=== PATIENT | male | born 1945 | race Two or more races ===

== ENCOUNTER 2017-04-21 11:38 | Inpatient (IN) | payer MEDICARE, OTHER ==
[2017-04-21] MEDS ORDERED: SODIUM CHLORIDE 0.9% 1,000 ML IV STA ×5 (11:41→14:20)
[2017-04-21] MEDS ORDERED: NALOXONE 0.4 MG/ML 10 ML VIAL IVP STA (11:48)
[2017-04-21 11:54] LABS: Glucose,Whole Blood 211 mg/dL (75-99)
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
[2017-04-21 12:12] LABS: CH 34.6; CHCM 31.5; HCT 45.6 % (39.0-53.0); HDW 2.23; HGB 14.3 gm/dL (13.0-17.5); MCH 34.5 pg (25.0-35.0); MCHC 31.3 g/dL (31.0-37.0); MCV 110.4 fL (80.0-100.0); Macrocytosis Marked; Mean Platelet Volume 7.5; RBC 4.13 m/uL (4.30-5.90); RDW 13.8 % (11.5-15.5); WBC 11.9 k/uL (3.8-10.6); WBC (Perox) 12.65
[2017-04-21 12:15] LABS: Calcium 7.2 mg/dL (8.4-10.2); Total Bilirubin 0.8 mg/dL (0.2-1.3)
[2017-04-21 12:33] LABS: Potassium 7.7 mmol/L (3.5-5.1)
[2017-04-21 12:34] LABS: Phosphorous 11.9 mg/dL (2.5-4.5)
[2017-04-21] MEDS ORDERED: CALCIUM CHLORIDE 100 MG/ML 10 ML SYRINGE IVP STA (12:34)
[2017-04-21] MEDS ORDERED: INSULIN REGULAR 100 UNIT/ML VIAL IV ONE ×3 (12:34→22:41)
[2017-04-21] MEDS ORDERED: DEXTROSE 50%-WATER 50 ML SYRINGE IVP STA ×3 (12:35→22:41)
[2017-04-21] MEDS ORDERED: DEXTROSE 5%-0.45% NACL 1,000 ML IV ONE (12:36)
[2017-04-21] MEDS ORDERED: SODIUM CHLORIDE 0.9% 500 ML IV STA (12:36)
[2017-04-21 12:41] LABS: Add Differential Manual Differential; Manual Review Performed
[2017-04-21] MEDS ORDERED: SODIUM ACETATE 50 MEQ in WATER FOR INJECTION, STERILE 250 ML IV ONE (12:45)
[2017-04-21] MEDS ORDERED: RX INFO: IV CONTRAST WAS GIVEN 1 EACH MISC MISCELLANE PRN ×2 (12:45→13:02)
--- NOTE | 2017-04-21 12:54 | CT ---
EXAMINATION TYPE: CT brain wo con DATE OF EXAM: 04/21/2017 COMPARISON: NONE HISTORY: Altered mental status CT DLP: 2606 mGycm Automated exposure control for dose reduction was used. FINDINGS: Exam limited by motion artifact Mild generalized degenerative change. No acute hemorrhage or midline shift. No mass effect. Calvarium intact. Could not exclude a hyperdense artery sign within the basilar tip IMPRESSION: NO ACUTE HEMORRHAGE. Could not exclude a hyperdense artery sign within the tip of the basilar artery and possible acute thrombus. Recommend MRI and clinical correlation.
[2017-04-21 13:01] LABS: Creatine Kinase MB 3.9 ng/mL (0.0-2.4); Troponin I 0.207 ng/mL (0.000-0.034)
[2017-04-21 13:03] LABS: INR 1.7 (<1.1); Prothrombin Time 16.7 sec (9.0-12.0)
--- NOTE | 2017-04-21 13:11 | XR ---
EXAMINATION TYPE: XR chest 1V portable DATE OF EXAM: 04/21/2017 COMPARISON: Chest CT May 17, 2016 HISTORY: Chest pain TECHNIQUE: Single AP portable frontal semiupright view of the chest is obtained. FINDINGS: Exam suboptimal secondary to portable technique and patient's large body habitus. There is persistent cardiomegaly. There is chronic parenchymal change without suspicious new focal airspace o pacity, pleural effusion, or pneumothorax seen. Elevated right hemidiaphragm is noted. There is left basilar scarring. The visualized osseous structures are intact. IMPRESSION: Cardiomegaly and chronic parenchymal changes with persistent left basilar scarring and/o r atelectasis, no new infiltrate is seen.
[2017-04-21] MEDS ORDERED: DILTIAZEM 5 MG/ML 5 ML VIAL IVP STA (13:16)
[2017-04-21 13:18] LABS: Alcohol <10 mg/dL
[2017-04-21] MEDS ORDERED: IPRATROPIUM-ALBUTEROL 3 ML NEB INHALATION STA (13:21)
[2017-04-21 14:05] LABS: ABG Base Excess -7.5 mmol/L; ABG HCO3 18 mmol/L (21-25); ABG PCO2 41 mmHg (35-45); ABG PH 7.26 (7.35-7.45); ABG PO2 163 mmHg (83-108); ABG TCO2 20 mmol/L (19-24)
[2017-04-21 14:06] LABS: INR 1.8 (<1.1); Partial Thromboplastin Time 27.7 sec (22.0-30.0); Prothrombin Time 17.5 sec (9.0-12.0)
[2017-04-21 14:10] LABS: ALT 94 U/L (21-72); AST 155 U/L (17-59); Acetaminophen <10.0 ug/mL; Alkaline Phosphatase 116 U/L (38-126); Anion Gap 16 mmol/L; Blood Urea Nitrogen 33 mg/dL (9-20); Calcium 7.4 mg/dL (8.4-10.2); Carbon Dioxide 24 mmol/L (22-30); Chloride 97 mmol/L (98-107); Glucose 131 mg/dL (74-99); Non-African American GFR(MDRD) 16 (>60 ml/min/1.73 sqM); Salicylate <1.0 mg/dL; Sodium 137 mmol/L (137-145); Total Bilirubin 0.6 mg/dL (0.2-1.3); Total Protein 7.1 g/dL (6.3-8.2)
[2017-04-21 14:12] LABS: Amorphous Sediment,Urine Rare /hpf; Appearance,Urine Cloudy (Clear); Bilirubin,Urine Negative (Negative); Glucose,Urine (UA) Negative (Negative); Ketones,Urine Negative (Negative); Leukocyte Esterase,Urine Negative (Negative); Mucus,Urine Rare /hpf; Nitrite,Urine Negative (Negative); PH, Urine 5.5 (5.0-8.0); Particle Count 7995; Protein,Urine Trace (Negative); RBC,Urine <1 /hpf (0-5); Specific Gravity,Urine 1.008 (1.001-1.035); UA Billing (MACRO vs. MICRO) MICRO; Urobilinogen,Urine <2.0 mg/dL (<2.0); WBC,Urine 1 /hpf (0-5)
[2017-04-21 14:18] LABS: Potassium 7.5 mmol/L (3.5-5.1)
[2017-04-21] MEDS ORDERED: PIPERACILLIN-TAZOBACTAM 3.375 GM in DEXTROSE/WATER 1 50ML.BAG IVPB STA (14:20)
[2017-04-21] MEDS ORDERED: methylPREDNISolone SOD SUCCI 125 MG/2 ML VIAL IV STA (14:23)
[2017-04-21] MEDS ORDERED: CALCIUM GLUCONATE 1,000 MG in SODIUM CHLORIDE 0.9% 100 ML IVPB ONE ×2 (14:30→22:41)
[2017-04-21 14:32] LABS: Creatine Kinase MB 4.9 ng/mL (0.0-2.4)
[2017-04-21 14:34] LABS: Troponin I 0.289 ng/mL (0.000-0.034)
[2017-04-21] MEDS ORDERED: NITROGLYCERIN SL TABS 0.4 MG TAB SUBLINGUAL PRN (15:07)
[2017-04-21] MEDS ORDERED: NALOXONE 0.4 MG/ML 1 ML VIAL IV PRN (15:07)
[2017-04-21] MEDS ORDERED: DEXTROSE 5%-0.9% NACL 1,000 ML IV SCH (15:15)
[2017-04-21 15:45] LABS: Glucose,Whole Blood 69 mg/dL (75-99)
--- NOTE | 2017-04-21 15:53 | CT ---
EXAMINATION TYPE: CT abdomen pelvis wo con DATE OF EXAM: 04/21/2017 COMPARISON: Ultrasound kidneys 06/06/2016 HISTORY: Abnormal renal labwork. CT DLP: 2934.10 mGycm Automated exposure control for dose reduction was used. TECHNIQUE: Helical acquisition of images was performed from the lung bases through the pelvis. FINDINGS: Exam limited due to overlying artifact. LUNG BASES: Heart is enlarged and there is bibasilar subsegmental atelectasis or infiltrate with tiny right effusion. LIVER/GB: Liver appears reduced in attenuation suggestive of fatty infiltration. Previous gallbladder surgery noted.. PANCREAS: No significant abnormality is seen. SPLEEN: No significant abnormality is seen. ADRENALS: No significant abnormality is seen. KIDNEYS: Echodensity within the right kidney is indeterminate by noncontrast technique.. FREE AIR: No free air is visualized URINARY BLADDER: No Henao catheter is seen in the bladder. ADENOPATHY: None visualized. OSSEOUS STRUCTURES: No significant abnormality is seen. BOWEL: Diverticulosis of the colon without evidence of diverticulitis. The stomach is distended. OTHE R: IMPRESSION: 1. No hydronephrosis or nephrolithiasis. Indeterminate right renal lesion by noncontrast CT scan. Has been reported to represent simple cysts by previous ultrasound 2016. 2. Gastric distention. May been the basis of gastroparesis rather than gastric outlet obstruction. Co rrelate clinically. 3. Bibasilar atelectasis or infiltrate with tiny effusions.
[2017-04-21 16:06] LABS: Glucose,Whole Blood 151 mg/dL (75-99)
[2017-04-21 16:26] LABS: Glucose,Whole Blood 127 mg/dL (75-99)
[2017-04-21] MEDS: SODIUM CHLORIDE 0.9% 1,000 ML IV SCH (16:30)
[2017-04-21 19:47] LABS: Calcium 7.9 mg/dL (8.4-10.2); Potassium 4.6 mmol/L (3.5-5.1)
[2017-04-21] MEDS: IPRATROPIUM-ALBUTEROL 3 ML NEB INHALATION SCH (19:59)
[2017-04-21] MEDS: methylPREDNISolone SOD SUCCI 125 MG/2 ML VIAL IV SCH (20:15)
[2017-04-21 20:21] LABS: Glucose,Whole Blood 130 mg/dL (75-99)
[2017-04-21] MEDS: INSULIN LISPRO (humaLOG) 300 UNIT/3 ML VIAL SQ SCH (20:21)
[2017-04-21] MEDS ORDERED: PROPOFOL 10 MG/ML 20 ML VIAL IV ONE (21:10)
[2017-04-21] MEDS ORDERED: PHENYLEPHRINE-0.9% NACL SYG 1 MG/10 ML SYRINGE ONE (21:10)
[2017-04-21] MEDS ORDERED: PROPOFOL 50 ML IV ONE (21:13)
[2017-04-21] MEDS: NOREPINEPHRIN 4 MG-0.9% NS PMX 4 MG/250 ML ML IV SCH (21:45)
[2017-04-21 21:52] LABS: Calcium 7.4 mg/dL (8.4-10.2)
[2017-04-21 21:54] LABS: Potassium 7.1 mmol/L (3.5-5.1)
[2017-04-21 22:07] LABS: Troponin I 0.461 ng/mL (0.000-0.034)
--- NOTE | 2017-04-21 22:08 | XR ---
EXAMINATION TYPE: XR chest 1V portable DATE OF EXAM: 04/21/2017 COMPARISON: Today HISTORY: Check placement of tubing TECHNIQUE: Single frontal view of the chest is obtained. FINDINGS: Endotracheal tube is in good position. There is a nasogastric tube that appears in good po sition. Heart appears enlarged. There are chest leads. IMPRESSION: Tubing appears in good position. No heart failure. Cardiomegaly.
[2017-04-21] MEDS: PROPOFOL 500 MG in EMPTY BAG 1 BAG IV SCH (22:28)
[2017-04-21] MEDS: LACTULOSE 20 GM/30 ML CUP PO SCH ×2 (22:30→23:34)
[2017-04-21] MEDS ORDERED: SODIUM POLYSTYRENE SULFONATE 15 GM/60 ML BOTTLE PO STA (22:41)
[2017-04-21] MEDS ORDERED: ALBUTEROL NEBULIZED 2.5 MG/3 ML INHALATION STA (22:41)
[2017-04-21 23:28] LABS: ABG PH 7.12 (7.35-7.45)
[2017-04-21 23:29] LABS: ABG Base Excess -4.6 mmol/L; ABG HCO3 24 mmol/L (21-25); ABG PCO2 77 mmHg (35-45); ABG PO2 211 mmHg (83-108); ABG TCO2 26 mmol/L (19-24)
[2017-04-21] MEDS ORDERED: DEXTROSE 10 % IN WATER 250 ML IV STA (23:49)
[2017-04-21 23:54] LABS: Glucose,Whole Blood 193 mg/dL (75-99)
[2017-04-22] MEDS: INSULIN LISPRO (humaLOG) 300 UNIT/3 ML VIAL SQ SCH ×6 (00:10→20:24)
[2017-04-22] MEDS: methylPREDNISolone SOD SUCCI 125 MG/2 ML VIAL IV SCH ×2 (00:10→05:59)
[2017-04-22] MEDS: SODIUM CHLORIDE 0.9% 1,000 ML IV SCH (00:14)
[2017-04-22] MEDS: PROPOFOL 500 MG in EMPTY BAG 1 BAG IV SCH ×15 (00:47→23:33)
[2017-04-22 02:12] LABS: Calcium 7.7 mg/dL (8.4-10.2); Potassium 5.7 mmol/L (3.5-5.1)
[2017-04-22] MEDS: NOREPINEPHRIN 4 MG-0.9% NS PMX 4 MG/250 ML ML IV SCH (02:45)
[2017-04-22 03:26] LABS: Hemoglobin A1C 6.1 % (4.2-6.1)
[2017-04-22 04:17] LABS: Glucose,Whole Blood 200 mg/dL (75-99)
[2017-04-22 04:56] LABS: ABG Base Excess -2.7 mmol/L; ABG HCO3 22 mmol/L (21-25); ABG PCO2 38 mmHg (35-45); ABG PH 7.37 (7.35-7.45); ABG PO2 73 mmHg (83-108); ABG TCO2 23 mmol/L (19-24)
[2017-04-22 06:06] LABS: Calcium 7.9 mg/dL (8.4-10.2); Magnesium 1.5 mg/dL (1.6-2.3); Phosphorous 3.3 mg/dL (2.5-4.5); Potassium 4.7 mmol/L (3.5-5.1); Total Bilirubin 0.7 mg/dL (0.2-1.3); Total Protein 5.8 g/dL (6.3-8.2)
[2017-04-22 06:14] LABS: Basophils % (A) 0 %; CH 34.9; Eosinophils % (A) 0 %; HCT 40.4 % (39.0-53.0); HDW 2.44; HGB 13.7 gm/dL (13.0-17.5); Luc % (Auto) 1; Lymphocytes # (A) 0.6 k/uL (1.0-4.8); Lymphocytes % (A) 5 %; MCHC 33.9 g/dL (31.0-37.0); MCV 106.3 fL (80.0-100.0); Macrocytosis Moderate; Mean Platelet Volume 7.5; Monocytes # (A) 0.5 k/uL (0-1.0); Monocytes % (A) 4 %; Neutrophils # (A) 11.3 k/uL (1.3-7.7); Neutrophils % (A) 90 %; RDW 13.6 % (11.5-15.5); WBC 12.5 k/uL (3.8-10.6); WBC (Perox) 12.98
--- NOTE | 2017-04-22 07:14 | XR ---
EXAMINATION TYPE: XR chest 1V portable DATE OF EXAM: 04/22/2017 HISTORY: Tube placement. REFERENCE: Previous study dated 04/21/2017. FINDINGS: The patient is ET tube and NG tube remain in place, unchanged in appearance and position. The heart is enlarged. There is vascular congestion without summer edema. There is minimal blunting of both CP angles. I could not exclude small effusions. IMPRESSION: 1. CARDIOMEGALY. 2. VASCULAR CONGESTION. 3. I COULD NOT EXCLUDE VERY SMALL, BILATERAL EFFUSIONS.
[2017-04-22] MEDS: IPRATROPIUM-ALBUTEROL 3 ML NEB INHALATION SCH ×5 (07:30→23:19)
[2017-04-22 08:37] LABS: Glucose,Whole Blood 217 mg/dL (75-99)
[2017-04-22] MEDS: CHLORHEXIDINE GLUCONATE 15 ML CUP MUCOUS MEM SCH ×2 (08:46→20:24)
[2017-04-22] MEDS: PANTOPRAZOLE 40 MG/10 ML VIAL IV SCH (08:46)
[2017-04-22] MEDS: NICOTINE 21MG/24HR PATCH TRANSDERM SCH (08:46)
[2017-04-22 09:26] LABS: Mis test requested (Blood) Toxic Alcohols
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
[2017-04-22 09:47] LABS: Hepatitis B Surface Ag Index 0.05
[2017-04-22 09:53] LABS: Hepatitis B Core IgM Index 0.06
[2017-04-22 10:04] LABS: Hepatitis C Virus IgG Ab Reactive (Negative)
--- NOTE | 2017-04-22 10:14 | ECHOF ---
Referral Reason:elevTrop MEASUREMENTS -------- HEIGHT: 175.3 cm WEIGHT: 148.3 kg BP: 145/81 RVIDd: 3.4 cm (< 3.3) IVSd: 1.2 cm (0.6 - 1.1) LVIDd: 3.7 cm (3.9 - 5.3) LVPWd: 1.1 cm (0.6 - 1.1) IVSs: 1.9 cm LVIDs: 2.9 cm LVPWs: 1.8 cm Ao Diam: 3.4 cm (2.0 - 3.7) AV Cusp: 2.1 cm (1.5 - 2.6) LA Diam: 4.9 cm (2.7 - 3.8) RAP: 5.00 mmHg RVSP: 36.61 mmHg FINDINGS -------- Atrial fibrillation. This was a technically difficult study with suboptimal views. There is mild concentric left ventricular hypertrophy. Overall left ventricular systolic function is normal with, an EF between 55 - 60 %. The right ventricle is mildly enlarged. The left atrium is mildly dilated. The right atrium was not well visualized. 1.5mg of Definity was utilized for enhancement of images Aortic valve is trileaflet and is mildly thickened. There is trace mitral regurgitation. Mild tricuspid regurgitation present. The right ventricular systolic pressure, as measured by Doppler, is 36.61mmHg. The pulmonic valve was not well visualized. The aortic root size is normal. The pericardium is normal. CONCLUSIONS -------- 1. Atrial fibrillation. 2. There is trace mitral regurgitation. 3. Mild tricuspid regurgitation present. 4. The right ventricular systolic pressure, as measured by Doppler, is 36.61mmHg. 5. The pulmonic valve was not well visualized. 6. The aortic root size is normal. 7. The pericardium is normal. 8. This was a technically difficult study with suboptimal views. 9. There is mild concentric left ventricular hypertrophy. 10. Overall left ventricular systolic function is normal with, an EF between 55 - 60 %. 11. The right ventricle is mildly enlarged. 12. The left atrium is mildly dilated. 13. The right atrium was not well visualized. 14. 1.5mg of Definity was utilized for enhancement of images 15. Aortic valve is trileaflet and is mildly thickened. FELT PAD CUTTER: Piper Stratton RDCS
[2017-04-22] MEDS: ASPIRIN 325 MG TAB PO SCH (10:33)
[2017-04-22] MEDS: PIPERACILLIN-TAZOBACTAM 3.375 GM in DEXTROSE/WATER 1 50ML.BAG IVPB SCH ×2 (10:41→21:19)
--- NOTE | 2017-04-22 11:17 | CT ---
EXAMINATION TYPE: CT brain wo con DATE OF EXAM: 04/22/2017 COMPARISON: Previous study dated 04/21/2017. HISTORY: F/U study CT DLP: 1090.4 mGycm Automated exposure control for dose reduction was used. FINDINGS: There are generalized changes of sulcal prominence and ventriculomegaly, compatible with atrophic arlene nge. There is diffuse periventricular white matter lucency, compatible with small vessel ischemic arlene nge. Basilar artery appears normal on today's examination. There is no mass effect, midline shift or intracranial blood. There is mild mucoperiosteal thickening involving the ethmoid air cells anteriorly. The remainder the paranasal sinuses and mastoids are clear. IMPRESSION: 1. NO ACUTE INTRACRANIAL ABNORMALITY. 2. NO EVIDENCE OF THROMBUS WITHIN THE BASILAR ARTERY. THIS COULD BE CONFIRMED WITH AN MRA OF THE CIRC LE OF GAMINO. 3. ATROPHIC CHANGE. 4. CHRONIC WHITE MATTER ISCHEMIC CHANGE. 5. MINIMAL, MUCOPERIOSTEAL THICKENING INVOLVING THE ANTERIOR ETHMOID AIR CELLS BILATERALLY.
[2017-04-22 12:33] LABS: Glucose,Whole Blood 219 mg/dL (75-99)
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
[2017-04-22 16:16] LABS: Glucose,Whole Blood 205 mg/dL (75-99)
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
[2017-04-22 20:09] LABS: Glucose,Whole Blood 200 mg/dL (75-99)
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
[2017-04-22] MEDS: LACTULOSE 20 GM/30 ML CUP PO SCH (20:24)
[2017-04-22] MEDS: SODIUM BICARBONATE TAB 650 MG TAB PO SCH (20:25)
[2017-04-22 21:32] LABS: Magnesium 1.4 mg/dL (1.6-2.3); Potassium 3.8 mmol/L (3.5-5.1)
[2017-04-22] MEDS: POTASSIUM CHLORIDE ORAL LIQUID 40 MEQ/30 ML CUP PO SCH (23:11)
[2017-04-22] MEDS: MAGNESIUM SULFATE-D5W PMX 1 GM in DEXTROSE/WATER 1 100ML.BAG IVPB SCH (23:11)
[2017-04-23] MEDS ORDERED: INSULIN REGULAR BOLUS (FROM DRIP BAG) IV ONE (00:43)
[2017-04-23] MEDS: MAGNESIUM SULFATE-D5W PMX 1 GM in DEXTROSE/WATER 1 100ML.BAG IVPB SCH (00:46)
[2017-04-23] MEDS: POTASSIUM CHLORIDE ORAL LIQUID 40 MEQ/30 ML CUP PO SCH (00:46)
[2017-04-23] MEDS: PROPOFOL 500 MG in EMPTY BAG 1 BAG IV SCH ×16 (00:47→22:59)
[2017-04-23 00:51] LABS: Glucose,Whole Blood 258 mg/dL (75-99)
[2017-04-23] MEDS: SODIUM CHLORIDE 0.9% 1,000 ML IV SCH ×4 (00:53→17:52)
[2017-04-23] MEDS: HYDROmorphone 1 MG/ML 1 ML SYRINGE IVP PRN (01:38)
[2017-04-23] MEDS ORDERED: DILTIAZEM 5 MG/ML 5 ML VIAL IVP STA (01:47)
[2017-04-23 01:53] LABS: Glucose,Whole Blood 259 mg/dL (75-99)
[2017-04-23] MEDS: INSULIN REGULAR 100 UNIT in SODIUM CHLORIDE 0.9% 100 ML IV SCH ×3 (01:58→17:53)
[2017-04-23] MEDS: DILTIAZEM 125 MG in SODIUM CHLORIDE 0.9% 100 ML IV SCH ×2 (02:00→17:52)
[2017-04-23 02:41] LABS: Glucose,Whole Blood 231 mg/dL (75-99)
[2017-04-23] MEDS: IPRATROPIUM-ALBUTEROL 3 ML NEB INHALATION SCH ×6 (03:35→23:17)
[2017-04-23 03:51] LABS: Glucose,Whole Blood 217 mg/dL (75-99)
[2017-04-23 04:59] LABS: ABG HCO3 21 mmol/L (21-25); ABG PCO2 35 mmHg (35-45); ABG PO2 66 mmHg (83-108); ABG TCO2 22 mmol/L (19-24)
[2017-04-23 05:26] LABS: Basophils % (A) 0 %; CH 35.3; Eosinophils # (A) 0.1 k/uL (0-0.7); Eosinophils % (A) 1 %; HCT 37.7 % (39.0-53.0); HDW 2.31; HGB 13.1 gm/dL (13.0-17.5); Luc % (Auto) 1; Lymphocytes # (A) 0.3 k/uL (1.0-4.8); Lymphocytes % (A) 2 %; MCH 36.2 pg (25.0-35.0); MCHC 34.7 g/dL (31.0-37.0); MCV 104.3 fL (80.0-100.0); Macrocytosis Slight; Mean Platelet Volume 7.5; Monocytes # (A) 0.6 k/uL (0-1.0); Monocytes % (A) 5 %; Neutrophils # (A) 12.3 k/uL (1.3-7.7); Neutrophils % (A) 92 %; RBC 3.61 m/uL (4.30-5.90); RDW 13.9 % (11.5-15.5); WBC 13.4 k/uL (3.8-10.6); WBC (Perox) 13.62
[2017-04-23 05:29] LABS: Glucose,Whole Blood 214 mg/dL (75-99)
[2017-04-23 05:35] LABS: Calcium 7.2 mg/dL (8.4-10.2); Magnesium 1.9 mg/dL (1.6-2.3); Phosphorous 2.7 mg/dL (2.5-4.5); Potassium 4.4 mmol/L (3.5-5.1)
[2017-04-23 06:18] LABS: Glucose,Whole Blood 204 mg/dL (75-99)
[2017-04-23 07:15] LABS: Glucose,Whole Blood 220 mg/dL (75-99)
--- NOTE | 2017-04-23 07:57 | XR ---
EXAMINATION TYPE: XR chest 1V portable DATE OF EXAM: 04/23/2017 HISTORY: Tube placement. REFERENCE: Previous study dated 04/22/2017. FINDINGS: The patient is ET tube and NG tube remain in place, unchanged in appearance. The heart is enlarged. There is mild vascular congestion. There is some peribronchial cuffing. There is left basilar airspace disease. This has worsened. There is a small left effusion. IMPRESSION: WORSENING LEFT BASILAR AIRSPACE DISEASE WITH A CONCOMITANT EFFUSION.
[2017-04-23 08:05] LABS: Glucose,Whole Blood 228 mg/dL (75-99)
[2017-04-23] MEDS: SODIUM BICARBONATE TAB 650 MG TAB PO SCH ×2 (08:06→20:56)
[2017-04-23] MEDS: PIPERACILLIN-TAZOBACTAM 3.375 GM in DEXTROSE/WATER 1 50ML.BAG IVPB SCH ×2 (08:06→20:56)
[2017-04-23] MEDS: PANTOPRAZOLE 40 MG/10 ML VIAL IV SCH (08:06)
[2017-04-23] MEDS: ASPIRIN 325 MG TAB PO SCH (08:06)
[2017-04-23] MEDS: NICOTINE 21MG/24HR PATCH TRANSDERM SCH (08:07)
[2017-04-23] MEDS: CHLORHEXIDINE GLUCONATE 15 ML CUP MUCOUS MEM SCH ×2 (08:07→20:56)
[2017-04-23] MEDS: LACTULOSE 20 GM/30 ML CUP PO SCH ×2 (08:22→22:01)
[2017-04-23 09:25] LABS: Hemoglobin A1C 6.2 % (4.2-6.1)
[2017-04-23 09:33] LABS: Glucose,Whole Blood 203 mg/dL (75-99)
--- NOTE | 2017-04-23 09:53 | P.PN ---
Subjective Principal diagnosis: Altered mental status This is a 71-year-old gentleman who follows with Dr. Fuentes as his primary care physician. He has a history of hyperlipidemia, chronic obstructive pulmonary disease with chronic and ongoing tobacco dependence, diabetes mellitus , hypertension, atrial fibrillation, chronic liver disease. He presented here on 04/21/2017 with altered mental status. The patient developed acute respiratory failure and required intubation mechanical ventilatory support. He is seen again today in follow-up in the intensive care unit. He remains on the ventilator assist control 30 tidal volume 450 FiO2 60% and a PEEP of 5. Morning blood gases reveal a pO2 of 66, pCO2 34, pH 7.4. He said atrial fibrillation with a rapid ventricular response. He remains on a Cardizem drip at 7.5 mg per hour, norepinephrine at 1 mcg/m. Propofol at 70 mcg/kg/m. 0.9 normal saline at 100 mL per hour. Insulin drip at 8 units per hour. He is receiving a trickle tube feed of Vital HP at 10 mL per hour with a goal of 44. His chest x-ray reveals bilateral effusions with atelectasis/infiltrates the lung bases. He remains on Zosyn. He did receive 1 emergent dialysis treatment for his acute renal failure and hyperkalemia. Today's labs reveal creatinine 2.30 and a potassium of 4.4. Bicarb 19. He is receiving sodium bicarbonate 650 mg by mouth twice a day. He is currently receiving a daily interruption of sedation. We are also going to check a random cortisol level. Blood cultures reveal no growth to date. Urine culture pending. Objective - Vital Signs Vital signs: Vital Signs Temp 98 F 04/23/17 08:00 Pulse 94 04/23/17 08:00 Resp 30 H 04/23/17 08:00 BP 99/58 04/23/17 08:00 Pulse Ox 95 04/23/17 08:00 Intake & Output 04/22/17 04/23/17 04/23/17 18:59 06:59 18:59 Intake Total 9679.325 3820.492 328.644 Output Total 1285 1005 165 Balance 584.947 0786.492 163.644 Weight 148.5 kg Intake: IV 1150.0 1402.5 215.0 Diltiazem 125 mg In 52.5 15.0 Sodium Chloride 0.9% 100 ml @ 7.5 MG/HR 7.5 mls/hr IV .[id number] [facility] Rx#: [id number] Magnesium Sulfate-D5w Pmx 200 1 gm In Dextrose/Water 1 100ml.bag @ 100 mls/hr IVPB Q1H DI Rx#: [id number] Piperacillin-Tazobactam 3 50.0 .375 gm In Dextrose/Water 1 50ml.bag @ 12.5 mls/hr IVPB ONCE [facility] Rx#: [id number] Piperacillin-Tazobactam 3 50 .375 gm In Dextrose/Water 1 50ml.bag @ 12.5 mls/hr IVPB Q12HR DI Rx#: [id number] Sodium Chloride 0.9% 1, 1100 1100 200 000 ml @ 100 mls/hr IV . Q10H DI Rx#:[id number] Intake, IV Titration 434.067 515.992 93.644 Amount Insulin Regular 100 unit 25.537 17.558 In Sodium Chloride 0.9% 100 ml @ Per Protocol IV .Q0M DI Rx#:[id number] Norepinephrin 4 mg-0.9% 49.125 57.812 Ns Pmx 4 mg In 250 ml @ Titrate IV .Q0M [facility] Rx#: [id number] Propofol 500 mg In Empty 384.942 432.643 76.086 Bag 1 bag @ Titrate IV . Q0M [facility] Rx#:[id number] Oral 220 Tube Feeding 50 20 Output: Urine 1285 1005 165 Other: Voiding Method Indwelling Catheter Indwelling Catheter Indwelling Catheter # Bowel Movements 1 ABP, PAP, CO, CI - Last Documented Arterial Blood Pressure 101/56 - Exam GENERAL EXAM: Sedated, intubated. HEAD: Normocephalic. EYES: Normal reaction of pupils, equal size. NOSE: Clear with pink turbinates. THROAT: Oral endotracheal and gastric tubes are secured in place. NECK: No masses, no JVD. CHEST: No chest wall deformity. LUNGS: Equal air entry with crackles in the posterior bases.. CVS: S1 and S2 normal with no audible murmurs, irregular rhythm. ABDOMEN: No hepatosplenomegaly, bowel sounds, no guarding or rigidity. Extremities: There is trace peripheral edema. No clubbing, no cyanosis. Peripheral pulses are intact. - Labs CBC & Chem 7: 04/23/17 05:15 04/23/17 05:15 Labs: Abnormal Lab Results - Last 24 Hours (Table) 04/22/17 04/22/17 04/22/17 Range/Units 05:28 12:31 16:15 WBC (3.8-10.6) k/uL RBC (4.30-5.90) m/uL Hct (39.0-53.0) % MCV (80.0-100.0) fL MCH (25.0-35.0) pg Plt Count (150-450) k/uL Neutrophils # (1.3-7.7) k/uL Lymphocytes # (1.0-4.8) k/uL ABG pO2 (83-108) mmHg ABG O2 Saturation (94-97) % Carbon Dioxide (22-30) mmol/L BUN (9-20) mg/dL Creatinine (0.66-1.25) mg/dL Glucose (74-99) mg/dL POC Glucose (mg/dL) 219 H 205 H (75-99) mg/dL Hemoglobin A1c 6.2 H (4.2-6.1) % Calcium (8.4-10.2) mg/dL Magnesium (1.6-2.3) mg/dL 04/22/17 04/22/17 04/23/17 Range/Units 20:00 20:07 00:42 WBC (3.8-10.6) k/uL RBC (4.30-5.90) m/uL Hct (39.0-53.0) % MCV (80.0-100.0) fL MCH (25.0-35.0) pg Plt Count (150-450) k/uL Neutrophils # (1.3-7.7) k/uL Lymphocytes # (1.0-4.8) k/uL ABG pO2 (83-108) mmHg ABG O2 Saturation (94-97) % Carbon Dioxide (22-30) mmol/L BUN (9-20) mg/dL Creatinine (0.66-1.25) mg/dL Glucose (74-99) mg/dL POC Glucose (mg/dL) 200 H 258 H (75-99) mg/dL Hemoglobin A1c (4.2-6.1) % Calcium (8.4-10.2) mg/dL Magnesium 1.4 L (1.6-2.3) mg/dL 04/23/17 04/23/17 04/23/17 Range/Units 01:50 02:39 03:47 WBC (3.8-10.6) k/uL RBC (4.30-5.90) m/uL Hct (39.0-53.0) % MCV (80.0-100.0) fL MCH (25.0-35.0) pg Plt Count (150-450) k/uL Neutrophils # (1.3-7.7) k/uL Lymphocytes # (1.0-4.8) k/uL ABG pO2 (83-108) mmHg ABG O2 Saturation (94-97) % Carbon Dioxide (22-30) mmol/L BUN (9-20) mg/dL Creatinine (0.66-1.25) mg/dL Glucose (74-99) mg/dL POC Glucose (mg/dL) 259 H 231 H 217 H (75-99) mg/dL Hemoglobin A1c (4.2-6.1) % Calcium (8.4-10.2) mg/dL Magnesium (1.6-2.3) mg/dL 04/23/17 04/23/17 04/23/17 Range/Units 04:50 05:14 05:15 WBC (3.8-10.6) k/uL RBC (4.30-5.90) m/uL Hct (39.0-53.0) % MCV (80.0-100.0) fL MCH (25.0-35.0) pg Plt Count (150-450) k/uL Neutrophils # (1.3-7.7) k/uL Lymphocytes # (1.0-4.8) k/uL ABG pO2 66 L (83-108) mmHg ABG O2 Saturation 93.0 L (94-97) % Carbon Dioxide 19 L (22-30) mmol/L BUN 31 H (9-20) mg/dL Creatinine 2.30 H (0.66-1.25) mg/dL Glucose 226 H (74-99) mg/dL POC Glucose (mg/dL) 214 H (75-99) mg/dL Hemoglobin A1c (4.2-6.1) % Calcium 7.2 L (8.4-10.2) mg/dL Magnesium (1.6-2.3) mg/dL 04/23/17 04/23/17 04/23/17 Range/Units 05:15 06:16 07:14 WBC 13.4 H (3.8-10.6) k/uL RBC 3.61 L (4.30-5.90) m/uL Hct 37.7 L (39.0-53.0) % MCV 104.3 H (80.0-100.0) fL MCH 36.2 H (25.0-35.0) pg Plt Count 126 L (150-450) k/uL Neutrophils # 12.3 H (1.3-7.7) k/uL Lymphocytes # 0.3 L (1.0-4.8) k/uL ABG pO2 (83-108) mmHg ABG O2 Saturation (94-97) % Carbon Dioxide (22-30) mmol/L BUN (9-20) mg/dL Creatinine (0.66-1.25) mg/dL Glucose (74-99) mg/dL POC Glucose (mg/dL) 204 H 220 H (75-99) mg/dL Hemoglobin A1c (4.2-6.1) % Calcium (8.4-10.2) mg/dL Magnesium (1.6-2.3) mg/dL 04/23/17 04/23/17 Range/Units 08:03 09:13 WBC (3.8-10.6) k/uL RBC (4.30-5.90) m/uL Hct (39.0-53.0) % MCV (80.0-100.0) fL MCH (25.0-35.0) pg Plt Count (150-450) k/uL Neutrophils # (1.3-7.7) k/uL Lymphocytes # (1.0-4.8) k/uL ABG pO2 (83-108) mmHg ABG O2 Saturation (94-97) % Carbon Dioxide (22-30) mmol/L BUN (9-20) mg/dL Creatinine (0.66-1.25) mg/dL Glucose (74-99) mg/dL POC Glucose (mg/dL) 228 H 203 H (75-99) mg/dL Hemoglobin A1c (4.2-6.1) % Calcium (8.4-10.2) mg/dL Magnesium (1.6-2.3) mg/dL Microbiology - Last 24 Hours (Table) 04/21/17 23:50 Gram Stain - Preliminary Sputum Sputum Culture - Preliminary 04/22/17 11:16 Urine Culture - Preliminary Urine,Catheterized 04/21/17 12:50 Blood Culture - Preliminary Blood No Growth after 24 hours Assessment and Plan Plan: Impression: #1 Acute hypoxic respiratory failure secondary to suspected diastolic congestive heart failure, worsening left pleural effusion and infiltrate with possible pneumonia. Sputum culture pending. #2 Non-anion gap metabolic acidosis secondary to acute renal failure. #3 Altered mental status of unclear etiology. #4 History of atrial fibrillation. #5 Chronic obstructive pulmonary disease. #6 Chronic and ongoing tobacco dependence. #7 Diabetes mellitus. #8 Hyperlipidemia. #9 Hypertension. #10 Hepatitis C. #11 Previous history of substance abuse including cocaine, heroin and methamphetamine. #12 Acute renal failure requiring urgent hemodialysis. Current creatinine 2.30. #13 Profound hyperkalemia, corrected. Current potassium 4.4. Plan: The patient was seen and evaluated by Dr. Mcmillan. Her chest x-ray, labs and ABGs were reviewed. We'll continue with bronchodilators. Continue with IV Zosyn. We will continue to give the patient daily interruption as sedation. The plan is for another computed tomography scan of the brain today. We'll continue with his current vent settings. We'll repeat the chest x-ray and ABGs in the a.m. We'll attempt to wean off the norepinephrine. We'll obtain a random cortisol level. Neurology and nephrology on the case as well. We will continue to follow and make further recommendations based on his clinical status. Critical care time 38 minutes. Time with Patient: Greater than 30
[2017-04-23 09:59] LABS: Glucose,Whole Blood 195 mg/dL (75-99)
--- NOTE | 2017-04-23 11:12 | P.PN ---
Subjective Patient is seen in follow-up for acute kidney injury. His baseline creatinine is near 1 and was 3.69 on admission. He was also hyperkalemic and oliguric. He underwent 1 treatment of hemodialysis on April 21. Today, creatinine is down to 2.3 and he is nonoliguric. He is currently intubated and sedated. He is still requiring low-dose levofed. He just returned from a CT of the brain. Vital signs are stable. General: The patient appeared well nourished and normally developed. Intubated. HEENT: Head exam is unremarkable. Neck is without jugular venous distension. LUNGS: Rhonchi at bases. Breath sounds decreased. HEART: Rate and Rhythm are regular. First and second heart sounds normal. No murmurs, rubs or gallops. ABDOMEN: Abdominal exam reveals normal bowel sounds. Non-tender and non- distended. No evidence of peritonitis. EXTREMITITES: No clubbing, cyanosis, or edema. Objective - Vital Signs Vital signs: Vital Signs Temp 98 F 04/23/17 08:00 Pulse 82 04/23/17 09:00 Resp 30 H 04/23/17 09:00 BP 92/53 04/23/17 09:00 Pulse Ox 95 04/23/17 09:00 Intake & Output 04/22/17 04/23/17 04/23/17 18:59 06:59 18:59 Intake Total 3508.021 5894.492 700.091 Output Total 1285 1005 336 Balance 546.351 9892.492 364.091 Weight 148.5 kg Intake: IV 1150.0 1402.5 455.0 Diltiazem 125 mg In 52.5 30.0 Sodium Chloride 0.9% 100 ml @ 7.5 MG/HR 7.5 mls/hr IV .[id number] [facility] Rx#: [id number] Magnesium Sulfate-D5w Pmx 200 1 gm In Dextrose/Water 1 100ml.bag @ 100 mls/hr IVPB Q1H [facility] Rx#: [id number] Piperacillin-Tazobactam 3 50.0 .375 gm In Dextrose/Water 1 50ml.bag @ 12.5 mls/hr IVPB ONCE [facility] Rx#: [id number] Piperacillin-Tazobactam 3 50 25.0 .375 gm In Dextrose/Water 1 50ml.bag @ 12.5 mls/hr IVPB Q12HR DI Rx#: [id number] Sodium Chloride 0.9% 1, 1100 1100 400 000 ml @ 100 mls/hr IV . Q10H [facility] Rx#:[id number] Intake, IV Titration 434.067 515.992 155.091 Amount Insulin Regular 100 unit 25.537 29.005 In Sodium Chloride 0.9% 100 ml @ Per Protocol IV .Q0M [facility] Rx#:[id number] Norepinephrin 4 mg-0.9% 49.125 57.812 Ns Pmx 4 mg In 250 ml @ Titrate IV .Q0M [facility] Rx#: [id number] Propofol 500 mg In Empty 384.942 432.643 126.086 Bag 1 bag @ Titrate IV . Q0M [facility] Rx#:[id number] Oral 220 Tube Feeding 50 60 Other 30 Output: Urine 1285 1005 336 Other: Voiding Method Indwelling Catheter Indwelling Catheter Indwelling Catheter # Bowel Movements 1 ABP, PAP, CO, CI - Last Documented Arterial Blood Pressure 101/58 - Labs CBC & Chem 7: 04/23/17 05:15 04/23/17 05:15 Labs: Abnormal Lab Results - Last 24 Hours (Table) 04/22/17 04/22/17 04/22/17 Range/Units 05:28 12:31 16:15 WBC (3.8-10.6) k/uL RBC (4.30-5.90) m/uL Hct (39.0-53.0) % MCV (80.0-100.0) fL MCH (25.0-35.0) pg Plt Count (150-450) k/uL Neutrophils # (1.3-7.7) k/uL Lymphocytes # (1.0-4.8) k/uL ABG pO2 (83-108) mmHg ABG O2 Saturation (94-97) % Carbon Dioxide (22-30) mmol/L BUN (9-20) mg/dL Creatinine (0.66-1.25) mg/dL Glucose (74-99) mg/dL POC Glucose (mg/dL) 219 H 205 H (75-99) mg/dL Hemoglobin A1c 6.2 H (4.2-6.1) % Calcium (8.4-10.2) mg/dL Magnesium (1.6-2.3) mg/dL 04/22/17 04/22/17 04/23/17 Range/Units 20:00 20:07 00:42 WBC (3.8-10.6) k/uL RBC (4.30-5.90) m/uL Hct (39.0-53.0) % MCV (80.0-100.0) fL MCH (25.0-35.0) pg Plt Count (150-450) k/uL Neutrophils # (1.3-7.7) k/uL Lymphocytes # (1.0-4.8) k/uL ABG pO2 (83-108) mmHg ABG O2 Saturation (94-97) % Carbon Dioxide (22-30) mmol/L BUN (9-20) mg/dL Creatinine (0.66-1.25) mg/dL Glucose (74-99) mg/dL POC Glucose (mg/dL) 200 H 258 H (75-99) mg/dL Hemoglobin A1c (4.2-6.1) % Calcium (8.4-10.2) mg/dL Magnesium 1.4 L (1.6-2.3) mg/dL 04/23/17 04/23/17 04/23/17 Range/Units 01:50 02:39 03:47 WBC (3.8-10.6) k/uL RBC (4.30-5.90) m/uL Hct (39.0-53.0) % MCV (80.0-100.0) fL MCH (25.0-35.0) pg Plt Count (150-450) k/uL Neutrophils # (1.3-7.7) k/uL Lymphocytes # (1.0-4.8) k/uL ABG pO2 (83-108) mmHg ABG O2 Saturation (94-97) % Carbon Dioxide (22-30) mmol/L BUN (9-20) mg/dL Creatinine (0.66-1.25) mg/dL Glucose (74-99) mg/dL POC Glucose (mg/dL) 259 H 231 H 217 H (75-99) mg/dL Hemoglobin A1c (4.2-6.1) % Calcium (8.4-10.2) mg/dL Magnesium (1.6-2.3) mg/dL 04/23/17 04/23/17 04/23/17 Range/Units 04:50 05:14 05:15 WBC (3.8-10.6) k/uL RBC (4.30-5.90) m/uL Hct (39.0-53.0) % MCV (80.0-100.0) fL MCH (25.0-35.0) pg Plt Count (150-450) k/uL Neutrophils # (1.3-7.7) k/uL Lymphocytes # (1.0-4.8) k/uL ABG pO2 66 L (83-108) mmHg ABG O2 Saturation 93.0 L (94-97) % Carbon Dioxide 19 L (22-30) mmol/L BUN 31 H (9-20) mg/dL Creatinine 2.30 H (0.66-1.25) mg/dL Glucose 226 H (74-99) mg/dL POC Glucose (mg/dL) 214 H (75-99) mg/dL Hemoglobin A1c (4.2-6.1) % Calcium 7.2 L (8.4-10.2) mg/dL Magnesium (1.6-2.3) mg/dL 04/23/17 04/23/17 04/23/17 Range/Units 05:15 06:16 07:14 WBC 13.4 H (3.8-10.6) k/uL RBC 3.61 L (4.30-5.90) m/uL Hct 37.7 L (39.0-53.0) % MCV 104.3 H (80.0-100.0) fL MCH 36.2 H (25.0-35.0) pg Plt Count 126 L (150-450) k/uL Neutrophils # 12.3 H (1.3-7.7) k/uL Lymphocytes # 0.3 L (1.0-4.8) k/uL ABG pO2 (83-108) mmHg ABG O2 Saturation (94-97) % Carbon Dioxide (22-30) mmol/L BUN (9-20) mg/dL Creatinine (0.66-1.25) mg/dL Glucose (74-99) mg/dL POC Glucose (mg/dL) 204 H 220 H (75-99) mg/dL Hemoglobin A1c (4.2-6.1) % Calcium (8.4-10.2) mg/dL Magnesium (1.6-2.3) mg/dL 04/23/17 04/23/17 04/23/17 Range/Units 08:03 09:13 09:58 WBC (3.8-10.6) k/uL RBC (4.30-5.90) m/uL Hct (39.0-53.0) % MCV (80.0-100.0) fL MCH (25.0-35.0) pg Plt Count (150-450) k/uL Neutrophils # (1.3-7.7) k/uL Lymphocytes # (1.0-4.8) k/uL ABG pO2 (83-108) mmHg ABG O2 Saturation (94-97) % Carbon Dioxide (22-30) mmol/L BUN (9-20) mg/dL Creatinine (0.66-1.25) mg/dL Glucose (74-99) mg/dL POC Glucose (mg/dL) 228 H 203 H 195 H (75-99) mg/dL Hemoglobin A1c (4.2-6.1) % Calcium (8.4-10.2) mg/dL Magnesium (1.6-2.3) mg/dL Microbiology - Last 24 Hours (Table) 04/21/17 23:50 Gram Stain - Preliminary Sputum Sputum Culture - Preliminary 04/22/17 11:16 Urine Culture - Preliminary Urine,Catheterized 04/21/17 12:50 Blood Culture - Preliminary Blood No Growth after 24 hours Assessment and Plan Plan: Assessment: #1. Nonoliguric acute kidney injury mostly prerenal in nature secondary to hemodynamic instability and use of angiotensin receptor lowell. Creatinine was at 3.7 this admission and was down to 1.96 after dialysis. It's 2.3 this morning. Urinalysis is quite benign. No evidence of hydronephrosis noted on CT of the abdomen and pelvis. #2. Hyperkalemia secondary to acute kidney injury and metabolic acidosis further worsened with the use of valsartan. Status post 1 treatment of hemodialysis on April 21. Potassium level 4.4 this morning. #3. Metabolic acidosis secondary to acute kidney injury and IV fluids. Plan: Continue normal saline to be run at 100 mL an hour. Maintain oral sodium bicarbonate 650 mg twice daily. Avoid nephrotoxic agents and hypotensive episodes. Wean FiO2. No need for renal replacement therapy at this time. Continue to monitor renal function and urine output.
--- NOTE | 2017-04-23 11:26 | CT ---
EXAMINATION TYPE: CT brain wo con DATE OF EXAM: 04/23/2017 HISTORY: Renal failure and encephalopathy. Admitted for altered mental status [address] DLP: 1067 mGycm. Automated Exposure Control for Dose Reduction was Utilized. TECHNIQUE: CT scan of the head is performed without contrast. COMPARISON: CT brain from yesterday and 2 days ago FINDINGS: There is no acute intracranial hemorrhage or midline shift identified. There is diffuse v entricular and sulcal prominence consistent with diffuse age-related cerebral atrophy. There is low- attenuation in the periventricular white matter consistent with chronic small vessel ischemic change. Tip of basilar artery appears unremarkable on current study. The globes are intact and the visualize d sinuses are clear. IMPRESSION: No acute intracranial hemorrhage or midline shift. There is mild to moderate diffuse ag e-related cerebral atrophy and chronic small vessel ischemic change redemonstrated. No significant pa renchymal change from last 2 CTs.
[2017-04-23 11:33] LABS: Glucose,Whole Blood 176 mg/dL (75-99)
[2017-04-23] MEDS ORDERED: HEPARIN SODIUM,PORCINE 5,000 UNIT/ML 1 ML VIAL IV ONE (12:00)
[2017-04-23 12:12] LABS: Glucose,Whole Blood 176 mg/dL (75-99)
--- NOTE | 2017-04-23 13:33 | CONS ---
DATE OF CONSULTATION: Mr. Mathur is a 71-year-old male with known history of chronic tobacco use who presented with change in mental status, was unresponsive found by his . He had evidence of respiratory failure, was intubated. He is in the ICU. Cardiology consultation was requested because of atrial fibrillation. The patient was noted to have severe renal failure on presentation and requiring dialysis. In the past, he had no prior history of kidney disease. He has chronic atrial fibrillation, has prior history of alcoholism, but according to the notes he stopped over a year ago. He is on low dose norepinephrine as well IV Cardizem. His ventricular response is under control at this time. He is having spontaneous urine output and has been stable in that regard. Past medical history is obtained from the records consistent with COPD, diabetes, atrial fibrillation, hypertension, history of chronic liver disease. Review of systems could not be obtained. His medications as an outpatient included insulin, valsartan 320 mg daily, simvastatin 40 mg daily, Xarelto 20 mg daily, metoprolol tartrate 50 mg 3 times a day. Review of systems is not obtainable. PHYSICAL EXAMINATION: He is a 71-year-old male, intubated, sedated. Blood pressure 104/50 with the heart in the 80s. HEAD: Normocephalic. EYES: Sclerae anicteric. NECK: No bruit. LUNGS: Clear to auscultation anteriorly. HEART: Irregular, irregular. S1, S2, no S3, no rub. ABDOMEN: Soft, positive bowel sounds, obese. EXTREMITIES: With trace to 1+ edema. Lab data revealed on admission a potassium 7.7 with a BUN and creatinine 32 and 3.69. He is down to 2.3 today. His potassium is 4.4. His troponin is 0.2, 0.28, 0.461. Hemoglobin of 14.3 on admission 13.1 today. His pH this morning is 7.4. His chest x-ray revealed worsening left basilar airspace disease with effusion. His EKG reveals atrial fibrillation with no evidence of ST segment changes. IMPRESSION: 1. Acute renal failure, started on dialysis. The patient having good urine output at this time. 2. Chronic atrial fibrillation. 3. Change in mental status of unclear etiology. 4. Probable pneumonia. 5. Prior history of alcoholism. 6. History of diabetes. 7. Hyperlipidemia. 8. Hypertension. RECOMMENDATIONS: His echocardiogram was performed and revealed a preserved left ventricular size and systolic function. There was no significant valvular disease and his PA pressure was not elevated. From the cardiac standpoint, I will continue on the IV Cardizem. The patient will need to be anticoagulated because of the atrial fibrillation. If agreeable with neurology, then I will start him on IV heparin and I am hopeful that we can start to wean him and extubate him in the next 24 to 48 hours then we can resume Xarelto. I do not see any evidence suggesting acute ischemic event as the etiology of his presentation, Thank you for this consult. We will follow with you.
[2017-04-23] MEDS: HEPARIN SODIUM,PORCINE/D5W PMX 25,000 UNIT in DEXTROSE/WATER 1 500ML.BAG IV SCH (14:10)
--- NOTE | 2017-04-23 14:26 | CONS ---
DATE OF CONSULTATION: This is a 71-year-old gentleman who has acute kidney injury. The patient has hyperkalemia 7.7. I was consulted for urgent dialysis catheter placement. The patient has been intubated in the Intensive Care Unit. MEDICAL HISTORY: Atrial fibrillation, COPD, diabetes mellitus, hyperlipidemia, hypertension, liver disease, pneumonia. PERSONAL HISTORY: Former smoker. The patient was seen in the Intensive Care Unit. The patient is on vent. His chest has rhonchi bilateral. ABDOMEN: Protuberant. Femorals are 1+. Patient has bilateral leg edema. The patient he is on Eliquis because of emergency situation. The patient has some EKG changes due to the high potassium. We will place a dialysis catheter in the groin. ( ) discussed.
[2017-04-23 14:39] LABS: Glucose,Whole Blood 182 mg/dL (75-99)
[2017-04-23 15:20] LABS: Glucose,Whole Blood 196 mg/dL (75-99)
[2017-04-23 16:12] LABS: Glucose,Whole Blood 234 mg/dL (75-99)
--- NOTE | 2017-04-23 16:49 | P.PN ---
Subjective Principal diagnosis: altered mental status, diabetic ketoacidosis, atrial fibrillation, chronic liver disease, tobacco dependence, history of alcoholism. this individual remains on the ventilator, assist control 30 title volume 450 FiO2 60% and a PEEP of 5. Morning blood gas revealed pO2 66 pCO2 34 pH of 7.4. Patient is currently in A. fib with rapid ventricular response. He remains on a Cardizem drip at 7.5 mg per hour, norepinephrine at 1 mcg/m. Propofol at 70 mics per kilogram per minute 0.9 normal saline at 100 mils per hour. Insulin drip at 8 units per hour. Patient is also receiving trickle tube feed of vital HP@10 MLS per hourwith a goal of 44. Chest x-ray suggests bilateral effusions with atelectasis. She remains on Zosyn. He did receive 1 emergent dialysis treatment for acute renal failure and hyperkalemia. Blood cultures reveal no growth to date, urine culture pending Objective - Vital Signs Vital signs: Vital Signs Temp 98.1 F 04/23/17 16:00 Pulse 79 04/23/17 16:00 Resp 30 H 04/23/17 16:00 BP 109/69 04/23/17 16:00 Pulse Ox 96 04/23/17 16:00 Intake & Output 04/22/17 04/23/17 04/23/17 18:59 06:59 18:59 Intake Total 9135.497 8419.492 1422.591 Output Total 1285 1005 886 Balance 600.279 6427.492 536.591 Weight 148.5 kg 153.1 kg Intake: IV 1150.0 1402.5 1007.5 Diltiazem 125 mg In 52.5 57.5 Sodium Chloride 0.9% 100 ml @ 7.5 MG/HR 7.5 mls/hr IV .[id number] DI Rx#: [id number] Magnesium Sulfate-D5w Pmx 200 1 gm In Dextrose/Water 1 100ml.bag @ 100 mls/hr IVPB Q1H DI Rx#: [id number] Piperacillin-Tazobactam 3 50.0 .375 gm In Dextrose/Water 1 50ml.bag @ 12.5 mls/hr IVPB ONCE STA Rx#: [id number] Piperacillin-Tazobactam 3 50 50.0 .375 gm In Dextrose/Water 1 50ml.bag @ 12.5 mls/hr IVPB Q12HR DI Rx#: [id number] Sodium Chloride 0.9% 1, 1100 1100 900 000 ml @ 100 mls/hr IV . Q10H DI Rx#:[id number] Intake, IV Titration 434.067 515.992 205.091 Amount Insulin Regular 100 unit 25.537 29.005 In Sodium Chloride 0.9% 100 ml @ Per Protocol IV .Q0M DI Rx#:[id number] Norepinephrin 4 mg-0.9% 49.125 57.812 Ns Pmx 4 mg In 250 ml @ Titrate IV .Q0M DI Rx#: [id number] Propofol 500 mg In Empty 384.942 432.643 176.086 Bag 1 bag @ Titrate IV . Q0M DI Rx#:[id number] Oral 220 Tube Feeding 50 180 Other 30 Output: Urine 1285 1005 886 Other: Voiding Method Indwelling Catheter Indwelling Catheter Indwelling Catheter # Bowel Movements 1 ABP, PAP, CO, CI - Last Documented Arterial Blood Pressure 89/49 - Exam General: is currently on vent and sedated HEENT: [PERRL. EOMI. No pharyngeal erythema or exudate.] Neck: [No adenopathy.] Cardiac: [Heart regular in rate and rhythm. No S3. No S4. No clicks, rubs. No murmur.] Lungs: [Clear to auscultation bilaterally.] Abdomen: [No mass. No organomegaly. Bowel sounds presnt and normoactive in all 4 quadrants.] Extremes: [No edema no cyanosis no claudication normal pulses] : [] Musculoskeletal: [No joint erythema, edema or tenderness.] Skin: [No rash.] Neurologic: [No lateralizing deficits. CN II - XII grossly intact.] Lymphatic: [No adenopathy.] - Labs CBC & Chem 7: 04/23/17 05:15 04/23/17 05:15 Labs: Abnormal Lab Results - Last 24 Hours (Table) 04/22/17 04/22/17 04/22/17 Range/Units 05:28 20:00 20:07 WBC (3.8-10.6) k/uL RBC (4.30-5.90) m/uL Hct (39.0-53.0) % MCV (80.0-100.0) fL MCH (25.0-35.0) pg Plt Count (150-450) k/uL Neutrophils # (1.3-7.7) k/uL Lymphocytes # (1.0-4.8) k/uL ABG pO2 (83-108) mmHg ABG O2 Saturation (94-97) % Carbon Dioxide (22-30) mmol/L BUN (9-20) mg/dL Creatinine (0.66-1.25) mg/dL Glucose (74-99) mg/dL POC Glucose (mg/dL) 200 H (75-99) mg/dL Hemoglobin A1c 6.2 H (4.2-6.1) % Calcium (8.4-10.2) mg/dL Magnesium 1.4 L (1.6-2.3) mg/dL 04/23/17 04/23/17 04/23/17 Range/Units 00:42 01:50 02:39 WBC (3.8-10.6) k/uL RBC (4.30-5.90) m/uL Hct (39.0-53.0) % MCV (80.0-100.0) fL MCH (25.0-35.0) pg Plt Count (150-450) k/uL Neutrophils # (1.3-7.7) k/uL Lymphocytes # (1.0-4.8) k/uL ABG pO2 (83-108) mmHg ABG O2 Saturation (94-97) % Carbon Dioxide (22-30) mmol/L BUN (9-20) mg/dL Creatinine (0.66-1.25) mg/dL Glucose (74-99) mg/dL POC Glucose (mg/dL) 258 H 259 H 231 H (75-99) mg/dL Hemoglobin A1c (4.2-6.1) % Calcium (8.4-10.2) mg/dL Magnesium (1.6-2.3) mg/dL 04/23/17 04/23/17 04/23/17 Range/Units 03:47 04:50 05:14 WBC (3.8-10.6) k/uL RBC (4.30-5.90) m/uL Hct (39.0-53.0) % MCV (80.0-100.0) fL MCH (25.0-35.0) pg Plt Count (150-450) k/uL Neutrophils # (1.3-7.7) k/uL Lymphocytes # (1.0-4.8) k/uL ABG pO2 66 L (83-108) mmHg ABG O2 Saturation 93.0 L (94-97) % Carbon Dioxide (22-30) mmol/L BUN (9-20) mg/dL Creatinine (0.66-1.25) mg/dL Glucose (74-99) mg/dL POC Glucose (mg/dL) 217 H 214 H (75-99) mg/dL Hemoglobin A1c (4.2-6.1) % Calcium (8.4-10.2) mg/dL Magnesium (1.6-2.3) mg/dL 04/23/17 04/23/17 04/23/17 Range/Units 05:15 05:15 06:16 WBC 13.4 H (3.8-10.6) k/uL RBC 3.61 L (4.30-5.90) m/uL Hct 37.7 L (39.0-53.0) % MCV 104.3 H (80.0-100.0) fL MCH 36.2 H (25.0-35.0) pg Plt Count 126 L (150-450) k/uL Neutrophils # 12.3 H (1.3-7.7) k/uL Lymphocytes # 0.3 L (1.0-4.8) k/uL ABG pO2 (83-108) mmHg ABG O2 Saturation (94-97) % Carbon Dioxide 19 L (22-30) mmol/L BUN 31 H (9-20) mg/dL Creatinine 2.30 H (0.66-1.25) mg/dL Glucose 226 H (74-99) mg/dL POC Glucose (mg/dL) 204 H (75-99) mg/dL Hemoglobin A1c (4.2-6.1) % Calcium 7.2 L (8.4-10.2) mg/dL Magnesium (1.6-2.3) mg/dL 04/23/17 04/23/17 04/23/17 Range/Units 07:14 08:03 09:13 WBC (3.8-10.6) k/uL RBC (4.30-5.90) m/uL Hct (39.0-53.0) % MCV (80.0-100.0) fL MCH (25.0-35.0) pg Plt Count (150-450) k/uL Neutrophils # (1.3-7.7) k/uL Lymphocytes # (1.0-4.8) k/uL ABG pO2 (83-108) mmHg ABG O2 Saturation (94-97) % Carbon Dioxide (22-30) mmol/L BUN (9-20) mg/dL Creatinine (0.66-1.25) mg/dL Glucose (74-99) mg/dL POC Glucose (mg/dL) 220 H 228 H 203 H (75-99) mg/dL Hemoglobin A1c (4.2-6.1) % Calcium (8.4-10.2) mg/dL Magnesium (1.6-2.3) mg/dL 04/23/17 04/23/17 04/23/17 Range/Units 09:58 11:23 12:10 WBC (3.8-10.6) k/uL RBC (4.30-5.90) m/uL Hct (39.0-53.0) % MCV (80.0-100.0) fL MCH (25.0-35.0) pg Plt Count (150-450) k/uL Neutrophils # (1.3-7.7) k/uL Lymphocytes # (1.0-4.8) k/uL ABG pO2 (83-108) mmHg ABG O2 Saturation (94-97) % Carbon Dioxide (22-30) mmol/L BUN (9-20) mg/dL Creatinine (0.66-1.25) mg/dL Glucose (74-99) mg/dL POC Glucose (mg/dL) 195 H 176 H 176 H (75-99) mg/dL Hemoglobin A1c (4.2-6.1) % Calcium (8.4-10.2) mg/dL Magnesium (1.6-2.3) mg/dL 04/23/17 04/23/17 04/23/17 Range/Units 14:36 15:18 16:10 WBC (3.8-10.6) k/uL RBC (4.30-5.90) m/uL Hct (39.0-53.0) % MCV (80.0-100.0) fL MCH (25.0-35.0) pg Plt Count (150-450) k/uL Neutrophils # (1.3-7.7) k/uL Lymphocytes # (1.0-4.8) k/uL ABG pO2 (83-108) mmHg ABG O2 Saturation (94-97) % Carbon Dioxide (22-30) mmol/L BUN (9-20) mg/dL Creatinine (0.66-1.25) mg/dL Glucose (74-99) mg/dL POC Glucose (mg/dL) 182 H 196 H 234 H (75-99) mg/dL Hemoglobin A1c (4.2-6.1) % Calcium (8.4-10.2) mg/dL Magnesium (1.6-2.3) mg/dL Microbiology - Last 24 Hours (Table) 04/21/17 12:50 Blood Culture - Preliminary Blood No Growth after 48 hours 04/22/17 11:16 Urine Culture - Final Urine,Catheterized 04/21/17 23:50 Gram Stain - Preliminary Sputum Sputum Culture - Preliminary Assessment and Plan (1) Acute renal failure Narrative/Plan: Oliguric acute kidney injury mostly renal in nature secondary to hemodynamic instability and use of angiotensin receptor lowell. Impingement creatinine was as high as 3.7 this admission down to 1.96 after dialysis 2.8 this morning urinalysis is quite benign no evidence of hydronephrosis on CT of the abdomen and pelvis #2 hyperkalemia is secondary to acute renal injury and metabolic acidosis further worsened with the use of valsartan. Is one treatment of hemodialysis on April 21 potassium level at this time was 7.7 #3 metabolic acidosis secondary to acute renal injury #4 history of alcoholism Plan; Continue normal saline Start sodium bicarb 2. tube feeds were initiated yesterday Avoid nephrotoxic agents and hypotensive episodes We'll wean vent continue to monitor renal function and urinary output Status: Acute Time with Patient: Greater than 30
[2017-04-23 17:11] LABS: Glucose,Whole Blood 224 mg/dL (75-99)
[2017-04-23 19:38] LABS: Glucose,Whole Blood 170 mg/dL (75-99)
--- NOTE | 2017-04-23 20:04 | P.PN ---
Subjective This patient is a 71-year-old male who was seen in neurology consultation yesterday for altered mental status and unresponsive state. Patient remains intubated on the ventilator today. He was sent for a repeat computed tomography scan of the brain today which was reviewed. CAT scan is negative for any evidence of acute stroke or hemorrhage. No change from previous 2 CT scans of the brain. Specifically there was no evidence of basilar artery thrombosis. No evidence of acute stroke or hemorrhage was detected on the scan today. Patient remains on the ventilator. He is on a Diprivan drip. He does have a history of atrial fibrillation and was seen by cardiology. He was started on IV heparin protocol this morning as per cardiology's recommendation given his atrial fibrillation. Patient is currently on 55 mics of Diprivan. He remains heavily sedated. Apparently when sedation was cut back he did seem to open his eyes according to the ICU nurse today. He doesn't respond minimally to sternal rub likely secondary to his IV sedation. The patient underwent routine EEG today which was reviewed. The EEG reveals significant slowing consistent with a diffuse encephalopathy. We have discussed this patient's neurological findings today in detail with his over the telephone. She was updated on all of his neurodiagnostic testing which included 3 CT scans of the brain. We reviewed his EEG result from today as well with the . His overall prognosis at this time remains very guarded. We have recommended to the that we will continue close neurological follow- up daily. We will need to see if he will be able to be weaned off the ventilator gradually over the next several days. His overall prognosis at this time however remains very guarded. is aware of his overall neurological status and condition at this time. We will continue close neurological follow- up of this patient in the ICU setting. Objective - Vital Signs Vital signs: Vital Signs Temp 98.1 F 04/23/17 16:00 Pulse 79 04/23/17 16:00 Resp 30 H 04/23/17 16:00 BP 109/69 04/23/17 16:00 Pulse Ox 96 04/23/17 16:00 Intake & Output 04/22/17 04/23/17 04/23/17 18:59 06:59 18:59 Intake Total 0659.703 8453.492 1665.523 Output Total 1285 1005 886 Balance 230.425 3830.492 779.523 Weight 148.5 kg 153.1 kg Intake: IV 1150.0 1402.5 1007.5 Diltiazem 125 mg In 52.5 57.5 Sodium Chloride 0.9% 100 ml @ 7.5 MG/HR 7.5 mls/hr IV .[id number] [facility] Rx#: [id number] Magnesium Sulfate-D5w Pmx 200 1 gm In Dextrose/Water 1 100ml.bag @ 100 mls/hr IVPB Q1H DI Rx#: [id number] Piperacillin-Tazobactam 3 50.0 .375 gm In Dextrose/Water 1 50ml.bag @ 12.5 mls/hr IVPB ONCE STA Rx#: [id number] Piperacillin-Tazobactam 3 50 50.0 .375 gm In Dextrose/Water 1 50ml.bag @ 12.5 mls/hr IVPB Q12HR DI Rx#: [id number] Sodium Chloride 0.9% 1, 1100 1100 900 000 ml @ 100 mls/hr IV . Q10H [facility] Rx#:[id number] Intake, IV Titration 434.067 515.992 448.023 Amount Diltiazem 125 mg In 119 Sodium Chloride 0.9% 100 ml @ 7.5 MG/HR 7.5 mls/hr IV .[id number] DI Rx#: [id number] Insulin Regular 100 unit 25.537 102.937 In Sodium Chloride 0.9% 100 ml @ Per Protocol IV .Q0M DI Rx#:[id number] Norepinephrin 4 mg-0.9% 49.125 57.812 Ns Pmx 4 mg In 250 ml @ Titrate IV .Q0M [facility] Rx#: [id number] Propofol 500 mg In Empty 384.942 432.643 226.086 Bag 1 bag @ Titrate IV . Q0M DI Rx#:[id number] Oral 220 Tube Feeding 50 180 Other 30 Output: Urine 1285 1005 886 Other: Voiding Method Indwelling Catheter Indwelling Catheter Indwelling Catheter # Bowel Movements 1 ABP, PAP, CO, CI - Last Documented Arterial Blood Pressure 89/49 - Exam Physical examination: PHYSICAL EXAMINATION: Patient is intubated on the ventilator and is on a Diprivan drip. He remains sedated and unresponsive. VITAL SIGNS: Blood pressure is [110/69]. Heart rate is [79]. Respiration is [30] . Temperature is [98.1.]. HEENT: Head is atraumatic, neck is supple, there were no carotid bruits. CHEST: Lungs are clear to auscultation and percussion. CARDIAC: S1, S2 normal rate and rhythm. There is no murmur. ABDOMEN: Soft and nontender. Bowel sounds are present. EXTREMITIES: There is no pedal edema. Peripheral pulses are present. Neurological examination: Patient remains intubated on the ventilator and is on a Diprivan drip. His neurological examination is limited at this time due to his sedation. Muscle tone is preserved in all 4 extremities. Deep tendon reflexes are 1+ and symmetric. Plantar responses flexor bilaterally. - Labs CBC & Chem 7: 04/23/17 05:15 04/23/17 05:15 Labs: Abnormal Lab Results - Last 24 Hours (Table) 04/22/17 04/22/17 04/22/17 Range/Units 05:28 20:00 20:07 WBC (3.8-10.6) k/uL RBC (4.30-5.90) m/uL Hct (39.0-53.0) % MCV (80.0-100.0) fL MCH (25.0-35.0) pg Plt Count (150-450) k/uL Neutrophils # (1.3-7.7) k/uL Lymphocytes # (1.0-4.8) k/uL ABG pO2 (83-108) mmHg ABG O2 Saturation (94-97) % Carbon Dioxide (22-30) mmol/L BUN (9-20) mg/dL Creatinine (0.66-1.25) mg/dL Glucose (74-99) mg/dL POC Glucose (mg/dL) 200 H (75-99) mg/dL Hemoglobin A1c 6.2 H (4.2-6.1) % Calcium (8.4-10.2) mg/dL Magnesium 1.4 L (1.6-2.3) mg/dL 04/23/17 04/23/17 04/23/17 Range/Units 00:42 01:50 02:39 WBC (3.8-10.6) k/uL RBC (4.30-5.90) m/uL Hct (39.0-53.0) % MCV (80.0-100.0) fL MCH (25.0-35.0) pg Plt Count (150-450) k/uL Neutrophils # (1.3-7.7) k/uL Lymphocytes # (1.0-4.8) k/uL ABG pO2 (83-108) mmHg ABG O2 Saturation (94-97) % Carbon Dioxide (22-30) mmol/L BUN (9-20) mg/dL Creatinine (0.66-1.25) mg/dL Glucose (74-99) mg/dL POC Glucose (mg/dL) 258 H 259 H 231 H (75-99) mg/dL Hemoglobin A1c (4.2-6.1) % Calcium (8.4-10.2) mg/dL Magnesium (1.6-2.3) mg/dL 04/23/17 04/23/17 04/23/17 Range/Units 03:47 04:50 05:14 WBC (3.8-10.6) k/uL RBC (4.30-5.90) m/uL Hct (39.0-53.0) % MCV (80.0-100.0) fL MCH (25.0-35.0) pg Plt Count (150-450) k/uL Neutrophils # (1.3-7.7) k/uL Lymphocytes # (1.0-4.8) k/uL ABG pO2 66 L (83-108) mmHg ABG O2 Saturation 93.0 L (94-97) % Carbon Dioxide (22-30) mmol/L BUN (9-20) mg/dL Creatinine (0.66-1.25) mg/dL Glucose (74-99) mg/dL POC Glucose (mg/dL) 217 H 214 H (75-99) mg/dL Hemoglobin A1c (4.2-6.1) % Calcium (8.4-10.2) mg/dL Magnesium (1.6-2.3) mg/dL 04/23/17 04/23/17 04/23/17 Range/Units 05:15 05:15 06:16 WBC 13.4 H (3.8-10.6) k/uL RBC 3.61 L (4.30-5.90) m/uL Hct 37.7 L (39.0-53.0) % MCV 104.3 H (80.0-100.0) fL MCH 36.2 H (25.0-35.0) pg Plt Count 126 L (150-450) k/uL Neutrophils # 12.3 H (1.3-7.7) k/uL Lymphocytes # 0.3 L (1.0-4.8) k/uL ABG pO2 (83-108) mmHg ABG O2 Saturation (94-97) % Carbon Dioxide 19 L (22-30) mmol/L BUN 31 H (9-20) mg/dL Creatinine 2.30 H (0.66-1.25) mg/dL Glucose 226 H (74-99) mg/dL POC Glucose (mg/dL) 204 H (75-99) mg/dL Hemoglobin A1c (4.2-6.1) % Calcium 7.2 L (8.4-10.2) mg/dL Magnesium (1.6-2.3) mg/dL 04/23/17 04/23/17 04/23/17 Range/Units 07:14 08:03 09:13 WBC (3.8-10.6) k/uL RBC (4.30-5.90) m/uL Hct (39.0-53.0) % MCV (80.0-100.0) fL MCH (25.0-35.0) pg Plt Count (150-450) k/uL Neutrophils # (1.3-7.7) k/uL Lymphocytes # (1.0-4.8) k/uL ABG pO2 (83-108) mmHg ABG O2 Saturation (94-97) % Carbon Dioxide (22-30) mmol/L BUN (9-20) mg/dL Creatinine (0.66-1.25) mg/dL Glucose (74-99) mg/dL POC Glucose (mg/dL) 220 H 228 H 203 H (75-99) mg/dL Hemoglobin A1c (4.2-6.1) % Calcium (8.4-10.2) mg/dL Magnesium (1.6-2.3) mg/dL 04/23/17 04/23/17 04/23/17 Range/Units 09:58 11:23 12:10 WBC (3.8-10.6) k/uL RBC (4.30-5.90) m/uL Hct (39.0-53.0) % MCV (80.0-100.0) fL MCH (25.0-35.0) pg Plt Count (150-450) k/uL Neutrophils # (1.3-7.7) k/uL Lymphocytes # (1.0-4.8) k/uL ABG pO2 (83-108) mmHg ABG O2 Saturation (94-97) % Carbon Dioxide (22-30) mmol/L BUN (9-20) mg/dL Creatinine (0.66-1.25) mg/dL Glucose (74-99) mg/dL POC Glucose (mg/dL) 195 H 176 H 176 H (75-99) mg/dL Hemoglobin A1c (4.2-6.1) % Calcium (8.4-10.2) mg/dL Magnesium (1.6-2.3) mg/dL 04/23/17 04/23/17 04/23/17 Range/Units 14:36 15:18 16:10 WBC (3.8-10.6) k/uL RBC (4.30-5.90) m/uL Hct (39.0-53.0) % MCV (80.0-100.0) fL MCH (25.0-35.0) pg Plt Count (150-450) k/uL Neutrophils # (1.3-7.7) k/uL Lymphocytes # (1.0-4.8) k/uL ABG pO2 (83-108) mmHg ABG O2 Saturation (94-97) % Carbon Dioxide (22-30) mmol/L BUN (9-20) mg/dL Creatinine (0.66-1.25) mg/dL Glucose (74-99) mg/dL POC Glucose (mg/dL) 182 H 196 H 234 H (75-99) mg/dL Hemoglobin A1c (4.2-6.1) % Calcium (8.4-10.2) mg/dL Magnesium (1.6-2.3) mg/dL 04/23/17 Range/Units 17:08 WBC (3.8-10.6) k/uL RBC (4.30-5.90) m/uL Hct (39.0-53.0) % MCV (80.0-100.0) fL MCH (25.0-35.0) pg Plt Count (150-450) k/uL Neutrophils # (1.3-7.7) k/uL Lymphocytes # (1.0-4.8) k/uL ABG pO2 (83-108) mmHg ABG O2 Saturation (94-97) % Carbon Dioxide (22-30) mmol/L BUN (9-20) mg/dL Creatinine (0.66-1.25) mg/dL Glucose (74-99) mg/dL POC Glucose (mg/dL) 224 H (75-99) mg/dL Hemoglobin A1c (4.2-6.1) % Calcium (8.4-10.2) mg/dL Magnesium (1.6-2.3) mg/dL Microbiology - Last 24 Hours (Table) 04/21/17 12:50 Blood Culture - Preliminary Blood No Growth after 48 hours 04/22/17 11:16 Urine Culture - Final Urine,Catheterized 04/21/17 23:50 Gram Stain - Preliminary Sputum Sputum Culture - Preliminary Assessment and Plan (1) Acute encephalopathy Status: Acute Code(s): G93.40 - ENCEPHALOPATHY, UNSPECIFIED (2) Acute renal failure Status: Acute Code(s): N17.9 - ACUTE KIDNEY FAILURE, UNSPECIFIED (3) Atrial fibrillation Status: Acute Code(s): I48.91 - UNSPECIFIED ATRIAL FIBRILLATION (4) Hepatic encephalopathy Status: Acute Code(s): K72.90 - HEPATIC FAILURE, UNSPECIFIED WITHOUT COMA Plan: This patient is a 71-year-old male being followed in the intensive care unit for altered mental status and encephalopathy. Patient underwent repeat computed tomography scan of the brain today which failed to reveal any evidence of acute stroke or hemorrhage. There was no evidence of basilar artery thrombosis or early evidence of stroke. He underwent routine EEG today which is reviewed and does reveal significant slowing consistent with a diffuse encephalopathy. This patient's neurological status and exam results were discussed today with the patient's over the telephone. She was updated on all of the test results today in detail. She is aware of his very guarded condition. Patient was started on IV heparin protocol for further management of his chronic atrial fibrillation. Cardiology is following the patient closely for this condition. We will continue to follow with pulmonary medicine in terms of weaning parameters for this patient in reduction in his sedation. His overall prognosis however at this time remains very guarded. We will continue close neurological follow-up of this patient in the intensive care unit. will be updated in his condition over the next few days. His overall prognosis at this time remains very guarded.
[2017-04-23 20:27] LABS: Glucose,Whole Blood 175 mg/dL (75-99)
--- NOTE | 2017-04-23 20:30 | PCN ---
DATE OF PROCEDURE: PREOPERATIVE DIAGNOSIS: Acute on chronic renal failure with hyperkalemia with EKG changes. PROCEDURE: Placement of an urgent dialysis catheter, left femoral approach, ultrasound-guided. Patient was seen in the intensive care unit. Groin was prepped and draped in the usual sterile manner. Lidocaine 1% was infiltrated. Ultrasound-guided micropuncture was introduced into the left femoral vein. Micropuncture guidewire passed, then 4 [place] dilator was advanced on the top of the micropuncture guidewire. Then we passed the regular guidewire without any resistance. Dilator was advanced and 20 cm dialysis catheter was on top of the guidewire. Guidewires were removed, flushed with heparin saline and Hep-locked, secured with 3-0 nylon, dressing applied. Patient tolerated the procedure well.
[2017-04-23] MEDS: NOREPINEPHRIN 4 MG-0.9% NS PMX 4 MG/250 ML ML IV SCH (20:55)
[2017-04-23 21:11] LABS: Glucose,Whole Blood 172 mg/dL (75-99)
[2017-04-23 22:04] LABS: Glucose,Whole Blood 181 mg/dL (75-99)
[2017-04-23 23:07] LABS: Glucose,Whole Blood 162 mg/dL (75-99)
[2017-04-24] MEDS: INSULIN REGULAR 100 UNIT in SODIUM CHLORIDE 0.9% 100 ML IV SCH ×2 (00:10→18:56)
[2017-04-24 00:11] LABS: Glucose,Whole Blood 159 mg/dL (75-99)
[2017-04-24] MEDS: PROPOFOL 500 MG in EMPTY BAG 1 BAG IV SCH ×14 (00:18→23:37)
[2017-04-24 01:11] LABS: Glucose,Whole Blood 163 mg/dL (75-99)
[2017-04-24 02:15] LABS: Glucose,Whole Blood 173 mg/dL (75-99)
[2017-04-24] MEDS: IPRATROPIUM-ALBUTEROL 3 ML NEB INHALATION SCH ×6 (03:06→23:06)
[2017-04-24 03:24] LABS: Glucose,Whole Blood 193 mg/dL (75-99)
[2017-04-24] MEDS: SODIUM CHLORIDE 0.9% 1,000 ML IV SCH ×3 (03:26→22:42)
[2017-04-24 04:15] LABS: Glucose,Whole Blood 199 mg/dL (75-99)
[2017-04-24 05:08] LABS: ABG Base Excess -1.7 mmol/L; ABG HCO3 22 mmol/L (21-25); ABG PCO2 32 mmHg (35-45); ABG PH 7.45 (7.35-7.45); ABG PO2 66 mmHg (83-108); ABG TCO2 23 mmol/L (19-24)
[2017-04-24 05:24] LABS: Glucose,Whole Blood 185 mg/dL (75-99)
[2017-04-24] MEDS: HEPARIN SODIUM,PORCINE 5,000 UNIT/ML 1 ML VIAL IV PRN (05:55)
[2017-04-24 06:04] LABS: Basophils % (A) 0 %; CH 34.7; Eosinophils % (A) 0 %; HCT 34.4 % (39.0-53.0); HDW 2.33; Luc % (Auto) 2; Lymphocytes # (A) 0.5 k/uL (1.0-4.8); Lymphocytes % (A) 10 %; MCV 105.7 fL (80.0-100.0); Macrocytosis Moderate; Mean Platelet Volume 8.1; Monocytes # (A) 0.3 k/uL (0-1.0); Monocytes % (A) 7 %; Neutrophils # (A) 3.9 k/uL (1.3-7.7); Neutrophils % (A) 81 %; RBC 3.26 m/uL (4.30-5.90); RDW 14.3 % (11.5-15.5); WBC 4.8 k/uL (3.8-10.6)
[2017-04-24 06:05] LABS: Glucose,Whole Blood 169 mg/dL (75-99)
[2017-04-24 06:32] LABS: Calcium 6.7 mg/dL (8.4-10.2); Magnesium 1.7 mg/dL (1.6-2.3); Phosphorous 2.8 mg/dL (2.5-4.5); Potassium 3.9 mmol/L (3.5-5.1)
--- NOTE | 2017-04-24 06:47 | XR ---
EXAMINATION TYPE: XR chest 1V portable DATE OF EXAM: 04/24/2017 HISTORY: Tube placement. REFERENCE: Previous study dated 04/23/2017. FINDINGS: The patient is NG tube remains in place, unchanged in appearance. The heart is enlarged. Vascular congestion has improved. There is improved aeration of the left lung base. There continue to be small effusions. IMPRESSION: 1. CARDIOMEGALY. 2. IMPROVED AERATION, LEFT LUNG BASE. 3. SMALL, BILATERAL EFFUSIONS.
[2017-04-24 07:02] LABS: Glucose,Whole Blood 161 mg/dL (75-99)
[2017-04-24] MEDS: NICOTINE 21MG/24HR PATCH TRANSDERM SCH (07:50)
[2017-04-24] MEDS: PANTOPRAZOLE 40 MG/10 ML VIAL IV SCH (07:50)
[2017-04-24] MEDS: SODIUM BICARBONATE TAB 650 MG TAB PO SCH ×2 (07:51→22:44)
[2017-04-24] MEDS: CHLORHEXIDINE GLUCONATE 15 ML CUP MUCOUS MEM SCH ×2 (07:51→22:44)
[2017-04-24] MEDS: ASPIRIN 325 MG TAB PO SCH (07:51)
[2017-04-24] MEDS: LACTULOSE 20 GM/30 ML CUP PO SCH (07:52)
[2017-04-24] MEDS: PIPERACILLIN-TAZOBACTAM 3.375 GM in DEXTROSE/WATER 1 50ML.BAG IVPB SCH ×3 (07:55→23:40)
[2017-04-24 08:00] LABS: Glucose,Whole Blood 178 mg/dL (75-99)
[2017-04-24 08:56] LABS: Glucose,Whole Blood 197 mg/dL (75-99)
--- NOTE | 2017-04-24 09:38 | EEG ---
DATE OF SERVICE: 04/23/[address] Fuentes. INTERPRETING PHYSICIAN: Dr. Raad Garcia. INDICATIONS FOR EXAMINATION: This patient is a 71-year-old male currently intubated on the ventilator with respiratory failure. AGE: 71Y EEG FINDINGS: A routine 21-channel, awake digital EEG recording was accomplished utilizing the 10 to 20 international system with bipolar and referential montages. The background activity in the most alert resting state consists of a low to medium amplitude, poorly developed and poorly sustained 4 to 5 Hz activity over the posterior head region. This posterior rhythm attenuates minimally to stimulation. There is a small amount of low amplitude 18 to 20 Hz beta activity seen maximally over the anterior head regions. Muscle and movement artifact was observed on a few occasions during the tracing. Hyperventilation was not performed. Photic stimulation at flash frequencies of 2 to 30 Hz produced a minimal occipital driving response. No epileptiform discharges were seen. IMPRESSION: This EEG gives evidence of a severe widespread diffuse disturbance in cerebral function. The EEG failed to reveal any focal, lateralized or epileptiform abnormalities. If clinically indicated, a follow-up EEG is recommended. Clinical correlation is recommended.
[2017-04-24 10:12] LABS: Glucose,Whole Blood 179 mg/dL (75-99)
--- NOTE | 2017-04-24 11:02 | P.PN ---
Subjective Principal diagnosis: Altered mental status This is a 71-year-old gentleman who follows with Dr. Fuentes as his primary care physician. He has a history of hyperlipidemia, chronic obstructive pulmonary disease with chronic and ongoing tobacco dependence, diabetes mellitus , hypertension, atrial fibrillation, chronic liver disease. He presented here on 04/21/2017 with altered mental status. The patient developed acute respiratory failure and required intubation mechanical ventilatory support. He is seen again today in follow-up in the intensive care unit. He remains on the ventilator assist control 30 tidal volume 450 FiO2 60% and a PEEP of 5. Morning blood gases reveal a pO2 of 66, pCO2 34, pH 7.4. He said atrial fibrillation with a rapid ventricular response. He remains on a Cardizem drip at 7.5 mg per hour, norepinephrine at 1 mcg/m. Propofol at 70 mcg/kg/m. 0.9 normal saline at 100 mL per hour. Insulin drip at 8 units per hour. He is receiving a trickle tube feed of Vital HP at 10 mL per hour with a goal of 44. His chest x-ray reveals bilateral effusions with atelectasis/infiltrates the lung bases. He remains on Zosyn. He did receive 1 emergent dialysis treatment for his acute renal failure and hyperkalemia. Today's labs reveal creatinine 2.30 and a potassium of 4.4. Bicarb 19. He is receiving sodium bicarbonate 650 mg by mouth twice a day. He is currently receiving a daily interruption of sedation. We are also going to check a random cortisol level. Blood cultures reveal no growth to date. Urine culture pending. The patient is seen again today 04/24/2017 in follow-up in the intensive care unit. He remains to be elevated on mechanical ventilator current settings assist control 30, tidal volume 450, FiO2 60% and a PEEP of 5. Morning blood gases reveal a P O2 of 66, pCO2 of 30 and a pH of 7.45. He does remain sedated on to propofol 50 mcg/kg/m. He has a 0.9 normal saline at 100 MLS per hour. His Cardizem is currently on hold his atrial fibrillation is better controlled he has some episodes of bradycardia. Levophed has been weaned off. He remains on heparin drip and insulin drip at 9.5 units per hour. He is being fed via tube feedings Vital HP at 40 with a goal of 44 MLS per hour. He again was given a daily interruption of sedation. He is opening his eyes but not following any commands. He had significant coughing and significant secretions with tachycardia and tachypnea. Follow-up computed tomography scan revealed no acute intracranial process. His chest x-ray continues to show evidence of a left pleural effusion otherwise stable. He has been quite slow to progress. Objective - Vital Signs Vital signs: Vital Signs Temp 96 F L 04/24/17 08:00 Pulse 68 04/24/17 10:00 Resp 29 H 04/24/17 10:00 BP 88/56 04/24/17 10:00 Pulse Ox 95 04/24/17 10:00 Intake & Output 04/23/17 04/24/17 04/24/17 18:59 06:59 18:59 Intake Total 2135.523 2846.110 804.195 Output Total 1371 1500 400 Balance 381.938 5663.110 404.195 Weight 153.1 kg Intake: IV 1407.5 1418.5 495.3 [place] 21 12 Diltiazem 125 mg In 57.5 40 Sodium Chloride 0.9% 100 ml @ 7.5 MG/HR 7.5 mls/hr IV .[id number] DI Rx#: [id number] Heparin Sodium,Porcine/ 220 45.8 D5w Pmx 25,000 unit In Dextrose/Water 1 500ml. bag @ 6.7 UNITS/KG/HR 19. 89 mls/hr IV .Q24H DI Rx #:[id number] Piperacillin-Tazobactam 3 50.0 37.5 37.5 .375 gm In Dextrose/Water 1 50ml.bag @ 12.5 mls/hr IVPB Q12HR DI Rx#: [id number] Sodium Chloride 0.9% 1, 1300 1100 400 000 ml @ 100 mls/hr IV . Q10H DI Rx#:[id number] Intake, IV Titration 589.978 7375.610 118.895 Amount Diltiazem 125 mg In 119 77.875 Sodium Chloride 0.9% 100 ml @ 7.5 MG/HR 7.5 mls/hr IV .[id number] DI Rx#: [id number] Heparin Sodium,Porcine/ 312.605 96.002 D5w Pmx 25,000 unit In Dextrose/Water 1 500ml. bag @ 6.7 UNITS/KG/HR 19. 89 mls/hr IV .Q24H DI Rx #:[id number] Insulin Regular 100 unit 102.937 102.254 22.893 In Sodium Chloride 0.9% 100 ml @ Per Protocol IV .Q0M DI Rx#:[id number] Norepinephrin 4 mg-0.9% 81.188 Ns Pmx 4 mg In 250 ml @ Titrate IV .Q0M DI Rx#: [id number] Propofol 500 mg In Empty 276.086 453.688 Bag 1 bag @ Titrate IV . Q0M DI Rx#:[id number] Tube Feeding 200 280 190 Other 30 120 Output: Urine 1371 1500 400 Other: Voiding Method Indwelling Catheter Indwelling Catheter Indwelling Catheter ABP, PAP, CO, CI - Last Documented Arterial Blood Pressure 116/60 - Exam GENERAL EXAM: Sedated, intubated. HEAD: Normocephalic. EYES: Normal reaction of pupils, equal size. NOSE: Clear with pink turbinates. THROAT: Oral endotracheal and gastric tubes are secured in place. NECK: No masses, no JVD. CHEST: No chest wall deformity. LUNGS: Equal air entry with crackles in the posterior bases.. CVS: S1 and S2 normal with no audible murmurs, irregular rhythm. ABDOMEN: No hepatosplenomegaly, bowel sounds, no guarding or rigidity. Extremities: There is trace peripheral edema. No clubbing, no cyanosis. Peripheral pulses are intact. - Labs CBC & Chem 7: 04/24/17 05:24 04/24/17 05:24 Labs: Abnormal Lab Results - Last 24 Hours (Table) 04/23/17 04/23/17 04/23/17 Range/Units 11:23 12:10 14:36 RBC (4.30-5.90) m/uL Hgb (13.0-17.5) gm/dL Hct (39.0-53.0) % MCV (80.0-100.0) fL MCH (25.0-35.0) pg Plt Count (150-450) k/uL Lymphocytes # (1.0-4.8) k/uL APTT (22.0-30.0) sec ABG pCO2 (35-45) mmHg ABG pO2 (83-108) mmHg Chloride (98-107) mmol/L Carbon Dioxide (22-30) mmol/L BUN (9-20) mg/dL Creatinine (0.66-1.25) mg/dL Glucose (74-99) mg/dL POC Glucose (mg/dL) 176 H 176 H 182 H (75-99) mg/dL Calcium (8.4-10.2) mg/dL 04/23/17 04/23/17 04/23/17 Range/Units 15:18 16:10 17:08 RBC (4.30-5.90) m/uL Hgb (13.0-17.5) gm/dL Hct (39.0-53.0) % MCV (80.0-100.0) fL MCH (25.0-35.0) pg Plt Count (150-450) k/uL Lymphocytes # (1.0-4.8) k/uL APTT (22.0-30.0) sec ABG pCO2 (35-45) mmHg ABG pO2 (83-108) mmHg Chloride (98-107) mmol/L Carbon Dioxide (22-30) mmol/L BUN (9-20) mg/dL Creatinine (0.66-1.25) mg/dL Glucose (74-99) mg/dL POC Glucose (mg/dL) 196 H 234 H 224 H (75-99) mg/dL Calcium (8.4-10.2) mg/dL 04/23/17 04/23/17 04/23/17 Range/Units 19:33 19:35 20:26 RBC (4.30-5.90) m/uL Hgb (13.0-17.5) gm/dL Hct (39.0-53.0) % MCV (80.0-100.0) fL MCH (25.0-35.0) pg Plt Count (150-450) k/uL Lymphocytes # (1.0-4.8) k/uL APTT 47.8 H (22.0-30.0) sec ABG pCO2 (35-45) mmHg ABG pO2 (83-108) mmHg Chloride (98-107) mmol/L Carbon Dioxide (22-30) mmol/L BUN (9-20) mg/dL Creatinine (0.66-1.25) mg/dL Glucose (74-99) mg/dL POC Glucose (mg/dL) 170 H 175 H (75-99) mg/dL Calcium (8.4-10.2) mg/dL 04/23/17 04/23/17 04/23/17 Range/Units 21:10 22:03 23:06 RBC (4.30-5.90) m/uL Hgb (13.0-17.5) gm/dL Hct (39.0-53.0) % MCV (80.0-100.0) fL MCH (25.0-35.0) pg Plt Count (150-450) k/uL Lymphocytes # (1.0-4.8) k/uL APTT (22.0-30.0) sec ABG pCO2 (35-45) mmHg ABG pO2 (83-108) mmHg Chloride (98-107) mmol/L Carbon Dioxide (22-30) mmol/L BUN (9-20) mg/dL Creatinine (0.66-1.25) mg/dL Glucose (74-99) mg/dL POC Glucose (mg/dL) 172 H 181 H 162 H (75-99) mg/dL Calcium (8.4-10.2) mg/dL 04/24/17 04/24/17 04/24/17 Range/Units 00:09 01:08 02:14 RBC (4.30-5.90) m/uL Hgb (13.0-17.5) gm/dL Hct (39.0-53.0) % MCV (80.0-100.0) fL MCH (25.0-35.0) pg Plt Count (150-450) k/uL Lymphocytes # (1.0-4.8) k/uL APTT (22.0-30.0) sec ABG pCO2 (35-45) mmHg ABG pO2 (83-108) mmHg Chloride (98-107) mmol/L Carbon Dioxide (22-30) mmol/L BUN (9-20) mg/dL Creatinine (0.66-1.25) mg/dL Glucose (74-99) mg/dL POC Glucose (mg/dL) 159 H 163 H 173 H (75-99) mg/dL Calcium (8.4-10.2) mg/dL 06/22/17 06/22/17 06/22/17 Range/Units 03:23 04:13 05:08 RBC (4.30-5.90) m/uL Hgb (13.0-17.5) gm/dL Hct (39.0-53.0) % MCV (80.0-100.0) fL MCH (25.0-35.0) pg Plt Count (150-450) k/uL Lymphocytes # (1.0-4.8) k/uL APTT (22.0-30.0) sec ABG pCO2 32 L (35-45) mmHg ABG pO2 66 L (83-108) mmHg Chloride (98-107) mmol/L Carbon Dioxide (22-30) mmol/L BUN (9-20) mg/dL Creatinine (0.66-1.25) mg/dL Glucose (74-99) mg/dL POC Glucose (mg/dL) 193 H 199 H (75-99) mg/dL Calcium (8.4-10.2) mg/dL 04/24/17 04/24/17 04/24/17 Range/Units 05:22 05:24 05:24 RBC (4.30-5.90) m/uL Hgb (13.0-17.5) gm/dL Hct (39.0-53.0) % MCV (80.0-100.0) fL MCH (25.0-35.0) pg Plt Count (150-450) k/uL Lymphocytes # (1.0-4.8) k/uL APTT 40.1 H (22.0-30.0) sec ABG pCO2 (35-45) mmHg ABG pO2 (83-108) mmHg Chloride 110 H (98-107) mmol/L Carbon Dioxide 20 L (22-30) mmol/L BUN 28 H (9-20) mg/dL Creatinine 1.62 H (0.66-1.25) mg/dL Glucose 185 H (74-99) mg/dL POC Glucose (mg/dL) 185 H (75-99) mg/dL Calcium 6.7 L (8.4-10.2) mg/dL 04/24/17 04/24/17 04/24/17 Range/Units 05:24 06:02 07:00 RBC 3.26 L (4.30-5.90) m/uL Hgb 12.0 L (13.0-17.5) gm/dL Hct 34.4 L (39.0-53.0) % MCV 105.7 H (80.0-100.0) fL MCH 37.0 H (25.0-35.0) pg Plt Count 100 L (150-450) k/uL Lymphocytes # 0.5 L (1.0-4.8) k/uL APTT (22.0-30.0) sec ABG pCO2 (35-45) mmHg ABG pO2 (83-108) mmHg Chloride (98-107) mmol/L Carbon Dioxide (22-30) mmol/L BUN (9-20) mg/dL Creatinine (0.66-1.25) mg/dL Glucose (74-99) mg/dL POC Glucose (mg/dL) 169 H 161 H (75-99) mg/dL Calcium (8.4-10.2) mg/dL 04/24/17 04/24/17 04/24/17 Range/Units 07:58 08:54 10:10 RBC (4.30-5.90) m/uL Hgb (13.0-17.5) gm/dL Hct (39.0-53.0) % MCV (80.0-100.0) fL MCH (25.0-35.0) pg Plt Count (150-450) k/uL Lymphocytes # (1.0-4.8) k/uL APTT (22.0-30.0) sec ABG pCO2 (35-45) mmHg ABG pO2 (83-108) mmHg Chloride (98-107) mmol/L Carbon Dioxide (22-30) mmol/L BUN (9-20) mg/dL Creatinine (0.66-1.25) mg/dL Glucose (74-99) mg/dL POC Glucose (mg/dL) 178 H 197 H 179 H (75-99) mg/dL Calcium (8.4-10.2) mg/dL Microbiology - Last 24 Hours (Table) 04/21/17 23:50 Gram Stain - Final Sputum Sputum Culture - Final 04/21/17 12:50 Blood Culture - Preliminary Blood No Growth after 48 hours 04/22/17 11:16 Urine Culture - Final Urine,Catheterized Assessment and Plan Plan: Impression: #1 Acute hypoxic respiratory failure secondary to suspected diastolic congestive heart failure, worsening left pleural effusion and infiltrate with possible pneumonia. Sputum culture reveals no growth. #2 Non-anion gap metabolic acidosis secondary to acute renal failure. #3 Altered mental status of unclear etiology. #4 History of atrial fibrillation. #5 Chronic obstructive pulmonary disease. #6 Chronic and ongoing tobacco dependence. #7 Diabetes mellitus. #8 Hyperlipidemia. #9 Hypertension. #10 Hepatitis C. #11 Previous history of substance abuse including cocaine, heroin and methamphetamine. #12 Acute renal failure requiring urgent hemodialysis. Current creatinine 1.62. #13 Profound hyperkalemia, corrected. Current potassium 3.9. Plan: The patient was seen and evaluated by Dr. Mcmillan. Her chest x-ray, labs and ABGs were reviewed. We'll continue with bronchodilators. Continue with IV Zosyn. We will continue to give the patient daily interruption as sedation. The patient has been slow to progress. We'll probably need eventual tracheostomy and PEG tube placement. We will talk with his family. The interim , we'll continue with his current vent settings. We'll repeat the chest x-ray and ABGs in the a.m. We will continue to follow and make further recommendations based on his clinical status. Critical care time 35 minutes. Time with Patient: Greater than 30
[2017-04-24 11:10] LABS: Glucose,Whole Blood 173 mg/dL (75-99)
[2017-04-24] MEDS: DILTIAZEM 125 MG in SODIUM CHLORIDE 0.9% 100 ML IV SCH (11:22)
[2017-04-24 12:27] LABS: Glucose,Whole Blood 159 mg/dL (75-99)
--- NOTE | 2017-04-24 13:04 | P.PN ---
Subjective Patient is seen in follow-up for acute kidney injury. His baseline creatinine is near 1 and was 3.69 on admission. He was also hyperkalemic and oliguric. He underwent 1 treatment of hemodialysis on April 21. Today, creatinine is down to 1.62 and he is nonoliguric. He is currently intubated and sedated. He is also maintained on tube feeds. He is off vasopressors at this time. Vital signs are stable. General: The patient appeared well nourished and normally developed. Intubated. HEENT: Head exam is unremarkable. Neck is without jugular venous distension. LUNGS: Rhonchi at bases. Breath sounds decreased. HEART: Rate and Rhythm are regular. First and second heart sounds normal. No murmurs, rubs or gallops. ABDOMEN: Abdominal exam reveals normal bowel sounds. Non-tender and non- distended. No evidence of peritonitis. EXTREMITITES: No clubbing, cyanosis, or edema. Objective - Vital Signs Vital signs: Vital Signs Temp 96 F L 04/24/17 08:00 Pulse 74 04/24/17 12:06 Resp 29 H 04/24/17 10:00 BP 88/56 04/24/17 10:00 Pulse Ox 95 04/24/17 10:00 Intake & Output 04/23/17 04/24/17 04/24/17 18:59 06:59 18:59 Intake Total 2135.523 2846.110 1175.695 Output Total 1371 1500 650 Balance 843.295 8146.110 525.695 Weight 153.1 kg Intake: IV 1407.5 1418.5 816.8 [place] 21 21 Diltiazem 125 mg In 57.5 40 Sodium Chloride 0.9% 100 ml @ 7.5 MG/HR 7.5 mls/hr IV .[id number] DI Rx#: [id number] Heparin Sodium,Porcine/ 220 45.8 D5w Pmx 25,000 unit In Dextrose/Water 1 500ml. bag @ 6.7 UNITS/KG/HR 19. 89 mls/hr IV .Q24H DI Rx #:[id number] Piperacillin-Tazobactam 3 50.0 37.5 50.0 .375 gm In Dextrose/Water 1 50ml.bag @ 12.5 mls/hr IVPB Q12HR DI Rx#: [id number] Sodium Chloride 0.9% 1, 1300 1100 700 000 ml @ 100 mls/hr IV . Q10H DI Rx#:[id number] Intake, IV Titration 991.976 4014.610 168.895 Amount Diltiazem 125 mg In 119 77.875 Sodium Chloride 0.9% 100 ml @ 7.5 MG/HR 7.5 mls/hr IV .[id number] DI Rx#: [id number] Heparin Sodium,Porcine/ 312.605 96.002 D5w Pmx 25,000 unit In Dextrose/Water 1 500ml. bag @ 6.7 UNITS/KG/HR 19. 89 mls/hr IV .Q24H DI Rx #:[id number] Insulin Regular 100 unit 102.937 102.254 22.893 In Sodium Chloride 0.9% 100 ml @ Per Protocol IV .Q0M DI Rx#:[id number] Norepinephrin 4 mg-0.9% 81.188 Ns Pmx 4 mg In 250 ml @ Titrate IV .Q0M DI Rx#: [id number] Propofol 500 mg In Empty 276.086 453.688 50 Bag 1 bag @ Titrate IV . Q0M DI Rx#:[id number] Tube Feeding 200 280 190 Other 30 120 Output: Urine 1371 1500 650 Other: Voiding Method Indwelling Catheter Indwelling Catheter Indwelling Catheter ABP, PAP, CO, CI - Last Documented Arterial Blood Pressure 116/60 - Labs CBC & Chem 7: 04/24/17 05:24 04/24/17 05:24 Labs: Abnormal Lab Results - Last 24 Hours (Table) 04/23/17 04/23/17 04/23/17 Range/Units 14:36 15:18 16:10 RBC (4.30-5.90) m/uL Hgb (13.0-17.5) gm/dL Hct (39.0-53.0) % MCV (80.0-100.0) fL MCH (25.0-35.0) pg Plt Count (150-450) k/uL Lymphocytes # (1.0-4.8) k/uL APTT (22.0-30.0) sec ABG pCO2 (35-45) mmHg ABG pO2 (83-108) mmHg Chloride (98-107) mmol/L Carbon Dioxide (22-30) mmol/L BUN (9-20) mg/dL Creatinine (0.66-1.25) mg/dL Glucose (74-99) mg/dL POC Glucose (mg/dL) 182 H 196 H 234 H (75-99) mg/dL Calcium (8.4-10.2) mg/dL 04/23/17 04/23/17 04/23/17 Range/Units 17:08 19:33 19:35 RBC (4.30-5.90) m/uL Hgb (13.0-17.5) gm/dL Hct (39.0-53.0) % MCV (80.0-100.0) fL MCH (25.0-35.0) pg Plt Count (150-450) k/uL Lymphocytes # (1.0-4.8) k/uL APTT 47.8 H (22.0-30.0) sec ABG pCO2 (35-45) mmHg ABG pO2 (83-108) mmHg Chloride (98-107) mmol/L Carbon Dioxide (22-30) mmol/L BUN (9-20) mg/dL Creatinine (0.66-1.25) mg/dL Glucose (74-99) mg/dL POC Glucose (mg/dL) 224 H 170 H (75-99) mg/dL Calcium (8.4-10.2) mg/dL 04/23/17 04/23/17 04/23/17 Range/Units 20:26 21:10 22:03 RBC (4.30-5.90) m/uL Hgb (13.0-17.5) gm/dL Hct (39.0-53.0) % MCV (80.0-100.0) fL MCH (25.0-35.0) pg Plt Count (150-450) k/uL Lymphocytes # (1.0-4.8) k/uL APTT (22.0-30.0) sec ABG pCO2 (35-45) mmHg ABG pO2 (83-108) mmHg Chloride (98-107) mmol/L Carbon Dioxide (22-30) mmol/L BUN (9-20) mg/dL Creatinine (0.66-1.25) mg/dL Glucose (74-99) mg/dL POC Glucose (mg/dL) 175 H 172 H 181 H (75-99) mg/dL Calcium (8.4-10.2) mg/dL 04/23/17 04/24/17 04/24/17 Range/Units 23:06 00:09 01:08 RBC (4.30-5.90) m/uL Hgb (13.0-17.5) gm/dL Hct (39.0-53.0) % MCV (80.0-100.0) fL MCH (25.0-35.0) pg Plt Count (150-450) k/uL Lymphocytes # (1.0-4.8) k/uL APTT (22.0-30.0) sec ABG pCO2 (35-45) mmHg ABG pO2 (83-108) mmHg Chloride (98-107) mmol/L Carbon Dioxide (22-30) mmol/L BUN (9-20) mg/dL Creatinine (0.66-1.25) mg/dL Glucose (74-99) mg/dL POC Glucose (mg/dL) 162 H 159 H 163 H (75-99) mg/dL Calcium (8.4-10.2) mg/dL 04/24/17 04/24/17 04/24/17 Range/Units 02:14 03:23 04:13 RBC (4.30-5.90) m/uL Hgb (13.0-17.5) gm/dL Hct (39.0-53.0) % MCV (80.0-100.0) fL MCH (25.0-35.0) pg Plt Count (150-450) k/uL Lymphocytes # (1.0-4.8) k/uL APTT (22.0-30.0) sec ABG pCO2 (35-45) mmHg ABG pO2 (83-108) mmHg Chloride (98-107) mmol/L Carbon Dioxide (22-30) mmol/L BUN (9-20) mg/dL Creatinine (0.66-1.25) mg/dL Glucose (74-99) mg/dL POC Glucose (mg/dL) 173 H 193 H 199 H (75-99) mg/dL Calcium (8.4-10.2) mg/dL 04/24/17 04/24/17 04/24/17 Range/Units 05:08 05:22 05:24 RBC (4.30-5.90) m/uL Hgb (13.0-17.5) gm/dL Hct (39.0-53.0) % MCV (80.0-100.0) fL MCH (25.0-35.0) pg Plt Count (150-450) k/uL Lymphocytes # (1.0-4.8) k/uL APTT 40.1 H (22.0-30.0) sec ABG pCO2 32 L (35-45) mmHg ABG pO2 66 L (83-108) mmHg Chloride (98-107) mmol/L Carbon Dioxide (22-30) mmol/L BUN (9-20) mg/dL Creatinine (0.66-1.25) mg/dL Glucose (74-99) mg/dL POC Glucose (mg/dL) 185 H (75-99) mg/dL Calcium (8.4-10.2) mg/dL 04/24/17 04/24/17 04/24/17 Range/Units 05:24 05:24 06:02 RBC 3.26 L (4.30-5.90) m/uL Hgb 12.0 L (13.0-17.5) gm/dL Hct 34.4 L (39.0-53.0) % MCV 105.7 H (80.0-100.0) fL MCH 37.0 H (25.0-35.0) pg Plt Count 100 L (150-450) k/uL Lymphocytes # 0.5 L (1.0-4.8) k/uL APTT (22.0-30.0) sec ABG pCO2 (35-45) mmHg ABG pO2 (83-108) mmHg Chloride 110 H (98-107) mmol/L Carbon Dioxide 20 L (22-30) mmol/L BUN 28 H (9-20) mg/dL Creatinine 1.62 H (0.66-1.25) mg/dL Glucose 185 H (74-99) mg/dL POC Glucose (mg/dL) 169 H (75-99) mg/dL Calcium 6.7 L (8.4-10.2) mg/dL 04/24/17 04/24/17 04/24/17 Range/Units 07:00 07:58 08:54 RBC (4.30-5.90) m/uL Hgb (13.0-17.5) gm/dL Hct (39.0-53.0) % MCV (80.0-100.0) fL MCH (25.0-35.0) pg Plt Count (150-450) k/uL Lymphocytes # (1.0-4.8) k/uL APTT (22.0-30.0) sec ABG pCO2 (35-45) mmHg ABG pO2 (83-108) mmHg Chloride (98-107) mmol/L Carbon Dioxide (22-30) mmol/L BUN (9-20) mg/dL Creatinine (0.66-1.25) mg/dL Glucose (74-99) mg/dL POC Glucose (mg/dL) 161 H 178 H 197 H (75-99) mg/dL Calcium (8.4-10.2) mg/dL 04/24/17 04/24/17 04/24/17 Range/Units 10:10 11:04 12:10 RBC (4.30-5.90) m/uL Hgb (13.0-17.5) gm/dL Hct (39.0-53.0) % MCV (80.0-100.0) fL MCH (25.0-35.0) pg Plt Count (150-450) k/uL Lymphocytes # (1.0-4.8) k/uL APTT (22.0-30.0) sec ABG pCO2 (35-45) mmHg ABG pO2 (83-108) mmHg Chloride (98-107) mmol/L Carbon Dioxide (22-30) mmol/L BUN (9-20) mg/dL Creatinine (0.66-1.25) mg/dL Glucose (74-99) mg/dL POC Glucose (mg/dL) 179 H 173 H 159 H (75-99) mg/dL Calcium (8.4-10.2) mg/dL Microbiology - Last 24 Hours (Table) 04/21/17 23:50 Gram Stain - Final Sputum Sputum Culture - Final 04/21/17 12:50 Blood Culture - Preliminary Blood No Growth after 48 hours 04/22/17 11:16 Urine Culture - Final Urine,Catheterized Assessment and Plan Plan: Assessment: #1. Nonoliguric acute kidney injury mostly prerenal in nature secondary to hemodynamic instability and use of angiotensin receptor lowell. Creatinine was at 3.7 this admission and was down to 1.96 after dialysis. It's 162 this morning. Urinalysis is quite benign. No evidence of hydronephrosis noted on CT of the abdomen and pelvis. #2. Hyperkalemia secondary to acute kidney injury and metabolic acidosis further worsened with the use of valsartan. Status post 1 treatment of hemodialysis on April 21. Resolved. #3. Metabolic acidosis secondary to acute kidney injury and IV fluids. Plan: I will decreased rate of IV fluids to 50 mL an hour. Continue tube feeds. Maintain oral sodium bicarbonate 650 mg twice daily. Avoid nephrotoxic agents and hypotensive episodes. Wean FiO2. No need for renal replacement therapy at this time. Continue to monitor renal function and urine output. Discontinue dialysis catheter.
[2017-04-24] MEDS ORDERED: LIDOCAINE 2% INJ 20 MG/ML SQ ONE (13:24)
--- NOTE | 2017-04-24 13:50 | XR ---
EXAMINATION TYPE: XR chest 1V portable DATE OF EXAM: 04/24/2017 COMPARISON: 04/24/2017 INDICATION: Difficulty in breathing, PICC line placement TECHNIQUE: Single frontal view of the chest is obtained. FINDINGS: The heart size is enlarged. The pulmonary vasculature is normal. There is increased opacity over the left lung. Retrocardiac infiltrate may be present. Left perihilar infiltrate may be present. Patient is rotated slightly towards the right. Endotracheal tube remains in position with the tip above basilia. Nasogastric tube transverses the tho rax the tip in the left upper quadrant of the abdomen. Left-sided PICC line is been placed with the t ip in the region of the brachiocephalic vein. IMPRESSION: 1. Stable lung findings. 2. PICC line tip appears below the brachiocephalic vein overlying the T3 vertebral level. 3. Additional lines and catheters discussed above.
[2017-04-24 14:03] LABS: Glucose,Whole Blood 154 mg/dL (75-99)
--- NOTE | 2017-04-24 14:15 | IR ---
PICC LINE PLACEMENT: HISTORY: Infection requiring long-term antibiotic therapy PROCEDURE: Ultrasound guidance of PICC line placement. COMPLICATIONS: None ANESTHESIA: 1. 1% Lidocaine locally. FINDINGS/TECHNIQUE: The procedure was explained to the patient. The risks, complications, benefits and alternatives were discussed and any questions were answered. Informed consent was obtained. The patient was placed supine on the fluoroscopic table and prepped and draped in the usual sterile fash ion. Utilizing a 21 gauge needle and sonographic guidance, access in the left basilic vein was achi eved and there is placement of a 0.018 guidewire. The vein is patent. A 5-F. sheath was placed over the guidewire. The guidewire and dilator were removed and a 5-F. Double lumen PICC line was placed through the sheath with the chest x-ray confirming the tip at the level of the SVC. The sheath was r emoved, the catheter was flushed and sutured into position. The patient was stable throughout the pr ocedure and remained stable upon discharge from the Department of Radiology. The vein puncture was patent under ultrasound. A lopez scale image was obtained to document patency of the vein punctured. All elements of the maximal barrier technique were utilized. IMPRESSION: 1. Successful PICC line placement under ultrasound performed bedside within the ICU.
[2017-04-24 16:10] LABS: Glucose,Whole Blood 141 mg/dL (75-99)
[2017-04-24] MEDS: HEPARIN SODIUM,PORCINE/D5W PMX 25,000 UNIT in DEXTROSE/WATER 1 500ML.BAG IV SCH (16:33)
--- NOTE | 2017-04-24 16:55 | P.PN ---
Subjective This patient is a 71-year-old male who was seen in neurology consultation yesterday for altered mental status and unresponsive state. Patient remains intubated on the ventilator today. He was sent for a repeat computed tomography scan of the brain today which was reviewed. CAT scan is negative for any evidence of acute stroke or hemorrhage. No change from previous 2 CT scans of the brain. Specifically there was no evidence of basilar artery thrombosis. No evidence of acute stroke or hemorrhage was detected on the scan today. Patient remains on the ventilator. He is on a Diprivan drip. He does have a history of atrial fibrillation and was seen by cardiology. He was started on IV heparin protocol this morning as per cardiology's recommendation given his atrial fibrillation. Patient is currently on 50 mics of Diprivan. He remains heavily sedated. Apparently when sedation was cut back he did seem to open his eyes according to the ICU nurse today. He is requiring interruption of sedation daily and does show some signs of improvement. He does open eyes but then has severe coughing reflex. He opens eyes but does not follow any commands. He does have increase in secretions and becomes tachycardic and tachypneic with the sedation interruptions. Chest x-ray reveals evidence of left pleural effusion and infiltrate with possible pneumonia. Pulmonary medicine is following the patient closely for this. He doesn't respond minimally to sternal rub likely secondary to his IV sedation. The patient underwent routine EEG today which was reviewed. The EEG reveals significant slowing consistent with a diffuse encephalopathy. We have discussed this patient's neurological findings today in detail with his over the telephone. She was updated on all of his neurodiagnostic testing which included 3 CT scans of the brain. We reviewed his EEG result from today as well with the . His overall prognosis at this time remains very guarded. We have recommended to the that we will continue close neurological follow-up daily. We will need to see if he will be able to be weaned off the ventilator gradually over the next several days. As per pulmonary medicine his progress is very slow. He may eventually need a tracheostomy and PEG tube placement. His overall prognosis at this time however remains very guarded. is aware of his overall poor neurological status and condition at this time. We will continue close neurological follow- up of this patient in the ICU setting. Objective - Vital Signs Vital signs: Vital Signs Temp 96 F L 04/24/17 08:00 Pulse 74 04/24/17 12:06 Resp 29 H 04/24/17 10:00 BP 88/56 04/24/17 10:00 Pulse Ox 95 04/24/17 10:00 Intake & Output 04/23/17 04/24/17 04/24/17 18:59 06:59 18:59 Intake Total 2135.523 2846.110 1215.695 Output Total 1371 1500 650 Balance 966.962 2591.110 565.695 Weight 153.1 kg Intake: IV 1407.5 1418.5 816.8 Iram 21 21 Diltiazem 125 mg In 57.5 40 Sodium Chloride 0.9% 100 ml @ 7.5 MG/HR 7.5 mls/hr IV .[id number] DI Rx#: [id number] Heparin Sodium,Porcine/ 220 45.8 D5w Pmx 25,000 unit In Dextrose/Water 1 500ml. bag @ 6.7 UNITS/KG/HR 19. 89 mls/hr IV .Q24H DI Rx #:[id number] Piperacillin-Tazobactam 3 50.0 37.5 50.0 .375 gm In Dextrose/Water 1 50ml.bag @ 12.5 mls/hr IVPB Q12HR DI Rx#: [id number] Sodium Chloride 0.9% 1, 1300 1100 700 000 ml @ 100 mls/hr IV . Q10H DI Rx#:[id number] Intake, IV Titration 610.527 7085.610 168.895 Amount Diltiazem 125 mg In 119 77.875 Sodium Chloride 0.9% 100 ml @ 7.5 MG/HR 7.5 mls/hr IV .[id number] DI Rx#: [id number] Heparin Sodium,Porcine/ 312.605 96.002 D5w Pmx 25,000 unit In Dextrose/Water 1 500ml. bag @ 6.7 UNITS/KG/HR 19. 89 mls/hr IV .Q24H DI Rx #:[id number] Insulin Regular 100 unit 102.937 102.254 22.893 In Sodium Chloride 0.9% 100 ml @ Per Protocol IV .Q0M DI Rx#:[id number] Norepinephrin 4 mg-0.9% 81.188 Ns Pmx 4 mg In 250 ml @ Titrate IV .Q0M DI Rx#: [id number] Propofol 500 mg In Empty 276.086 453.688 50 Bag 1 bag @ Titrate IV . Q0M DI Rx#:[id number] Tube Feeding 200 280 230 Other 30 120 Output: Urine 1371 1500 650 Other: Voiding Method Indwelling Catheter Indwelling Catheter Indwelling Catheter ABP, PAP, CO, CI - Last Documented Arterial Blood Pressure 116/60 - Exam Physical examination: PHYSICAL EXAMINATION: Patient is intubated on the ventilator and is on a Diprivan drip. He remains sedated and unresponsive. VITAL SIGNS: Blood pressure is [139/74]. Heart rate is [93]. Respiration is [30] . Temperature is [97.2]. HEENT: Head is atraumatic, neck is supple, there were no carotid bruits. CHEST: Lungs are clear to auscultation and percussion. CARDIAC: S1, S2 normal rate and rhythm. There is no murmur. ABDOMEN: Soft and nontender. Bowel sounds are present. EXTREMITIES: There is no pedal edema. Peripheral pulses are present. Neurological examination: Patient remains intubated on the ventilator and is on a Diprivan drip. His neurological examination is limited at this time due to his sedation. Muscle tone is preserved in all 4 extremities. Deep tendon reflexes are 1+ and symmetric. Plantar responses flexor bilaterally. - Labs CBC & Chem 7: 04/24/17 05:24 04/24/17 05:24 Labs: Abnormal Lab Results - Last 24 Hours (Table) 04/23/17 04/23/17 04/23/17 Range/Units 16:10 17:08 19:33 RBC (4.30-5.90) m/uL Hgb (13.0-17.5) gm/dL Hct (39.0-53.0) % MCV (80.0-100.0) fL MCH (25.0-35.0) pg Plt Count (150-450) k/uL Lymphocytes # (1.0-4.8) k/uL APTT 47.8 H (22.0-30.0) sec ABG pCO2 (35-45) mmHg ABG pO2 (83-108) mmHg Chloride (98-107) mmol/L Carbon Dioxide (22-30) mmol/L BUN (9-20) mg/dL Creatinine (0.66-1.25) mg/dL Glucose (74-99) mg/dL POC Glucose (mg/dL) 234 H 224 H (75-99) mg/dL Calcium (8.4-10.2) mg/dL 04/23/17 04/23/17 04/23/17 Range/Units 19:35 20:26 21:10 RBC (4.30-5.90) m/uL Hgb (13.0-17.5) gm/dL Hct (39.0-53.0) % MCV (80.0-100.0) fL MCH (25.0-35.0) pg Plt Count (150-450) k/uL Lymphocytes # (1.0-4.8) k/uL APTT (22.0-30.0) sec ABG pCO2 (35-45) mmHg ABG pO2 (83-108) mmHg Chloride (98-107) mmol/L Carbon Dioxide (22-30) mmol/L BUN (9-20) mg/dL Creatinine (0.66-1.25) mg/dL Glucose (74-99) mg/dL POC Glucose (mg/dL) 170 H 175 H 172 H (75-99) mg/dL Calcium (8.4-10.2) mg/dL 04/23/17 04/23/17 04/24/17 Range/Units 22:03 23:06 00:09 RBC (4.30-5.90) m/uL Hgb (13.0-17.5) gm/dL Hct (39.0-53.0) % MCV (80.0-100.0) fL MCH (25.0-35.0) pg Plt Count (150-450) k/uL Lymphocytes # (1.0-4.8) k/uL APTT (22.0-30.0) sec ABG pCO2 (35-45) mmHg ABG pO2 (83-108) mmHg Chloride (98-107) mmol/L Carbon Dioxide (22-30) mmol/L BUN (9-20) mg/dL Creatinine (0.66-1.25) mg/dL Glucose (74-99) mg/dL POC Glucose (mg/dL) 181 H 162 H 159 H (75-99) mg/dL Calcium (8.4-10.2) mg/dL 04/24/17 04/24/17 04/24/17 Range/Units 01:08 02:14 03:23 RBC (4.30-5.90) m/uL Hgb (13.0-17.5) gm/dL Hct (39.0-53.0) % MCV (80.0-100.0) fL MCH (25.0-35.0) pg Plt Count (150-450) k/uL Lymphocytes # (1.0-4.8) k/uL APTT (22.0-30.0) sec ABG pCO2 (35-45) mmHg ABG pO2 (83-108) mmHg Chloride (98-107) mmol/L Carbon Dioxide (22-30) mmol/L BUN (9-20) mg/dL Creatinine (0.66-1.25) mg/dL Glucose (74-99) mg/dL POC Glucose (mg/dL) 163 H 173 H 193 H (75-99) mg/dL Calcium (8.4-10.2) mg/dL 04/24/17 04/24/17 04/24/17 Range/Units 04:13 05:08 05:22 RBC (4.30-5.90) m/uL Hgb (13.0-17.5) gm/dL Hct (39.0-53.0) % MCV (80.0-100.0) fL MCH (25.0-35.0) pg Plt Count (150-450) k/uL Lymphocytes # (1.0-4.8) k/uL APTT (22.0-30.0) sec ABG pCO2 32 L (35-45) mmHg ABG pO2 66 L (83-108) mmHg Chloride (98-107) mmol/L Carbon Dioxide (22-30) mmol/L BUN (9-20) mg/dL Creatinine (0.66-1.25) mg/dL Glucose (74-99) mg/dL POC Glucose (mg/dL) 199 H 185 H (75-99) mg/dL Calcium (8.4-10.2) mg/dL 04/24/17 04/24/17 04/24/17 Range/Units 05:24 05:24 05:24 RBC 3.26 L (4.30-5.90) m/uL Hgb 12.0 L (13.0-17.5) gm/dL Hct 34.4 L (39.0-53.0) % MCV 105.7 H (80.0-100.0) fL MCH 37.0 H (25.0-35.0) pg Plt Count 100 L (150-450) k/uL Lymphocytes # 0.5 L (1.0-4.8) k/uL APTT 40.1 H (22.0-30.0) sec ABG pCO2 (35-45) mmHg ABG pO2 (83-108) mmHg Chloride 110 H (98-107) mmol/L Carbon Dioxide 20 L (22-30) mmol/L BUN 28 H (9-20) mg/dL Creatinine 1.62 H (0.66-1.25) mg/dL Glucose 185 H (74-99) mg/dL POC Glucose (mg/dL) (75-99) mg/dL Calcium 6.7 L (8.4-10.2) mg/dL 04/24/17 04/24/17 04/24/17 Range/Units 06:02 07:00 07:58 RBC (4.30-5.90) m/uL Hgb (13.0-17.5) gm/dL Hct (39.0-53.0) % MCV (80.0-100.0) fL MCH (25.0-35.0) pg Plt Count (150-450) k/uL Lymphocytes # (1.0-4.8) k/uL APTT (22.0-30.0) sec ABG pCO2 (35-45) mmHg ABG pO2 (83-108) mmHg Chloride (98-107) mmol/L Carbon Dioxide (22-30) mmol/L BUN (9-20) mg/dL Creatinine (0.66-1.25) mg/dL Glucose (74-99) mg/dL POC Glucose (mg/dL) 169 H 161 H 178 H (75-99) mg/dL Calcium (8.4-10.2) mg/dL 04/24/17 04/24/17 04/24/17 Range/Units 08:54 10:10 11:04 RBC (4.30-5.90) m/uL Hgb (13.0-17.5) gm/dL Hct (39.0-53.0) % MCV (80.0-100.0) fL MCH (25.0-35.0) pg Plt Count (150-450) k/uL Lymphocytes # (1.0-4.8) k/uL APTT (22.0-30.0) sec ABG pCO2 (35-45) mmHg ABG pO2 (83-108) mmHg Chloride (98-107) mmol/L Carbon Dioxide (22-30) mmol/L BUN (9-20) mg/dL Creatinine (0.66-1.25) mg/dL Glucose (74-99) mg/dL POC Glucose (mg/dL) 197 H 179 H 173 H (75-99) mg/dL Calcium (8.4-10.2) mg/dL 04/24/17 04/24/17 Range/Units 12:10 14:01 RBC (4.30-5.90) m/uL Hgb (13.0-17.5) gm/dL Hct (39.0-53.0) % MCV (80.0-100.0) fL MCH (25.0-35.0) pg Plt Count (150-450) k/uL Lymphocytes # (1.0-4.8) k/uL APTT (22.0-30.0) sec ABG pCO2 (35-45) mmHg ABG pO2 (83-108) mmHg Chloride (98-107) mmol/L Carbon Dioxide (22-30) mmol/L BUN (9-20) mg/dL Creatinine (0.66-1.25) mg/dL Glucose (74-99) mg/dL POC Glucose (mg/dL) 159 H 154 H (75-99) mg/dL Calcium (8.4-10.2) mg/dL Microbiology - Last 24 Hours (Table) 04/21/17 12:50 Blood Culture - Preliminary Blood No Growth after 72 hours 04/21/17 23:50 Gram Stain - Final Sputum Sputum Culture - Final 04/22/17 11:16 Urine Culture - Final Urine,Catheterized Assessment and Plan (1) Acute encephalopathy Status: Acute Code(s): G93.40 - ENCEPHALOPATHY, UNSPECIFIED (2) Acute renal failure Status: Acute Code(s): N17.9 - ACUTE KIDNEY FAILURE, UNSPECIFIED (3) Atrial fibrillation Status: Acute Code(s): I48.91 - UNSPECIFIED ATRIAL FIBRILLATION (4) Hepatic encephalopathy Status: Acute Code(s): K72.90 - HEPATIC FAILURE, UNSPECIFIED WITHOUT COMA Plan: This patient is a 71-year-old male who is being followed in the intensive care unit for episode of respiratory failure and unresponsiveness. He is undergone 3 CT scans of the brain all of which have been negative for any evidence of acute stroke or hemorrhage. He remains intubated on the ventilator and is being treated for respiratory failure and pneumonia. He underwent routine EEG which revealed severe slowing consistent with a diffuse encephalopathy. No evidence of any seizure focus. He is being treated for atrial fibrillation and is currently on the heparin drip. He is showing very slow progress and as per pulmonary medicine he may require a tracheostomy and PEG tube placement. Case was discussed yesterday at length over the telephone with the patient's in terms of his overall neurological findings thus far. He remains in critical condition. We will continue close neurological follow-up with this patient in the intensive care unit. Would continue weaning parameters as he tolerates. His overall prognosis at this time remains very guarded.
[2017-04-24 17:13] LABS: Glucose,Whole Blood 140 mg/dL (75-99)
[2017-04-24 18:13] LABS: Glucose,Whole Blood 168 mg/dL (75-99)
[2017-04-24 18:57] LABS: Glucose,Whole Blood 152 mg/dL (75-99)
[2017-04-24 19:56] LABS: Glucose,Whole Blood 140 mg/dL (75-99)
--- NOTE | 2017-04-24 20:04 | PN ---
Mr. Mathur is a 71-year-old male with known history of chronic atrial fibrillation who presented with change in mental status and respiratory failure requiring mechanical ventilation. He remains intubated and sedated. His ventricular response is stable. He has been off the IV Cardizem and IV norepinephrine. He continues to be on IV heparin. Hemodynamically he is stable. His urine output has been good. Besides the IV heparin, he continues to be on Protonix, piperacillin. PHYSICAL EXAMINATION: Blood pressure 134/70 with a heart rate in the 70s. LUNGS: Clear anteriorly. HEART: Irregularly irregular. S1, S2. No S3, with systolic murmur. No diastolic murmur. ABDOMEN: Soft. Positive bowel sounds. EXTREMITIES: Plus one to two edema. Lab data revealed a BUN and creatinine of 28 and 1.62, which have improved compared to his admission lab work. His potassium is 3.9. His hemoglobin is 12. IMPRESSION: 1. Respiratory failure, on the ventilator. Remains intubated and sedated. 2. Atrial fibrillation, chronic. 3. Chronic obstructive lung disease. 4. Chronic tobacco use. 5. Probable pneumonia. 6. Renal failure, improving. RECOMMENDATIONS: From the cardiac standpoint, we will continue supportive care. The patient at this time does not have any signs of significant heart failure. We will continue IV heparin. Depending on his mental status and his respiratory status, he can be switched to oral anticoagulation.
--- NOTE | 2017-04-24 20:26 | P.PN ---
Subjective Principal diagnosis: altered mental status, diabetic ketoacidosis, atrial fibrillation, chronic liver disease, tobacco dependence, history of alcoholism. Patient was seen again today on 04/24/2017 and follow up in the intensive care unit. this individual remains on the ventilator, assist control 30 title volume 450 FiO2 60% and a PEEP of 5. Morning blood gas revealed pO2 66 pCO2 30 pH of 7.45. Patient is currently in A. fib with rapid ventricular response. He remains on a Cardizem drip is currently on hold, norepinephrine has currently been weaned. Propofol at 50 mics per kilogram per minute 0.9 normal saline at 100 mils per hour. Insulin drip at 9.5 units per hour. Patient is also receiving trickle tube feed of vital HP@40 hour with a goal of 44MLS/hr. Chest x-ray suggests bilateral effusions with atelectasis. he remains on Zosyn. He did receive 1 emergent dialysis treatment for acute renal failure and hyperkalemia. Blood cultures reveal no growth to date, urine culture pending Objective - Vital Signs Vital signs: Vital Signs Temp 97.0 F L 04/24/17 16:00 Pulse 84 04/24/17 19:41 Resp 30 H 04/24/17 18:00 BP 88/56 04/24/17 10:00 Pulse Ox 98 04/24/17 18:00 Intake & Output 04/24/17 04/24/17 04/25/17 06:59 18:59 06:59 Intake Total 2846.110 2183.978 28.853 Output Total 1500 1275 Balance 1346.110 908.978 28.853 Weight 156.8 kg Intake: IV 1418.5 1244.8 Iram 21 39 Diltiazem 125 mg In 40 Sodium Chloride 0.9% 100 ml @ 7.5 MG/HR 7.5 mls/hr IV .[id number] DI Rx#: [id number] Heparin Sodium,Porcine/ 220 45.8 D5w Pmx 25,000 unit In Dextrose/Water 1 500ml. bag @ 6.7 UNITS/KG/HR 19. 89 mls/hr IV .Q24H DI Rx #:[id number] Piperacillin-Tazobactam 3 37.5 100.0 .375 gm In Dextrose/Water 1 50ml.bag @ 12.5 mls/hr IVPB Q12HR DI Rx#: [id number] Sodium Chloride 0.9% 1, 1100 1060 000 ml @ 60 mls/hr IV . [id number] DI Rx#:[id number] Intake, IV Titration 1027.610 389.178 28.853 Amount Diltiazem 125 mg In 77.875 Sodium Chloride 0.9% 100 ml @ 7.5 MG/HR 7.5 mls/hr IV .[id number] DI Rx#: [id number] Heparin Sodium,Porcine/ 312.605 187.395 D5w Pmx 25,000 unit In Dextrose/Water 1 500ml. bag @ 6.7 UNITS/KG/HR 19. 89 mls/hr IV .Q24H DI Rx #:[id number] Insulin Regular 100 unit 102.254 51.783 In Sodium Chloride 0.9% 100 ml @ Per Protocol IV .Q0M DI Rx#:[id number] Norepinephrin 4 mg-0.9% 81.188 Ns Pmx 4 mg In 250 ml @ Titrate IV .Q0M DI Rx#: [id number] Propofol 500 mg In Empty 453.688 150 28.853 Bag 1 bag @ Titrate IV . Q0M DI Rx#:[id number] Tube Feeding 280 550 Other 120 Output: Urine 1500 1275 Other: Voiding Method Indwelling Catheter Indwelling Catheter ABP, PAP, CO, CI - Last Documented Arterial Blood Pressure 155/65 - Exam General: is currently on vent and sedated HEENT: [PERRL. EOMI. No pharyngeal erythema or exudate.] Neck: [No adenopathy.] Cardiac: [Heart regular in rate and rhythm. No S3. No S4. No clicks, rubs. No murmur.] Lungs: [Clear to auscultation bilaterally.] Abdomen: [No mass. No organomegaly. Bowel sounds presnt and normoactive in all 4 quadrants.] Extremes: [Mildly edematous to all 4 extremes no cyanosis no claudication normal pulses] : [] Musculoskeletal: [No joint erythema, edema or tenderness.] Skin: [No rash.] Neurologic: [No lateralizing deficits. CN II - XII grossly intact.] Lymphatic: [No adenopathy.] - Labs CBC & Chem 7: 04/24/17 05:24 04/24/17 05:24 Labs: Abnormal Lab Results - Last 24 Hours (Table) 04/23/17 04/23/17 04/23/17 Range/Units 19:33 20:26 21:10 RBC (4.30-5.90) m/uL Hgb (13.0-17.5) gm/dL Hct (39.0-53.0) % MCV (80.0-100.0) fL MCH (25.0-35.0) pg Plt Count (150-450) k/uL Lymphocytes # (1.0-4.8) k/uL APTT 47.8 H (22.0-30.0) sec ABG pCO2 (35-45) mmHg ABG pO2 (83-108) mmHg Chloride (98-107) mmol/L Carbon Dioxide (22-30) mmol/L BUN (9-20) mg/dL Creatinine (0.66-1.25) mg/dL Glucose (74-99) mg/dL POC Glucose (mg/dL) 175 H 172 H (75-99) mg/dL Calcium (8.4-10.2) mg/dL 04/23/17 04/23/17 04/24/17 Range/Units 22:03 23:06 00:09 RBC (4.30-5.90) m/uL Hgb (13.0-17.5) gm/dL Hct (39.0-53.0) % MCV (80.0-100.0) fL MCH (25.0-35.0) pg Plt Count (150-450) k/uL Lymphocytes # (1.0-4.8) k/uL APTT (22.0-30.0) sec ABG pCO2 (35-45) mmHg ABG pO2 (83-108) mmHg Chloride (98-107) mmol/L Carbon Dioxide (22-30) mmol/L BUN (9-20) mg/dL Creatinine (0.66-1.25) mg/dL Glucose (74-99) mg/dL POC Glucose (mg/dL) 181 H 162 H 159 H (75-99) mg/dL Calcium (8.4-10.2) mg/dL 04/24/17 04/24/17 04/24/17 Range/Units 01:08 02:14 03:23 RBC (4.30-5.90) m/uL Hgb (13.0-17.5) gm/dL Hct (39.0-53.0) % MCV (80.0-100.0) fL MCH (25.0-35.0) pg Plt Count (150-450) k/uL Lymphocytes # (1.0-4.8) k/uL APTT (22.0-30.0) sec ABG pCO2 (35-45) mmHg ABG pO2 (83-108) mmHg Chloride (98-107) mmol/L Carbon Dioxide (22-30) mmol/L BUN (9-20) mg/dL Creatinine (0.66-1.25) mg/dL Glucose (74-99) mg/dL POC Glucose (mg/dL) 163 H 173 H 193 H (75-99) mg/dL Calcium (8.4-10.2) mg/dL 04/24/17 04/24/17 04/24/17 Range/Units 04:13 05:08 05:22 RBC (4.30-5.90) m/uL Hgb (13.0-17.5) gm/dL Hct (39.0-53.0) % MCV (80.0-100.0) fL MCH (25.0-35.0) pg Plt Count (150-450) k/uL Lymphocytes # (1.0-4.8) k/uL APTT (22.0-30.0) sec ABG pCO2 32 L (35-45) mmHg ABG pO2 66 L (83-108) mmHg Chloride (98-107) mmol/L Carbon Dioxide (22-30) mmol/L BUN (9-20) mg/dL Creatinine (0.66-1.25) mg/dL Glucose (74-99) mg/dL POC Glucose (mg/dL) 199 H 185 H (75-99) mg/dL Calcium (8.4-10.2) mg/dL 04/24/17 04/24/17 04/24/17 Range/Units 05:24 05:24 05:24 RBC 3.26 L (4.30-5.90) m/uL Hgb 12.0 L (13.0-17.5) gm/dL Hct 34.4 L (39.0-53.0) % MCV 105.7 H (80.0-100.0) fL MCH 37.0 H (25.0-35.0) pg Plt Count 100 L (150-450) k/uL Lymphocytes # 0.5 L (1.0-4.8) k/uL APTT 40.1 H (22.0-30.0) sec ABG pCO2 (35-45) mmHg ABG pO2 (83-108) mmHg Chloride 110 H (98-107) mmol/L Carbon Dioxide 20 L (22-30) mmol/L BUN 28 H (9-20) mg/dL Creatinine 1.62 H (0.66-1.25) mg/dL Glucose 185 H (74-99) mg/dL POC Glucose (mg/dL) (75-99) mg/dL Calcium 6.7 L (8.4-10.2) mg/dL 04/24/17 04/24/17 04/24/17 Range/Units 06:02 07:00 07:58 RBC (4.30-5.90) m/uL Hgb (13.0-17.5) gm/dL Hct (39.0-53.0) % MCV (80.0-100.0) fL MCH (25.0-35.0) pg Plt Count (150-450) k/uL Lymphocytes # (1.0-4.8) k/uL APTT (22.0-30.0) sec ABG pCO2 (35-45) mmHg ABG pO2 (83-108) mmHg Chloride (98-107) mmol/L Carbon Dioxide (22-30) mmol/L BUN (9-20) mg/dL Creatinine (0.66-1.25) mg/dL Glucose (74-99) mg/dL POC Glucose (mg/dL) 169 H 161 H 178 H (75-99) mg/dL Calcium (8.4-10.2) mg/dL 04/24/17 04/24/17 04/24/17 Range/Units 08:54 10:10 11:04 RBC (4.30-5.90) m/uL Hgb (13.0-17.5) gm/dL Hct (39.0-53.0) % MCV (80.0-100.0) fL MCH (25.0-35.0) pg Plt Count (150-450) k/uL Lymphocytes # (1.0-4.8) k/uL APTT (22.0-30.0) sec ABG pCO2 (35-45) mmHg ABG pO2 (83-108) mmHg Chloride (98-107) mmol/L Carbon Dioxide (22-30) mmol/L BUN (9-20) mg/dL Creatinine (0.66-1.25) mg/dL Glucose (74-99) mg/dL POC Glucose (mg/dL) 197 H 179 H 173 H (75-99) mg/dL Calcium (8.4-10.2) mg/dL 04/24/17 04/24/17 04/24/17 Range/Units 12:10 14:01 16:09 RBC (4.30-5.90) m/uL Hgb (13.0-17.5) gm/dL Hct (39.0-53.0) % MCV (80.0-100.0) fL MCH (25.0-35.0) pg Plt Count (150-450) k/uL Lymphocytes # (1.0-4.8) k/uL APTT (22.0-30.0) sec ABG pCO2 (35-45) mmHg ABG pO2 (83-108) mmHg Chloride (98-107) mmol/L Carbon Dioxide (22-30) mmol/L BUN (9-20) mg/dL Creatinine (0.66-1.25) mg/dL Glucose (74-99) mg/dL POC Glucose (mg/dL) 159 H 154 H 141 H (75-99) mg/dL Calcium (8.4-10.2) mg/dL 04/24/17 04/24/17 04/24/17 Range/Units 17:10 18:12 18:55 RBC (4.30-5.90) m/uL Hgb (13.0-17.5) gm/dL Hct (39.0-53.0) % MCV (80.0-100.0) fL MCH (25.0-35.0) pg Plt Count (150-450) k/uL Lymphocytes # (1.0-4.8) k/uL APTT (22.0-30.0) sec ABG pCO2 (35-45) mmHg ABG pO2 (83-108) mmHg Chloride (98-107) mmol/L Carbon Dioxide (22-30) mmol/L BUN (9-20) mg/dL Creatinine (0.66-1.25) mg/dL Glucose (74-99) mg/dL POC Glucose (mg/dL) 140 H 168 H 152 H (75-99) mg/dL Calcium (8.4-10.2) mg/dL 04/24/17 Range/Units 19:53 RBC (4.30-5.90) m/uL Hgb (13.0-17.5) gm/dL Hct (39.0-53.0) % MCV (80.0-100.0) fL MCH (25.0-35.0) pg Plt Count (150-450) k/uL Lymphocytes # (1.0-4.8) k/uL APTT (22.0-30.0) sec ABG pCO2 (35-45) mmHg ABG pO2 (83-108) mmHg Chloride (98-107) mmol/L Carbon Dioxide (22-30) mmol/L BUN (9-20) mg/dL Creatinine (0.66-1.25) mg/dL Glucose (74-99) mg/dL POC Glucose (mg/dL) 140 H (75-99) mg/dL Calcium (8.4-10.2) mg/dL Microbiology - Last 24 Hours (Table) 04/21/17 12:50 Blood Culture - Preliminary Blood No Growth after 72 hours 04/21/17 23:50 Gram Stain - Final Sputum Sputum Culture - Final Assessment and Plan (1) Acute renal failure Narrative/Plan: Oliguric acute kidney injury mostly renal in nature secondary to hemodynamic instability and use of angiotensin receptor lowell. Impingement creatinine was as high as 3.7 this admission down to 1.96 after dialysis 2.8 this morning urinalysis is quite benign no evidence of hydronephrosis on CT of the abdomen and pelvis #2 hyperkalemia is secondary to acute renal injury and metabolic acidosis further worsened with the use of valsartan. Is one treatment of hemodialysis on April 21 potassium level at this time was 7.7 #3 metabolic acidosis secondary to acute renal injury #4 history of alcoholism Plan; Continue normal saline Start sodium bicarb 2. tube feeds were initiated yesterday Avoid nephrotoxic agents and hypotensive episodes We'll wean vent continue to monitor renal function and urinary output Status: Acute
[2017-04-24 22:09] LABS: Glucose,Whole Blood 148 mg/dL (75-99)
[2017-04-25 00:18] LABS: Glucose,Whole Blood 121 mg/dL (75-99)
[2017-04-25] MEDS: PROPOFOL 500 MG in EMPTY BAG 1 BAG IV SCH ×15 (01:12→22:54)
[2017-04-25 01:25] LABS: Glucose,Whole Blood 145 mg/dL (75-99)
[2017-04-25 02:47] LABS: Glucose,Whole Blood 165 mg/dL (75-99)
[2017-04-25] MEDS: INSULIN REGULAR 100 UNIT in SODIUM CHLORIDE 0.9% 100 ML IV SCH (03:07)
[2017-04-25] MEDS: IPRATROPIUM-ALBUTEROL 3 ML NEB INHALATION SCH ×6 (03:10→23:14)
[2017-04-25 03:11] LABS: Glucose,Whole Blood 147 mg/dL (75-99)
[2017-04-25 04:00] LABS: Glucose,Whole Blood 141 mg/dL (75-99)
[2017-04-25 04:23] LABS: ABG PCO2 34 mmHg (35-45); ABG PH 7.45 (7.35-7.45)
[2017-04-25 04:24] LABS: ABG Base Excess -0.4 mmol/L; ABG HCO3 23 mmol/L (21-25); ABG PO2 71 mmHg (83-108); ABG TCO2 24 mmol/L (19-24)
[2017-04-25] MEDS: DILTIAZEM 125 MG in SODIUM CHLORIDE 0.9% 100 ML IV SCH (05:00)
[2017-04-25 05:01] LABS: Glucose,Whole Blood 145 mg/dL (75-99)
[2017-04-25] MEDS: SODIUM CHLORIDE 0.9% 1,000 ML IV SCH (05:02)
[2017-04-25 05:23] LABS: Basophils % (A) 0 %; CH 34.4; CHCM 32.5; Eosinophils # (A) 0.1 k/uL (0-0.7); Eosinophils % (A) 2 %; HCT 36.5 % (39.0-53.0); HDW 2.33; HGB 12.5 gm/dL (13.0-17.5); Luc # (Auto) 0.12; Luc % (Auto) 2; Lymphocytes # (A) 0.7 k/uL (1.0-4.8); Lymphocytes % (A) 13 %; MCH 36.4 pg (25.0-35.0); MCHC 34.2 g/dL (31.0-37.0); MCV 106.3 fL (80.0-100.0); Macrocytosis Moderate; Mean Platelet Volume 7.4; Monocytes # (A) 0.3 k/uL (0-1.0); Monocytes % (A) 5 %; Neutrophils # (A) 4.2 k/uL (1.3-7.7); Neutrophils % (A) 77 %; RBC 3.43 m/uL (4.30-5.90); RDW 14.8 % (11.5-15.5); WBC 5.4 k/uL (3.8-10.6); WBC (Perox) 5.64
[2017-04-25 06:01] LABS: Glucose,Whole Blood 125 mg/dL (75-99)
[2017-04-25 06:27] LABS: Anion Gap 10 mmol/L; Blood Urea Nitrogen 26 mg/dL (9-20); Calcium 6.6 mg/dL (8.4-10.2); Carbon Dioxide 21 mmol/L (22-30); Chloride 113 mmol/L (98-107); Glucose 150 mg/dL (74-99); Magnesium 1.5 mg/dL (1.6-2.3); Non-African American GFR(MDRD) 53 (>60 ml/min/1.73 sqM); Phosphorous 2.8 mg/dL (2.5-4.5); Potassium 3.7 mmol/L (3.5-5.1); Sodium 144 mmol/L (137-145)
[2017-04-25] MEDS ORDERED: Magnesium Replacement Protocol 1 EACH MISC MISCELLANE PRN (06:53)
[2017-04-25] MEDS ORDERED: Potassium Replacement Protocol 1 EACH MISC MISCELLANE PRN (06:54)
[2017-04-25 06:59] LABS: Glucose,Whole Blood 128 mg/dL (75-99)
--- NOTE | 2017-04-25 07:12 | XR ---
EXAMINATION TYPE: XR chest 1V portable DATE OF EXAM: 04/25/2017 CLINICAL HISTORY: Difficulty breathing progress study. TECHNIQUE: Single AP portable upright view of the chest is obtained. COMPARISON: Chest x-ray from one day earlier FINDINGS: Left-sided PICC line with tip short of the SVC, endotracheal tube, and orogastric tube are all stable in appearance. There is low lung volumes and cardiomegaly with moderate central vascular congestion that remains pre sent. No large pleural effusion or pneumothorax is seen. Osseous structures are intact. IMPRESSION: Overall stable findings, low lung volumes and cardiomegaly with mild to moderate centra l vascular congestion, correlate for CHF exacerbation or fluid overload state.
[2017-04-25] MEDS: PIPERACILLIN-TAZOBACTAM 3.375 GM in DEXTROSE/WATER 1 50ML.BAG IVPB SCH ×3 (07:56→22:59)
[2017-04-25] MEDS: MAGNESIUM SULFATE-D5W PMX 1 GM in DEXTROSE/WATER 1 100ML.BAG IVPB SCH ×2 (07:56→09:17)
[2017-04-25] MEDS: HEPARIN SODIUM,PORCINE/D5W PMX 25,000 UNIT in DEXTROSE/WATER 1 500ML.BAG IV SCH ×2 (07:57→23:30)
[2017-04-25] MEDS ORDERED: POTASSIUM CHLORIDE ORAL LIQUID 40 MEQ/30 ML CUP NG-TUBE SCH (08:00)
[2017-04-25 08:11] LABS: Glucose,Whole Blood 141 mg/dL (75-99)
[2017-04-25] MEDS: ASPIRIN 325 MG TAB PO SCH (08:21)
[2017-04-25] MEDS: CHLORHEXIDINE GLUCONATE 15 ML CUP MUCOUS MEM SCH ×2 (08:21→20:19)
[2017-04-25] MEDS: PANTOPRAZOLE 40 MG/10 ML VIAL IV SCH (08:22)
[2017-04-25 08:56] LABS: Glucose,Whole Blood 236 mg/dL (75-99)
[2017-04-25 08:59] LABS: Glucose,Whole Blood 182 mg/dL (75-99)
[2017-04-25] MEDS: SODIUM BICARBONATE TAB 650 MG TAB PO SCH ×2 (09:17→20:19)
[2017-04-25] MEDS: NICOTINE 21MG/24HR PATCH TRANSDERM SCH (09:38)
[2017-04-25] MEDS: METOPROLOL TARTRATE 25 MG TAB PO SCH ×2 (09:38→20:19)
--- NOTE | 2017-04-25 09:48 | P.PN ---
Subjective Principal diagnosis: Altered mental status This is a 71-year-old gentleman who follows with Dr. Fuentes as his primary care physician. He has a history of hyperlipidemia, chronic obstructive pulmonary disease with chronic and ongoing tobacco dependence, diabetes mellitus , hypertension, atrial fibrillation, chronic liver disease. He presented here on 04/21/2017 with altered mental status. The patient developed acute respiratory failure and required intubation mechanical ventilatory support. He is seen again today in follow-up in the intensive care unit. He remains on the ventilator assist control 30 tidal volume 450 FiO2 60% and a PEEP of 5. Morning blood gases reveal a pO2 of 66, pCO2 34, pH 7.4. He said atrial fibrillation with a rapid ventricular response. He remains on a Cardizem drip at 7.5 mg per hour, norepinephrine at 1 mcg/m. Propofol at 70 mcg/kg/m. 0.9 normal saline at 100 mL per hour. Insulin drip at 8 units per hour. He is receiving a trickle tube feed of Vital HP at 10 mL per hour with a goal of 44. His chest x-ray reveals bilateral effusions with atelectasis/infiltrates the lung bases. He remains on Zosyn. He did receive 1 emergent dialysis treatment for his acute renal failure and hyperkalemia. Today's labs reveal creatinine 2.30 and a potassium of 4.4. Bicarb 19. He is receiving sodium bicarbonate 650 mg by mouth twice a day. He is currently receiving a daily interruption of sedation. We are also going to check a random cortisol level. Blood cultures reveal no growth to date. Urine culture pending. The patient is seen again today 04/24/2017 in follow-up in the intensive care unit. He remains to be elevated on mechanical ventilator current settings assist control 30, tidal volume 450, FiO2 60% and a PEEP of 5. Morning blood gases reveal a P O2 of 66, pCO2 of 30 and a pH of 7.45. He does remain sedated on to propofol 50 mcg/kg/m. He has a 0.9 normal saline at 100 MLS per hour. His Cardizem is currently on hold his atrial fibrillation is better controlled he has some episodes of bradycardia. Levophed has been weaned off. He remains on heparin drip and insulin drip at 9.5 units per hour. He is being fed via tube feedings Vital HP at 40 with a goal of 44 MLS per hour. He again was given a daily interruption of sedation. He is opening his eyes but not following any commands. He had significant coughing and significant secretions with tachycardia and tachypnea. Follow-up computed tomography scan revealed no acute intracranial process. His chest x-ray continues to show evidence of a left pleural effusion otherwise stable. He has been quite slow to progress. The patient is seen again today 04/25/2017 in follow-up in the intensive care unit. He remains intubated and on the mechanical ventilator currently at assist -control mode of 30, tidal volume 450, FiO2 60% and a PEEP of 5. Current arterial blood gases reveal a pO2 of 71, pCO2 34 and a pH of7.45. A mild respiratory alkalosis. He was given a sedation holiday. He does open his eyes spontaneously but does not follow any commands. No plans for weaning trials as he is still requiring high FiO2 to maintain O2 saturations greater than 90%. He is also on a 0.9 normal saline at 60 miles per hour, heparin drip at 10.7 units per hour, propofol at 45 mcg/kg/m, insulin drip at 5.5 units per hour. He is being nourished with Vital HP at goal 40 miles per hour. He has been slow to progress. 3 CT scans of the brain have been negative for acute stroke or hemorrhage. An EEG did reveal severe slowing consistent with diffuse encephalopathy. No evidence of seizures. Objective - Vital Signs Vital signs: Vital Signs Temp 97.5 F L 04/25/17 08:00 Pulse 105 H 04/25/17 09:00 Resp 31 H 04/25/17 09:00 BP 88/56 04/24/17 10:00 Pulse Ox 96 04/25/17 09:00 Intake & Output 04/24/17 04/25/17 04/25/17 18:59 06:59 18:59 Intake Total 2183.978 1858.438 961.072 Output Total 1275 1475 550 Balance 908.978 383.438 411.072 Weight 156.8 kg 155.8 kg 155.8 kg Intake: IV 1244.8 703.0 201.5 [place] 39 33 9 Heparin Sodium,Porcine/ 45.8 D5w Pmx 25,000 unit In Dextrose/Water 1 500ml. bag @ 6.7 UNITS/KG/HR 19. 89 mls/hr IV .Q24H DI Rx #:[id number] Piperacillin-Tazobactam 3 100.0 50.0 12.5 .375 gm In Dextrose/Water 1 50ml.bag @ 12.5 mls/hr IVPB Q12HR DI Rx#: [id number] Sodium Chloride 0.9% 1, 1060 620 180 000 ml @ 60 mls/hr IV . [id number] DI Rx#:[id number] Intake, IV Titration 389.178 475.438 639.572 Amount Heparin Sodium,Porcine/ 187.395 489.258 D5w Pmx 25,000 unit In Dextrose/Water 1 500ml. bag @ 6.7 UNITS/KG/HR 19. 89 mls/hr IV .Q24H DI Rx #:[id number] Insulin Regular 100 unit 51.783 67.660 0 In Sodium Chloride 0.9% 100 ml @ Per Protocol IV .Q0M DI Rx#:[id number] Magnesium Sulfate-D5w Pmx 100 1 gm In Dextrose/Water 1 100ml.bag @ 100 mls/hr IVPB Q1H DI Rx#: [id number] Propofol 500 mg In Empty 150 128.853 Bag 1 bag @ Titrate IV . Q0M DI Rx#:[id number] Propofol 500 mg In Empty 278.925 50.314 Bag 1 bag @ Titrate IV . Q0M DI Rx#:[id number] Tube Feeding 550 560 120 Other 120 Output: Urine 1275 1475 550 Other: Voiding Method Indwelling Catheter Indwelling Catheter Indwelling Catheter ABP, PAP, CO, CI - Last Documented Arterial Blood Pressure 121/62 - Exam GENERAL EXAM: Sedated, intubated. HEAD: Normocephalic. EYES: Normal reaction of pupils, equal size. NOSE: Clear with pink turbinates. THROAT: Oral endotracheal and gastric tubes are secured in place. NECK: No masses, no JVD. CHEST: No chest wall deformity. LUNGS: Equal air entry with crackles in the posterior bases.. CVS: S1 and S2 normal with no audible murmurs, irregular rhythm. ABDOMEN: No hepatosplenomegaly, bowel sounds, no guarding or rigidity. Extremities: There is trace peripheral edema. No clubbing, no cyanosis. Peripheral pulses are intact. - Labs CBC & Chem 7: 04/25/17 05:05 04/25/17 05:05 Labs: Abnormal Lab Results - Last 24 Hours (Table) 04/24/17 04/24/17 04/24/17 Range/Units 10:10 11:04 12:10 RBC (4.30-5.90) m/uL Hgb (13.0-17.5) gm/dL Hct (39.0-53.0) % MCV (80.0-100.0) fL MCH (25.0-35.0) pg Plt Count (150-450) k/uL Lymphocytes # (1.0-4.8) k/uL APTT (22.0-30.0) sec ABG pCO2 (35-45) mmHg ABG pO2 (83-108) mmHg Chloride (98-107) mmol/L Carbon Dioxide (22-30) mmol/L BUN (9-20) mg/dL Creatinine (0.66-1.25) mg/dL Glucose (74-99) mg/dL POC Glucose (mg/dL) 179 H 173 H 159 H (75-99) mg/dL Calcium (8.4-10.2) mg/dL Magnesium (1.6-2.3) mg/dL 04/24/17 04/24/17 04/24/17 Range/Units 14:01 16:09 17:10 RBC (4.30-5.90) m/uL Hgb (13.0-17.5) gm/dL Hct (39.0-53.0) % MCV (80.0-100.0) fL MCH (25.0-35.0) pg Plt Count (150-450) k/uL Lymphocytes # (1.0-4.8) k/uL APTT (22.0-30.0) sec ABG pCO2 (35-45) mmHg ABG pO2 (83-108) mmHg Chloride (98-107) mmol/L Carbon Dioxide (22-30) mmol/L BUN (9-20) mg/dL Creatinine (0.66-1.25) mg/dL Glucose (74-99) mg/dL POC Glucose (mg/dL) 154 H 141 H 140 H (75-99) mg/dL Calcium (8.4-10.2) mg/dL Magnesium (1.6-2.3) mg/dL 04/24/17 04/24/17 04/24/17 Range/Units 18:12 18:55 19:53 RBC (4.30-5.90) m/uL Hgb (13.0-17.5) gm/dL Hct (39.0-53.0) % MCV (80.0-100.0) fL MCH (25.0-35.0) pg Plt Count (150-450) k/uL Lymphocytes # (1.0-4.8) k/uL APTT (22.0-30.0) sec ABG pCO2 (35-45) mmHg ABG pO2 (83-108) mmHg Chloride (98-107) mmol/L Carbon Dioxide (22-30) mmol/L BUN (9-20) mg/dL Creatinine (0.66-1.25) mg/dL Glucose (74-99) mg/dL POC Glucose (mg/dL) 168 H 152 H 140 H (75-99) mg/dL Calcium (8.4-10.2) mg/dL Magnesium (1.6-2.3) mg/dL 04/24/17 04/24/17 04/25/17 Range/Units 22:06 22:10 00:16 RBC (4.30-5.90) m/uL Hgb (13.0-17.5) gm/dL Hct (39.0-53.0) % MCV (80.0-100.0) fL MCH (25.0-35.0) pg Plt Count (150-450) k/uL Lymphocytes # (1.0-4.8) k/uL APTT 54.4 H (22.0-30.0) sec ABG pCO2 (35-45) mmHg ABG pO2 (83-108) mmHg Chloride (98-107) mmol/L Carbon Dioxide (22-30) mmol/L BUN (9-20) mg/dL Creatinine (0.66-1.25) mg/dL Glucose (74-99) mg/dL POC Glucose (mg/dL) 148 H 121 H (75-99) mg/dL Calcium (8.4-10.2) mg/dL Magnesium (1.6-2.3) mg/dL 04/25/17 04/25/17 04/25/17 Range/Units 01:23 02:28 03:10 RBC (4.30-5.90) m/uL Hgb (13.0-17.5) gm/dL Hct (39.0-53.0) % MCV (80.0-100.0) fL MCH (25.0-35.0) pg Plt Count (150-450) k/uL Lymphocytes # (1.0-4.8) k/uL APTT (22.0-30.0) sec ABG pCO2 (35-45) mmHg ABG pO2 (83-108) mmHg Chloride (98-107) mmol/L Carbon Dioxide (22-30) mmol/L BUN (9-20) mg/dL Creatinine (0.66-1.25) mg/dL Glucose (74-99) mg/dL POC Glucose (mg/dL) 145 H 165 H 147 H (75-99) mg/dL Calcium (8.4-10.2) mg/dL Magnesium (1.6-2.3) mg/dL 04/25/17 04/25/17 04/25/17 Range/Units 03:59 03:59 05:00 RBC (4.30-5.90) m/uL Hgb (13.0-17.5) gm/dL Hct (39.0-53.0) % MCV (80.0-100.0) fL MCH (25.0-35.0) pg Plt Count (150-450) k/uL Lymphocytes # (1.0-4.8) k/uL APTT (22.0-30.0) sec ABG pCO2 34 L (35-45) mmHg ABG pO2 71 L (83-108) mmHg Chloride (98-107) mmol/L Carbon Dioxide (22-30) mmol/L BUN (9-20) mg/dL Creatinine (0.66-1.25) mg/dL Glucose (74-99) mg/dL POC Glucose (mg/dL) 141 H 145 H (75-99) mg/dL Calcium (8.4-10.2) mg/dL Magnesium (1.6-2.3) mg/dL 04/25/17 04/25/17 04/25/17 Range/Units 05:05 05:05 05:05 RBC 3.43 L (4.30-5.90) m/uL Hgb 12.5 L (13.0-17.5) gm/dL Hct 36.5 L (39.0-53.0) % MCV 106.3 H (80.0-100.0) fL MCH 36.4 H (25.0-35.0) pg Plt Count 107 L (150-450) k/uL Lymphocytes # 0.7 L (1.0-4.8) k/uL APTT 63.1 H (22.0-30.0) sec ABG pCO2 (35-45) mmHg ABG pO2 (83-108) mmHg Chloride 113 H (98-107) mmol/L Carbon Dioxide 21 L (22-30) mmol/L BUN 26 H (9-20) mg/dL Creatinine 1.32 H (0.66-1.25) mg/dL Glucose 150 H (74-99) mg/dL POC Glucose (mg/dL) (75-99) mg/dL Calcium 6.6 L (8.4-10.2) mg/dL Magnesium 1.5 L (1.6-2.3) mg/dL 04/25/17 04/25/17 04/25/17 Range/Units 05:59 06:57 08:02 RBC (4.30-5.90) m/uL Hgb (13.0-17.5) gm/dL Hct (39.0-53.0) % MCV (80.0-100.0) fL MCH (25.0-35.0) pg Plt Count (150-450) k/uL Lymphocytes # (1.0-4.8) k/uL APTT (22.0-30.0) sec ABG pCO2 (35-45) mmHg ABG pO2 (83-108) mmHg Chloride (98-107) mmol/L Carbon Dioxide (22-30) mmol/L BUN (9-20) mg/dL Creatinine (0.66-1.25) mg/dL Glucose (74-99) mg/dL POC Glucose (mg/dL) 125 H 128 H 141 H (75-99) mg/dL Calcium (8.4-10.2) mg/dL Magnesium (1.6-2.3) mg/dL 04/25/17 04/25/17 Range/Units 08:54 08:58 RBC (4.30-5.90) m/uL Hgb (13.0-17.5) gm/dL Hct (39.0-53.0) % MCV (80.0-100.0) fL MCH (25.0-35.0) pg Plt Count (150-450) k/uL Lymphocytes # (1.0-4.8) k/uL APTT (22.0-30.0) sec ABG pCO2 (35-45) mmHg ABG pO2 (83-108) mmHg Chloride (98-107) mmol/L Carbon Dioxide (22-30) mmol/L BUN (9-20) mg/dL Creatinine (0.66-1.25) mg/dL Glucose (74-99) mg/dL POC Glucose (mg/dL) 236 H 182 H (75-99) mg/dL Calcium (8.4-10.2) mg/dL Magnesium (1.6-2.3) mg/dL Microbiology - Last 24 Hours (Table) 04/21/17 12:50 Blood Culture - Preliminary Blood No Growth after 72 hours 04/21/17 23:50 Gram Stain - Final Sputum Sputum Culture - Final Assessment and Plan Plan: Impression: #1 Acute hypoxic respiratory failure secondary to suspected diastolic congestive heart failure, worsening left pleural effusion and infiltrate with possible pneumonia. Sputum culture reveals no growth. #2 Non-anion gap metabolic acidosis secondary to acute renal failure. #3 Altered mental status of unclear etiology. 3 CT scans of the brain revealed no acute intracranial abnormality. EEG does reveal severe slowing consistent with diffuse encephalopathy. #4 History of atrial fibrillation. #5 Chronic obstructive pulmonary disease. #6 Chronic and ongoing tobacco dependence. #7 Diabetes mellitus. #8 Hyperlipidemia. #9 Hypertension. #10 Hepatitis C. #11 Previous history of substance abuse including cocaine, heroin and methamphetamine. #12 Acute renal failure requiring urgent hemodialysis. Current creatinine 1.32. #13 Profound hyperkalemia, corrected. Current potassium 3.7. Plan: The patient was seen and evaluated by Dr. Mcmillan. His chest x-ray, labs and ABGs were reviewed. We'll continue with bronchodilators. Continue with IV Zosyn. We will continue to give the patient daily interruption as sedation. The patient has been slow to progress. We will place a consult for tracheostomy and PEG tube placement for April 28 if there is no significant improvement. The interim, we'll continue with his current vent settings. We'll repeat the chest x-ray and ABGs in the a.m. We will continue to follow and make further recommendations based on his clinical status. Critical care time 38 minutes. Time with Patient: Greater than 30
[2017-04-25 10:05] LABS: Glucose,Whole Blood 175 mg/dL (75-99)
[2017-04-25] MEDS ORDERED: NOREPINEPHRIN 16 MG-0.9%NS PMX 16 MG/250 ML ML IV SCH (10:30)
--- NOTE | 2017-04-25 11:33 | P.PN ---
Subjective Patient is seen in follow-up for acute kidney injury. His baseline creatinine is near 1 and was 3.69 on admission. He was also hyperkalemic and oliguric. He underwent 1 treatment of hemodialysis on April 21. Today, creatinine is down to 1.32 and he is nonoliguric. He is currently intubated and sedated. He is also maintained on tube feeds. He is on 2 mics of levofed at this time. Vital signs are stable. General: The patient appeared well nourished and normally developed. Intubated. HEENT: Head exam is unremarkable. Neck is without jugular venous distension. LUNGS: Rhonchi at bases. Breath sounds decreased. HEART: Rate and Rhythm are regular. First and second heart sounds normal. No murmurs, rubs or gallops. ABDOMEN: Abdominal exam reveals normal bowel sounds. Non-tender and non- distended. No evidence of peritonitis. EXTREMITITES: No clubbing, cyanosis, or edema. Objective - Vital Signs Vital signs: Vital Signs Temp 97.5 F L 04/25/17 08:00 Pulse 84 04/25/17 10:00 Resp 17 04/25/17 10:00 BP 88/56 04/24/17 10:00 Pulse Ox 97 04/25/17 10:00 Intake & Output 04/24/17 04/25/17 04/25/17 18:59 06:59 18:59 Intake Total 2183.978 9603.177 1908.813 Output Total 1275 1475 675 Balance 908.978 383.438 512.813 Weight 156.8 kg 155.8 kg 155.8 kg Intake: IV 1244.8 703.0 264.5 [place] 39 33 12 Heparin Sodium,Porcine/ 45.8 D5w Pmx 25,000 unit In Dextrose/Water 1 500ml. bag @ 6.7 UNITS/KG/HR 19. 89 mls/hr IV .Q24H DI Rx #:[id number] Piperacillin-Tazobactam 3 100.0 50.0 12.5 .375 gm In Dextrose/Water 1 50ml.bag @ 12.5 mls/hr IVPB Q12HR DI Rx#: [id number] Sodium Chloride 0.9% 1, 1060 620 240 000 ml @ 60 mls/hr IV . [id number] DI Rx#:[id number] Intake, IV Titration 389.178 475.438 683.313 Amount Heparin Sodium,Porcine/ 187.395 489.258 D5w Pmx 25,000 unit In Dextrose/Water 1 500ml. bag @ 6.7 UNITS/KG/HR 19. 89 mls/hr IV .Q24H DI Rx #:[id number] Insulin Regular 100 unit 51.783 67.660 0 In Sodium Chloride 0.9% 100 ml @ Per Protocol IV .Q0M DI Rx#:[id number] Magnesium Sulfate-D5w Pmx 100 1 gm In Dextrose/Water 1 100ml.bag @ 100 mls/hr IVPB Q1H DI Rx#: [id number] Propofol 500 mg In Empty 150 128.853 Bag 1 bag @ Titrate IV . Q0M DI Rx#:[id number] Propofol 500 mg In Empty 278.925 94.055 Bag 1 bag @ Titrate IV . Q0M DI Rx#:[id number] Tube Feeding 550 560 120 Other 120 120 Output: Urine 1275 1475 675 Other: Voiding Method Indwelling Catheter Indwelling Catheter Indwelling Catheter ABP, PAP, CO, CI - Last Documented Arterial Blood Pressure 93/58 - Labs CBC & Chem 7: 04/25/17 05:05 04/25/17 05:05 Labs: Abnormal Lab Results - Last 24 Hours (Table) 04/24/17 04/24/17 04/24/17 Range/Units 12:10 14:01 16:09 RBC (4.30-5.90) m/uL Hgb (13.0-17.5) gm/dL Hct (39.0-53.0) % MCV (80.0-100.0) fL MCH (25.0-35.0) pg Plt Count (150-450) k/uL Lymphocytes # (1.0-4.8) k/uL APTT (22.0-30.0) sec ABG pCO2 (35-45) mmHg ABG pO2 (83-108) mmHg Chloride (98-107) mmol/L Carbon Dioxide (22-30) mmol/L BUN (9-20) mg/dL Creatinine (0.66-1.25) mg/dL Glucose (74-99) mg/dL POC Glucose (mg/dL) 159 H 154 H 141 H (75-99) mg/dL Calcium (8.4-10.2) mg/dL Magnesium (1.6-2.3) mg/dL 04/24/17 04/24/17 04/24/17 Range/Units 17:10 18:12 18:55 RBC (4.30-5.90) m/uL Hgb (13.0-17.5) gm/dL Hct (39.0-53.0) % MCV (80.0-100.0) fL MCH (25.0-35.0) pg Plt Count (150-450) k/uL Lymphocytes # (1.0-4.8) k/uL APTT (22.0-30.0) sec ABG pCO2 (35-45) mmHg ABG pO2 (83-108) mmHg Chloride (98-107) mmol/L Carbon Dioxide (22-30) mmol/L BUN (9-20) mg/dL Creatinine (0.66-1.25) mg/dL Glucose (74-99) mg/dL POC Glucose (mg/dL) 140 H 168 H 152 H (75-99) mg/dL Calcium (8.4-10.2) mg/dL Magnesium (1.6-2.3) mg/dL 04/24/17 04/24/17 04/24/17 Range/Units 19:53 22:06 22:10 RBC (4.30-5.90) m/uL Hgb (13.0-17.5) gm/dL Hct (39.0-53.0) % MCV (80.0-100.0) fL MCH (25.0-35.0) pg Plt Count (150-450) k/uL Lymphocytes # (1.0-4.8) k/uL APTT 54.4 H (22.0-30.0) sec ABG pCO2 (35-45) mmHg ABG pO2 (83-108) mmHg Chloride (98-107) mmol/L Carbon Dioxide (22-30) mmol/L BUN (9-20) mg/dL Creatinine (0.66-1.25) mg/dL Glucose (74-99) mg/dL POC Glucose (mg/dL) 140 H 148 H (75-99) mg/dL Calcium (8.4-10.2) mg/dL Magnesium (1.6-2.3) mg/dL 04/25/17 04/25/17 04/25/17 Range/Units 00:16 01:23 02:28 RBC (4.30-5.90) m/uL Hgb (13.0-17.5) gm/dL Hct (39.0-53.0) % MCV (80.0-100.0) fL MCH (25.0-35.0) pg Plt Count (150-450) k/uL Lymphocytes # (1.0-4.8) k/uL APTT (22.0-30.0) sec ABG pCO2 (35-45) mmHg ABG pO2 (83-108) mmHg Chloride (98-107) mmol/L Carbon Dioxide (22-30) mmol/L BUN (9-20) mg/dL Creatinine (0.66-1.25) mg/dL Glucose (74-99) mg/dL POC Glucose (mg/dL) 121 H 145 H 165 H (75-99) mg/dL Calcium (8.4-10.2) mg/dL Magnesium (1.6-2.3) mg/dL 04/25/17 04/25/17 04/25/17 Range/Units 03:10 03:59 03:59 RBC (4.30-5.90) m/uL Hgb (13.0-17.5) gm/dL Hct (39.0-53.0) % MCV (80.0-100.0) fL MCH (25.0-35.0) pg Plt Count (150-450) k/uL Lymphocytes # (1.0-4.8) k/uL APTT (22.0-30.0) sec ABG pCO2 34 L (35-45) mmHg ABG pO2 71 L (83-108) mmHg Chloride (98-107) mmol/L Carbon Dioxide (22-30) mmol/L BUN (9-20) mg/dL Creatinine (0.66-1.25) mg/dL Glucose (74-99) mg/dL POC Glucose (mg/dL) 147 H 141 H (75-99) mg/dL Calcium (8.4-10.2) mg/dL Magnesium (1.6-2.3) mg/dL 04/25/17 04/25/17 04/25/17 Range/Units 05:00 05:05 05:05 RBC (4.30-5.90) m/uL Hgb (13.0-17.5) gm/dL Hct (39.0-53.0) % MCV (80.0-100.0) fL MCH (25.0-35.0) pg Plt Count (150-450) k/uL Lymphocytes # (1.0-4.8) k/uL APTT 63.1 H (22.0-30.0) sec ABG pCO2 (35-45) mmHg ABG pO2 (83-108) mmHg Chloride 113 H (98-107) mmol/L Carbon Dioxide 21 L (22-30) mmol/L BUN 26 H (9-20) mg/dL Creatinine 1.32 H (0.66-1.25) mg/dL Glucose 150 H (74-99) mg/dL POC Glucose (mg/dL) 145 H (75-99) mg/dL Calcium 6.6 L (8.4-10.2) mg/dL Magnesium 1.5 L (1.6-2.3) mg/dL 04/25/17 04/25/17 04/25/17 Range/Units 05:05 05:59 06:57 RBC 3.43 L (4.30-5.90) m/uL Hgb 12.5 L (13.0-17.5) gm/dL Hct 36.5 L (39.0-53.0) % MCV 106.3 H (80.0-100.0) fL MCH 36.4 H (25.0-35.0) pg Plt Count 107 L (150-450) k/uL Lymphocytes # 0.7 L (1.0-4.8) k/uL APTT (22.0-30.0) sec ABG pCO2 (35-45) mmHg ABG pO2 (83-108) mmHg Chloride (98-107) mmol/L Carbon Dioxide (22-30) mmol/L BUN (9-20) mg/dL Creatinine (0.66-1.25) mg/dL Glucose (74-99) mg/dL POC Glucose (mg/dL) 125 H 128 H (75-99) mg/dL Calcium (8.4-10.2) mg/dL Magnesium (1.6-2.3) mg/dL 04/25/17 04/25/17 04/25/17 Range/Units 08:02 08:54 08:58 RBC (4.30-5.90) m/uL Hgb (13.0-17.5) gm/dL Hct (39.0-53.0) % MCV (80.0-100.0) fL MCH (25.0-35.0) pg Plt Count (150-450) k/uL Lymphocytes # (1.0-4.8) k/uL APTT (22.0-30.0) sec ABG pCO2 (35-45) mmHg ABG pO2 (83-108) mmHg Chloride (98-107) mmol/L Carbon Dioxide (22-30) mmol/L BUN (9-20) mg/dL Creatinine (0.66-1.25) mg/dL Glucose (74-99) mg/dL POC Glucose (mg/dL) 141 H 236 H 182 H (75-99) mg/dL Calcium (8.4-10.2) mg/dL Magnesium (1.6-2.3) mg/dL 04/25/17 Range/Units 10:04 RBC (4.30-5.90) m/uL Hgb (13.0-17.5) gm/dL Hct (39.0-53.0) % MCV (80.0-100.0) fL MCH (25.0-35.0) pg Plt Count (150-450) k/uL Lymphocytes # (1.0-4.8) k/uL APTT (22.0-30.0) sec ABG pCO2 (35-45) mmHg ABG pO2 (83-108) mmHg Chloride (98-107) mmol/L Carbon Dioxide (22-30) mmol/L BUN (9-20) mg/dL Creatinine (0.66-1.25) mg/dL Glucose (74-99) mg/dL POC Glucose (mg/dL) 175 H (75-99) mg/dL Calcium (8.4-10.2) mg/dL Magnesium (1.6-2.3) mg/dL Microbiology - Last 24 Hours (Table) 04/21/17 12:50 Blood Culture - Preliminary Blood No Growth after 72 hours 04/21/17 23:50 Gram Stain - Final Sputum Sputum Culture - Final Assessment and Plan Plan: Assessment: #1. Nonoliguric acute kidney injury mostly prerenal in nature secondary to hemodynamic instability and use of angiotensin receptor lowell. Creatinine was at 3.7 this admission and was down to 1.96 after dialysis. It's 1.32 this morning. Urinalysis is quite benign. No evidence of hydronephrosis noted on CT of the abdomen and pelvis. #2. Hyperkalemia secondary to acute kidney injury and metabolic acidosis further worsened with the use of valsartan. Status post 1 treatment of hemodialysis on April 21. Resolved. Dialysis catheter has been discontinued. #3. Metabolic acidosis secondary to acute kidney injury and IV fluids. Improving. #4. Hypomagnesemia likely due to PPI. Plan: Hep-Lock IV fluids. Continue tube feeds. Maintain oral sodium bicarbonate 650 mg twice daily. Avoid nephrotoxic agents and hypotensive episodes. Wean FiO2. No need for renal replacement therapy at this time. Continue to monitor renal function and urine output. Replace magnesium. 2 g IV today.
[2017-04-25 11:35] LABS: Glucose,Whole Blood 148 mg/dL (75-99)
[2017-04-25 12:52] LABS: Glucose,Whole Blood 138 mg/dL (75-99)
--- NOTE | 2017-04-25 13:35 | PN ---
Mr. Mathur is a 71-year-old male, who had evidence of respiratory failure. He was intubated. He remains intubated at this time. He has history of chronic atrial fibrillation. Hemodynamically, he is stable. His blood pressure is stable. His heart rate is in the low 100s. There is no evidence of ventricular ectopic activity. He continues to be on IV Cardizem. He was started on IV heparin. PHYSICAL EXAMINATION: His blood pressure is in the 120s to 130s with the heart rate in the high 90s to low hundreds. LUNGS: Clear anteriorly. HEART: Irregularly irregular. S1, S2, no S3, no rub appreciated. ABDOMEN: Soft, positive bowel sounds. EXTREMITIES: 1+ edema. Lab data revealed BUN and creatinine 26 and 1.32. His renal function has improved compared to yesterday. His potassium 3.7. Hemoglobin of 12.5. IMPRESSION: 1. Respiratory failure with probable lung infection. 2. Chronic atrial fibrillation. 3. Renal failure, improving. 4. Chronic obstructive lung disease with chronic tobacco use. 5. Diabetes. 6. Hyperlipidemia. 7. Hypertension. RECOMMENDATION: From the cardiac standpoint, I will start him on Lopressor through the NG tube. If his heart rate is stable, then his IV Cardizem will be stopped. The patient will need to be switched to an oral anticoagulant if no intervention is needed at this point. We will follow his blood pressure and depending on his progress, further recommendation will be made. The decision about weaning and extubation and will be addressed by the pulmonary service.
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
--- NOTE | 2017-04-25 14:28 | P.PN ---
Subjective This patient is a 71-year-old male who was seen in neurology consultation yesterday for altered mental status and unresponsive state. Patient remains intubated on the ventilator today. He was sent for a repeat computed tomography scan of the brain today which was reviewed. CAT scan is negative for any evidence of acute stroke or hemorrhage. No change from previous 2 CT scans of the brain. Specifically there was no evidence of basilar artery thrombosis. No evidence of acute stroke or hemorrhage was detected on the scan today. Patient remains on the ventilator. He is on a Diprivan drip. He does have a history of atrial fibrillation and was seen by cardiology. He was started on IV heparin protocol this morning as per cardiology's recommendation given his atrial fibrillation. Patient is currently on 45 mics of Diprivan. He remains heavily sedated. Apparently when sedation was cut back he did seem to open his eyes according to the ICU nurse today. He is requiring interruption of sedation daily and does show some signs of improvement. He does open eyes but then has severe coughing reflex. He opens eyes but does not follow any commands. He does have increase in secretions and becomes tachycardic and tachypneic with the sedation interruptions. Chest x-ray reveals evidence of left pleural effusion and infiltrate with possible pneumonia. Pulmonary medicine is following the patient closely for this. He doesn't respond minimally to sternal rub likely secondary to his IV sedation. The patient underwent routine EEG today which was reviewed. The EEG reveals significant slowing consistent with a diffuse encephalopathy. We have discussed this patient's neurological findings today in detail with his over the telephone. She was updated on all of his neurodiagnostic testing which included 3 CT scans of the brain. We reviewed his EEG result from today as well with the . His overall prognosis at this time remains very guarded. We have recommended to the that we will continue close neurological follow-up daily. We will need to see if he will be able to be weaned off the ventilator gradually over the next several days. As per pulmonary medicine his progress is very slow. He may eventually need a tracheostomy and PEG tube placement. The patient is being considered for tracheostomy and PEG tube placement on Friday. His overall prognosis at this time however remains very guarded. is aware of his overall poor neurological status and condition at this time. We will continue close neurological follow-up of this patient in the ICU setting. Objective - Vital Signs Vital signs: Vital Signs Temp 97.5 F L 04/25/17 12:00 Pulse 104 H 04/25/17 13:00 Resp 30 H 04/25/17 13:00 BP 88/56 04/24/17 10:00 Pulse Ox 98 04/25/17 13:00 Intake & Output 04/24/17 04/25/17 04/25/17 18:59 06:59 18:59 Intake Total 2183.978 2074.472 3844.497 Output Total 1275 1475 1225 Balance 908.978 383.438 321.497 Weight 156.8 kg 155.8 kg 155.8 kg Intake: IV 1244.8 703.0 406.0 Iram 39 33 21 Heparin Sodium,Porcine/ 45.8 D5w Pmx 25,000 unit In Dextrose/Water 1 500ml. bag @ 6.7 UNITS/KG/HR 19. 89 mls/hr IV .Q24H DI Rx #:[id number] Piperacillin-Tazobactam 3 100.0 50.0 25.0 .375 gm In Dextrose/Water 1 50ml.bag @ 12.5 mls/hr IVPB Q12HR DI Rx#: [id number] Sodium Chloride 0.9% 1, 1060 620 360 000 ml @ 20 mls/hr IV . Q24H DI Rx#:[id number] Intake, IV Titration 389.178 475.438 760.497 Amount Heparin Sodium,Porcine/ 187.395 489.258 D5w Pmx 25,000 unit In Dextrose/Water 1 500ml. bag @ 6.7 UNITS/KG/HR 19. 89 mls/hr IV .Q24H DI Rx #:[id number] Insulin Regular 100 unit 51.783 67.660 25.715 In Sodium Chloride 0.9% 100 ml @ Per Protocol IV .Q0M DI Rx#:[id number] Magnesium Sulfate-D5w Pmx 100 1 gm In Dextrose/Water 1 100ml.bag @ 100 mls/hr IVPB Q1H DI Rx#: [id number] Norepinephrin 16 mg-0.9% 1.469 Ns Pmx 16 mg In 250 ml @ Titrate IV .Q0M DI Rx#: [id number] Propofol 500 mg In Empty 150 128.853 Bag 1 bag @ Titrate IV . Q0M DI Rx#:[id number] Propofol 500 mg In Empty 278.925 144.055 Bag 1 bag @ Titrate IV . Q0M [facility] Rx#:[id number] Oral 60 Tube Feeding 550 560 200 Other 120 120 Output: Urine 1275 1475 1225 Other: Voiding Method Indwelling Catheter Indwelling Catheter Indwelling Catheter ABP, PAP, CO, CI - Last Documented Arterial Blood Pressure 88/50 - Exam Physical examination: PHYSICAL EXAMINATION: Patient is intubated on the ventilator and is on a Diprivan drip. He remains sedated and unresponsive. VITAL SIGNS: Blood pressure is [88/50]. Heart rate is [104]. Respiration is [30] . Temperature is [97.5]. HEENT: Head is atraumatic, neck is supple, there were no carotid bruits. CHEST: Lungs are clear to auscultation and percussion. CARDIAC: S1, S2 normal rate and rhythm. There is no murmur. ABDOMEN: Soft and nontender. Bowel sounds are present. EXTREMITIES: There is no pedal edema. Peripheral pulses are present. Neurological examination: Patient remains intubated on the ventilator and is on a Diprivan drip. His neurological examination is limited at this time due to his sedation. Muscle tone is preserved in all 4 extremities. Deep tendon reflexes are 1+ and symmetric. Plantar responses flexor bilaterally. - Labs CBC & Chem 7: 04/25/17 05:05 04/25/17 05:05 Labs: Abnormal Lab Results - Last 24 Hours (Table) 04/24/17 04/24/17 04/24/17 Range/Units 16:09 17:10 18:12 RBC (4.30-5.90) m/uL Hgb (13.0-17.5) gm/dL Hct (39.0-53.0) % MCV (80.0-100.0) fL MCH (25.0-35.0) pg Plt Count (150-450) k/uL Lymphocytes # (1.0-4.8) k/uL APTT (22.0-30.0) sec ABG pCO2 (35-45) mmHg ABG pO2 (83-108) mmHg Chloride (98-107) mmol/L Carbon Dioxide (22-30) mmol/L BUN (9-20) mg/dL Creatinine (0.66-1.25) mg/dL Glucose (74-99) mg/dL POC Glucose (mg/dL) 141 H 140 H 168 H (75-99) mg/dL Calcium (8.4-10.2) mg/dL Magnesium (1.6-2.3) mg/dL 04/24/17 04/24/17 04/24/17 Range/Units 18:55 19:53 22:06 RBC (4.30-5.90) m/uL Hgb (13.0-17.5) gm/dL Hct (39.0-53.0) % MCV (80.0-100.0) fL MCH (25.0-35.0) pg Plt Count (150-450) k/uL Lymphocytes # (1.0-4.8) k/uL APTT (22.0-30.0) sec ABG pCO2 (35-45) mmHg ABG pO2 (83-108) mmHg Chloride (98-107) mmol/L Carbon Dioxide (22-30) mmol/L BUN (9-20) mg/dL Creatinine (0.66-1.25) mg/dL Glucose (74-99) mg/dL POC Glucose (mg/dL) 152 H 140 H 148 H (75-99) mg/dL Calcium (8.4-10.2) mg/dL Magnesium (1.6-2.3) mg/dL 04/24/17 04/25/17 04/25/17 Range/Units 22:10 00:16 01:23 RBC (4.30-5.90) m/uL Hgb (13.0-17.5) gm/dL Hct (39.0-53.0) % MCV (80.0-100.0) fL MCH (25.0-35.0) pg Plt Count (150-450) k/uL Lymphocytes # (1.0-4.8) k/uL APTT 54.4 H (22.0-30.0) sec ABG pCO2 (35-45) mmHg ABG pO2 (83-108) mmHg Chloride (98-107) mmol/L Carbon Dioxide (22-30) mmol/L BUN (9-20) mg/dL Creatinine (0.66-1.25) mg/dL Glucose (74-99) mg/dL POC Glucose (mg/dL) 121 H 145 H (75-99) mg/dL Calcium (8.4-10.2) mg/dL Magnesium (1.6-2.3) mg/dL 04/25/17 04/25/17 04/25/17 Range/Units 02:28 03:10 03:59 RBC (4.30-5.90) m/uL Hgb (13.0-17.5) gm/dL Hct (39.0-53.0) % MCV (80.0-100.0) fL MCH (25.0-35.0) pg Plt Count (150-450) k/uL Lymphocytes # (1.0-4.8) k/uL APTT (22.0-30.0) sec ABG pCO2 (35-45) mmHg ABG pO2 (83-108) mmHg Chloride (98-107) mmol/L Carbon Dioxide (22-30) mmol/L BUN (9-20) mg/dL Creatinine (0.66-1.25) mg/dL Glucose (74-99) mg/dL POC Glucose (mg/dL) 165 H 147 H 141 H (75-99) mg/dL Calcium (8.4-10.2) mg/dL Magnesium (1.6-2.3) mg/dL 04/25/17 04/25/17 04/25/17 Range/Units 03:59 05:00 05:05 RBC (4.30-5.90) m/uL Hgb (13.0-17.5) gm/dL Hct (39.0-53.0) % MCV (80.0-100.0) fL MCH (25.0-35.0) pg Plt Count (150-450) k/uL Lymphocytes # (1.0-4.8) k/uL APTT 63.1 H (22.0-30.0) sec ABG pCO2 34 L (35-45) mmHg ABG pO2 71 L (83-108) mmHg Chloride (98-107) mmol/L Carbon Dioxide (22-30) mmol/L BUN (9-20) mg/dL Creatinine (0.66-1.25) mg/dL Glucose (74-99) mg/dL POC Glucose (mg/dL) 145 H (75-99) mg/dL Calcium (8.4-10.2) mg/dL Magnesium (1.6-2.3) mg/dL 04/25/17 04/25/17 04/25/17 Range/Units 05:05 05:05 05:59 RBC 3.43 L (4.30-5.90) m/uL Hgb 12.5 L (13.0-17.5) gm/dL Hct 36.5 L (39.0-53.0) % MCV 106.3 H (80.0-100.0) fL MCH 36.4 H (25.0-35.0) pg Plt Count 107 L (150-450) k/uL Lymphocytes # 0.7 L (1.0-4.8) k/uL APTT (22.0-30.0) sec ABG pCO2 (35-45) mmHg ABG pO2 (83-108) mmHg Chloride 113 H (98-107) mmol/L Carbon Dioxide 21 L (22-30) mmol/L BUN 26 H (9-20) mg/dL Creatinine 1.32 H (0.66-1.25) mg/dL Glucose 150 H (74-99) mg/dL POC Glucose (mg/dL) 125 H (75-99) mg/dL Calcium 6.6 L (8.4-10.2) mg/dL Magnesium 1.5 L (1.6-2.3) mg/dL 04/25/17 04/25/17 04/25/17 Range/Units 06:57 08:02 08:54 RBC (4.30-5.90) m/uL Hgb (13.0-17.5) gm/dL Hct (39.0-53.0) % MCV (80.0-100.0) fL MCH (25.0-35.0) pg Plt Count (150-450) k/uL Lymphocytes # (1.0-4.8) k/uL APTT (22.0-30.0) sec ABG pCO2 (35-45) mmHg ABG pO2 (83-108) mmHg Chloride (98-107) mmol/L Carbon Dioxide (22-30) mmol/L BUN (9-20) mg/dL Creatinine (0.66-1.25) mg/dL Glucose (74-99) mg/dL POC Glucose (mg/dL) 128 H 141 H 236 H (75-99) mg/dL Calcium (8.4-10.2) mg/dL Magnesium (1.6-2.3) mg/dL 04/25/17 04/25/17 04/25/17 Range/Units 08:58 10:04 11:29 RBC (4.30-5.90) m/uL Hgb (13.0-17.5) gm/dL Hct (39.0-53.0) % MCV (80.0-100.0) fL MCH (25.0-35.0) pg Plt Count (150-450) k/uL Lymphocytes # (1.0-4.8) k/uL APTT (22.0-30.0) sec ABG pCO2 (35-45) mmHg ABG pO2 (83-108) mmHg Chloride (98-107) mmol/L Carbon Dioxide (22-30) mmol/L BUN (9-20) mg/dL Creatinine (0.66-1.25) mg/dL Glucose (74-99) mg/dL POC Glucose (mg/dL) 182 H 175 H 148 H (75-99) mg/dL Calcium (8.4-10.2) mg/dL Magnesium (1.6-2.3) mg/dL 04/25/17 Range/Units 12:50 RBC (4.30-5.90) m/uL Hgb (13.0-17.5) gm/dL Hct (39.0-53.0) % MCV (80.0-100.0) fL MCH (25.0-35.0) pg Plt Count (150-450) k/uL Lymphocytes # (1.0-4.8) k/uL APTT (22.0-30.0) sec ABG pCO2 (35-45) mmHg ABG pO2 (83-108) mmHg Chloride (98-107) mmol/L Carbon Dioxide (22-30) mmol/L BUN (9-20) mg/dL Creatinine (0.66-1.25) mg/dL Glucose (74-99) mg/dL POC Glucose (mg/dL) 138 H (75-99) mg/dL Calcium (8.4-10.2) mg/dL Magnesium (1.6-2.3) mg/dL Microbiology - Last 24 Hours (Table) 04/21/17 12:50 Blood Culture - Preliminary Blood No Growth after 72 hours 04/21/17 23:50 Gram Stain - Final Sputum Sputum Culture - Final Assessment and Plan (1) Acute encephalopathy Status: Acute Code(s): G93.40 - ENCEPHALOPATHY, UNSPECIFIED (2) Acute renal failure Status: Acute Code(s): N17.9 - ACUTE KIDNEY FAILURE, UNSPECIFIED (3) Atrial fibrillation Status: Acute Code(s): I48.91 - UNSPECIFIED ATRIAL FIBRILLATION (4) Hepatic encephalopathy Status: Acute Code(s): K72.90 - HEPATIC FAILURE, UNSPECIFIED WITHOUT COMA Plan: This patient is a 71-year-old male who is seen today in the intensive care unit for neurological follow-up. There has been no change in his overall neurological status. He is undergone extensive evaluation for unresponsive state including 3 CT scans of the brain all of which of been negative for any evidence of acute stroke or hemorrhage. His EEG is consistent with diffuse encephalopathy with severe slowing. Patient remains on a Diprivan drip at 45 mics and shows no change in his overall status. He is currently on IV heparin protocol for treatment of atrial fibrillation. Patient is being considered for tracheostomy and PEG tube placement on Friday. We may consider a repeat EEG for the patient next week as well. At this time he remains significantly encephalopathic. We will continue close neurological follow-up of this patient in the intensive care unit. His overall prognosis at this time remains very guarded.
[2017-04-25 15:06] LABS: Glucose,Whole Blood 129 mg/dL (75-99)
[2017-04-25 16:09] LABS: Glucose,Whole Blood 148 mg/dL (75-99)
[2017-04-25 17:05] LABS: Glucose,Whole Blood 134 mg/dL (75-99)
[2017-04-25 18:28] LABS: Glucose,Whole Blood 149 mg/dL (75-99)
--- NOTE | 2017-04-25 18:33 | P.PN ---
Subjective Principal diagnosis: altered mental status, diabetic ketoacidosis, atrial fibrillation, chronic liver disease, tobacco dependence, history of alcoholism. Patient was seen again today on 04/24/2017 and follow up in the intensive care unit. this individual remains on the ventilator, assist control 30 title volume 450 FiO2 60% and a PEEP of 5. Morning blood gas revealed pO2 66 pCO2 30 pH of 7.45. Patient is currently in A. fib with rapid ventricular response. He remains on a Cardizem drip is currently on hold, norepinephrine has currently been weaned. Propofol at 50 mics per kilogram per minute 0.9 normal saline at 100 mils per hour. Insulin drip at 9.5 units per hour. Patient is also receiving trickle tube feed of vital HP@40 hour with a goal of 44MLS/hr. Chest x-ray suggests bilateral effusions with atelectasis. he remains on Zosyn. He did receive 1 emergent dialysis treatment for acute renal failure and hyperkalemia. Blood cultures reveal no growth to date, urine culture pending Objective - Vital Signs Vital signs: Vital Signs Temp 97.6 F 04/25/17 16:00 Pulse 100 04/25/17 18:00 Resp 30 H 04/25/17 18:00 BP 88/56 04/24/17 10:00 Pulse Ox 96 04/25/17 18:00 Intake & Output 04/24/17 04/25/17 04/25/17 18:59 06:59 18:59 Intake Total 2183.978 9653.066 4730.252 Output Total 1275 1475 2175 Balance 908.978 383.438 -317.748 Weight 156.8 kg 155.8 kg 155.8 kg Intake: IV 1244.8 703.0 571.0 Iram 39 33 36 Heparin Sodium,Porcine/ 45.8 D5w Pmx 25,000 unit In Dextrose/Water 1 500ml. bag @ 6.7 UNITS/KG/HR 19. 89 mls/hr IV .Q24H DI Rx #:[id number] Piperacillin-Tazobactam 3 100.0 50.0 25.0 .375 gm In Dextrose/Water 1 50ml.bag @ 12.5 mls/hr IVPB Q12HR DI Rx#: [id number] Sodium Chloride 0.9% 1, 1060 620 510 000 ml @ 20 mls/hr IV . Q24H DI Rx#:[id number] Intake, IV Titration 389.178 475.438 866.252 Amount Heparin Sodium,Porcine/ 187.395 489.258 D5w Pmx 25,000 unit In Dextrose/Water 1 500ml. bag @ 6.7 UNITS/KG/HR 19. 89 mls/hr IV .Q24H DI Rx #:[id number] Insulin Regular 100 unit 51.783 67.660 30.344 In Sodium Chloride 0.9% 100 ml @ Per Protocol IV .Q0M DI Rx#:[id number] Magnesium Sulfate-D5w Pmx 100 1 gm In Dextrose/Water 1 100ml.bag @ 100 mls/hr IVPB Q1H DI Rx#: [id number] Norepinephrin 16 mg-0.9% 2.595 Ns Pmx 16 mg In 250 ml @ Titrate IV .Q0M DI Rx#: [id number] Propofol 500 mg In Empty 150 128.853 Bag 1 bag @ Titrate IV . Q0M DI Rx#:[id number] Propofol 500 mg In Empty 278.925 244.055 Bag 1 bag @ Titrate IV . Q0M DI Rx#:[id number] Oral 60 Tube Feeding 550 560 240 Other 120 120 Output: Urine 1275 1475 2175 Other: Voiding Method Indwelling Catheter Indwelling Catheter Indwelling Catheter ABP, PAP, CO, CI - Last Documented Arterial Blood Pressure 122/67 - Exam General: is currently on vent and sedated HEENT: [PERRL. EOMI. No pharyngeal erythema or exudate.] Neck: [No adenopathy.] Cardiac: [Heart regular in rate and rhythm. No S3. No S4. No clicks, rubs. No murmur.] Lungs: [Clear to auscultation bilaterally.] Abdomen: [No mass. No organomegaly. Bowel sounds presnt and normoactive in all 4 quadrants.] Extremes: [Mildly edematous to all 4 extremes no cyanosis no claudication normal pulses] : [] Musculoskeletal: [No joint erythema, edema or tenderness.] Skin: [No rash.] Neurologic: [No lateralizing deficits. CN II - XII grossly intact.] Lymphatic: [No adenopathy.] - Labs CBC & Chem 7: 04/25/17 05:05 04/25/17 05:05 Labs: Abnormal Lab Results - Last 24 Hours (Table) 04/24/17 04/24/17 04/24/17 Range/Units 18:55 19:53 22:06 RBC (4.30-5.90) m/uL Hgb (13.0-17.5) gm/dL Hct (39.0-53.0) % MCV (80.0-100.0) fL MCH (25.0-35.0) pg Plt Count (150-450) k/uL Lymphocytes # (1.0-4.8) k/uL APTT (22.0-30.0) sec ABG pCO2 (35-45) mmHg ABG pO2 (83-108) mmHg Chloride (98-107) mmol/L Carbon Dioxide (22-30) mmol/L BUN (9-20) mg/dL Creatinine (0.66-1.25) mg/dL Glucose (74-99) mg/dL POC Glucose (mg/dL) 152 H 140 H 148 H (75-99) mg/dL Calcium (8.4-10.2) mg/dL Magnesium (1.6-2.3) mg/dL 04/24/17 04/25/17 04/25/17 Range/Units 22:10 00:16 01:23 RBC (4.30-5.90) m/uL Hgb (13.0-17.5) gm/dL Hct (39.0-53.0) % MCV (80.0-100.0) fL MCH (25.0-35.0) pg Plt Count (150-450) k/uL Lymphocytes # (1.0-4.8) k/uL APTT 54.4 H (22.0-30.0) sec ABG pCO2 (35-45) mmHg ABG pO2 (83-108) mmHg Chloride (98-107) mmol/L Carbon Dioxide (22-30) mmol/L BUN (9-20) mg/dL Creatinine (0.66-1.25) mg/dL Glucose (74-99) mg/dL POC Glucose (mg/dL) 121 H 145 H (75-99) mg/dL Calcium (8.4-10.2) mg/dL Magnesium (1.6-2.3) mg/dL 04/25/17 04/25/17 04/25/17 Range/Units 02:28 03:10 03:59 RBC (4.30-5.90) m/uL Hgb (13.0-17.5) gm/dL Hct (39.0-53.0) % MCV (80.0-100.0) fL MCH (25.0-35.0) pg Plt Count (150-450) k/uL Lymphocytes # (1.0-4.8) k/uL APTT (22.0-30.0) sec ABG pCO2 (35-45) mmHg ABG pO2 (83-108) mmHg Chloride (98-107) mmol/L Carbon Dioxide (22-30) mmol/L BUN (9-20) mg/dL Creatinine (0.66-1.25) mg/dL Glucose (74-99) mg/dL POC Glucose (mg/dL) 165 H 147 H 141 H (75-99) mg/dL Calcium (8.4-10.2) mg/dL Magnesium (1.6-2.3) mg/dL 04/25/17 04/25/17 04/25/17 Range/Units 03:59 05:00 05:05 RBC (4.30-5.90) m/uL Hgb (13.0-17.5) gm/dL Hct (39.0-53.0) % MCV (80.0-100.0) fL MCH (25.0-35.0) pg Plt Count (150-450) k/uL Lymphocytes # (1.0-4.8) k/uL APTT 63.1 H (22.0-30.0) sec ABG pCO2 34 L (35-45) mmHg ABG pO2 71 L (83-108) mmHg Chloride (98-107) mmol/L Carbon Dioxide (22-30) mmol/L BUN (9-20) mg/dL Creatinine (0.66-1.25) mg/dL Glucose (74-99) mg/dL POC Glucose (mg/dL) 145 H (75-99) mg/dL Calcium (8.4-10.2) mg/dL Magnesium (1.6-2.3) mg/dL 04/25/17 04/25/17 04/25/17 Range/Units 05:05 05:05 05:59 RBC 3.43 L (4.30-5.90) m/uL Hgb 12.5 L (13.0-17.5) gm/dL Hct 36.5 L (39.0-53.0) % MCV 106.3 H (80.0-100.0) fL MCH 36.4 H (25.0-35.0) pg Plt Count 107 L (150-450) k/uL Lymphocytes # 0.7 L (1.0-4.8) k/uL APTT (22.0-30.0) sec ABG pCO2 (35-45) mmHg ABG pO2 (83-108) mmHg Chloride 113 H (98-107) mmol/L Carbon Dioxide 21 L (22-30) mmol/L BUN 26 H (9-20) mg/dL Creatinine 1.32 H (0.66-1.25) mg/dL Glucose 150 H (74-99) mg/dL POC Glucose (mg/dL) 125 H (75-99) mg/dL Calcium 6.6 L (8.4-10.2) mg/dL Magnesium 1.5 L (1.6-2.3) mg/dL 04/25/17 04/25/17 04/25/17 Range/Units 06:57 08:02 08:54 RBC (4.30-5.90) m/uL Hgb (13.0-17.5) gm/dL Hct (39.0-53.0) % MCV (80.0-100.0) fL MCH (25.0-35.0) pg Plt Count (150-450) k/uL Lymphocytes # (1.0-4.8) k/uL APTT (22.0-30.0) sec ABG pCO2 (35-45) mmHg ABG pO2 (83-108) mmHg Chloride (98-107) mmol/L Carbon Dioxide (22-30) mmol/L BUN (9-20) mg/dL Creatinine (0.66-1.25) mg/dL Glucose (74-99) mg/dL POC Glucose (mg/dL) 128 H 141 H 236 H (75-99) mg/dL Calcium (8.4-10.2) mg/dL Magnesium (1.6-2.3) mg/dL 04/25/17 04/25/17 04/25/17 Range/Units 08:58 10:04 11:29 RBC (4.30-5.90) m/uL Hgb (13.0-17.5) gm/dL Hct (39.0-53.0) % MCV (80.0-100.0) fL MCH (25.0-35.0) pg Plt Count (150-450) k/uL Lymphocytes # (1.0-4.8) k/uL APTT (22.0-30.0) sec ABG pCO2 (35-45) mmHg ABG pO2 (83-108) mmHg Chloride (98-107) mmol/L Carbon Dioxide (22-30) mmol/L BUN (9-20) mg/dL Creatinine (0.66-1.25) mg/dL Glucose (74-99) mg/dL POC Glucose (mg/dL) 182 H 175 H 148 H (75-99) mg/dL Calcium (8.4-10.2) mg/dL Magnesium (1.6-2.3) mg/dL 04/25/17 04/25/17 04/25/17 Range/Units 12:50 15:04 16:07 RBC (4.30-5.90) m/uL Hgb (13.0-17.5) gm/dL Hct (39.0-53.0) % MCV (80.0-100.0) fL MCH (25.0-35.0) pg Plt Count (150-450) k/uL Lymphocytes # (1.0-4.8) k/uL APTT (22.0-30.0) sec ABG pCO2 (35-45) mmHg ABG pO2 (83-108) mmHg Chloride (98-107) mmol/L Carbon Dioxide (22-30) mmol/L BUN (9-20) mg/dL Creatinine (0.66-1.25) mg/dL Glucose (74-99) mg/dL POC Glucose (mg/dL) 138 H 129 H 148 H (75-99) mg/dL Calcium (8.4-10.2) mg/dL Magnesium (1.6-2.3) mg/dL 04/25/17 04/25/17 Range/Units 17:04 18:08 RBC (4.30-5.90) m/uL Hgb (13.0-17.5) gm/dL Hct (39.0-53.0) % MCV (80.0-100.0) fL MCH (25.0-35.0) pg Plt Count (150-450) k/uL Lymphocytes # (1.0-4.8) k/uL APTT (22.0-30.0) sec ABG pCO2 (35-45) mmHg ABG pO2 (83-108) mmHg Chloride (98-107) mmol/L Carbon Dioxide (22-30) mmol/L BUN (9-20) mg/dL Creatinine (0.66-1.25) mg/dL Glucose (74-99) mg/dL POC Glucose (mg/dL) 134 H 149 H (75-99) mg/dL Calcium (8.4-10.2) mg/dL Magnesium (1.6-2.3) mg/dL Microbiology - Last 24 Hours (Table) 04/21/17 12:50 Blood Culture - Preliminary Blood No Growth after 96 hours Assessment and Plan (1) Acute renal failure Narrative/Plan: Oliguric acute kidney injury mostly renal in nature secondary to hemodynamic instability and use of angiotensin receptor lowell. Impingement creatinine was as high as 3.7 this admission down to 1.96 after dialysis 2.8 this morning urinalysis is quite benign no evidence of hydronephrosis on CT of the abdomen and pelvis #2 hyperkalemia is secondary to acute renal injury and metabolic acidosis further worsened with the use of valsartan. Is one treatment of hemodialysis on April 21 potassium level at this time was 7.7 #3 metabolic acidosis secondary to acute renal injury #4 history of alcoholism Plan; Continue normal saline Start sodium bicarb 2. tube feeds were initiated yesterday Avoid nephrotoxic agents and hypotensive episodes We'll wean vent continue to monitor renal function and urinary output Status: Acute
[2017-04-25 19:07] LABS: Glucose,Whole Blood 145 mg/dL (75-99)
[2017-04-25 19:55] LABS: Glucose,Whole Blood 123 mg/dL (75-99)
[2017-04-25 21:03] LABS: Glucose,Whole Blood 163 mg/dL (75-99)
[2017-04-25 21:53] LABS: Glucose,Whole Blood 158 mg/dL (75-99)
[2017-04-25 23:06] LABS: Glucose,Whole Blood 151 mg/dL (75-99)
[2017-04-25 23:39] LABS: Glucose,Whole Blood 153 mg/dL (75-99)
[2017-04-26] MEDS: PROPOFOL 500 MG in EMPTY BAG 1 BAG IV SCH ×15 (00:18→23:38)
[2017-04-26] MEDS: SODIUM CHLORIDE 0.9% 1,000 ML IV SCH ×6 (01:39→18:58)
[2017-04-26 01:59] LABS: Glucose,Whole Blood 138 mg/dL (75-99)
[2017-04-26 03:03] LABS: Glucose,Whole Blood 159 mg/dL (75-99)
[2017-04-26] MEDS: IPRATROPIUM-ALBUTEROL 3 ML NEB INHALATION SCH ×6 (03:10→23:15)
[2017-04-26 04:20] LABS: Glucose,Whole Blood 166 mg/dL (75-99)
[2017-04-26 04:46] LABS: ABG Base Excess -0.2 mmol/L; ABG HCO3 24 mmol/L (21-25); ABG PCO2 37 mmHg (35-45); ABG PH 7.42 (7.35-7.45); ABG PO2 71 mmHg (83-108); ABG TCO2 25 mmol/L (19-24)
[2017-04-26 05:00] LABS: Basophils % (A) 0 %; CH 34.4; CHCM 32.1; Eosinophils # (A) 0.2 k/uL (0-0.7); Eosinophils % (A) 3 %; HCT 37.3 % (39.0-53.0); HDW 2.29; HGB 12.7 gm/dL (13.0-17.5); Luc # (Auto) 0.12; Luc % (Auto) 2; Lymphocytes # (A) 0.8 k/uL (1.0-4.8); Lymphocytes % (A) 14 %; MCH 36.8 pg (25.0-35.0); MCHC 34.1 g/dL (31.0-37.0); MCV 107.9 fL (80.0-100.0); Macrocytosis Marked; Mean Platelet Volume 8.3; Monocytes # (A) 0.3 k/uL (0-1.0); Monocytes % (A) 6 %; Neutrophils # (A) 4.2 k/uL (1.3-7.7); Neutrophils % (A) 75 %; RBC 3.46 m/uL (4.30-5.90); RDW 15.1 % (11.5-15.5); WBC 5.6 k/uL (3.8-10.6); WBC (Perox) 5.88
[2017-04-26 05:23] LABS: Anion Gap 9 mmol/L; Blood Urea Nitrogen 28 mg/dL (9-20); Calcium 6.7 mg/dL (8.4-10.2); Carbon Dioxide 24 mmol/L (22-30); Chloride 111 mmol/L (98-107); Glucose 182 mg/dL (74-99); Magnesium 1.7 mg/dL (1.6-2.3); Non-African American GFR(MDRD) 60 (>60 ml/min/1.73 sqM); Phosphorous 3.2 mg/dL (2.5-4.5); Potassium 3.8 mmol/L (3.5-5.1); Sodium 144 mmol/L (137-145)
[2017-04-26 06:00] LABS: Manual Review Performed
[2017-04-26] MEDS ORDERED: POTASSIUM CHLORIDE ORAL LIQUID 40 MEQ/30 ML CUP NG-TUBE SCH (06:00)
[2017-04-26 06:19] LABS: Glucose,Whole Blood 155 mg/dL (75-99)
[2017-04-26] MEDS: INSULIN REGULAR 100 UNIT in SODIUM CHLORIDE 0.9% 100 ML IV SCH (06:23)
[2017-04-26] MEDS: MAGNESIUM SULFATE-D5W PMX 1 GM in DEXTROSE/WATER 1 100ML.BAG IVPB SCH ×2 (06:30→09:09)
--- NOTE | 2017-04-26 06:44 | XR ---
EXAMINATION TYPE: XR chest 1V portable DATE OF EXAM: 04/26/2017 HISTORY: Tube placement. REFERENCE: Previous study dated 04/25/2017. FINDINGS: The patient is ET tube and NG tube remain in place, unchanged in appearance. There is a lef t basilic PICC line in place. Its tip appears to be in the innominate vein. The heart is enlarged. There is left basilar infiltrate. I suspect small effusions. Overall aeration has improved. IMPRESSION: 1. TIP OF THE PATIENT'S LEFT BASILIC PICC LINE IS IN THE INNOMINATE VEIN. 2. CARDIOMEGALY. 3. IMPROVED AERATION, LEFT LUNG BASE.
[2017-04-26 08:08] LABS: Glucose,Whole Blood 164 mg/dL (75-99)
[2017-04-26] MEDS: PIPERACILLIN-TAZOBACTAM 3.375 GM in DEXTROSE/WATER 1 50ML.BAG IVPB SCH ×3 (08:21→23:38)
[2017-04-26] MEDS: PANTOPRAZOLE 40 MG/10 ML VIAL IV SCH (09:10)
[2017-04-26] MEDS: ASPIRIN 81 MG CHEW PO SCH (09:29)
[2017-04-26] MEDS: CHLORHEXIDINE GLUCONATE 15 ML CUP MUCOUS MEM SCH ×2 (09:29→20:50)
[2017-04-26] MEDS: METOPROLOL TARTRATE 25 MG TAB PO SCH ×2 (09:29→20:50)
[2017-04-26] MEDS: SODIUM BICARBONATE TAB 650 MG TAB PO SCH ×2 (09:30→20:50)
[2017-04-26 10:09] LABS: Glucose,Whole Blood 168 mg/dL (75-99)
--- NOTE | 2017-04-26 10:10 | P.PN ---
Subjective Patient is seen in follow-up for acute kidney injury. His baseline creatinine is near 1 and was 3.69 on admission. He was also hyperkalemic and oliguric. He underwent 1 treatment of hemodialysis on April 21. Today, creatinine is down to 1.2 and he is nonoliguric. He is currently intubated and sedated. He is also maintained on tube feeds. He is on 2 mics of levofed at this time as his blood pressures are quite labile. Vital signs are stable. General: The patient appeared well nourished and normally developed. Intubated. HEENT: Head exam is unremarkable. Neck is without jugular venous distension. LUNGS: Rhonchi at bases. Breath sounds decreased. HEART: Rate and Rhythm are regular. First and second heart sounds normal. No murmurs, rubs or gallops. ABDOMEN: Abdominal exam reveals normal bowel sounds. Non-tender and non- distended. No evidence of peritonitis. EXTREMITITES: No clubbing, cyanosis, or edema. Objective - Vital Signs Vital signs: Vital Signs Temp 98.1 F 04/26/17 04:00 Pulse 168 H 04/26/17 09:00 Resp 30 H 04/26/17 09:00 BP 73/57 04/26/17 09:00 Pulse Ox 94 L 04/26/17 09:00 Intake & Output 04/25/17 04/26/17 04/26/17 18:59 06:59 18:59 Intake Total 3670.059 3026.757 412.659 Output Total 2175 2155 460 Balance -267.748 183.757 -47.341 Weight 155.8 kg 155.1 kg Intake: IV 571.0 346 133 [place] 36 36 3 Magnesium Sulfate-D5w Pmx 100 1 gm In Dextrose/Water 1 100ml.bag @ 100 mls/hr IVPB Q1H DI Rx#: [id number] Piperacillin-Tazobactam 3 25.0 .375 gm In Dextrose/Water 1 50ml.bag @ 12.5 mls/hr IVPB Q12HR DI Rx#: [id number] Sodium Chloride 0.9% 1, 510 310 30 000 ml @ 20 mls/hr IV . Q24H DI Rx#:[id number] Intake, IV Titration 877.141 6168.757 209.659 Amount Heparin Sodium,Porcine/ 489.258 683.585 94.71 D5w Pmx 25,000 unit In Dextrose/Water 1 500ml. bag @ 6.7 UNITS/KG/HR 19. 89 mls/hr IV .Q24H DI Rx #:[id number] Insulin Regular 100 unit 30.344 39.721 5.706 In Sodium Chloride 0.9% 100 ml @ Per Protocol IV .Q0M DI Rx#:[id number] Magnesium Sulfate-D5w Pmx 100 1 gm In Dextrose/Water 1 100ml.bag @ 100 mls/hr IVPB Q1H DI Rx#: [id number] Norepinephrin 16 mg-0.9% 2.595 8.828 4.407 Ns Pmx 16 mg In 250 ml @ Titrate IV .Q0M DI Rx#: [id number] Piperacillin-Tazobactam 3 50.0 12.5 .375 gm In Dextrose/Water 1 50ml.bag @ 12.5 mls/hr IVPB Q8HR DI Rx#: [id number] Propofol 500 mg In Empty 294.055 430.623 92.336 Bag 1 bag @ Titrate IV . Q0M DI Rx#:[id number] Oral 60 60 Tube Feeding 240 600 40 Other 120 120 30 Output: Urine 2175 2155 460 Other: Voiding Method Indwelling Catheter Indwelling Catheter ABP, PAP, CO, CI - Last Documented Arterial Blood Pressure 142/67 - Labs CBC & Chem 7: 04/26/17 04:25 04/26/17 04:25 Labs: Abnormal Lab Results - Last 24 Hours (Table) 04/25/17 04/25/17 04/25/17 Range/Units 11:29 12:50 15:04 RBC (4.30-5.90) m/uL Hgb (13.0-17.5) gm/dL Hct (39.0-53.0) % MCV (80.0-100.0) fL MCH (25.0-35.0) pg Plt Count (150-450) k/uL Lymphocytes # (1.0-4.8) k/uL APTT (22.0-30.0) sec ABG pO2 (83-108) mmHg ABG Total CO2 (19-24) mmol/L Chloride (98-107) mmol/L BUN (9-20) mg/dL Glucose (74-99) mg/dL POC Glucose (mg/dL) 148 H 138 H 129 H (75-99) mg/dL Calcium (8.4-10.2) mg/dL 04/25/17 04/25/17 04/25/17 Range/Units 16:07 17:04 18:08 RBC (4.30-5.90) m/uL Hgb (13.0-17.5) gm/dL Hct (39.0-53.0) % MCV (80.0-100.0) fL MCH (25.0-35.0) pg Plt Count (150-450) k/uL Lymphocytes # (1.0-4.8) k/uL APTT (22.0-30.0) sec ABG pO2 (83-108) mmHg ABG Total CO2 (19-24) mmol/L Chloride (98-107) mmol/L BUN (9-20) mg/dL Glucose (74-99) mg/dL POC Glucose (mg/dL) 148 H 134 H 149 H (75-99) mg/dL Calcium (8.4-10.2) mg/dL 04/25/17 04/25/17 04/25/17 Range/Units 19:05 19:52 21:02 RBC (4.30-5.90) m/uL Hgb (13.0-17.5) gm/dL Hct (39.0-53.0) % MCV (80.0-100.0) fL MCH (25.0-35.0) pg Plt Count (150-450) k/uL Lymphocytes # (1.0-4.8) k/uL APTT (22.0-30.0) sec ABG pO2 (83-108) mmHg ABG Total CO2 (19-24) mmol/L Chloride (98-107) mmol/L BUN (9-20) mg/dL Glucose (74-99) mg/dL POC Glucose (mg/dL) 145 H 123 H 163 H (75-99) mg/dL Calcium (8.4-10.2) mg/dL 04/25/17 04/25/17 04/25/17 Range/Units 21:51 23:05 23:37 RBC (4.30-5.90) m/uL Hgb (13.0-17.5) gm/dL Hct (39.0-53.0) % MCV (80.0-100.0) fL MCH (25.0-35.0) pg Plt Count (150-450) k/uL Lymphocytes # (1.0-4.8) k/uL APTT (22.0-30.0) sec ABG pO2 (83-108) mmHg ABG Total CO2 (19-24) mmol/L Chloride (98-107) mmol/L BUN (9-20) mg/dL Glucose (74-99) mg/dL POC Glucose (mg/dL) 158 H 151 H 153 H (75-99) mg/dL Calcium (8.4-10.2) mg/dL 04/26/17 04/26/17 04/26/17 Range/Units 01:57 03:00 04:18 RBC (4.30-5.90) m/uL Hgb (13.0-17.5) gm/dL Hct (39.0-53.0) % MCV (80.0-100.0) fL MCH (25.0-35.0) pg Plt Count (150-450) k/uL Lymphocytes # (1.0-4.8) k/uL APTT (22.0-30.0) sec ABG pO2 (83-108) mmHg ABG Total CO2 (19-24) mmol/L Chloride (98-107) mmol/L BUN (9-20) mg/dL Glucose (74-99) mg/dL POC Glucose (mg/dL) 138 H 159 H 166 H (75-99) mg/dL Calcium (8.4-10.2) mg/dL 04/26/17 04/26/17 04/26/17 Range/Units 04:25 04:25 04:25 RBC 3.46 L (4.30-5.90) m/uL Hgb 12.7 L (13.0-17.5) gm/dL Hct 37.3 L (39.0-53.0) % MCV 107.9 H (80.0-100.0) fL MCH 36.8 H (25.0-35.0) pg Plt Count 104 L (150-450) k/uL Lymphocytes # 0.8 L (1.0-4.8) k/uL APTT 76.0 H (22.0-30.0) sec ABG pO2 (83-108) mmHg ABG Total CO2 (19-24) mmol/L Chloride 111 H (98-107) mmol/L BUN 28 H (9-20) mg/dL Glucose 182 H (74-99) mg/dL POC Glucose (mg/dL) (75-99) mg/dL Calcium 6.7 L (8.4-10.2) mg/dL 04/26/17 04/26/17 04/26/17 Range/Units 04:38 06:18 08:06 RBC (4.30-5.90) m/uL Hgb (13.0-17.5) gm/dL Hct (39.0-53.0) % MCV (80.0-100.0) fL MCH (25.0-35.0) pg Plt Count (150-450) k/uL Lymphocytes # (1.0-4.8) k/uL APTT (22.0-30.0) sec ABG pO2 71 L (83-108) mmHg ABG Total CO2 25 H (19-24) mmol/L Chloride (98-107) mmol/L BUN (9-20) mg/dL Glucose (74-99) mg/dL POC Glucose (mg/dL) 155 H 164 H (75-99) mg/dL Calcium (8.4-10.2) mg/dL Microbiology - Last 24 Hours (Table) 04/21/17 12:50 Blood Culture - Preliminary Blood No Growth after 96 hours Assessment and Plan Plan: Assessment: #1. Nonoliguric acute kidney injury mostly prerenal in nature secondary to hemodynamic instability and use of angiotensin receptor lowell. Creatinine was at 3.7 this admission and was down to 1.96 after dialysis. It's 1.2 this morning. Urinalysis is quite benign. No evidence of hydronephrosis noted on CT of the abdomen and pelvis. #2. Hyperkalemia secondary to acute kidney injury and metabolic acidosis further worsened with the use of valsartan. Status post 1 treatment of hemodialysis on April 21. Resolved. Dialysis catheter has been discontinued. #3. Metabolic acidosis secondary to acute kidney injury and IV fluids. Improving. #4. Hypomagnesemia likely due to PPI and poor nutritional status. #5. Hypernatremia secondary to lack of oral water intake. Plan: Continue tube feeds. Increase free water to 200 mL every 4 hours with tube feeds. Maintain oral sodium bicarbonate 650 mg twice daily. Avoid nephrotoxic agents and hypotensive episodes. Wean FiO2. No need for renal replacement therapy at this time. Continue to monitor renal function and urine output.
--- NOTE | 2017-04-26 10:31 | P.PN ---
Subjective Principal diagnosis: Altered mental status This is a 71-year-old gentleman who follows with Dr. Fuentes as his primary care physician. He has a history of hyperlipidemia, chronic obstructive pulmonary disease with chronic and ongoing tobacco dependence, diabetes mellitus , hypertension, atrial fibrillation, chronic liver disease. He presented here on 04/21/2017 with altered mental status. The patient developed acute respiratory failure and required intubation mechanical ventilatory support. He is seen again today in follow-up in the intensive care unit. He remains on the ventilator assist control 30 tidal volume 450 FiO2 60% and a PEEP of 5. Morning blood gases reveal a pO2 of 66, pCO2 34, pH 7.4. He said atrial fibrillation with a rapid ventricular response. He remains on a Cardizem drip at 7.5 mg per hour, norepinephrine at 1 mcg/m. Propofol at 70 mcg/kg/m. 0.9 normal saline at 100 mL per hour. Insulin drip at 8 units per hour. He is receiving a trickle tube feed of Vital HP at 10 mL per hour with a goal of 44. His chest x-ray reveals bilateral effusions with atelectasis/infiltrates the lung bases. He remains on Zosyn. He did receive 1 emergent dialysis treatment for his acute renal failure and hyperkalemia. Today's labs reveal creatinine 2.30 and a potassium of 4.4. Bicarb 19. He is receiving sodium bicarbonate 650 mg by mouth twice a day. He is currently receiving a daily interruption of sedation. We are also going to check a random cortisol level. Blood cultures reveal no growth to date. Urine culture pending. The patient is seen again today 04/24/2017 in follow-up in the intensive care unit. He remains to be elevated on mechanical ventilator current settings assist control 30, tidal volume 450, FiO2 60% and a PEEP of 5. Morning blood gases reveal a P O2 of 66, pCO2 of 30 and a pH of 7.45. He does remain sedated on to propofol 50 mcg/kg/m. He has a 0.9 normal saline at 100 MLS per hour. His Cardizem is currently on hold his atrial fibrillation is better controlled he has some episodes of bradycardia. Levophed has been weaned off. He remains on heparin drip and insulin drip at 9.5 units per hour. He is being fed via tube feedings Vital HP at 40 with a goal of 44 MLS per hour. He again was given a daily interruption of sedation. He is opening his eyes but not following any commands. He had significant coughing and significant secretions with tachycardia and tachypnea. Follow-up computed tomography scan revealed no acute intracranial process. His chest x-ray continues to show evidence of a left pleural effusion otherwise stable. He has been quite slow to progress. The patient is seen again today 04/25/2017 in follow-up in the intensive care unit. He remains intubated and on the mechanical ventilator currently at assist -control mode of 30, tidal volume 450, FiO2 60% and a PEEP of 5. Current arterial blood gases reveal a pO2 of 71, pCO2 34 and a pH of7.45. A mild respiratory alkalosis. He was given a sedation holiday. He does open his eyes spontaneously but does not follow any commands. No plans for weaning trials as he is still requiring high FiO2 to maintain O2 saturations greater than 90%. He is also on a 0.9 normal saline at 60 miles per hour, heparin drip at 10.7 units per hour, propofol at 45 mcg/kg/m, insulin drip at 5.5 units per hour. He is being nourished with Vital HP at goal 40 miles per hour. He has been slow to progress. 3 CT scans of the brain have been negative for acute stroke or hemorrhage. An EEG did reveal severe slowing consistent with diffuse encephalopathy. No evidence of seizures. The patient is seen again today 04/26/2017 in follow-up in the intensive care unit. He remains intubated and on the mechanical ventilator. Current settings are assist-control mode of 30, tidal volume 450, FiO2 60% and a PEEP of 5. Morning blood gases reveal a pO2 of 71, pCO2 37 and a pH of 7.42. He continues to have a 0.9 normal saline at 30 mL per hour, norepinephrine at 2 mcg/m, propofol at 15 mcg/kg/m, heparin at 8.7 units, insulin drip at 2.5 units per hour. He is being nourished with Vital HP at 40 mL's per hour which is goal. He has had ongoing issues with atrial fibrillation with rapid ventricular response and increasing PVCs and labile blood pressures. His chest x-ray does reveal improved aeration in the left lung base. Objective - Vital Signs Vital signs: Vital Signs Temp 98.1 F 04/26/17 04:00 Pulse 113 H 04/26/17 10:00 Resp 30 H 04/26/17 10:00 BP 106/64 04/26/17 10:00 Pulse Ox 95 04/26/17 10:00 Intake & Output 04/25/17 04/26/17 04/26/17 18:59 06:59 18:59 Intake Total 6197.614 7073.757 872.659 Output Total 2175 2155 1080 Balance -267.748 183.757 -207.341 Weight 155.8 kg 155.1 kg 155.1 kg Intake: IV 571.0 346 213 [place] 36 36 23 Magnesium Sulfate-D5w Pmx 100 1 gm In Dextrose/Water 1 100ml.bag @ 100 mls/hr IVPB Q1H DI Rx#: [id number] Piperacillin-Tazobactam 3 25.0 .375 gm In Dextrose/Water 1 50ml.bag @ 12.5 mls/hr IVPB Q12HR DI Rx#: [id number] Sodium Chloride 0.9% 1, 510 310 90 000 ml @ 20 mls/hr IV . Q24H DI Rx#:[id number] Intake, IV Titration 719.913 4825.757 309.659 Amount Heparin Sodium,Porcine/ 489.258 683.585 94.71 D5w Pmx 25,000 unit In Dextrose/Water 1 500ml. bag @ 6.7 UNITS/KG/HR 19. 89 mls/hr IV .Q24H DI Rx #:[id number] Insulin Regular 100 unit 30.344 39.721 5.706 In Sodium Chloride 0.9% 100 ml @ Per Protocol IV .Q0M DI Rx#:[id number] Magnesium Sulfate-D5w Pmx 100 1 gm In Dextrose/Water 1 100ml.bag @ 100 mls/hr IVPB Q1H DI Rx#: [id number] Magnesium Sulfate-D5w Pmx 100 1 gm In Dextrose/Water 1 100ml.bag @ 100 mls/hr IVPB Q1H DI Rx#: [id number] Norepinephrin 16 mg-0.9% 2.595 8.828 4.407 Ns Pmx 16 mg In 250 ml @ Titrate IV .Q0M DI Rx#: [id number] Piperacillin-Tazobactam 3 50.0 12.5 .375 gm In Dextrose/Water 1 50ml.bag @ 12.5 mls/hr IVPB Q8HR DI Rx#: [id number] Propofol 500 mg In Empty 294.055 430.623 92.336 Bag 1 bag @ Titrate IV . Q0M DI Rx#:[id number] Oral 60 60 Tube Feeding 240 600 120 Other 120 120 230 Output: Urine 2175 2155 1080 Other: Voiding Method Indwelling Catheter Indwelling Catheter Indwelling Catheter ABP, PAP, CO, CI - Last Documented Arterial Blood Pressure 121/66 - Exam GENERAL EXAM: Sedated, intubated. HEAD: Normocephalic. EYES: Normal reaction of pupils, equal size. NOSE: Clear with pink turbinates. THROAT: Oral endotracheal and gastric tubes are secured in place. NECK: No masses, no JVD. CHEST: No chest wall deformity. LUNGS: Equal air entry with crackles in the posterior bases.. CVS: S1 and S2 normal with no audible murmurs, irregular rhythm. ABDOMEN: No hepatosplenomegaly, bowel sounds, no guarding or rigidity. Extremities: There is trace peripheral edema. No clubbing, no cyanosis. Peripheral pulses are intact. - Labs CBC & Chem 7: 04/26/17 04:25 04/26/17 04:25 Labs: Abnormal Lab Results - Last 24 Hours (Table) 04/25/17 04/25/17 04/25/17 Range/Units 11:29 12:50 15:04 RBC (4.30-5.90) m/uL Hgb (13.0-17.5) gm/dL Hct (39.0-53.0) % MCV (80.0-100.0) fL MCH (25.0-35.0) pg Plt Count (150-450) k/uL Lymphocytes # (1.0-4.8) k/uL APTT (22.0-30.0) sec ABG pO2 (83-108) mmHg ABG Total CO2 (19-24) mmol/L Chloride (98-107) mmol/L BUN (9-20) mg/dL Glucose (74-99) mg/dL POC Glucose (mg/dL) 148 H 138 H 129 H (75-99) mg/dL Calcium (8.4-10.2) mg/dL 04/25/17 04/25/17 04/25/17 Range/Units 16:07 17:04 18:08 RBC (4.30-5.90) m/uL Hgb (13.0-17.5) gm/dL Hct (39.0-53.0) % MCV (80.0-100.0) fL MCH (25.0-35.0) pg Plt Count (150-450) k/uL Lymphocytes # (1.0-4.8) k/uL APTT (22.0-30.0) sec ABG pO2 (83-108) mmHg ABG Total CO2 (19-24) mmol/L Chloride (98-107) mmol/L BUN (9-20) mg/dL Glucose (74-99) mg/dL POC Glucose (mg/dL) 148 H 134 H 149 H (75-99) mg/dL Calcium (8.4-10.2) mg/dL 04/25/17 04/25/17 04/25/17 Range/Units 19:05 19:52 21:02 RBC (4.30-5.90) m/uL Hgb (13.0-17.5) gm/dL Hct (39.0-53.0) % MCV (80.0-100.0) fL MCH (25.0-35.0) pg Plt Count (150-450) k/uL Lymphocytes # (1.0-4.8) k/uL APTT (22.0-30.0) sec ABG pO2 (83-108) mmHg ABG Total CO2 (19-24) mmol/L Chloride (98-107) mmol/L BUN (9-20) mg/dL Glucose (74-99) mg/dL POC Glucose (mg/dL) 145 H 123 H 163 H (75-99) mg/dL Calcium (8.4-10.2) mg/dL 04/25/17 04/25/17 04/25/17 Range/Units 21:51 23:05 23:37 RBC (4.30-5.90) m/uL Hgb (13.0-17.5) gm/dL Hct (39.0-53.0) % MCV (80.0-100.0) fL MCH (25.0-35.0) pg Plt Count (150-450) k/uL Lymphocytes # (1.0-4.8) k/uL APTT (22.0-30.0) sec ABG pO2 (83-108) mmHg ABG Total CO2 (19-24) mmol/L Chloride (98-107) mmol/L BUN (9-20) mg/dL Glucose (74-99) mg/dL POC Glucose (mg/dL) 158 H 151 H 153 H (75-99) mg/dL Calcium (8.4-10.2) mg/dL 04/26/17 04/26/17 04/26/17 Range/Units 01:57 03:00 04:18 RBC (4.30-5.90) m/uL Hgb (13.0-17.5) gm/dL Hct (39.0-53.0) % MCV (80.0-100.0) fL MCH (25.0-35.0) pg Plt Count (150-450) k/uL Lymphocytes # (1.0-4.8) k/uL APTT (22.0-30.0) sec ABG pO2 (83-108) mmHg ABG Total CO2 (19-24) mmol/L Chloride (98-107) mmol/L BUN (9-20) mg/dL Glucose (74-99) mg/dL POC Glucose (mg/dL) 138 H 159 H 166 H (75-99) mg/dL Calcium (8.4-10.2) mg/dL 04/26/17 04/26/17 04/26/17 Range/Units 04:25 04:25 04:25 RBC 3.46 L (4.30-5.90) m/uL Hgb 12.7 L (13.0-17.5) gm/dL Hct 37.3 L (39.0-53.0) % MCV 107.9 H (80.0-100.0) fL MCH 36.8 H (25.0-35.0) pg Plt Count 104 L (150-450) k/uL Lymphocytes # 0.8 L (1.0-4.8) k/uL APTT 76.0 H (22.0-30.0) sec ABG pO2 (83-108) mmHg ABG Total CO2 (19-24) mmol/L Chloride 111 H (98-107) mmol/L BUN 28 H (9-20) mg/dL Glucose 182 H (74-99) mg/dL POC Glucose (mg/dL) (75-99) mg/dL Calcium 6.7 L (8.4-10.2) mg/dL 04/26/17 04/26/17 04/26/17 Range/Units 04:38 06:18 08:06 RBC (4.30-5.90) m/uL Hgb (13.0-17.5) gm/dL Hct (39.0-53.0) % MCV (80.0-100.0) fL MCH (25.0-35.0) pg Plt Count (150-450) k/uL Lymphocytes # (1.0-4.8) k/uL APTT (22.0-30.0) sec ABG pO2 71 L (83-108) mmHg ABG Total CO2 25 H (19-24) mmol/L Chloride (98-107) mmol/L BUN (9-20) mg/dL Glucose (74-99) mg/dL POC Glucose (mg/dL) 155 H 164 H (75-99) mg/dL Calcium (8.4-10.2) mg/dL 04/26/17 Range/Units 10:06 RBC (4.30-5.90) m/uL Hgb (13.0-17.5) gm/dL Hct (39.0-53.0) % MCV (80.0-100.0) fL MCH (25.0-35.0) pg Plt Count (150-450) k/uL Lymphocytes # (1.0-4.8) k/uL APTT (22.0-30.0) sec ABG pO2 (83-108) mmHg ABG Total CO2 (19-24) mmol/L Chloride (98-107) mmol/L BUN (9-20) mg/dL Glucose (74-99) mg/dL POC Glucose (mg/dL) 168 H (75-99) mg/dL Calcium (8.4-10.2) mg/dL Microbiology - Last 24 Hours (Table) 04/21/17 12:50 Blood Culture - Preliminary Blood No Growth after 96 hours Assessment and Plan Plan: Impression: #1 Acute hypoxic respiratory failure secondary to suspected diastolic congestive heart failure, worsening left pleural effusion and infiltrate with possible pneumonia. Sputum culture reveals no growth. #2 Non-anion gap metabolic acidosis secondary to acute renal failure. #3 Altered mental status of unclear etiology. 3 CT scans of the brain revealed no acute intracranial abnormality. EEG does reveal severe slowing consistent with diffuse encephalopathy. #4 History of atrial fibrillation. #5 Chronic obstructive pulmonary disease. #6 Chronic and ongoing tobacco dependence. #7 Diabetes mellitus. #8 Hyperlipidemia. #9 Hypertension. #10 Hepatitis C. #11 Previous history of substance abuse including cocaine, heroin and methamphetamine. #12 Acute renal failure requiring urgent hemodialysis. Current creatinine 1.20. #13 Profound hyperkalemia, corrected. Current potassium 3.8. Plan: The patient was seen and evaluated by Dr. Mcmillan. His chest x-ray, labs and ABGs were reviewed. We will increase his PEEP from 5-10 and gradually wean down the FiO2 as tolerated maintain O2 saturations greater than 92%. We'll continue with bronchodilators. Continue with IV Zosyn. We will continue to give the patient daily interruption as sedation. The patient may require tracheostomy tube placement along with PEG tube insertion for what seems to be prolonged ventilatory dependence. We'll recheck an ammonia level. We'll repeat the chest x-ray and ABGs in the a.m. We will continue to follow and make further recommendations based on his clinical status. Critical care time 34 minutes. Time with Patient: Greater than 30
[2017-04-26 10:54] LABS: Magnesium 2.1 mg/dL (1.6-2.3); Phosphorous 3.2 mg/dL (2.5-4.5); Potassium 4.1 mmol/L (3.5-5.1)
[2017-04-26] MEDS: DILTIAZEM 125 MG in SODIUM CHLORIDE 0.9% 100 ML IV SCH ×2 (11:06→22:03)
[2017-04-26 12:12] LABS: Glucose,Whole Blood 162 mg/dL (75-99)
[2017-04-26] MEDS: LACTULOSE 20 GM/30 ML CUP PO SCH ×2 (12:53→20:50)
--- NOTE | 2017-04-26 13:07 | P.PN ---
Subjective Principal diagnosis: altered mental status, diabetic ketoacidosis, atrial fibrillation, chronic liver disease, tobacco dependence, history of alcoholism. Patient was seen again today on 04/24/2017 and follow up in the intensive care unit. this individual remains on the ventilator, assist control 30 title volume 450 FiO2 60% and a PEEP of 5. Morning blood gas revealed pO2 66 pCO2 30 pH of 7.45. Patient is currently in A. fib with rapid ventricular response. He remains on a Cardizem drip is currently on hold, norepinephrine has currently been weaned. Propofol at 50 mics per kilogram per minute 0.9 normal saline at 100 mils per hour. Insulin drip at 9.5 units per hour. Patient is also receiving trickle tube feed of vital HP@40 hour with a goal of 44MLS/hr. Chest x-ray suggests bilateral effusions with atelectasis. he remains on Zosyn. He did receive 1 emergent dialysis treatment for acute renal failure and hyperkalemia. Blood cultures reveal no growth to date, urine culture pending.Tracheostomy, and PEG tube friday Objective - Vital Signs Vital signs: Vital Signs Temp 98.3 F 04/26/17 11:00 Pulse 107 H 04/26/17 12:00 Resp 29 H 04/26/17 12:00 BP 65/54 04/26/17 11:00 Pulse Ox 95 04/26/17 12:00 Intake & Output 04/25/17 04/26/17 04/26/17 18:59 06:59 18:59 Intake Total 7987.064 0000.757 1251.037 Output Total 2175 2155 1380 Balance -267.748 183.757 -128.963 Weight 155.8 kg 155.1 kg 155.1 kg Intake: IV 571.0 346 293 Iram 36 36 43 Magnesium Sulfate-D5w Pmx 100 1 gm In Dextrose/Water 1 100ml.bag @ 100 mls/hr IVPB Q1H DI Rx#: [id number] Piperacillin-Tazobactam 3 25.0 .375 gm In Dextrose/Water 1 50ml.bag @ 12.5 mls/hr IVPB Q12HR DI Rx#: [id number] Sodium Chloride 0.9% 1, 510 310 150 000 ml @ 20 mls/hr IV . Q24H DI Rx#:[id number] Intake, IV Titration 368.486 0654.757 418.037 Amount Diltiazem 125 mg In 10 Sodium Chloride 0.9% 100 ml @ 10 MG/HR 10 mls/hr IV .[id number] DI Rx#: [id number] Heparin Sodium,Porcine/ 489.258 683.585 94.71 D5w Pmx 25,000 unit In Dextrose/Water 1 500ml. bag @ 6.7 UNITS/KG/HR 19. 89 mls/hr IV .Q24H DI Rx #:[id number] Insulin Regular 100 unit 30.344 39.721 15.870 In Sodium Chloride 0.9% 100 ml @ Per Protocol IV .Q0M DI Rx#:[id number] Magnesium Sulfate-D5w Pmx 100 1 gm In Dextrose/Water 1 100ml.bag @ 100 mls/hr IVPB Q1H DI Rx#: [id number] Magnesium Sulfate-D5w Pmx 100 1 gm In Dextrose/Water 1 100ml.bag @ 100 mls/hr IVPB Q1H DI Rx#: [id number] Norepinephrin 16 mg-0.9% 2.595 8.828 7.346 Ns Pmx 16 mg In 250 ml @ Titrate IV .Q0M DI Rx#: [id number] Piperacillin-Tazobactam 3 50.0 12.5 .375 gm In Dextrose/Water 1 50ml.bag @ 12.5 mls/hr IVPB Q8HR DI Rx#: [id number] Propofol 500 mg In Empty 294.055 430.623 177.611 Bag 1 bag @ Titrate IV . Q0M DI Rx#:[id number] Oral 60 60 60 Tube Feeding 240 600 250 Other 120 120 230 Output: Urine 2175 2155 1380 Other: Voiding Method Indwelling Catheter Indwelling Catheter Indwelling Catheter ABP, PAP, CO, CI - Last Documented Arterial Blood Pressure 88/52 - Exam General: is currently on vent and sedated HEENT: [PERRL. EOMI. No pharyngeal erythema or exudate.] Neck: [No adenopathy.] Cardiac: [Heart regular in rate and rhythm. No S3. No S4. No clicks, rubs. No murmur.] Lungs: [Clear to auscultation bilaterally.] Abdomen: [No mass. No organomegaly. Bowel sounds presnt and normoactive in all 4 quadrants.] Extremes: [Mildly edematous to all 4 extremes no cyanosis no claudication normal pulses] : [] Musculoskeletal: [No joint erythema, edema or tenderness.] Skin: [No rash.] Neurologic: [No lateralizing deficits. CN II - XII grossly intact.] Lymphatic: [No adenopathy.] - Labs CBC & Chem 7: 04/26/17 04:25 04/26/17 10:29 Labs: Abnormal Lab Results - Last 24 Hours (Table) 04/25/17 04/25/17 04/25/17 Range/Units 15:04 16:07 17:04 RBC (4.30-5.90) m/uL Hgb (13.0-17.5) gm/dL Hct (39.0-53.0) % MCV (80.0-100.0) fL MCH (25.0-35.0) pg Plt Count (150-450) k/uL Lymphocytes # (1.0-4.8) k/uL APTT (22.0-30.0) sec ABG pO2 (83-108) mmHg ABG Total CO2 (19-24) mmol/L Chloride (98-107) mmol/L BUN (9-20) mg/dL Glucose (74-99) mg/dL POC Glucose (mg/dL) 129 H 148 H 134 H (75-99) mg/dL Calcium (8.4-10.2) mg/dL Ammonia (<30) umol/L 04/25/17 04/25/17 04/25/17 Range/Units 18:08 19:05 19:52 RBC (4.30-5.90) m/uL Hgb (13.0-17.5) gm/dL Hct (39.0-53.0) % MCV (80.0-100.0) fL MCH (25.0-35.0) pg Plt Count (150-450) k/uL Lymphocytes # (1.0-4.8) k/uL APTT (22.0-30.0) sec ABG pO2 (83-108) mmHg ABG Total CO2 (19-24) mmol/L Chloride (98-107) mmol/L BUN (9-20) mg/dL Glucose (74-99) mg/dL POC Glucose (mg/dL) 149 H 145 H 123 H (75-99) mg/dL Calcium (8.4-10.2) mg/dL Ammonia (<30) umol/L 04/25/17 04/25/17 04/25/17 Range/Units 21:02 21:51 23:05 RBC (4.30-5.90) m/uL Hgb (13.0-17.5) gm/dL Hct (39.0-53.0) % MCV (80.0-100.0) fL MCH (25.0-35.0) pg Plt Count (150-450) k/uL Lymphocytes # (1.0-4.8) k/uL APTT (22.0-30.0) sec ABG pO2 (83-108) mmHg ABG Total CO2 (19-24) mmol/L Chloride (98-107) mmol/L BUN (9-20) mg/dL Glucose (74-99) mg/dL POC Glucose (mg/dL) 163 H 158 H 151 H (75-99) mg/dL Calcium (8.4-10.2) mg/dL Ammonia (<30) umol/L 04/25/17 04/26/17 04/26/17 Range/Units 23:37 01:57 03:00 RBC (4.30-5.90) m/uL Hgb (13.0-17.5) gm/dL Hct (39.0-53.0) % MCV (80.0-100.0) fL MCH (25.0-35.0) pg Plt Count (150-450) k/uL Lymphocytes # (1.0-4.8) k/uL APTT (22.0-30.0) sec ABG pO2 (83-108) mmHg ABG Total CO2 (19-24) mmol/L Chloride (98-107) mmol/L BUN (9-20) mg/dL Glucose (74-99) mg/dL POC Glucose (mg/dL) 153 H 138 H 159 H (75-99) mg/dL Calcium (8.4-10.2) mg/dL Ammonia (<30) umol/L 04/26/17 04/26/17 04/26/17 Range/Units 04:18 04:25 04:25 RBC 3.46 L (4.30-5.90) m/uL Hgb 12.7 L (13.0-17.5) gm/dL Hct 37.3 L (39.0-53.0) % MCV 107.9 H (80.0-100.0) fL MCH 36.8 H (25.0-35.0) pg Plt Count 104 L (150-450) k/uL Lymphocytes # 0.8 L (1.0-4.8) k/uL APTT (22.0-30.0) sec ABG pO2 (83-108) mmHg ABG Total CO2 (19-24) mmol/L Chloride 111 H (98-107) mmol/L BUN 28 H (9-20) mg/dL Glucose 182 H (74-99) mg/dL POC Glucose (mg/dL) 166 H (75-99) mg/dL Calcium 6.7 L (8.4-10.2) mg/dL Ammonia (<30) umol/L 04/26/17 04/26/17 04/26/17 Range/Units 04:25 04:38 06:18 RBC (4.30-5.90) m/uL Hgb (13.0-17.5) gm/dL Hct (39.0-53.0) % MCV (80.0-100.0) fL MCH (25.0-35.0) pg Plt Count (150-450) k/uL Lymphocytes # (1.0-4.8) k/uL APTT 76.0 H (22.0-30.0) sec ABG pO2 71 L (83-108) mmHg ABG Total CO2 25 H (19-24) mmol/L Chloride (98-107) mmol/L BUN (9-20) mg/dL Glucose (74-99) mg/dL POC Glucose (mg/dL) 155 H (75-99) mg/dL Calcium (8.4-10.2) mg/dL Ammonia (<30) umol/L 04/26/17 04/26/17 04/26/17 Range/Units 08:06 08:07 10:06 RBC (4.30-5.90) m/uL Hgb (13.0-17.5) gm/dL Hct (39.0-53.0) % MCV (80.0-100.0) fL MCH (25.0-35.0) pg Plt Count (150-450) k/uL Lymphocytes # (1.0-4.8) k/uL APTT (22.0-30.0) sec ABG pO2 (83-108) mmHg ABG Total CO2 (19-24) mmol/L Chloride (98-107) mmol/L BUN (9-20) mg/dL Glucose (74-99) mg/dL POC Glucose (mg/dL) 164 H 168 H (75-99) mg/dL Calcium (8.4-10.2) mg/dL Ammonia 37 H (<30) umol/L 04/26/17 04/26/17 Range/Units 10:29 12:08 RBC (4.30-5.90) m/uL Hgb (13.0-17.5) gm/dL Hct (39.0-53.0) % MCV (80.0-100.0) fL MCH (25.0-35.0) pg Plt Count (150-450) k/uL Lymphocytes # (1.0-4.8) k/uL APTT 53.8 H (22.0-30.0) sec ABG pO2 (83-108) mmHg ABG Total CO2 (19-24) mmol/L Chloride (98-107) mmol/L BUN (9-20) mg/dL Glucose (74-99) mg/dL POC Glucose (mg/dL) 162 H (75-99) mg/dL Calcium (8.4-10.2) mg/dL Ammonia (<30) umol/L Microbiology - Last 24 Hours (Table) 04/21/17 12:50 Blood Culture - Preliminary Blood No Growth after 96 hours Assessment and Plan (1) Acute renal failure Narrative/Plan: Oliguric acute kidney injury mostly renal in nature secondary to hemodynamic instability and use of angiotensin receptor lowell. Impingement creatinine was as high as 3.7 this admission down to 1.96 after dialysis 2.8 this morning urinalysis is quite benign no evidence of hydronephrosis on CT of the abdomen and pelvis #2 hyperkalemia is secondary to acute renal injury and metabolic acidosis further worsened with the use of valsartan. Is one treatment of hemodialysis on April 21 potassium level at this time was 7.7 #3 metabolic acidosis secondary to acute renal injury #4 history of alcoholism Plan; Continue normal saline Start sodium bicarb 2. tube feeds were initiated yesterday Avoid nephrotoxic agents and hypotensive episodes We'll wean vent continue to monitor renal function and urinary output tracheostomy and peg tube friday Status: Acute
--- NOTE | 2017-04-26 13:34 | P.PN ---
Subjective This patient is a 71-year-old male who was seen in neurology consultation yesterday for altered mental status and unresponsive state. Patient remains intubated on the ventilator today. He was sent for a repeat computed tomography scan of the brain today which was reviewed. CAT scan is negative for any evidence of acute stroke or hemorrhage. No change from previous 2 CT scans of the brain. Specifically there was no evidence of basilar artery thrombosis. No evidence of acute stroke or hemorrhage was detected on the scan today. Patient remains on the ventilator. He is on a Diprivan drip. He does have a history of atrial fibrillation and was seen by cardiology. He was started on IV heparin protocol this morning as per cardiology's recommendation given his atrial fibrillation. Patient is currently on 45 mics of Diprivan. He remains heavily sedated. Apparently when sedation was cut back he did seem to open his eyes according to the ICU nurse today. He is requiring interruption of sedation daily and does show some signs of improvement. He does open eyes but then has severe coughing reflex. He opens eyes but does not follow any commands. He does have increase in secretions and becomes tachycardic and tachypneic with the sedation interruptions. Chest x-ray reveals evidence of left pleural effusion and infiltrate with possible pneumonia. Pulmonary medicine is following the patient closely for this. He doesn't respond minimally to sternal rub likely secondary to his IV sedation. The patient underwent routine EEG today which was reviewed. The EEG reveals significant slowing consistent with a diffuse encephalopathy. We have discussed this patient's neurological findings today in detail with his over the telephone. She was updated on all of his neurodiagnostic testing which included 3 CT scans of the brain. We reviewed his EEG result from today as well with the . His overall prognosis at this time remains very guarded. We have recommended to the that we will continue close neurological follow-up daily. He was taken off of sedation earlier today however he only opens his eyes and is extremely weak. We have recommended a follow-up computed tomography scan of the brain to be done today to rule out any acute findings. We will need to see if he will be able to be weaned off the ventilator gradually over the next several days. As per pulmonary medicine his progress is very slow. He may eventually need a tracheostomy and PEG tube placement. The has been updated on his slow progress in the ICU. She is given consent for tracheostomy and PEG tube placement possibly for Friday. His overall prognosis at this time however remains very guarded. is aware of his overall poor neurological status and condition at this time. We will continue close neurological follow-up of this patient in the ICU setting. Objective - Vital Signs Vital signs: Vital Signs Temp 98.3 F 04/26/17 11:00 Pulse 107 H 04/26/17 13:00 Resp 28 H 04/26/17 13:00 BP 65/54 04/26/17 11:00 Pulse Ox 95 04/26/17 13:00 Intake & Output 04/25/17 04/26/17 04/26/17 18:59 06:59 18:59 Intake Total 7313.757 9795.757 1645.762 Output Total 2175 2155 1500 Balance -267.748 183.757 145.762 Weight 155.8 kg 155.1 kg 155.1 kg Intake: IV 571.0 346 343 Iram 36 36 63 Magnesium Sulfate-D5w Pmx 100 1 gm In Dextrose/Water 1 100ml.bag @ 100 mls/hr IVPB Q1H DI Rx#: [id number] Piperacillin-Tazobactam 3 25.0 .375 gm In Dextrose/Water 1 50ml.bag @ 12.5 mls/hr IVPB Q12HR DI Rx#: [id number] Sodium Chloride 0.9% 1, 510 310 180 000 ml @ 20 mls/hr IV . Q24H DI Rx#:[id number] Intake, IV Titration 151.977 4055.757 442.762 Amount Diltiazem 125 mg In 20 Sodium Chloride 0.9% 100 ml @ 10 MG/HR 10 mls/hr IV .[id number] DI Rx#: [id number] Heparin Sodium,Porcine/ 489.258 683.585 94.71 D5w Pmx 25,000 unit In Dextrose/Water 1 500ml. bag @ 6.7 UNITS/KG/HR 19. 89 mls/hr IV .Q24H DI Rx #:[id number] Insulin Regular 100 unit 30.344 39.721 15.870 In Sodium Chloride 0.9% 100 ml @ Per Protocol IV .Q0M DI Rx#:[id number] Magnesium Sulfate-D5w Pmx 100 1 gm In Dextrose/Water 1 100ml.bag @ 100 mls/hr IVPB Q1H DI Rx#: [id number] Magnesium Sulfate-D5w Pmx 100 1 gm In Dextrose/Water 1 100ml.bag @ 100 mls/hr IVPB Q1H DI Rx#: [id number] Norepinephrin 16 mg-0.9% 2.595 8.828 7.346 Ns Pmx 16 mg In 250 ml @ Titrate IV .Q0M DI Rx#: [id number] Piperacillin-Tazobactam 3 50.0 12.5 .375 gm In Dextrose/Water 1 50ml.bag @ 12.5 mls/hr IVPB Q8HR DI Rx#: [id number] Propofol 500 mg In Empty 294.055 430.623 192.336 Bag 1 bag @ Titrate IV . Q0M DI Rx#:[id number] Oral 60 60 120 Tube Feeding 240 600 310 Other 120 120 430 Output: Urine 2175 2155 1500 Other: Voiding Method Indwelling Catheter Indwelling Catheter Indwelling Catheter ABP, PAP, CO, CI - Last Documented Arterial Blood Pressure 114/61 - Exam Physical examination: PHYSICAL EXAMINATION: Patient is intubated on the ventilator and is on a Diprivan drip. He remains sedated and unresponsive. VITAL SIGNS: Blood pressure is [114/62]. Heart rate is [107]. Respiration is [28 ]. Temperature is [98.3]. HEENT: Head is atraumatic, neck is supple, there were no carotid bruits. CHEST: Lungs are clear to auscultation and percussion. CARDIAC: S1, S2 normal rate and rhythm. There is no murmur. ABDOMEN: Soft and nontender. Bowel sounds are present. EXTREMITIES: There is no pedal edema. Peripheral pulses are present. Neurological examination: Patient remains intubated on the ventilator and is on a Diprivan drip. His neurological examination is limited at this time due to his sedation. Muscle tone is preserved in all 4 extremities. Deep tendon reflexes are 1+ and symmetric. Plantar responses flexor bilaterally. - Labs CBC & Chem 7: 04/26/17 04:25 04/26/17 10:29 Labs: Abnormal Lab Results - Last 24 Hours (Table) 04/25/17 04/25/17 04/25/17 Range/Units 15:04 16:07 17:04 RBC (4.30-5.90) m/uL Hgb (13.0-17.5) gm/dL Hct (39.0-53.0) % MCV (80.0-100.0) fL MCH (25.0-35.0) pg Plt Count (150-450) k/uL Lymphocytes # (1.0-4.8) k/uL APTT (22.0-30.0) sec ABG pO2 (83-108) mmHg ABG Total CO2 (19-24) mmol/L Chloride (98-107) mmol/L BUN (9-20) mg/dL Glucose (74-99) mg/dL POC Glucose (mg/dL) 129 H 148 H 134 H (75-99) mg/dL Calcium (8.4-10.2) mg/dL Ammonia (<30) umol/L 04/25/17 04/25/17 04/25/17 Range/Units 18:08 19:05 19:52 RBC (4.30-5.90) m/uL Hgb (13.0-17.5) gm/dL Hct (39.0-53.0) % MCV (80.0-100.0) fL MCH (25.0-35.0) pg Plt Count (150-450) k/uL Lymphocytes # (1.0-4.8) k/uL APTT (22.0-30.0) sec ABG pO2 (83-108) mmHg ABG Total CO2 (19-24) mmol/L Chloride (98-107) mmol/L BUN (9-20) mg/dL Glucose (74-99) mg/dL POC Glucose (mg/dL) 149 H 145 H 123 H (75-99) mg/dL Calcium (8.4-10.2) mg/dL Ammonia (<30) umol/L 04/25/17 04/25/17 04/25/17 Range/Units 21:02 21:51 23:05 RBC (4.30-5.90) m/uL Hgb (13.0-17.5) gm/dL Hct (39.0-53.0) % MCV (80.0-100.0) fL MCH (25.0-35.0) pg Plt Count (150-450) k/uL Lymphocytes # (1.0-4.8) k/uL APTT (22.0-30.0) sec ABG pO2 (83-108) mmHg ABG Total CO2 (19-24) mmol/L Chloride (98-107) mmol/L BUN (9-20) mg/dL Glucose (74-99) mg/dL POC Glucose (mg/dL) 163 H 158 H 151 H (75-99) mg/dL Calcium (8.4-10.2) mg/dL Ammonia (<30) umol/L 04/25/17 04/26/17 04/26/17 Range/Units 23:37 01:57 03:00 RBC (4.30-5.90) m/uL Hgb (13.0-17.5) gm/dL Hct (39.0-53.0) % MCV (80.0-100.0) fL MCH (25.0-35.0) pg Plt Count (150-450) k/uL Lymphocytes # (1.0-4.8) k/uL APTT (22.0-30.0) sec ABG pO2 (83-108) mmHg ABG Total CO2 (19-24) mmol/L Chloride (98-107) mmol/L BUN (9-20) mg/dL Glucose (74-99) mg/dL POC Glucose (mg/dL) 153 H 138 H 159 H (75-99) mg/dL Calcium (8.4-10.2) mg/dL Ammonia (<30) umol/L 04/26/17 04/26/17 04/26/17 Range/Units 04:18 04:25 04:25 RBC 3.46 L (4.30-5.90) m/uL Hgb 12.7 L (13.0-17.5) gm/dL Hct 37.3 L (39.0-53.0) % MCV 107.9 H (80.0-100.0) fL MCH 36.8 H (25.0-35.0) pg Plt Count 104 L (150-450) k/uL Lymphocytes # 0.8 L (1.0-4.8) k/uL APTT (22.0-30.0) sec ABG pO2 (83-108) mmHg ABG Total CO2 (19-24) mmol/L Chloride 111 H (98-107) mmol/L BUN 28 H (9-20) mg/dL Glucose 182 H (74-99) mg/dL POC Glucose (mg/dL) 166 H (75-99) mg/dL Calcium 6.7 L (8.4-10.2) mg/dL Ammonia (<30) umol/L 04/26/17 04/26/17 04/26/17 Range/Units 04:25 04:38 06:18 RBC (4.30-5.90) m/uL Hgb (13.0-17.5) gm/dL Hct (39.0-53.0) % MCV (80.0-100.0) fL MCH (25.0-35.0) pg Plt Count (150-450) k/uL Lymphocytes # (1.0-4.8) k/uL APTT 76.0 H (22.0-30.0) sec ABG pO2 71 L (83-108) mmHg ABG Total CO2 25 H (19-24) mmol/L Chloride (98-107) mmol/L BUN (9-20) mg/dL Glucose (74-99) mg/dL POC Glucose (mg/dL) 155 H (75-99) mg/dL Calcium (8.4-10.2) mg/dL Ammonia (<30) umol/L 04/26/17 04/26/17 04/26/17 Range/Units 08:06 08:07 10:06 RBC (4.30-5.90) m/uL Hgb (13.0-17.5) gm/dL Hct (39.0-53.0) % MCV (80.0-100.0) fL MCH (25.0-35.0) pg Plt Count (150-450) k/uL Lymphocytes # (1.0-4.8) k/uL APTT (22.0-30.0) sec ABG pO2 (83-108) mmHg ABG Total CO2 (19-24) mmol/L Chloride (98-107) mmol/L BUN (9-20) mg/dL Glucose (74-99) mg/dL POC Glucose (mg/dL) 164 H 168 H (75-99) mg/dL Calcium (8.4-10.2) mg/dL Ammonia 37 H (<30) umol/L 06/24/17 06/24/17 Range/Units 10:29 12:08 RBC (4.30-5.90) m/uL Hgb (13.0-17.5) gm/dL Hct (39.0-53.0) % MCV (80.0-100.0) fL MCH (25.0-35.0) pg Plt Count (150-450) k/uL Lymphocytes # (1.0-4.8) k/uL APTT 53.8 H (22.0-30.0) sec ABG pO2 (83-108) mmHg ABG Total CO2 (19-24) mmol/L Chloride (98-107) mmol/L BUN (9-20) mg/dL Glucose (74-99) mg/dL POC Glucose (mg/dL) 162 H (75-99) mg/dL Calcium (8.4-10.2) mg/dL Ammonia (<30) umol/L Microbiology - Last 24 Hours (Table) 04/21/17 12:50 Blood Culture - Preliminary Blood No Growth after 96 hours Assessment and Plan (1) Acute encephalopathy Status: Acute Code(s): G93.40 - ENCEPHALOPATHY, UNSPECIFIED (2) Acute renal failure Status: Acute Code(s): N17.9 - ACUTE KIDNEY FAILURE, UNSPECIFIED (3) Atrial fibrillation Status: Acute Code(s): I48.91 - UNSPECIFIED ATRIAL FIBRILLATION (4) Hepatic encephalopathy Status: Acute Code(s): K72.90 - HEPATIC FAILURE, UNSPECIFIED WITHOUT COMA Plan: This patient is a 71-year-old male who remains intubated on the ventilator in the intensive care unit. Patient continues to remain sedated on a Diprivan drip. He was given a sedation holiday however does not do much in terms of his neurological status. He was only opening eyes but is extremely weak. He is now back on Diprivan 40 mikes. Patient has not shown significant improvement in his overall neurological status since initial evaluation in the ICU. Pulmonary medicine is considering tracheostomy and PEG tube placement for this patient on Friday. We have recommended a follow-up computed tomography scan of the brain to be done today to rule out any acute changes. We will continue to follow his progress in the ICU closely. is aware of his very guarded condition. He has a history of atrial fibrillation and is currently on an IV heparin protocol. Chest x-ray reveals improvement in left lung base infiltrate. His overall prognosis at this time remains very guarded. We will continue close neurological follow-up with this patient in the ICU. As noted his prognosis remains very guarded.
--- NOTE | 2017-04-26 13:38 | PN ---
DATE OF SERVICE: 04/26/2017 This patient is being treated for acute hypoxic respiratory failure. He remains intubated. Patient has evidence of atrial fibrillation. During the night the patient's heart rate was jumping up and down and so the patient was started back on the Cardizem drip. The patient otherwise remains stable cardiac-garg. His echocardiogram had revealed a normal left ventricular systolic function. Patient's heart rate now is 80 to 90 per minute. Blood pressure is a 90/60 mmHg. First and second heart sounds are normal. Lungs reveal bilateral scattered wheezes. At present, I would recommend to continue the patient on Cardizem drip to control the rate. If having a significant problem with the hypotension, then I would consider to treat the patient IV amiodarone and discontinue Cardizem.
[2017-04-26 14:19] LABS: Glucose,Whole Blood 188 mg/dL (75-99)
--- NOTE | 2017-04-26 14:59 | CT ---
EXAMINATION TYPE: CT brain wo con DATE OF EXAM: 04/26/2017 COMPARISON: 04/23/2017 HISTORY: Unresponsive CT DLP: 1147 mGycm Automated exposure control for dose reduction was used. FINDINGS: There is cerebral cortical atrophy. There is no mass effect nor midline shift. There is no sign of in tracranial hemorrhage. The calvarium is intact. There is a small mucous retention cyst in the left ma xillary sinus. There is a 4 mm hypodensity in the anterior right internal capsule. IMPRESSION: CEREBRAL ATROPHY. MILD CHRONIC SMALL VESSEL ISCHEMIA. NO CHANGE COMPARED TO LAST EXAM.
[2017-04-26] MEDS: HYDROmorphone 1 MG/ML 1 ML SYRINGE IVP PRN (16:25)
[2017-04-26 16:43] LABS: Glucose,Whole Blood 159 mg/dL (75-99)
[2017-04-26 16:50] LABS: ABG Base Excess -1.5 mmol/L; ABG HCO3 23 mmol/L (21-25); ABG PCO2 39 mmHg (35-45); ABG PH 7.38 (7.35-7.45); ABG PO2 75 mmHg (83-108); ABG TCO2 24 mmol/L (19-24)
[2017-04-26] MEDS ORDERED: DEXTROSE 5% IN WATER 100 ML with AMIODARONE 150 MG IV ONE (17:44)
[2017-04-26] MEDS ORDERED: CISATRACURIUM 2 MG/ML 5 ML VIAL IV ONE (18:02)
[2017-04-26] MEDS: CISATRACURIUM 200 MG in SODIUM CHLORIDE 0.9% 180 ML IV SCH (18:45)
[2017-04-26] MEDS: AMIODARONE 450 MG in DEXTROSE 5% IN WATER 250 ML IV SCH ×2 (18:53)
[2017-04-26] MEDS: HEPARIN SODIUM,PORCINE/D5W PMX 25,000 UNIT in DEXTROSE/WATER 1 500ML.BAG IV SCH (18:55)
[2017-04-26 19:08] LABS: Glucose,Whole Blood 177 mg/dL (75-99)
[2017-04-26 21:13] LABS: Glucose,Whole Blood 185 mg/dL (75-99)
[2017-04-26 21:59] LABS: Glucose,Whole Blood 190 mg/dL (75-99)
[2017-04-26 23:46] LABS: Glucose,Whole Blood 185 mg/dL (75-99)
[2017-04-27] MEDS: PROPOFOL 500 MG in EMPTY BAG 1 BAG IV SCH ×12 (00:58→22:46)
[2017-04-27] MEDS: INSULIN REGULAR 100 UNIT in SODIUM CHLORIDE 0.9% 100 ML IV SCH ×2 (01:37→18:35)
[2017-04-27 02:03] LABS: Glucose,Whole Blood 177 mg/dL (75-99)
[2017-04-27] MEDS: AMIODARONE 450 MG in DEXTROSE 5% IN WATER 250 ML IV SCH ×8 (02:06→22:48)
[2017-04-27] MEDS: IPRATROPIUM-ALBUTEROL 3 ML NEB INHALATION SCH ×6 (03:18→23:33)
[2017-04-27] MEDS: CISATRACURIUM 200 MG in SODIUM CHLORIDE 0.9% 180 ML IV SCH ×2 (04:10→18:37)
[2017-04-27 04:15] LABS: Glucose,Whole Blood 163 mg/dL (75-99)
[2017-04-27 04:32] LABS: CHCM 32.1; HCT 32.8 % (39.0-53.0); HDW 2.33; HGB 11.4 gm/dL (13.0-17.5); Immature Gran Flag Marked; MCH 36.9 pg (25.0-35.0); MCHC 34.6 g/dL (31.0-37.0); MCV 106.6 fL (80.0-100.0); Macrocytosis Moderate; Mean Platelet Volume 7.7; RBC 3.08 m/uL (4.30-5.90); RDW 15.3 % (11.5-15.5); WBC 9.1 k/uL (3.8-10.6); WBC (Perox) 9.68
[2017-04-27 05:00] LABS: Add Differential Manual Differential
[2017-04-27 05:05] LABS: ABG Base Excess 1.9 mmol/L; ABG HCO3 26 mmol/L (21-25); ABG PCO2 40 mmHg (35-45); ABG PH 7.43 (7.35-7.45); ABG PO2 84 mmHg (83-108); ABG TCO2 27 mmol/L (19-24)
[2017-04-27 05:06] LABS: Manual Review Performed; Nucleated Red Blood Cells 0 /100 WBC (0-0); Total Cells Counted 200
[2017-04-27 05:07] LABS: Polychromasia Present
[2017-04-27 05:45] LABS: Glucose,Whole Blood 163 mg/dL (75-99)
[2017-04-27 06:13] LABS: Anion Gap 8 mmol/L; Blood Urea Nitrogen 27 mg/dL (9-20); Calcium 7.5 mg/dL (8.4-10.2); Carbon Dioxide 24 mmol/L (22-30); Chloride 111 mmol/L (98-107); Glucose 181 mg/dL (74-99); Magnesium 1.9 mg/dL (1.6-2.3); Non-African American GFR(MDRD) 60 (>60 ml/min/1.73 sqM); Phosphorous 3.6 mg/dL (2.5-4.5); Potassium 4.1 mmol/L (3.5-5.1); Sodium 143 mmol/L (137-145)
--- NOTE | 2017-04-27 06:58 | XR ---
EXAMINATION TYPE: XR chest 1V portable DATE OF EXAM: 04/27/2017 HISTORY: Tube placement. REFERENCE: Previous study dated 04/26/2017. FINDINGS: The patient is ET tube, NG tube and left basilic PICC line are stable in appearance. The heart remains mildly enlarged. There is left basilar airspace disease. There is a small left effu lashell. Overall aeration at the left lung base may have improved slightly. IMPRESSION: 1. MILD CARDIOMEGALY. 2. IMPROVED AERATION, LEFT LUNG BASE. 3. SMALL LEFT EFFUSION.
[2017-04-27 07:24] LABS: Glucose,Whole Blood 169 mg/dL (75-99)
[2017-04-27] MEDS: PIPERACILLIN-TAZOBACTAM 3.375 GM in DEXTROSE/WATER 1 50ML.BAG IVPB SCH ×2 (08:46→15:45)
[2017-04-27] MEDS: LACTULOSE 20 GM/30 ML CUP PO SCH ×2 (08:47→21:47)
[2017-04-27] MEDS: CHLORHEXIDINE GLUCONATE 15 ML CUP MUCOUS MEM SCH ×2 (08:47→21:47)
[2017-04-27] MEDS: ASPIRIN 81 MG CHEW PO SCH (08:47)
[2017-04-27] MEDS: METOPROLOL TARTRATE 25 MG TAB PO SCH ×3 (08:48→21:47)
[2017-04-27] MEDS: PANTOPRAZOLE 40 MG/10 ML VIAL IV SCH (08:48)
[2017-04-27] MEDS: SODIUM BICARBONATE TAB 650 MG TAB PO SCH ×2 (08:48→21:47)
[2017-04-27 09:01] LABS: Glucose,Whole Blood 174 mg/dL (75-99)
[2017-04-27] MEDS: MAGNESIUM SULFATE-D5W PMX 1 GM in DEXTROSE/WATER 1 100ML.BAG IVPB SCH ×2 (09:30→13:17)
--- NOTE | 2017-04-27 10:09 | P.PN ---
Subjective Patient is seen in follow-up for acute kidney injury. His baseline creatinine is near 1 and was 3.69 on admission. He was also hyperkalemic and oliguric. He underwent 1 treatment of hemodialysis on April 21. Today, creatinine is stable at 1.2 and he is nonoliguric. He is currently intubated and sedated. He is also maintained on tube feeds. His blood pressures have been quite labile. He was also paralyzed last night and blood pressures remained more stable. Vital signs are stable. General: The patient appeared well nourished and normally developed. Intubated. HEENT: Head exam is unremarkable. Neck is without jugular venous distension. LUNGS: Rhonchi at bases. Breath sounds decreased. HEART: Rate and Rhythm are regular. First and second heart sounds normal. No murmurs, rubs or gallops. ABDOMEN: Abdominal exam reveals normal bowel sounds. Non-tender and non- distended. No evidence of peritonitis. EXTREMITITES: No clubbing, cyanosis, or edema. Objective - Vital Signs Vital signs: Vital Signs Temp 98.3 F 04/27/17 07:30 Pulse 99 04/27/17 09:00 Resp 30 H 04/27/17 09:00 BP 185/98 04/26/17 16:30 Pulse Ox 97 04/27/17 09:00 Intake & Output 04/26/17 04/27/17 04/27/17 18:59 06:59 18:59 Intake Total 2645.196 2076.149 1016.135 Output Total 2105 2055 500 Balance 540.196 21.149 516.135 Weight 155.1 kg 156.3 kg 156.3 kg Intake: IV 563 339 134.0 Iram 143 59 19 Magnesium Sulfate-D5w Pmx 100 1 gm In Dextrose/Water 1 100ml.bag @ 100 mls/hr IVPB Q1H ID Rx#: [id number] Piperacillin-Tazobactam 3 50 25.0 .375 gm In Dextrose/Water 1 50ml.bag @ 12.5 mls/hr IVPB Q8HR DI Rx#: [id number] Sodium Chloride 0.9% 1, 320 230 90 000 ml @ 20 mls/hr IV . Q24H DI Rx#:[id number] Intake, IV Titration 0648.248 4688.149 482.135 Amount Amiodarone 450 mg In 331.819 Dextrose 5% in Water 250 ml @ 1 MG/MIN 33.33 mls/ hr IV .Q7H31M DI Rx#: [id number] Cisatracurium 200 mg In 228.444 99.094 Sodium Chloride 0.9% 180 ml @ 2 MCG/KG/MIN 18.61 mls/hr IV .[id number] DI Rx #:[id number] Dextrose 5% in Water 100 100 ml @ 618 mls/hr IV .Q10M ONE with Amiodarone 150 mg Rx#:[id number] Diltiazem 125 mg In 108.917 Sodium Chloride 0.9% 100 ml @ 10 MG/HR 10 mls/hr IV .[id number] DI Rx#: [id number] Heparin Sodium,Porcine/ 310.439 359.037 D5w Pmx 25,000 unit In Dextrose/Water 1 500ml. bag @ 6.7 UNITS/KG/HR 19. 89 mls/hr IV .Q24H DI Rx #:[id number] Insulin Regular 100 unit 24.018 66.355 24.004 In Sodium Chloride 0.9% 100 ml @ Per Protocol IV .Q0M DI Rx#:[id number] Magnesium Sulfate-D5w Pmx 100 1 gm In Dextrose/Water 1 100ml.bag @ 100 mls/hr IVPB Q1H DI Rx#: [id number] Norepinephrin 16 mg-0.9% 41.486 99.629 Ns Pmx 16 mg In 250 ml @ Titrate IV .Q0M DI Rx#: [id number] Piperacillin-Tazobactam 3 25.0 50 .375 gm In Dextrose/Water 1 50ml.bag @ 12.5 mls/hr IVPB Q8HR DI Rx#: [id number] Propofol 500 mg In Empty 292.336 330.902 Bag 1 bag @ Titrate IV . Q0M DI Rx#:[id number] Oral 120 Tube Feeding 490 390 200 Other 470 240 200 Output: Urine 2105 2055 500 Other: Voiding Method Indwelling Catheter Indwelling Catheter Indwelling Catheter ABP, PAP, CO, CI - Last Documented Arterial Blood Pressure 102/56 - Labs CBC & Chem 7: 04/27/17 04:15 04/27/17 04:15 Labs: Abnormal Lab Results - Last 24 Hours (Table) 06/24/17 06/24/17 06/24/17 Range/Units 08:07 10:06 10:29 RBC (4.30-5.90) m/uL Hgb (13.0-17.5) gm/dL Hct (39.0-53.0) % MCV (80.0-100.0) fL MCH (25.0-35.0) pg Plt Count (150-450) k/uL APTT 53.8 H (22.0-30.0) sec ABG pO2 (83-108) mmHg ABG HCO3 (21-25) mmol/L ABG Total CO2 (19-24) mmol/L Chloride (98-107) mmol/L BUN (9-20) mg/dL Glucose (74-99) mg/dL POC Glucose (mg/dL) 168 H (75-99) mg/dL Calcium (8.4-10.2) mg/dL Ammonia 37 H (<30) umol/L 04/26/17 04/26/17 04/26/17 Range/Units 12:08 14:17 16:40 RBC (4.30-5.90) m/uL Hgb (13.0-17.5) gm/dL Hct (39.0-53.0) % MCV (80.0-100.0) fL MCH (25.0-35.0) pg Plt Count (150-450) k/uL APTT (22.0-30.0) sec ABG pO2 (83-108) mmHg ABG HCO3 (21-25) mmol/L ABG Total CO2 (19-24) mmol/L Chloride (98-107) mmol/L BUN (9-20) mg/dL Glucose (74-99) mg/dL POC Glucose (mg/dL) 162 H 188 H 159 H (75-99) mg/dL Calcium (8.4-10.2) mg/dL Ammonia (<30) umol/L 04/26/17 04/26/17 04/26/17 Range/Units 16:43 19:05 21:11 RBC (4.30-5.90) m/uL Hgb (13.0-17.5) gm/dL Hct (39.0-53.0) % MCV (80.0-100.0) fL MCH (25.0-35.0) pg Plt Count (150-450) k/uL APTT (22.0-30.0) sec ABG pO2 75 L (83-108) mmHg ABG HCO3 (21-25) mmol/L ABG Total CO2 (19-24) mmol/L Chloride (98-107) mmol/L BUN (9-20) mg/dL Glucose (74-99) mg/dL POC Glucose (mg/dL) 177 H 185 H (75-99) mg/dL Calcium (8.4-10.2) mg/dL Ammonia (<30) umol/L 04/26/17 04/26/17 04/27/17 Range/Units 21:57 23:44 02:01 RBC (4.30-5.90) m/uL Hgb (13.0-17.5) gm/dL Hct (39.0-53.0) % MCV (80.0-100.0) fL MCH (25.0-35.0) pg Plt Count (150-450) k/uL APTT (22.0-30.0) sec ABG pO2 (83-108) mmHg ABG HCO3 (21-25) mmol/L ABG Total CO2 (19-24) mmol/L Chloride (98-107) mmol/L BUN (9-20) mg/dL Glucose (74-99) mg/dL POC Glucose (mg/dL) 190 H 185 H 177 H (75-99) mg/dL Calcium (8.4-10.2) mg/dL Ammonia (<30) umol/L 04/27/17 04/27/17 04/27/17 Range/Units 04:14 04:15 04:15 RBC 3.08 L (4.30-5.90) m/uL Hgb 11.4 L (13.0-17.5) gm/dL Hct 32.8 L (39.0-53.0) % MCV 106.6 H (80.0-100.0) fL MCH 36.9 H (25.0-35.0) pg Plt Count 102 L (150-450) k/uL APTT (22.0-30.0) sec ABG pO2 (83-108) mmHg ABG HCO3 (21-25) mmol/L ABG Total CO2 (19-24) mmol/L Chloride 111 H (98-107) mmol/L BUN 27 H (9-20) mg/dL Glucose 181 H (74-99) mg/dL POC Glucose (mg/dL) 163 H (75-99) mg/dL Calcium 7.5 L (8.4-10.2) mg/dL Ammonia (<30) umol/L 04/27/17 04/27/17 04/27/17 Range/Units 04:15 04:58 05:44 RBC (4.30-5.90) m/uL Hgb (13.0-17.5) gm/dL Hct (39.0-53.0) % MCV (80.0-100.0) fL MCH (25.0-35.0) pg Plt Count (150-450) k/uL APTT 48.5 H (22.0-30.0) sec ABG pO2 (83-108) mmHg ABG HCO3 26 H (21-25) mmol/L ABG Total CO2 27 H (19-24) mmol/L Chloride (98-107) mmol/L BUN (9-20) mg/dL Glucose (74-99) mg/dL POC Glucose (mg/dL) 163 H (75-99) mg/dL Calcium (8.4-10.2) mg/dL Ammonia (<30) umol/L 04/27/17 04/27/17 04/27/17 Range/Units 07:20 07:22 08:59 RBC (4.30-5.90) m/uL Hgb (13.0-17.5) gm/dL Hct (39.0-53.0) % MCV (80.0-100.0) fL MCH (25.0-35.0) pg Plt Count (150-450) k/uL APTT (22.0-30.0) sec ABG pO2 (83-108) mmHg ABG HCO3 (21-25) mmol/L ABG Total CO2 (19-24) mmol/L Chloride (98-107) mmol/L BUN (9-20) mg/dL Glucose (74-99) mg/dL POC Glucose (mg/dL) 169 H 174 H (75-99) mg/dL Calcium (8.4-10.2) mg/dL Ammonia 31 H (<30) umol/L Microbiology - Last 24 Hours (Table) 04/21/17 12:50 Blood Culture - Preliminary Blood No Growth after 120 hours Assessment and Plan Plan: Assessment: #1. Nonoliguric acute kidney injury mostly prerenal in nature secondary to hemodynamic instability and use of angiotensin receptor lowell. Creatinine was at 3.7 this admission and was down to 1.96 after dialysis. It's 1.2 this morning. Urinalysis is quite benign. No evidence of hydronephrosis noted on CT of the abdomen and pelvis. #2. Hyperkalemia secondary to acute kidney injury and metabolic acidosis further worsened with the use of valsartan. Status post 1 treatment of hemodialysis on April 21. Resolved. Dialysis catheter has been discontinued. #3. Metabolic acidosis secondary to acute kidney injury and IV fluids. Improving. #4. Hypomagnesemia likely due to PPI and poor nutritional status. Improved post replacement. #5. Hypernatremia secondary to lack of oral water intake. Plan: Continue tube feeds. Maintain free water 200 mL every 4 hours with tube feeds. Maintain oral sodium bicarbonate 650 mg twice daily. Avoid nephrotoxic agents and hypotensive episodes. Wean FiO2. No need for renal replacement therapy at this time. Continue to monitor renal function and urine output. Potential tracheostomy tomorrow.
[2017-04-27 10:20] LABS: Glucose,Whole Blood 184 mg/dL (75-99)
--- NOTE | 2017-04-27 11:41 | P.PN ---
Subjective Principal diagnosis: altered mental status, diabetic ketoacidosis, atrial fibrillation, chronic liver disease, tobacco dependence, history of alcoholism. Patient was seen again today on 04/24/2017 and follow up in the intensive care unit. this individual remains on the ventilator, assist control 30 title volume 450 FiO2 60% and a PEEP of 5. Morning blood gas revealed pO2 66 pCO2 30 pH of 7.45. Patient is currently in A. fib with rapid ventricular response. Propofol at 50 mics per kilogram per minute 0.9 normal saline at 100 mils per hour. Insulin drip at 9.5 units per hour. Patient is also receiving trickle tube feed of vital HP@40 hour with a goal of 44MLS/hr. Chest x-ray suggests bilateral effusions with atelectasis. he remains on Zosyn. He did receive 1 emergent dialysis treatment for acute renal failure and hyperkalemia. Blood cultures reveal no growth to date, urine culture pending.Tracheostomy, and PEG tube friday Objective - Vital Signs Vital signs: Vital Signs Temp 98.4 F 04/27/17 11:00 Pulse 124 H 04/27/17 11:00 Resp 30 H 04/27/17 11:00 BP 185/98 04/26/17 16:30 Pulse Ox 98 04/27/17 11:00 Intake & Output 04/26/17 04/27/17 04/27/17 18:59 06:59 18:59 Intake Total 2645.196 2076.149 1290.899 Output Total 2105 2055 680 Balance 540.196 21.149 610.899 Weight 155.1 kg 156.3 kg 156.3 kg Intake: IV 563 339 259.0 Iram 143 59 59 Magnesium Sulfate-D5w Pmx 100 1 gm In Dextrose/Water 1 100ml.bag @ 100 mls/hr IVPB Q1H DI Rx#: [id number] Piperacillin-Tazobactam 3 50 50.0 .375 gm In Dextrose/Water 1 50ml.bag @ 12.5 mls/hr IVPB Q8HR DI Rx#: [id number] Sodium Chloride 0.9% 1, 320 230 150 000 ml @ 20 mls/hr IV . Q24H DI Rx#:[id number] Intake, IV Titration 7908.314 9355.149 551.899 Amount Amiodarone 450 mg In 331.819 Dextrose 5% in Water 250 ml @ 1 MG/MIN 33.33 mls/ hr IV .Q7H31M DI Rx#: [id number] Cisatracurium 200 mg In 228.444 106.069 Sodium Chloride 0.9% 180 ml @ 2 MCG/KG/MIN 18.61 mls/hr IV .[id number] DI Rx #:[id number] Dextrose 5% in Water 100 100 ml @ 618 mls/hr IV .Q10M ONE with Amiodarone 150 mg Rx#:[id number] Diltiazem 125 mg In 108.917 Sodium Chloride 0.9% 100 ml @ 10 MG/HR 10 mls/hr IV .[id number] DI Rx#: [id number] Heparin Sodium,Porcine/ 310.439 359.037 D5w Pmx 25,000 unit In Dextrose/Water 1 500ml. bag @ 6.7 UNITS/KG/HR 19. 89 mls/hr IV .Q24H DI Rx #:[id number] Insulin Regular 100 unit 24.018 66.355 32.869 In Sodium Chloride 0.9% 100 ml @ Per Protocol IV .Q0M DI Rx#:[id number] Magnesium Sulfate-D5w Pmx 100 1 gm In Dextrose/Water 1 100ml.bag @ 100 mls/hr IVPB Q1H DI Rx#: [id number] Norepinephrin 16 mg-0.9% 41.486 99.629 16.768 Ns Pmx 16 mg In 250 ml @ Titrate IV .Q0M DI Rx#: [id number] Piperacillin-Tazobactam 3 25.0 50 .375 gm In Dextrose/Water 1 50ml.bag @ 12.5 mls/hr IVPB Q8HR DI Rx#: [id number] Propofol 500 mg In Empty 292.336 330.902 37.156 Bag 1 bag @ Titrate IV . Q0M DI Rx#:[id number] Oral 120 Tube Feeding 490 390 280 Other 470 240 200 Output: Urine 2105 2055 680 Other: Voiding Method Indwelling Catheter Indwelling Catheter Indwelling Catheter # Bowel Movements 1 ABP, PAP, CO, CI - Last Documented Arterial Blood Pressure 123/63 - Exam General: is currently on vent and sedated HEENT: [PERRL. EOMI. No pharyngeal erythema or exudate.] Neck: [No adenopathy.] Cardiac: [Heart regular in rate and rhythm. No S3. No S4. No clicks, rubs. No murmur.] Lungs: [Clear to auscultation bilaterally.] Abdomen: [No mass. No organomegaly. Bowel sounds presnt and normoactive in all 4 quadrants.] Extremes: [Mildly edematous to all 4 extremes no cyanosis no claudication normal pulses] : [] Musculoskeletal: [No joint erythema, edema or tenderness.] Skin: [No rash.] Neurologic: [No lateralizing deficits. CN II - XII grossly intact.] Lymphatic: [No adenopathy.] - Labs CBC & Chem 7: 04/27/17 04:15 04/27/17 04:15 Labs: Abnormal Lab Results - Last 24 Hours (Table) 04/26/17 04/26/17 04/26/17 Range/Units 12:08 14:17 16:40 RBC (4.30-5.90) m/uL Hgb (13.0-17.5) gm/dL Hct (39.0-53.0) % MCV (80.0-100.0) fL MCH (25.0-35.0) pg Plt Count (150-450) k/uL APTT (22.0-30.0) sec ABG pO2 (83-108) mmHg ABG HCO3 (21-25) mmol/L ABG Total CO2 (19-24) mmol/L Chloride (98-107) mmol/L BUN (9-20) mg/dL Glucose (74-99) mg/dL POC Glucose (mg/dL) 162 H 188 H 159 H (75-99) mg/dL Calcium (8.4-10.2) mg/dL Ammonia (<30) umol/L 04/26/17 04/26/17 04/26/17 Range/Units 16:43 19:05 21:11 RBC (4.30-5.90) m/uL Hgb (13.0-17.5) gm/dL Hct (39.0-53.0) % MCV (80.0-100.0) fL MCH (25.0-35.0) pg Plt Count (150-450) k/uL APTT (22.0-30.0) sec ABG pO2 75 L (83-108) mmHg ABG HCO3 (21-25) mmol/L ABG Total CO2 (19-24) mmol/L Chloride (98-107) mmol/L BUN (9-20) mg/dL Glucose (74-99) mg/dL POC Glucose (mg/dL) 177 H 185 H (75-99) mg/dL Calcium (8.4-10.2) mg/dL Ammonia (<30) umol/L 04/26/17 04/26/17 04/27/17 Range/Units 21:57 23:44 02:01 RBC (4.30-5.90) m/uL Hgb (13.0-17.5) gm/dL Hct (39.0-53.0) % MCV (80.0-100.0) fL MCH (25.0-35.0) pg Plt Count (150-450) k/uL APTT (22.0-30.0) sec ABG pO2 (83-108) mmHg ABG HCO3 (21-25) mmol/L ABG Total CO2 (19-24) mmol/L Chloride (98-107) mmol/L BUN (9-20) mg/dL Glucose (74-99) mg/dL POC Glucose (mg/dL) 190 H 185 H 177 H (75-99) mg/dL Calcium (8.4-10.2) mg/dL Ammonia (<30) umol/L 04/27/17 04/27/17 04/27/17 Range/Units 04:14 04:15 04:15 RBC 3.08 L (4.30-5.90) m/uL Hgb 11.4 L (13.0-17.5) gm/dL Hct 32.8 L (39.0-53.0) % MCV 106.6 H (80.0-100.0) fL MCH 36.9 H (25.0-35.0) pg Plt Count 102 L (150-450) k/uL APTT (22.0-30.0) sec ABG pO2 (83-108) mmHg ABG HCO3 (21-25) mmol/L ABG Total CO2 (19-24) mmol/L Chloride 111 H (98-107) mmol/L BUN 27 H (9-20) mg/dL Glucose 181 H (74-99) mg/dL POC Glucose (mg/dL) 163 H (75-99) mg/dL Calcium 7.5 L (8.4-10.2) mg/dL Ammonia (<30) umol/L 04/27/17 04/27/17 04/27/17 Range/Units 04:15 04:58 05:44 RBC (4.30-5.90) m/uL Hgb (13.0-17.5) gm/dL Hct (39.0-53.0) % MCV (80.0-100.0) fL MCH (25.0-35.0) pg Plt Count (150-450) k/uL APTT 48.5 H (22.0-30.0) sec ABG pO2 (83-108) mmHg ABG HCO3 26 H (21-25) mmol/L ABG Total CO2 27 H (19-24) mmol/L Chloride (98-107) mmol/L BUN (9-20) mg/dL Glucose (74-99) mg/dL POC Glucose (mg/dL) 163 H (75-99) mg/dL Calcium (8.4-10.2) mg/dL Ammonia (<30) umol/L 04/27/17 04/27/17 04/27/17 Range/Units 07:20 07:22 08:59 RBC (4.30-5.90) m/uL Hgb (13.0-17.5) gm/dL Hct (39.0-53.0) % MCV (80.0-100.0) fL MCH (25.0-35.0) pg Plt Count (150-450) k/uL APTT (22.0-30.0) sec ABG pO2 (83-108) mmHg ABG HCO3 (21-25) mmol/L ABG Total CO2 (19-24) mmol/L Chloride (98-107) mmol/L BUN (9-20) mg/dL Glucose (74-99) mg/dL POC Glucose (mg/dL) 169 H 174 H (75-99) mg/dL Calcium (8.4-10.2) mg/dL Ammonia 31 H (<30) umol/L 04/27/17 Range/Units 10:17 RBC (4.30-5.90) m/uL Hgb (13.0-17.5) gm/dL Hct (39.0-53.0) % MCV (80.0-100.0) fL MCH (25.0-35.0) pg Plt Count (150-450) k/uL APTT (22.0-30.0) sec ABG pO2 (83-108) mmHg ABG HCO3 (21-25) mmol/L ABG Total CO2 (19-24) mmol/L Chloride (98-107) mmol/L BUN (9-20) mg/dL Glucose (74-99) mg/dL POC Glucose (mg/dL) 184 H (75-99) mg/dL Calcium (8.4-10.2) mg/dL Ammonia (<30) umol/L Microbiology - Last 24 Hours (Table) 04/21/17 12:50 Blood Culture - Preliminary Blood No Growth after 120 hours Assessment and Plan (1) Acute renal failure Narrative/Plan: Oliguric acute kidney injury mostly renal in nature secondary to hemodynamic instability and use of angiotensin receptor lowell. Impingement creatinine was as high as 3.7 this admission down to 1.96 after dialysis 2.8 this morning urinalysis is quite benign no evidence of hydronephrosis on CT of the abdomen and pelvis #2 hyperkalemia is secondary to acute renal injury and metabolic acidosis further worsened with the use of valsartan. Is one treatment of hemodialysis on April 21 potassium level at this time was 7.7 #3 metabolic acidosis secondary to acute renal injury #4 history of alcoholism Plan; Continue normal saline Start sodium bicarb 2. tube feeds were initiated yesterday Avoid nephrotoxic agents and hypotensive episodes We'll wean vent continue to monitor renal function and urinary output tracheostomy and peg tube friday Status: Acute Time with Patient: Greater than 30
--- NOTE | 2017-04-27 12:31 | P.PN ---
Subjective This patient is a 71-year-old male who was seen in neurology consultation yesterday for altered mental status and unresponsive state. Patient remains intubated on the ventilator today. He was sent for a repeat computed tomography scan of the brain today which was reviewed. CAT scan is negative for any evidence of acute stroke or hemorrhage. No change from previous 2 CT scans of the brain. Specifically there was no evidence of basilar artery thrombosis. No evidence of acute stroke or hemorrhage was detected on the scan today. Patient remains on the ventilator. He is on a Diprivan drip. He does have a history of atrial fibrillation and was seen by cardiology. He was started on IV heparin protocol this morning as per cardiology's recommendation given his atrial fibrillation. Patient is currently on 45 mics of Diprivan. He remains heavily sedated. Apparently when sedation was cut back he did seem to open his eyes according to the ICU nurse today. He is requiring interruption of sedation daily and does show some signs of improvement. He does open eyes but then has severe coughing reflex. He opens eyes but does not follow any commands. He does have increase in secretions and becomes tachycardic and tachypneic with the sedation interruptions. Chest x-ray reveals evidence of left pleural effusion and infiltrate with possible pneumonia. Pulmonary medicine is following the patient closely for this. He doesn't respond minimally to sternal rub likely secondary to his IV sedation. The patient underwent routine EEG today which was reviewed. The EEG reveals significant slowing consistent with a diffuse encephalopathy. We have discussed this patient's neurological findings today in detail with his over the telephone. She was updated on all of his neurodiagnostic testing which included 3 CT scans of the brain. We reviewed his EEG result from today as well with the . His overall prognosis at this time remains very guarded. We have recommended to the that we will continue close neurological follow-up daily. He was taken off of sedation earlier today however he only opens his eyes and is extremely weak. We have recommended a follow-up computed tomography scan of the brain to be done to rule out any acute findings. Patient underwent computed tomography scan of the brain yesterday which revealed cerebral atrophy and mild chronic small vessel ischemia. There was no evidence of acute stroke or hemorrhage. This is his fourth computed tomography scan of the brain that has been done since admission. We will need to see if he will be able to be weaned off the ventilator gradually over the next several days. As per pulmonary medicine his progress is very slow. He may eventually need a tracheostomy and PEG tube placement. The has been updated on his slow progress in the ICU. She is given consent for tracheostomy and PEG tube placement possibly for Friday. As per the ICU nursing staff he is being scheduled for a trach and PEG tomorrow. His blood pressure continues to be very labile. Nephrology is monitoring him closely as well. His overall prognosis at this time however remains very guarded. is aware of his overall poor neurological status and condition at this time. We will continue close neurological follow-up of this patient in the ICU setting. Objective - Vital Signs Vital signs: Vital Signs Temp 98.4 F 04/27/17 11:00 Pulse 124 H 04/27/17 11:00 Resp 30 H 04/27/17 11:00 BP 185/98 04/26/17 16:30 Pulse Ox 98 04/27/17 11:00 Intake & Output 04/26/17 04/27/17 04/27/17 18:59 06:59 18:59 Intake Total 2645.196 2076.149 1290.899 Output Total 2105 2055 680 Balance 540.196 21.149 610.899 Weight 155.1 kg 156.3 kg 156.3 kg Intake: IV 563 339 259.0 [place] 143 59 59 Magnesium Sulfate-D5w Pmx 100 1 gm In Dextrose/Water 1 100ml.bag @ 100 mls/hr IVPB Q1H DI Rx#: [id number] Piperacillin-Tazobactam 3 50 50.0 .375 gm In Dextrose/Water 1 50ml.bag @ 12.5 mls/hr IVPB Q8HR DI Rx#: [id number] Sodium Chloride 0.9% 1, 320 230 150 000 ml @ 20 mls/hr IV . Q24H DI Rx#:[id number] Intake, IV Titration 0645.839 8932.149 551.899 Amount Amiodarone 450 mg In 331.819 Dextrose 5% in Water 250 ml @ 1 MG/MIN 33.33 mls/ hr IV .Q7H31M DI Rx#: [id number] Cisatracurium 200 mg In 228.444 106.069 Sodium Chloride 0.9% 180 ml @ 2 MCG/KG/MIN 18.61 mls/hr IV .[id number] DI Rx #:[id number] Dextrose 5% in Water 100 100 ml @ 618 mls/hr IV .Q10M ONE with Amiodarone 150 mg Rx#:[id number] Diltiazem 125 mg In 108.917 Sodium Chloride 0.9% 100 ml @ 10 MG/HR 10 mls/hr IV .[id number] DI Rx#: [id number] Heparin Sodium,Porcine/ 310.439 359.037 D5w Pmx 25,000 unit In Dextrose/Water 1 500ml. bag @ 6.7 UNITS/KG/HR 19. 89 mls/hr IV .Q24H DI Rx #:[id number] Insulin Regular 100 unit 24.018 66.355 32.869 In Sodium Chloride 0.9% 100 ml @ Per Protocol IV .Q0M DI Rx#:[id number] Magnesium Sulfate-D5w Pmx 100 1 gm In Dextrose/Water 1 100ml.bag @ 100 mls/hr IVPB Q1H DI Rx#: [id number] Norepinephrin 16 mg-0.9% 41.486 99.629 16.768 Ns Pmx 16 mg In 250 ml @ Titrate IV .Q0M DI Rx#: [id number] Piperacillin-Tazobactam 3 25.0 50 .375 gm In Dextrose/Water 1 50ml.bag @ 12.5 mls/hr IVPB Q8HR DI Rx#: [id number] Propofol 500 mg In Empty 292.336 330.902 37.156 Bag 1 bag @ Titrate IV . Q0M DI Rx#:[id number] Oral 120 Tube Feeding 490 390 280 Other 470 240 200 Output: Urine 2105 2055 680 Other: Voiding Method Indwelling Catheter Indwelling Catheter Indwelling Catheter # Bowel Movements 1 ABP, PAP, CO, CI - Last Documented Arterial Blood Pressure 123/63 - Exam Physical examination: PHYSICAL EXAMINATION: Patient is intubated on the ventilator and is on a Diprivan drip. He remains sedated and unresponsive. VITAL SIGNS: Blood pressure is [123/63]. Heart rate is [124]. Respiration is [30 ]. Temperature is [98.4]. HEENT: Head is atraumatic, neck is supple, there were no carotid bruits. CHEST: Lungs are clear to auscultation and percussion. CARDIAC: S1, S2 normal rate and rhythm. There is no murmur. ABDOMEN: Soft and nontender. Bowel sounds are present. EXTREMITIES: There is no pedal edema. Peripheral pulses are present. Neurological examination: Patient remains intubated on the ventilator and is on a Diprivan drip. He is currently at 40 mics. His neurological examination is limited at this time due to his sedation. Muscle tone is preserved in all 4 extremities. Deep tendon reflexes are 1+ and symmetric. Plantar responses flexor bilaterally. - Labs CBC & Chem 7: 04/27/17 04:15 04/27/17 04:15 Labs: Abnormal Lab Results - Last 24 Hours (Table) 04/26/17 04/26/17 04/26/17 Range/Units 12:08 14:17 16:40 RBC (4.30-5.90) m/uL Hgb (13.0-17.5) gm/dL Hct (39.0-53.0) % MCV (80.0-100.0) fL MCH (25.0-35.0) pg Plt Count (150-450) k/uL APTT (22.0-30.0) sec ABG pO2 (83-108) mmHg ABG HCO3 (21-25) mmol/L ABG Total CO2 (19-24) mmol/L Chloride (98-107) mmol/L BUN (9-20) mg/dL Glucose (74-99) mg/dL POC Glucose (mg/dL) 162 H 188 H 159 H (75-99) mg/dL Calcium (8.4-10.2) mg/dL Ammonia (<30) umol/L 04/26/17 04/26/17 04/26/17 Range/Units 16:43 19:05 21:11 RBC (4.30-5.90) m/uL Hgb (13.0-17.5) gm/dL Hct (39.0-53.0) % MCV (80.0-100.0) fL MCH (25.0-35.0) pg Plt Count (150-450) k/uL APTT (22.0-30.0) sec ABG pO2 75 L (83-108) mmHg ABG HCO3 (21-25) mmol/L ABG Total CO2 (19-24) mmol/L Chloride (98-107) mmol/L BUN (9-20) mg/dL Glucose (74-99) mg/dL POC Glucose (mg/dL) 177 H 185 H (75-99) mg/dL Calcium (8.4-10.2) mg/dL Ammonia (<30) umol/L 04/26/17 04/26/17 04/27/17 Range/Units 21:57 23:44 02:01 RBC (4.30-5.90) m/uL Hgb (13.0-17.5) gm/dL Hct (39.0-53.0) % MCV (80.0-100.0) fL MCH (25.0-35.0) pg Plt Count (150-450) k/uL APTT (22.0-30.0) sec ABG pO2 (83-108) mmHg ABG HCO3 (21-25) mmol/L ABG Total CO2 (19-24) mmol/L Chloride (98-107) mmol/L BUN (9-20) mg/dL Glucose (74-99) mg/dL POC Glucose (mg/dL) 190 H 185 H 177 H (75-99) mg/dL Calcium (8.4-10.2) mg/dL Ammonia (<30) umol/L 04/27/17 04/27/17 04/27/17 Range/Units 04:14 04:15 04:15 RBC 3.08 L (4.30-5.90) m/uL Hgb 11.4 L (13.0-17.5) gm/dL Hct 32.8 L (39.0-53.0) % MCV 106.6 H (80.0-100.0) fL MCH 36.9 H (25.0-35.0) pg Plt Count 102 L (150-450) k/uL APTT (22.0-30.0) sec ABG pO2 (83-108) mmHg ABG HCO3 (21-25) mmol/L ABG Total CO2 (19-24) mmol/L Chloride 111 H (98-107) mmol/L BUN 27 H (9-20) mg/dL Glucose 181 H (74-99) mg/dL POC Glucose (mg/dL) 163 H (75-99) mg/dL Calcium 7.5 L (8.4-10.2) mg/dL Ammonia (<30) umol/L 04/27/17 04/27/17 04/27/17 Range/Units 04:15 04:58 05:44 RBC (4.30-5.90) m/uL Hgb (13.0-17.5) gm/dL Hct (39.0-53.0) % MCV (80.0-100.0) fL MCH (25.0-35.0) pg Plt Count (150-450) k/uL APTT 48.5 H (22.0-30.0) sec ABG pO2 (83-108) mmHg ABG HCO3 26 H (21-25) mmol/L ABG Total CO2 27 H (19-24) mmol/L Chloride (98-107) mmol/L BUN (9-20) mg/dL Glucose (74-99) mg/dL POC Glucose (mg/dL) 163 H (75-99) mg/dL Calcium (8.4-10.2) mg/dL Ammonia (<30) umol/L 04/27/17 04/27/17 04/27/17 Range/Units 07:20 07:22 08:59 RBC (4.30-5.90) m/uL Hgb (13.0-17.5) gm/dL Hct (39.0-53.0) % MCV (80.0-100.0) fL MCH (25.0-35.0) pg Plt Count (150-450) k/uL APTT (22.0-30.0) sec ABG pO2 (83-108) mmHg ABG HCO3 (21-25) mmol/L ABG Total CO2 (19-24) mmol/L Chloride (98-107) mmol/L BUN (9-20) mg/dL Glucose (74-99) mg/dL POC Glucose (mg/dL) 169 H 174 H (75-99) mg/dL Calcium (8.4-10.2) mg/dL Ammonia 31 H (<30) umol/L 04/27/17 Range/Units 10:17 RBC (4.30-5.90) m/uL Hgb (13.0-17.5) gm/dL Hct (39.0-53.0) % MCV (80.0-100.0) fL MCH (25.0-35.0) pg Plt Count (150-450) k/uL APTT (22.0-30.0) sec ABG pO2 (83-108) mmHg ABG HCO3 (21-25) mmol/L ABG Total CO2 (19-24) mmol/L Chloride (98-107) mmol/L BUN (9-20) mg/dL Glucose (74-99) mg/dL POC Glucose (mg/dL) 184 H (75-99) mg/dL Calcium (8.4-10.2) mg/dL Ammonia (<30) umol/L Microbiology - Last 24 Hours (Table) 04/21/17 12:50 Blood Culture - Preliminary Blood No Growth after 120 hours Assessment and Plan (1) Acute encephalopathy Status: Acute Code(s): G93.40 - ENCEPHALOPATHY, UNSPECIFIED (2) Acute renal failure Status: Acute Code(s): N17.9 - ACUTE KIDNEY FAILURE, UNSPECIFIED (3) Atrial fibrillation Status: Acute Code(s): I48.91 - UNSPECIFIED ATRIAL FIBRILLATION (4) Hepatic encephalopathy Status: Acute Code(s): K72.90 - HEPATIC FAILURE, UNSPECIFIED WITHOUT COMA Plan: This patient is a 71-year-old male who remains intubated on the ventilator and unresponsive and sedated at this time. Patient is currently on IV Diprivan at a setting of 40 mics. He remains unchanged in terms of his neurological status. There is been no significant improvement in his overall condition since initial neurological evaluation in the ICU. He underwent a repeat computed tomography scan of the brain yesterday the results of which are noted above. CAT scan is negative for any evidence of acute stroke or hemorrhage. This is the fourth computed tomography scan of the brain that has been done for the patient. There is been no evidence of any significant change specifically no acute stroke or hemorrhage is been noted. Patient is to undergo tracheostomy and PEG tube placement tomorrow and will likely require subacute rehab placement following this. Patient has undergone weaning parameters however he is unable to wean off of the Diprivan at this time. He does remain on a IV heparin protocol as he has a history of chronic atrial fibrillation. As noted computed tomography scan of the brain was negative for any evidence of acute stroke or hemorrhage. Due to his multiple complex medical issues his overall prognosis at this time remains very guarded. We will follow along with the other specialist for this patient in the ICU. We'll await possible tracheostomy and PEG tube placement for the patient tomorrow. His overall prognosis remains very guarded.
[2017-04-27 12:32] LABS: Glucose,Whole Blood 170 mg/dL (75-99)
[2017-04-27] MEDS: DILTIAZEM 125 MG in SODIUM CHLORIDE 0.9% 100 ML IV SCH (13:16)
[2017-04-27] MEDS: HEPARIN SODIUM,PORCINE/D5W PMX 25,000 UNIT in DEXTROSE/WATER 1 500ML.BAG IV SCH (13:17)
--- NOTE | 2017-04-27 13:19 | PN ---
This is a 71-year-old male who has hypoxemic respiratory failure. He has been on the ventilator the entire time here in the ICU. He remains intubated and mechanically ventilated. Yesterday, he had significant swings in his vital signs. He became tachycardic and bradycardic and became hypertensive and hypotensive. Not clear as to what was going on exactly. I chose to paralyze him which seemed to stabilize him a bit. Anyway, the patient is currently still on paralysis. I did ask the nurse to stop the paralytic to see whether or not there has been any changes in his overall clinical status. He is apparently scheduled for a trach and PEG tube tomorrow. Currently he is on the assist control mode rate of 30, tidal volume of 450, FiO2 of 60% to be dropped to 50% and PEEP of 10. Blood gases show pO2 of 84, pCO2 of 40, pH 7.43. The patient's IV is included 0.9 IV at 30 mL an hour. Levophed is currently off, propofol at 30 mcg per minute, Nimbex at 1.5 mcg/kg per minute, Cordarone 0.5 mg per minute, IV heparin via weight -based protocol and insulin at 6.5 units an hour. The patient is also on Gevity HP at 40 with a goal of 40. Current vital signs include a temperature which is 98.3, heart rate 99, respiratory rate 30, blood pressure 102/56, saturations are 97% on 60% FiO2 and 10 of PEEP. Appears in no acute distress, currently sedated and paralyzed. HEENT examination is grossly unremarkable. Mucous membranes are moist. No oral lesions. Neck is supple. Full range of motion. No adenopathy or thyromegaly. Cardiovascular reveals a regular rhythm and rate. Heart rate about 90. It is regular. S1, S2 normal. No murmur. Lungs reveal relatively clear breath sounds. A few scattered rhonchi and wheezes. Breath sounds are diminished though. ABDOMEN: Obese. Bowel sounds are noted. EXTREMITIES: Intact. No cyanosis, clubbing, or edema. SKIN: Without rash. NEUROLOGICAL: Examination obviously cannot be performed. Lab data is reviewed. White count 9.1, hemoglobin 11.4, hematocrit 32.8, platelet count 102,000. PTT 48.5. Blood gases have been noted. Sodium 143, potassium 4.1, chloride 111, CO2 of 24. Anion gap is 8. BUN and creatinine were 27 and 1.20. Calcium, magnesium and phosphorus are all relatively normal. Subsequent brain CT that was done yesterday showed no acute abnormality. There is some cerebral atrophy. No change. Nothing acute. Chest x-ray shows cardiomegaly and improved aeration with a small left-sided effusion. Medications are reviewed. Microbiology is all negative. ASSESSMENT: 1. Hypoxemic respiratory failure, likely secondary initially to diastolic congestive heart failure as well as possible pneumonia. 2. Non-anion gap metabolic acidosis, secondary to renal failure. 3. Mental status changes of unclear etiology with essentially four negative CT scans and an EEG which shows diffuse slowing consistent with metabolic/anoxic brain injury. 4. History of atrial fibrillation. 5. Chronic obstructive pulmonary disease. 6. Chronic and ongoing tobacco dependence. 7. Diabetes. 8. Hyperlipidemia. 9. Hypertension. 10. Hepatitis C. 11. Previous history of significant drug abuse with cocaine, heroin and methamphetamine. 12. Acute renal failure with hyperkalemia and metabolic acidosis, which required urgent hemodialysis. PLAN: The patient is currently on ( ). The nurse will decide whether or not the patient is more stable or less stable on paralysis. She has a latitude to resume the resume the ( ) after a brief holiday. The patient's FIO2 will be dropped from 60 to 50%. The patient is scheduled for a trach and PEG tube tomorrow. The patient does have a PIC line. The patient's cultures are all negative thus far. We will continue to follow closely. Prognosis is very guarded. Critical care time: 40 minutes.
[2017-04-27 14:11] LABS: Glucose,Whole Blood 187 mg/dL (75-99)
--- NOTE | 2017-04-27 14:29 | PN ---
This patient's vital signs and laboratory test reviewed over the last 24 hours. Patient was started on amiodarone drip and the Cardizem is discontinued. His heart rate now remains in the range of 90 to 110 per minute. First and second heart sounds are normal. Lungs reveal bilateral scattered wheezes. The patient is currently on 3 mcg of Levo. We will continue the patient on IV amiodarone to control the rate.
[2017-04-27 15:44] LABS: Glucose,Whole Blood 174 mg/dL (75-99)
[2017-04-27 17:10] LABS: Glucose,Whole Blood 167 mg/dL (75-99)
[2017-04-27 18:35] LABS: Glucose,Whole Blood 151 mg/dL (75-99)
[2017-04-27] MEDS: SODIUM CHLORIDE 0.9% 1,000 ML IV SCH (18:36)
[2017-04-27 19:59] LABS: Glucose,Whole Blood 143 mg/dL (75-99)
[2017-04-27 22:34] LABS: Glucose,Whole Blood 145 mg/dL (75-99)
[2017-04-28 00:12] LABS: Glucose,Whole Blood 159 mg/dL (75-99)
[2017-04-28] MEDS: PIPERACILLIN-TAZOBACTAM 3.375 GM in DEXTROSE/WATER 1 50ML.BAG IVPB SCH ×3 (00:12→17:15)
[2017-04-28] MEDS: PROPOFOL 500 MG in EMPTY BAG 1 BAG IV SCH ×12 (00:33→22:51)
[2017-04-28] MEDS: IPRATROPIUM-ALBUTEROL 3 ML NEB INHALATION SCH ×6 (03:35→23:05)
[2017-04-28 04:22] LABS: Glucose,Whole Blood 133 mg/dL (75-99)
[2017-04-28 05:25] LABS: ABG Base Excess 1.5 mmol/L; ABG HCO3 25 mmol/L (21-25); ABG PCO2 36 mmHg (35-45); ABG PH 7.45 (7.35-7.45); ABG PO2 62 mmHg (83-108); ABG TCO2 26 mmol/L (19-24)
[2017-04-28 05:44] LABS: CH 33.9; CHCM 31.9; HDW 2.36; Immature Gran Flag Moderate; MCH 36.5 pg (25.0-35.0); MCHC 34.1 g/dL (31.0-37.0); MCV 107.1 fL (80.0-100.0); Macrocytosis Moderate; Mean Platelet Volume 7.8; RBC 3.27 m/uL (4.30-5.90); RDW 15.2 % (11.5-15.5); WBC 10.3 k/uL (3.8-10.6); WBC (Perox) 10.75
[2017-04-28 06:05] LABS: Anion Gap 8 mmol/L; Blood Urea Nitrogen 21 mg/dL (9-20); Calcium 7.7 mg/dL (8.4-10.2); Carbon Dioxide 26 mmol/L (22-30); Chloride 108 mmol/L (98-107); Glucose 140 mg/dL (74-99); Magnesium 1.7 mg/dL (1.6-2.3); Non-African American GFR(MDRD) >60 (>60 ml/min/1.73 sqM); Phosphorous 3.4 mg/dL (2.5-4.5); Potassium 4.2 mmol/L (3.5-5.1); Sodium 142 mmol/L (137-145)
[2017-04-28 06:06] LABS: Add Differential Manual Differential
[2017-04-28 06:12] LABS: Glucose,Whole Blood 127 mg/dL (75-99)
[2017-04-28 06:17] LABS: Metamyelocytes % 3.5 %; Nucleated Red Blood Cells 0 /100 WBC (0-0); Total Cells Counted 200
[2017-04-28 06:19] LABS: Manual Review Performed
--- NOTE | 2017-04-28 07:19 | XR ---
EXAMINATION TYPE: XR chest 1V portable DATE OF EXAM: 04/28/2017 COMPARISON: 04/27/2017 HISTORY: SOB, Follow Up FINDINGS: Indwelling tubes and catheters are unchanged. No change in left greater than right basilar opacities. Stable appearance of the cardio-mediastinal structures at this time. Pleural effusion unchanged. IMPRESSION: 1. Stable portable chest. Clinical correlation and follow up until resolution is recommended.
[2017-04-28 07:25] LABS: Glucose,Whole Blood 157 mg/dL (75-99)
[2017-04-28] MEDS: DILTIAZEM 125 MG in SODIUM CHLORIDE 0.9% 100 ML IV SCH (07:57)
[2017-04-28] MEDS: CISATRACURIUM 200 MG in SODIUM CHLORIDE 0.9% 180 ML IV SCH (07:57)
[2017-04-28 08:24] LABS: Glucose,Whole Blood 137 mg/dL (75-99)
[2017-04-28] MEDS: CHLORHEXIDINE GLUCONATE 15 ML CUP MUCOUS MEM SCH ×2 (08:56→22:50)
[2017-04-28] MEDS: PANTOPRAZOLE 40 MG/10 ML VIAL IV SCH (08:56)
[2017-04-28] MEDS: METOPROLOL TARTRATE 25 MG TAB PO SCH ×2 (08:56→22:50)
[2017-04-28] MEDS: SODIUM BICARBONATE TAB 650 MG TAB PO SCH ×2 (08:57→22:50)
[2017-04-28 09:38] LABS: Glucose,Whole Blood 147 mg/dL (75-99)
[2017-04-28] MEDS ORDERED: PHENYLEPHRINE-0.9% NACL SYG 1 MG/10 ML SYRINGE ONE (10:41)
[2017-04-28] MEDS ORDERED: ROCURONIUM BROMIDE 10 MG/ML 10 ML VIAL IV ONE (10:41)
[2017-04-28] MEDS ORDERED: fentaNYL (PF) 50 MCG/ML 2 ML AMP ONE (10:41)
[2017-04-28 11:12] LABS: Glucose,Whole Blood 145 mg/dL (75-99)
[2017-04-28] MEDS ORDERED: LIDOCAINE 1% INJ 10MG/ML (20 ML MDV) SQ ONE (11:18)
--- NOTE | 2017-04-28 11:30 | P.PN ---
Subjective This is a 71-year-old gentleman who follows with Dr. Fuentes as his primary care physician. He has a history of hyperlipidemia, chronic obstructive pulmonary disease with chronic and ongoing tobacco dependence, diabetes mellitus , hypertension, atrial fibrillation, chronic liver disease. He presented here on 04/21/2017 with altered mental status. The patient developed acute respiratory failure and required intubation mechanical ventilatory support. He is seen again today in follow-up in the intensive care unit. He remains on the ventilator assist control 30 tidal volume 450 FiO2 60% and a PEEP of 5. Morning blood gases reveal a pO2 of 66, pCO2 34, pH 7.4. He said atrial fibrillation with a rapid ventricular response. He remains on a Cardizem drip at 7.5 mg per hour, norepinephrine at 1 mcg/m. Propofol at 70 mcg/kg/m. 0.9 normal saline at 100 mL per hour. Insulin drip at 8 units per hour. He is receiving a trickle tube feed of Vital HP at 10 mL per hour with a goal of 44. His chest x-ray reveals bilateral effusions with atelectasis/infiltrates the lung bases. He remains on Zosyn. He did receive 1 emergent dialysis treatment for his acute renal failure and hyperkalemia. Today's labs reveal creatinine 2.30 and a potassium of 4.4. Bicarb 19. He is receiving sodium bicarbonate 650 mg by mouth twice a day. He is currently receiving a daily interruption of sedation. We are also going to check a random cortisol level. Blood cultures reveal no growth to date. Urine culture pending. The patient is seen again today 04/24/2017 in follow-up in the intensive care unit. He remains to be elevated on mechanical ventilator current settings assist control 30, tidal volume 450, FiO2 60% and a PEEP of 5. Morning blood gases reveal a P O2 of 66, pCO2 of 30 and a pH of 7.45. He does remain sedated on to propofol 50 mcg/kg/m. He has a 0.9 normal saline at 100 MLS per hour. His Cardizem is currently on hold his atrial fibrillation is better controlled he has some episodes of bradycardia. Levophed has been weaned off. He remains on heparin drip and insulin drip at 9.5 units per hour. He is being fed via tube feedings Vital HP at 40 with a goal of 44 MLS per hour. He again was given a daily interruption of sedation. He is opening his eyes but not following any commands. He had significant coughing and significant secretions with tachycardia and tachypnea. Follow-up computed tomography scan revealed no acute intracranial process. His chest x-ray continues to show evidence of a left pleural effusion otherwise stable. He has been quite slow to progress. The patient is seen again today 04/25/2017 in follow-up in the intensive care unit. He remains intubated and on the mechanical ventilator currently at assist -control mode of 30, tidal volume 450, FiO2 60% and a PEEP of 5. Current arterial blood gases reveal a pO2 of 71, pCO2 34 and a pH of7.45. A mild respiratory alkalosis. He was given a sedation holiday. He does open his eyes spontaneously but does not follow any commands. No plans for weaning trials as he is still requiring high FiO2 to maintain O2 saturations greater than 90%. He is also on a 0.9 normal saline at 60 miles per hour, heparin drip at 10.7 units per hour, propofol at 45 mcg/kg/m, insulin drip at 5.5 units per hour. He is being nourished with Vital HP at goal 40 miles per hour. He has been slow to progress. 3 CT scans of the brain have been negative for acute stroke or hemorrhage. An EEG did reveal severe slowing consistent with diffuse encephalopathy. No evidence of seizures. The patient is seen again today 04/26/2017 in follow-up in the intensive care unit. He remains intubated and on the mechanical ventilator. Current settings are assist-control mode of 30, tidal volume 450, FiO2 60% and a PEEP of 5. Morning blood gases reveal a pO2 of 71, pCO2 37 and a pH of 7.42. He continues to have a 0.9 normal saline at 30 mL per hour, norepinephrine at 2 mcg/m, propofol at 15 mcg/kg/m, heparin at 8.7 units, insulin drip at 2.5 units per hour. He is being nourished with Vital HP at 40 mL's per hour which is goal. He has had ongoing issues with atrial fibrillation with rapid ventricular response and increasing PVCs and labile blood pressures. His chest x-ray does reveal improved aeration in the left lung base. On 04/27/2017 the patient is being seen in follow-up. The patient will be undertaken a tracheostomy tube insertion and a PEG tube insertion by Dr. Hever Smith today. This decision has already been made by Dr. Mcmillan due to failure to wean. The patient apparently was not waking up appropriately while off sedation and he was not following any commands and he was thought not to be able to protect his airway postextubation. Based on that decision was to give this patient a tracheostomy tube. Meanwhile, the patient remains on assist control mode of ventilation at the rate of 30, tidal volume 450, FiO2 of 50% and a PEEP of 10 in the morning blood gases showed a pH of 7.45 with a pCO2 of 36 and pO2 of 62. His chest x-ray is not showing any again thickened changes compared to yesterday. ET tube is in a good location this morning. Atelectatic changes can be seen in lung bases bilaterally. CAT scan of the brain that showed atrophy without any acute abnormalities. EEG of the brain had shown severe slowing consistent with diffuse encephalopathy, likely metabolic and there is no evidence of any seizure activity. The patient was tolerating his tube feeds and currently is nothing by mouth in preparation for his PEG and trach. Hemodynamically, he has a labile blood pressure, and his blood pressure typically goes up once is off sedation. Nevertheless he has not required any pressors. His echocardiogram shows an ejection fraction of 55-60% . He is in atrial fibrillation and he is on a IV heparin drip for anticoagulation. He is also on a amiodarone for rate control. Objective - Vital Signs Vital signs: Vital Signs Temp 98.6 F 04/28/17 08:30 Pulse 103 H 04/28/17 09:30 Resp 29 H 04/28/17 09:30 BP 185/98 04/26/17 16:30 Pulse Ox 95 04/28/17 09:30 Intake & Output 04/27/17 04/28/17 04/28/17 18:59 06:59 18:59 Intake Total 2996.679 1391.737 295.500 Output Total 2880 1965 480 Balance 116.679 -573.263 -184.500 Weight 156.3 kg 153.3 kg 153.3 kg Intake: IV 649.0 355.5 142.0 [place] 199 53 12 Piperacillin-Tazobactam 3 100.0 62.5 50.0 .375 gm In Dextrose/Water 1 50ml.bag @ 12.5 mls/hr IVPB Q8HR DI Rx#: [id number] Sodium Chloride 0.9% 1, 350 240 80 000 ml @ 20 mls/hr IV . Q24H DI Rx#:[id number] Intake, IV Titration 1277.679 636.237 113.500 Amount Amiodarone 450 mg In 199.92 66.6 Dextrose 5% in Water 250 ml @ 0.5 MG/MIN 16.66 mls /hr IV .Q15H1M DI Rx#: [id number] Amiodarone 450 mg In 250.000 Dextrose 5% in Water 250 ml @ 1 MG/MIN 33.33 mls/ hr IV .Q7H31M DI Rx#: [id number] Cisatracurium 200 mg In 106.069 Sodium Chloride 0.9% 180 ml @ 2 MCG/KG/MIN 18.61 mls/hr IV .[id number] DI Rx #:[id number] Heparin Sodium,Porcine/ 474.411 D5w Pmx 25,000 unit In Dextrose/Water 1 500ml. bag @ 6.7 UNITS/KG/HR 19. 89 mls/hr IV .Q24H DI Rx #:[id number] Insulin Regular 100 unit 83.513 88.781 0.337 In Sodium Chloride 0.9% 100 ml @ Per Protocol IV .Q0M DI Rx#:[id number] Magnesium Sulfate-D5w Pmx 100 1 gm In Dextrose/Water 1 100ml.bag @ 100 mls/hr IVPB Q1H DI Rx#: [id number] Norepinephrin 16 mg-0.9% 36.552 3.469 Ns Pmx 16 mg In 250 ml @ Titrate IV .Q0M DI Rx#: [id number] Propofol 500 mg In Empty 227.134 344.067 46.563 Bag 1 bag @ Titrate IV . Q0M DI Rx#:[id number] Tube Feeding 640 200 40 Other 430 200 Output: Urine 2130 1965 230 Stool 750 250 Other: Voiding Method Indwelling Catheter Indwelling Catheter Indwelling Catheter # Bowel Movements 1 1 ABP, PAP, CO, CI - Last Documented Arterial Blood Pressure 133/66 - Exam GENERAL EXAM: Sedated, intubated. HEAD: Normocephalic. EYES: Normal reaction of pupils, equal size. NOSE: Clear with pink turbinates. THROAT: Oral endotracheal and gastric tubes are secured in place. NECK: No masses, no JVD. CHEST: No chest wall deformity. LUNGS: Equal air entry with crackles in the posterior bases.. CVS: S1 and S2 normal with no audible murmurs, irregular rhythm. ABDOMEN: No hepatosplenomegaly, bowel sounds, no guarding or rigidity. Extremities: There is trace peripheral edema. No clubbing, no cyanosis. Peripheral pulses are intact. - Labs CBC & Chem 7: 04/28/17 04:40 04/28/17 04:40 Labs: Abnormal Lab Results - Last 24 Hours (Table) 04/27/17 04/27/17 04/27/17 Range/Units 12:12 14:09 15:41 RBC (4.30-5.90) m/uL Hgb (13.0-17.5) gm/dL Hct (39.0-53.0) % MCV (80.0-100.0) fL MCH (25.0-35.0) pg Plt Count (150-450) k/uL Neutrophils # (Manual) (1.3-7.7) k/uL Lymphocytes # (Manual) (1.0-4.8) k/uL ABG pO2 (83-108) mmHg ABG Total CO2 (19-24) mmol/L ABG O2 Saturation (94-97) % Chloride (98-107) mmol/L BUN (9-20) mg/dL Glucose (74-99) mg/dL POC Glucose (mg/dL) 170 H 187 H 174 H (75-99) mg/dL Calcium (8.4-10.2) mg/dL 04/27/17 04/27/17 04/27/17 Range/Units 17:09 18:33 19:56 RBC (4.30-5.90) m/uL Hgb (13.0-17.5) gm/dL Hct (39.0-53.0) % MCV (80.0-100.0) fL MCH (25.0-35.0) pg Plt Count (150-450) k/uL Neutrophils # (Manual) (1.3-7.7) k/uL Lymphocytes # (Manual) (1.0-4.8) k/uL ABG pO2 (83-108) mmHg ABG Total CO2 (19-24) mmol/L ABG O2 Saturation (94-97) % Chloride (98-107) mmol/L BUN (9-20) mg/dL Glucose (74-99) mg/dL POC Glucose (mg/dL) 167 H 151 H 143 H (75-99) mg/dL Calcium (8.4-10.2) mg/dL 04/27/17 04/28/17 04/28/17 Range/Units 22:32 00:08 04:20 RBC (4.30-5.90) m/uL Hgb (13.0-17.5) gm/dL Hct (39.0-53.0) % MCV (80.0-100.0) fL MCH (25.0-35.0) pg Plt Count (150-450) k/uL Neutrophils # (Manual) (1.3-7.7) k/uL Lymphocytes # (Manual) (1.0-4.8) k/uL ABG pO2 (83-108) mmHg ABG Total CO2 (19-24) mmol/L ABG O2 Saturation (94-97) % Chloride (98-107) mmol/L BUN (9-20) mg/dL Glucose (74-99) mg/dL POC Glucose (mg/dL) 145 H 159 H 133 H (75-99) mg/dL Calcium (8.4-10.2) mg/dL 04/28/17 04/28/17 04/28/17 Range/Units 04:40 04:40 05:19 RBC 3.27 L (4.30-5.90) m/uL Hgb 12.0 L (13.0-17.5) gm/dL Hct 35.0 L (39.0-53.0) % MCV 107.1 H (80.0-100.0) fL MCH 36.5 H (25.0-35.0) pg Plt Count 102 L (150-450) k/uL Neutrophils # (Manual) 8.2 H (1.3-7.7) k/uL Lymphocytes # (Manual) 0.9 L (1.0-4.8) k/uL ABG pO2 62 L (83-108) mmHg ABG Total CO2 26 H (19-24) mmol/L ABG O2 Saturation 93.0 L (94-97) % Chloride 108 H (98-107) mmol/L BUN 21 H (9-20) mg/dL Glucose 140 H (74-99) mg/dL POC Glucose (mg/dL) (75-99) mg/dL Calcium 7.7 L (8.4-10.2) mg/dL 04/28/17 04/28/17 04/28/17 Range/Units 06:10 07:24 08:23 RBC (4.30-5.90) m/uL Hgb (13.0-17.5) gm/dL Hct (39.0-53.0) % MCV (80.0-100.0) fL MCH (25.0-35.0) pg Plt Count (150-450) k/uL Neutrophils # (Manual) (1.3-7.7) k/uL Lymphocytes # (Manual) (1.0-4.8) k/uL ABG pO2 (83-108) mmHg ABG Total CO2 (19-24) mmol/L ABG O2 Saturation (94-97) % Chloride (98-107) mmol/L BUN (9-20) mg/dL Glucose (74-99) mg/dL POC Glucose (mg/dL) 127 H 157 H 137 H (75-99) mg/dL Calcium (8.4-10.2) mg/dL 04/28/17 04/28/17 Range/Units 09:36 11:00 RBC (4.30-5.90) m/uL Hgb (13.0-17.5) gm/dL Hct (39.0-53.0) % MCV (80.0-100.0) fL MCH (25.0-35.0) pg Plt Count (150-450) k/uL Neutrophils # (Manual) (1.3-7.7) k/uL Lymphocytes # (Manual) (1.0-4.8) k/uL ABG pO2 (83-108) mmHg ABG Total CO2 (19-24) mmol/L ABG O2 Saturation (94-97) % Chloride (98-107) mmol/L BUN (9-20) mg/dL Glucose (74-99) mg/dL POC Glucose (mg/dL) 147 H 145 H (75-99) mg/dL Calcium (8.4-10.2) mg/dL Microbiology - Last 24 Hours (Table) 04/21/17 12:50 Blood Culture - Final Blood No Growth after 144 hours Assessment and Plan Plan: Impression: #1 Acute hypoxic respiratory failure secondary to suspected diastolic congestive heart failure, worsening left pleural effusion and infiltrate with possible pneumonia. Sputum culture reveals no growth. On 04/28/2017, the patient remains on a mechanical ventilator. The plan is to proceed with a tracheostomy tube insertion and following that the patient will be gradually weaned off the sedation when his mental status will be assessed and hopefully will be able to gradually wean him off the mechanical ventilator. No vent changes will be done for today. The patient will have a blood gas after he denies back from the operating room. Chest x-ray be also repeated. Doubt any pneumonia at this point. #2 Non-anion gap metabolic acidosis secondary to acute renal failure, recovered #3 Altered mental status of unclear etiology. 3 CT scans of the brain revealed no acute intracranial abnormality. EEG does reveal severe slowing consistent with diffuse encephalopathy. #4 History of atrial fibrillation. The patient is currently on amiodarone for rate control and IV heparin. #5 Chronic obstructive pulmonary disease. #6 Chronic and ongoing tobacco dependence. #7 Diabetes mellitus. #8 Hyperlipidemia. #9 Hypertension. #10 Hepatitis C. #11 Previous history of substance abuse including cocaine, heroin and methamphetamine. #12 Acute renal failure requiring urgent hemodialysis, the acute kidney injury is recovering #13 Profound hyperkalemia, corrected. Plan Proceed with a PEG and trach. That on the sedation following the tracheostomy tube insertion. Monitor mental status. Monitor hemodynamics. Monitor renal status. Continue IV Zosyn for now. Restart tube feedings with the next 24 hours. We'll continue to follow make further recommendations based on his progress. There is a critically care evaluation. 31 minutes. Time with Patient: Greater than 30
--- NOTE | 2017-04-28 11:49 | P.PN ---
Subjective Principal diagnosis: altered mental status, diabetic ketoacidosis, atrial fibrillation, chronic liver disease, tobacco dependence, history of alcoholism. Patient was seen again today on 04/24/2017 and follow up in the intensive care unit. this individual remains on the ventilator, assist control 30 title volume 450 FiO2 60% and a PEEP of 5. Morning blood gas revealed pO2 66 pCO2 30 pH of 7.45. Patient is currently in A. fib with rapid ventricular response. Propofol at 50 mics per kilogram per minute 0.9 normal saline at 100 mils per hour. Insulin drip at 9.5 units per hour. Patient is also receiving trickle tube feed of vital HP@40 hour with a goal of 44MLS/hr. Chest x-ray suggests bilateral effusions with atelectasis. he remains on Zosyn. He did receive 1 emergent dialysis treatment for acute renal failure and hyperkalemia. Blood cultures reveal no growth to date, urine culture pending.Tracheostomy, and PEG tube today. Objective - Vital Signs Vital signs: Vital Signs Temp 98.6 F 04/28/17 08:30 Pulse 103 H 04/28/17 09:30 Resp 29 H 04/28/17 09:30 BP 185/98 04/26/17 16:30 Pulse Ox 95 04/28/17 09:30 Intake & Output 04/27/17 04/28/17 04/28/17 18:59 06:59 18:59 Intake Total 2996.679 1391.737 295.500 Output Total 2880 1965 480 Balance 116.679 -573.263 -184.500 Weight 156.3 kg 153.3 kg 153.3 kg Intake: IV 649.0 355.5 142.0 [place] 199 53 12 Piperacillin-Tazobactam 3 100.0 62.5 50.0 .375 gm In Dextrose/Water 1 50ml.bag @ 12.5 mls/hr IVPB Q8HR DI Rx#: [id number] Sodium Chloride 0.9% 1, 350 240 80 000 ml @ 20 mls/hr IV . Q24H DI Rx#:[id number] Intake, IV Titration 1277.679 636.237 113.500 Amount Amiodarone 450 mg In 199.92 66.6 Dextrose 5% in Water 250 ml @ 0.5 MG/MIN 16.66 mls /hr IV .Q15H1M DI Rx#: [id number] Amiodarone 450 mg In 250.000 Dextrose 5% in Water 250 ml @ 1 MG/MIN 33.33 mls/ hr IV .Q7H31M DI Rx#: [id number] Cisatracurium 200 mg In 106.069 Sodium Chloride 0.9% 180 ml @ 2 MCG/KG/MIN 18.61 mls/hr IV .[id number] DI Rx #:[id number] Heparin Sodium,Porcine/ 474.411 D5w Pmx 25,000 unit In Dextrose/Water 1 500ml. bag @ 6.7 UNITS/KG/HR 19. 89 mls/hr IV .Q24H DI Rx #:[id number] Insulin Regular 100 unit 83.513 88.781 0.337 In Sodium Chloride 0.9% 100 ml @ Per Protocol IV .Q0M DI Rx#:[id number] Magnesium Sulfate-D5w Pmx 100 1 gm In Dextrose/Water 1 100ml.bag @ 100 mls/hr IVPB Q1H DI Rx#: [id number] Norepinephrin 16 mg-0.9% 36.552 3.469 Ns Pmx 16 mg In 250 ml @ Titrate IV .Q0M DI Rx#: [id number] Propofol 500 mg In Empty 227.134 344.067 46.563 Bag 1 bag @ Titrate IV . Q0M DI Rx#:[id number] Tube Feeding 640 200 40 Other 430 200 Output: Urine 2130 1965 230 Stool 750 250 Other: Voiding Method Indwelling Catheter Indwelling Catheter Indwelling Catheter # Bowel Movements 1 1 ABP, PAP, CO, CI - Last Documented Arterial Blood Pressure 133/66 - Exam General: is currently on vent and sedated HEENT: [PERRL. EOMI. No pharyngeal erythema or exudate.] Neck: [No adenopathy.] Cardiac: [Heart regular in rate and rhythm. No S3. No S4. No clicks, rubs. No murmur.] Lungs: [Clear to auscultation bilaterally.] Abdomen: [No mass. No organomegaly. Bowel sounds presnt and normoactive in all 4 quadrants.] Extremes: [Mildly edematous to all 4 extremes no cyanosis no claudication normal pulses] : [] Musculoskeletal: [No joint erythema, edema or tenderness.] Skin: [No rash.] Neurologic: [No lateralizing deficits. CN II - XII grossly intact.] Lymphatic: [No adenopathy.] - Labs CBC & Chem 7: 04/28/17 04:40 04/28/17 04:40 Labs: Abnormal Lab Results - Last 24 Hours (Table) 04/27/17 04/27/17 04/27/17 Range/Units 12:12 14:09 15:41 RBC (4.30-5.90) m/uL Hgb (13.0-17.5) gm/dL Hct (39.0-53.0) % MCV (80.0-100.0) fL MCH (25.0-35.0) pg Plt Count (150-450) k/uL Neutrophils # (Manual) (1.3-7.7) k/uL Lymphocytes # (Manual) (1.0-4.8) k/uL ABG pO2 (83-108) mmHg ABG Total CO2 (19-24) mmol/L ABG O2 Saturation (94-97) % Chloride (98-107) mmol/L BUN (9-20) mg/dL Glucose (74-99) mg/dL POC Glucose (mg/dL) 170 H 187 H 174 H (75-99) mg/dL Calcium (8.4-10.2) mg/dL 04/27/17 04/27/17 04/27/17 Range/Units 17:09 18:33 19:56 RBC (4.30-5.90) m/uL Hgb (13.0-17.5) gm/dL Hct (39.0-53.0) % MCV (80.0-100.0) fL MCH (25.0-35.0) pg Plt Count (150-450) k/uL Neutrophils # (Manual) (1.3-7.7) k/uL Lymphocytes # (Manual) (1.0-4.8) k/uL ABG pO2 (83-108) mmHg ABG Total CO2 (19-24) mmol/L ABG O2 Saturation (94-97) % Chloride (98-107) mmol/L BUN (9-20) mg/dL Glucose (74-99) mg/dL POC Glucose (mg/dL) 167 H 151 H 143 H (75-99) mg/dL Calcium (8.4-10.2) mg/dL 04/27/17 04/28/17 04/28/17 Range/Units 22:32 00:08 04:20 RBC (4.30-5.90) m/uL Hgb (13.0-17.5) gm/dL Hct (39.0-53.0) % MCV (80.0-100.0) fL MCH (25.0-35.0) pg Plt Count (150-450) k/uL Neutrophils # (Manual) (1.3-7.7) k/uL Lymphocytes # (Manual) (1.0-4.8) k/uL ABG pO2 (83-108) mmHg ABG Total CO2 (19-24) mmol/L ABG O2 Saturation (94-97) % Chloride (98-107) mmol/L BUN (9-20) mg/dL Glucose (74-99) mg/dL POC Glucose (mg/dL) 145 H 159 H 133 H (75-99) mg/dL Calcium (8.4-10.2) mg/dL 04/28/17 04/28/17 04/28/17 Range/Units 04:40 04:40 05:19 RBC 3.27 L (4.30-5.90) m/uL Hgb 12.0 L (13.0-17.5) gm/dL Hct 35.0 L (39.0-53.0) % MCV 107.1 H (80.0-100.0) fL MCH 36.5 H (25.0-35.0) pg Plt Count 102 L (150-450) k/uL Neutrophils # (Manual) 8.2 H (1.3-7.7) k/uL Lymphocytes # (Manual) 0.9 L (1.0-4.8) k/uL ABG pO2 62 L (83-108) mmHg ABG Total CO2 26 H (19-24) mmol/L ABG O2 Saturation 93.0 L (94-97) % Chloride 108 H (98-107) mmol/L BUN 21 H (9-20) mg/dL Glucose 140 H (74-99) mg/dL POC Glucose (mg/dL) (75-99) mg/dL Calcium 7.7 L (8.4-10.2) mg/dL 04/28/17 04/28/17 04/28/17 Range/Units 06:10 07:24 08:23 RBC (4.30-5.90) m/uL Hgb (13.0-17.5) gm/dL Hct (39.0-53.0) % MCV (80.0-100.0) fL MCH (25.0-35.0) pg Plt Count (150-450) k/uL Neutrophils # (Manual) (1.3-7.7) k/uL Lymphocytes # (Manual) (1.0-4.8) k/uL ABG pO2 (83-108) mmHg ABG Total CO2 (19-24) mmol/L ABG O2 Saturation (94-97) % Chloride (98-107) mmol/L BUN (9-20) mg/dL Glucose (74-99) mg/dL POC Glucose (mg/dL) 127 H 157 H 137 H (75-99) mg/dL Calcium (8.4-10.2) mg/dL 04/28/17 04/28/17 Range/Units 09:36 11:00 RBC (4.30-5.90) m/uL Hgb (13.0-17.5) gm/dL Hct (39.0-53.0) % MCV (80.0-100.0) fL MCH (25.0-35.0) pg Plt Count (150-450) k/uL Neutrophils # (Manual) (1.3-7.7) k/uL Lymphocytes # (Manual) (1.0-4.8) k/uL ABG pO2 (83-108) mmHg ABG Total CO2 (19-24) mmol/L ABG O2 Saturation (94-97) % Chloride (98-107) mmol/L BUN (9-20) mg/dL Glucose (74-99) mg/dL POC Glucose (mg/dL) 147 H 145 H (75-99) mg/dL Calcium (8.4-10.2) mg/dL Microbiology - Last 24 Hours (Table) 04/21/17 12:50 Blood Culture - Final Blood No Growth after 144 hours Assessment and Plan (1) Acute renal failure Narrative/Plan: Oliguric acute kidney injury mostly renal in nature secondary to hemodynamic instability and use of angiotensin receptor lowell. Impingement creatinine was as high as 3.7 this admission down to 1.96 after dialysis 2.8 this morning urinalysis is quite benign no evidence of hydronephrosis on CT of the abdomen and pelvis #2 hyperkalemia is secondary to acute renal injury and metabolic acidosis further worsened with the use of valsartan. Is one treatment of hemodialysis on April 21 potassium level at this time was 7.7 #3 metabolic acidosis secondary to acute renal injury #4 history of alcoholism Plan; Continue normal saline Start sodium bicarb 2. tube feeds were initiated yesterday Avoid nephrotoxic agents and hypotensive episodes We'll wean vent continue to monitor renal function and urinary output tracheostomy and peg tube today Status: Acute Time with Patient: Greater than 30
[2017-04-28] MEDS: ASPIRIN 81 MG CHEW PO SCH (12:28)
[2017-04-28] MEDS: AMIODARONE 450 MG in DEXTROSE 5% IN WATER 250 ML IV SCH ×4 (12:28→19:05)
[2017-04-28] MEDS: LACTULOSE 20 GM/30 ML CUP PO SCH ×2 (12:28→22:50)
[2017-04-28 12:31] LABS: ABG Base Excess -0.3 mmol/L; ABG HCO3 23 mmol/L (21-25); ABG Oxygen Saturation 97.6 % (94-97); ABG PCO2 29 mmHg (35-45); ABG PO2 87 mmHg (83-108); ABG TCO2 23 mmol/L (19-24)
[2017-04-28 12:36] LABS: Glucose,Whole Blood 156 mg/dL (75-99)
--- NOTE | 2017-04-28 12:49 | XR ---
EXAMINATION TYPE: XR chest 1V portable DATE OF EXAM: 04/28/2017 HISTORY: Shortness of breath. COMPARISON: 04/27/17 TECHNIQUE: Single view of the chest is submitted. FINDINGS: Endotracheal tube has been removed and tracheostomy tube has been placed which is appropriately posit ioned. Demonstrated are scattered senescent parenchymal change. Mild strandy density left perihilar region is improving as well as at the left lung base. The heart is stable. Hilar and mediastinal structures are within normal limits. Degenerative changes are seen of the dorsal spine. IMPRESSION: 1. Mild strandy density left perihilar region is improving as well as at the left lung base.
[2017-04-28 14:07] LABS: Glucose,Whole Blood 141 mg/dL (75-99)
[2017-04-28] MEDS: MAGNESIUM SULFATE-D5W PMX 1 GM in DEXTROSE/WATER 1 100ML.BAG IVPB SCH ×2 (14:08→17:10)
[2017-04-28] MEDS: INSULIN REGULAR 100 UNIT in SODIUM CHLORIDE 0.9% 100 ML IV SCH (14:08)
[2017-04-28] MEDS ORDERED: DEXTROSE 5% IN WATER 100 ML with AMIODARONE 150 MG IV ONE (15:30)
[2017-04-28] MEDS ORDERED: AMIODARONE 450 MG in DEXTROSE 5% IN WATER 250 ML IV SCH ×2 (15:40)
[2017-04-28] MEDS: SODIUM CHLORIDE 0.9% 1,000 ML IV SCH (15:52)
[2017-04-28] MEDS: HEPARIN SODIUM,PORCINE/D5W PMX 25,000 UNIT in DEXTROSE/WATER 1 500ML.BAG IV SCH (16:08)
[2017-04-28 16:14] LABS: Glucose,Whole Blood 134 mg/dL (75-99)
[2017-04-28 18:42] LABS: Glucose,Whole Blood 153 mg/dL (75-99)
--- NOTE | 2017-04-28 19:07 | PN ---
This patient we are following for atrial fibrillation and moderately rapid ventricular response. Patient had a trach tube done this morning. His condition otherwise, remains the same. The heart rate is in the range of remains in the 90 to 110 per minute. First and second heart sounds are normal. Lung examination reveals bilateral scattered rhonchi. We will increase the dose of amiodarone to 1 mg per minute and continue the rest of the medications.
[2017-04-28 20:10] LABS: Glucose,Whole Blood 136 mg/dL (75-99)
[2017-04-28 21:04] LABS: Glucose,Whole Blood 145 mg/dL (75-99)
--- NOTE | 2017-04-28 21:21 | P.PN ---
Subjective This patient is a 71-year-old male who was seen in neurology consultation yesterday for altered mental status and unresponsive state. Patient remains intubated on the ventilator today. He was sent for a repeat computed tomography scan of the brain today which was reviewed. CAT scan is negative for any evidence of acute stroke or hemorrhage. No change from previous 2 CT scans of the brain. Specifically there was no evidence of basilar artery thrombosis. No evidence of acute stroke or hemorrhage was detected on the scan today. Patient remains on the ventilator. He is on a Diprivan drip. He does have a history of atrial fibrillation and was seen by cardiology. He was started on IV heparin protocol this morning as per cardiology's recommendation given his atrial fibrillation. Patient is currently on 25 mics of Diprivan. He remains heavily sedated. Apparently when sedation was cut back he did seem to open his eyes according to the ICU nurse today. He is requiring interruption of sedation daily and does show some signs of improvement. He does open eyes but then has severe coughing reflex. He opens eyes but does not follow any commands. He does have increase in secretions and becomes tachycardic and tachypneic with the sedation interruptions. Chest x-ray reveals evidence of left pleural effusion and infiltrate with possible pneumonia. Pulmonary medicine is following the patient closely for this. He doesn't respond minimally to sternal rub likely secondary to his IV sedation. The patient underwent routine EEG today which was reviewed. The EEG reveals significant slowing consistent with a diffuse encephalopathy. We have discussed this patient's neurological findings today in detail with his over the telephone. She was updated on all of his neurodiagnostic testing which included 3 CT scans of the brain. We reviewed his EEG result from today as well with the . His overall prognosis at this time remains very guarded. We have recommended to the that we will continue close neurological follow-up daily. He was taken off of sedation earlier today however he only opens his eyes and is extremely weak. We have recommended a follow-up computed tomography scan of the brain to be done to rule out any acute findings. Patient underwent computed tomography scan of the brain yesterday which revealed cerebral atrophy and mild chronic small vessel ischemia. There was no evidence of acute stroke or hemorrhage. This is his fourth computed tomography scan of the brain that has been done since admission. We will need to see if he will be able to be weaned off the ventilator gradually over the next several days. The has been updated on his slow progress in the ICU. She is given consent for tracheostomy and PEG tube placement which was performed today. His blood pressure continues to be very labile. Nephrology is monitoring him closely as well. Nephrology is ordered several blood tests which are still pending. Patient does not show much improvement in his overall neurological status today in the ICU. His overall prognosis at this time however remains very guarded. is aware of his overall poor neurological status and condition at this time. Patient may require transfer to [facility] for ongoing care. We will continue close neurological follow-up of this patient in the ICU setting. Objective - Vital Signs Vital signs: Vital Signs Temp 99.1 F 04/28/17 18:30 Pulse 113 H 04/28/17 19:47 Resp 30 H 04/28/17 19:00 BP 52/39 04/28/17 15:30 Pulse Ox 97 04/28/17 19:00 Intake & Output 04/28/17 04/28/17 04/29/17 06:59 18:59 06:59 Intake Total 6503.160 4401.099 95.8 Output Total 1965 2430 120 Balance -573.263 -963.901 -24.2 Weight 153.3 kg 153.3 kg Intake: IV 355.5 351.0 35.5 [place] 53 36 3 Piperacillin-Tazobactam 3 62.5 75.0 12.5 .375 gm In Dextrose/Water 1 50ml.bag @ 12.5 mls/hr IVPB Q8HR DI Rx#: [id number] Sodium Chloride 0.9% 1, 240 240 20 000 ml @ 20 mls/hr IV . Q24H DI Rx#:[id number] Intake, IV Titration 435.236 3053.099 60.3 Amount Amiodarone 450 mg In 199.92 349.8 Dextrose 5% in Water 250 ml @ 0.5 MG/MIN 16.66 mls /hr IV .Q15H1M DI Rx#: [id number] Amiodarone 450 mg In 66.5 33.3 Dextrose 5% in Water 250 ml @ 1 MG/MIN 33.33 mls/ hr IV .Q7H31M DI Rx#: [id number] Dextrose 5% in Water 100 83.3 ml @ 618 mls/hr IV .Q10M ONE with Amiodarone 150 mg Rx#:[id number] Heparin Sodium,Porcine/ 54 27 D5w Pmx 25,000 unit In Dextrose/Water 1 500ml. bag @ 8.7 UNITS/KG/HR 25. 83 mls/hr IV .[id number] [facility] Rx#:[id number] Insulin Regular 100 unit 88.781 36.594 In Sodium Chloride 0.9% 100 ml @ Per Protocol IV .Q0M DI Rx#:[id number] Magnesium Sulfate-D5w Pmx 200 1 gm In Dextrose/Water 1 100ml.bag @ 100 mls/hr IVPB Q1H DI Rx#: [id number] Norepinephrin 16 mg-0.9% 3.469 Ns Pmx 16 mg In 250 ml @ Titrate IV .Q0M [facility] Rx#: [id number] Propofol 500 mg In Empty 344.067 224.905 Bag 1 bag @ Titrate IV . Q0M DI Rx#:[id number] Oral 60 Tube Feeding 200 40 Other 200 Output: Urine 1965 1420 120 Stool 1000 Estimated Blood Loss 10 Other: Voiding Method Indwelling Catheter Indwelling Catheter # Bowel Movements 100 ABP, PAP, CO, CI - Last Documented Arterial Blood Pressure 138/65 - Exam Physical examination: PHYSICAL EXAMINATION: Patient is intubated on the ventilator and is on a Diprivan drip. He remains sedated and unresponsive. VITAL SIGNS: Blood pressure is [138/65]. Heart rate is [110]. Respiration is [30 ]. Temperature is [99.1]. HEENT: Head is atraumatic, neck is supple, there were no carotid bruits. CHEST: Lungs are clear to auscultation and percussion. CARDIAC: S1, S2 normal rate and rhythm. There is no murmur. ABDOMEN: Soft and nontender. Bowel sounds are present. EXTREMITIES: There is no pedal edema. Peripheral pulses are present. Neurological examination: Patient remains intubated on the ventilator and is on a Diprivan drip. He is currently at 40 mics. His neurological examination is limited at this time due to his sedation. Muscle tone is preserved in all 4 extremities. Deep tendon reflexes are 1+ and symmetric. Plantar responses flexor bilaterally. - Labs CBC & Chem 7: 04/28/17 04:40 04/28/17 04:40 Labs: Abnormal Lab Results - Last 24 Hours (Table) 04/26/17 04/27/17 04/28/17 Range/Units 17:29 22:32 00:08 RBC (4.30-5.90) m/uL Hgb (13.0-17.5) gm/dL Hct (39.0-53.0) % MCV (80.0-100.0) fL MCH (25.0-35.0) pg Plt Count (150-450) k/uL Neutrophils # (Manual) (1.3-7.7) k/uL Lymphocytes # (Manual) (1.0-4.8) k/uL ABG pH (7.35-7.45) ABG pCO2 (35-45) mmHg ABG pO2 (83-108) mmHg ABG Total CO2 (19-24) mmol/L ABG O2 Saturation (94-97) % Chloride (98-107) mmol/L BUN (9-20) mg/dL Glucose (74-99) mg/dL POC Glucose (mg/dL) 145 H 159 H (75-99) mg/dL Calcium (8.4-10.2) mg/dL Renin Direct 149.6 H (3.1 - 57.1) pg/mL 04/28/17 04/28/17 04/28/17 Range/Units 04:20 04:40 04:40 RBC 3.27 L (4.30-5.90) m/uL Hgb 12.0 L (13.0-17.5) gm/dL Hct 35.0 L (39.0-53.0) % MCV 107.1 H (80.0-100.0) fL MCH 36.5 H (25.0-35.0) pg Plt Count 102 L (150-450) k/uL Neutrophils # (Manual) 8.2 H (1.3-7.7) k/uL Lymphocytes # (Manual) 0.9 L (1.0-4.8) k/uL ABG pH (7.35-7.45) ABG pCO2 (35-45) mmHg ABG pO2 (83-108) mmHg ABG Total CO2 (19-24) mmol/L ABG O2 Saturation (94-97) % Chloride 108 H (98-107) mmol/L BUN 21 H (9-20) mg/dL Glucose 140 H (74-99) mg/dL POC Glucose (mg/dL) 133 H (75-99) mg/dL Calcium 7.7 L (8.4-10.2) mg/dL Renin Direct (3.1 - 57.1) pg/mL 04/28/17 04/28/17 04/28/17 Range/Units 05:19 06:10 07:24 RBC (4.30-5.90) m/uL Hgb (13.0-17.5) gm/dL Hct (39.0-53.0) % MCV (80.0-100.0) fL MCH (25.0-35.0) pg Plt Count (150-450) k/uL Neutrophils # (Manual) (1.3-7.7) k/uL Lymphocytes # (Manual) (1.0-4.8) k/uL ABG pH (7.35-7.45) ABG pCO2 (35-45) mmHg ABG pO2 62 L (83-108) mmHg ABG Total CO2 26 H (19-24) mmol/L ABG O2 Saturation 93.0 L (94-97) % Chloride (98-107) mmol/L BUN (9-20) mg/dL Glucose (74-99) mg/dL POC Glucose (mg/dL) 127 H 157 H (75-99) mg/dL Calcium (8.4-10.2) mg/dL Renin Direct (3.1 - 57.1) pg/mL 04/28/17 04/28/17 04/28/17 Range/Units 08:23 09:36 11:00 RBC (4.30-5.90) m/uL Hgb (13.0-17.5) gm/dL Hct (39.0-53.0) % MCV (80.0-100.0) fL MCH (25.0-35.0) pg Plt Count (150-450) k/uL Neutrophils # (Manual) (1.3-7.7) k/uL Lymphocytes # (Manual) (1.0-4.8) k/uL ABG pH (7.35-7.45) ABG pCO2 (35-45) mmHg ABG pO2 (83-108) mmHg ABG Total CO2 (19-24) mmol/L ABG O2 Saturation (94-97) % Chloride (98-107) mmol/L BUN (9-20) mg/dL Glucose (74-99) mg/dL POC Glucose (mg/dL) 137 H 147 H 145 H (75-99) mg/dL Calcium (8.4-10.2) mg/dL Renin Direct (3.1 - 57.1) pg/mL 04/28/17 04/28/17 04/28/17 Range/Units 12:20 12:30 14:05 RBC (4.30-5.90) m/uL Hgb (13.0-17.5) gm/dL Hct (39.0-53.0) % MCV (80.0-100.0) fL MCH (25.0-35.0) pg Plt Count (150-450) k/uL Neutrophils # (Manual) (1.3-7.7) k/uL Lymphocytes # (Manual) (1.0-4.8) k/uL ABG pH 7.50 H (7.35-7.45) ABG pCO2 29 L (35-45) mmHg ABG pO2 (83-108) mmHg ABG Total CO2 (19-24) mmol/L ABG O2 Saturation 97.6 H (94-97) % Chloride (98-107) mmol/L BUN (9-20) mg/dL Glucose (74-99) mg/dL POC Glucose (mg/dL) 156 H 141 H (75-99) mg/dL Calcium (8.4-10.2) mg/dL Renin Direct (3.1 - 57.1) pg/mL 04/28/17 04/28/17 04/28/17 Range/Units 16:12 18:41 20:09 RBC (4.30-5.90) m/uL Hgb (13.0-17.5) gm/dL Hct (39.0-53.0) % MCV (80.0-100.0) fL MCH (25.0-35.0) pg Plt Count (150-450) k/uL Neutrophils # (Manual) (1.3-7.7) k/uL Lymphocytes # (Manual) (1.0-4.8) k/uL ABG pH (7.35-7.45) ABG pCO2 (35-45) mmHg ABG pO2 (83-108) mmHg ABG Total CO2 (19-24) mmol/L ABG O2 Saturation (94-97) % Chloride (98-107) mmol/L BUN (9-20) mg/dL Glucose (74-99) mg/dL POC Glucose (mg/dL) 134 H 153 H 136 H (75-99) mg/dL Calcium (8.4-10.2) mg/dL Renin Direct (3.1 - 57.1) pg/mL Assessment and Plan (1) Acute encephalopathy Status: Acute Code(s): G93.40 - ENCEPHALOPATHY, UNSPECIFIED (2) Acute renal failure Status: Acute Code(s): N17.9 - ACUTE KIDNEY FAILURE, UNSPECIFIED (3) Atrial fibrillation Status: Acute Code(s): I48.91 - UNSPECIFIED ATRIAL FIBRILLATION (4) Hepatic encephalopathy Status: Acute Code(s): K72.90 - HEPATIC FAILURE, UNSPECIFIED WITHOUT COMA Plan: This patient is 71-year-old male who remains intubated on the ventilator and underwent tracheostomy and PEG tube placement today. He remains on Diprivan for sedation. He has shown very little improvement in his neurological status. He remains encephalopathic. Recent computed tomography scan of the brain failed to reveal any acute changes. He has undergone tracheostomy and PEG tube placement and will require close monitoring. Plan is to see if he may be taken off of the Diprivan tomorrow if he tolerates the procedure. We will continue close neurological follow-up of this patient in the ICU. His overall prognosis at this time remains very guarded.
[2017-04-28 23:30] LABS: Glucose,Whole Blood 135 mg/dL (75-99)
[2017-04-29] MEDS: PROPOFOL 500 MG in EMPTY BAG 1 BAG IV SCH ×5 (00:10→06:53)
[2017-04-29 00:11] LABS: Glucose,Whole Blood 143 mg/dL (75-99)
[2017-04-29] MEDS: HEPARIN SODIUM,PORCINE 5,000 UNIT/ML 1 ML VIAL IV PRN (01:00)
[2017-04-29 01:05] LABS: Glucose,Whole Blood 153 mg/dL (75-99)
[2017-04-29] MEDS: PIPERACILLIN-TAZOBACTAM 3.375 GM in DEXTROSE/WATER 1 50ML.BAG IVPB SCH ×3 (01:42→16:11)
[2017-04-29 02:03] LABS: Glucose,Whole Blood 153 mg/dL (75-99)
[2017-04-29] MEDS: IPRATROPIUM-ALBUTEROL 3 ML NEB INHALATION SCH ×6 (02:59→23:19)
[2017-04-29] MEDS: AMIODARONE 450 MG in DEXTROSE 5% IN WATER 250 ML IV SCH ×2 (03:05)
[2017-04-29] MEDS: INSULIN REGULAR 100 UNIT in SODIUM CHLORIDE 0.9% 100 ML IV SCH (03:35)
[2017-04-29 04:14] LABS: Glucose,Whole Blood 132 mg/dL (75-99)
[2017-04-29 04:34] LABS: Basophils % (A) 0 %; CH 33.9; CHCM 32.8; Eosinophils # (A) 0.3 k/uL (0-0.7); Eosinophils % (A) 3 %; HCT 32.3 % (39.0-53.0); HDW 2.47; HGB 11.2 gm/dL (13.0-17.5); Luc % (Auto) 2; Lymphocytes # (A) 0.8 k/uL (1.0-4.8); Lymphocytes % (A) 9 %; MCH 36.1 pg (25.0-35.0); MCHC 34.8 g/dL (31.0-37.0); MCV 103.7 fL (80.0-100.0); Macrocytosis Moderate; Mean Platelet Volume 7.9; Monocytes # (A) 0.5 k/uL (0-1.0); Monocytes % (A) 6 %; Neutrophils # (A) 7.3 k/uL (1.3-7.7); Neutrophils % (A) 80 %; RBC 3.12 m/uL (4.30-5.90); RDW 15.4 % (11.5-15.5); WBC 9.1 k/uL (3.8-10.6); WBC (Perox) 9.53
[2017-04-29 04:48] LABS: ALT 44 U/L (21-72); AST 33 U/L (17-59); Alkaline Phosphatase 71 U/L (38-126); Anion Gap 7 mmol/L; Blood Urea Nitrogen 18 mg/dL (9-20); Calcium 7.8 mg/dL (8.4-10.2); Carbon Dioxide 24 mmol/L (22-30); Chloride 107 mmol/L (98-107); Glucose 142 mg/dL (74-99); Magnesium 1.7 mg/dL (1.6-2.3); Non-African American GFR(MDRD) >60 (>60 ml/min/1.73 sqM); Potassium 4.1 mmol/L (3.5-5.1); Sodium 138 mmol/L (137-145); Total Bilirubin 0.6 mg/dL (0.2-1.3); Total Protein 5.9 g/dL (6.3-8.2)
[2017-04-29 04:52] LABS: Manual Review Performed
[2017-04-29] MEDS: HYDROmorphone 2 MG/ML 1 ML SYRINGE IVP PRN ×2 (04:55→22:02)
[2017-04-29 05:12] LABS: Glucose,Whole Blood 143 mg/dL (75-99)
[2017-04-29 05:13] LABS: ABG Base Excess 0.2 mmol/L; ABG HCO3 24 mmol/L (21-25); ABG PCO2 33 mmHg (35-45); ABG PH 7.47 (7.35-7.45); ABG PO2 96 mmHg (83-108); ABG TCO2 25 mmol/L (19-24)
[2017-04-29 06:11] LABS: Glucose,Whole Blood 155 mg/dL (75-99)
--- NOTE | 2017-04-29 07:05 | XR ---
EXAMINATION TYPE: XR chest 1V portable DATE OF EXAM: 04/29/2017 HISTORY: Intubated. REFERENCE: Previous study dated 04/28/2017. FINDINGS: There is a tracheostomy tube in place. Its tip overlies the tracheal air column in this sin gle frontal projection. The heart is enlarged. There is left basilar airspace disease. There is mild vascular congestion with out summer edema. I suspect small effusions. IMPRESSION: 1. CARDIOMEGALY. 2. VASCULAR CONGESTION. 3. I SUSPECT SMALL, BILATERAL EFFUSIONS. 4. LEFT BASILAR AIRSPACE DISEASE.
[2017-04-29 07:19] LABS: INR 1.1 (<1.1); Partial Thromboplastin Time 60.7 sec (22.0-30.0); Prothrombin Time 10.9 sec (9.0-12.0)
[2017-04-29] MEDS: PANTOPRAZOLE 40 MG/10 ML VIAL IV SCH (07:49)
[2017-04-29] MEDS: METOPROLOL TARTRATE 25 MG TAB PO SCH ×2 (07:49→20:47)
[2017-04-29] MEDS: ASPIRIN 81 MG CHEW PO SCH (07:49)
[2017-04-29] MEDS: CHLORHEXIDINE GLUCONATE 15 ML CUP MUCOUS MEM SCH ×2 (07:49→22:04)
[2017-04-29] MEDS: LACTULOSE 20 GM/30 ML CUP PO SCH ×2 (07:49→22:05)
[2017-04-29] MEDS: SODIUM BICARBONATE TAB 650 MG TAB PO SCH ×2 (07:50→20:48)
[2017-04-29 08:06] LABS: Glucose,Whole Blood 170 mg/dL (75-99)
--- NOTE | 2017-04-29 08:21 | P.PN ---
Subjective This is a 71-year-old gentleman who follows with Dr. Fuentes as his primary care physician. He has a history of hyperlipidemia, chronic obstructive pulmonary disease with chronic and ongoing tobacco dependence, diabetes mellitus , hypertension, atrial fibrillation, chronic liver disease. He presented here on 04/21/2017 with altered mental status. The patient developed acute respiratory failure and required intubation mechanical ventilatory support. He is seen again today in follow-up in the intensive care unit. He remains on the ventilator assist control 30 tidal volume 450 FiO2 60% and a PEEP of 5. Morning blood gases reveal a pO2 of 66, pCO2 34, pH 7.4. He is atrial fibrillation with a rapid ventricular response. He remains on a Cardizem drip at 7.5 mg per hour, norepinephrine at 1 mcg/m. Propofol at 70 mcg/kg/m. 0.9 normal saline at 100 mL per hour. Insulin drip at 8 units per hour. He is receiving a trickle tube feed of Vital HP at 10 mL per hour with a goal of 44. His chest x-ray reveals bilateral effusions with atelectasis/infiltrates the lung bases. He remains on Zosyn. He did receive 1 emergent dialysis treatment for his acute renal failure and hyperkalemia. Today's labs reveal creatinine 2.30 and a potassium of 4.4. Bicarb 19. He is receiving sodium bicarbonate 650 mg by mouth twice a day. He is currently receiving a daily interruption of sedation. We are also going to check a random cortisol level. Blood cultures reveal no growth to date. Urine culture pending. The patient is seen again today 04/24/2017 in follow-up in the intensive care unit. He remains to be elevated on mechanical ventilator current settings assist control 30, tidal volume 450, FiO2 60% and a PEEP of 5. Morning blood gases reveal a P O2 of 66, pCO2 of 30 and a pH of 7.45. He does remain sedated on to propofol 50 mcg/kg/m. He has a 0.9 normal saline at 100 MLS per hour. His Cardizem is currently on hold his atrial fibrillation is better controlled he has some episodes of bradycardia. Levophed has been weaned off. He remains on heparin drip and insulin drip at 9.5 units per hour. He is being fed via tube feedings Vital HP at 40 with a goal of 44 MLS per hour. He again was given a daily interruption of sedation. He is opening his eyes but not following any commands. He had significant coughing and significant secretions with tachycardia and tachypnea. Follow-up computed tomography scan revealed no acute intracranial process. His chest x-ray continues to show evidence of a left pleural effusion otherwise stable. He has been quite slow to progress. The patient is seen again today 04/25/2017 in follow-up in the intensive care unit. He remains intubated and on the mechanical ventilator currently at assist -control mode of 30, tidal volume 450, FiO2 60% and a PEEP of 5. Current arterial blood gases reveal a pO2 of 71, pCO2 34 and a pH of7.45. A mild respiratory alkalosis. He was given a sedation holiday. He does open his eyes spontaneously but does not follow any commands. No plans for weaning trials as he is still requiring high FiO2 to maintain O2 saturations greater than 90%. He is also on a 0.9 normal saline at 60 miles per hour, heparin drip at 10.7 units per hour, propofol at 45 mcg/kg/m, insulin drip at 5.5 units per hour. He is being nourished with Vital HP at goal 40 miles per hour. He has been slow to progress. 3 CT scans of the brain have been negative for acute stroke or hemorrhage. An EEG did reveal severe slowing consistent with diffuse encephalopathy. No evidence of seizures. The patient is seen again today 04/26/2017 in follow-up in the intensive care unit. He remains intubated and on the mechanical ventilator. Current settings are assist-control mode of 30, tidal volume 450, FiO2 60% and a PEEP of 5. Morning blood gases reveal a pO2 of 71, pCO2 37 and a pH of 7.42. He continues to have a 0.9 normal saline at 30 mL per hour, norepinephrine at 2 mcg/m, propofol at 15 mcg/kg/m, heparin at 8.7 units, insulin drip at 2.5 units per hour. He is being nourished with Vital HP at 40 mL's per hour which is goal. He has had ongoing issues with atrial fibrillation with rapid ventricular response and increasing PVCs and labile blood pressures. His chest x-ray does reveal improved aeration in the left lung base. On 04/28/2017 the patient is being seen in follow-up. The patient will be undertaken a tracheostomy tube insertion and a PEG tube insertion by Dr. Cooper today. This decision has already been made by Dr. Mcmillan due to failure to wean. The patient apparently was not waking up appropriately while off sedation and he was not following any commands and he was thought not to be able to protect his airway postextubation. Based on that decision was to give this patient a tracheostomy tube. Meanwhile, the patient remains on assist control mode of ventilation at the rate of 30, tidal volume 450, FiO2 of 50% and a PEEP of 10 in the morning blood gases showed a pH of 7.45 with a pCO2 of 36 and pO2 of 62. His chest x-ray is not showing any again thickened changes compared to yesterday. ET tube is in a good location this morning. Atelectatic changes can be seen in lung bases bilaterally. CAT scan of the brain that showed atrophy without any acute abnormalities. EEG of the brain had shown severe slowing consistent with diffuse encephalopathy, likely metabolic and there is no evidence of any seizure activity. The patient was tolerating his tube feeds and currently is nothing by mouth in preparation for his PEG and trach. Hemodynamically, he has a labile blood pressure, and his blood pressure typically goes up once is off sedation. Nevertheless he has not required any pressors. His echocardiogram shows an ejection fraction of 55-60% . He is in atrial fibrillation and he is on a IV heparin drip for anticoagulation. He is also on a amiodarone for rate control. On 04/29/2017, the patient is being seen in follow-up. The patient underwent a tracheostomy tube insertion and a PEG tube insertion yesterday and today he is postop day #1. Earlier this morning, we started the weaning process and the patient is currently off Diprivan. His mentation is gradually improving. I was able to make this patient follows some simple commands. He was able to squeeze my fingers using his hand and he was able to wiggle his toes in both feet upon demand. He remains on mechanical ventilator. Chest x-ray from today shows smaller lung volumes with small bilateral pleural effusions and the tracheostomy tube is in a good location. No evidence of any pneumothorax. The patient is an assist-control mode at the rate of 30, tidal volume of 450, FiO2 of 50% and a PEEP of 10. The blood gases from this morning showed a pH of 7.47 with a pCO2 of 33 and pO2 of 96. Based on this, I cut down his respiratory rate to 20, increased tidal volume to 500, kept on the flow down to 60, down the PEEP down to 8 and The FiO2 at 50%. His most recent pulse ox is still 96-97 %. He is having no significant orotracheal secretions. He is on IV Zosyn as an empiric antibiotic coverage. Renal function is stable. The patient has a fecal management system as the patient is being given lactulose for possible suspected hepatic encephalopathy. His bowel movements are liquidy and he is producing approximately 100 mL over the past 6-8 hours. He is taking lactulose 30 g twice a day. He remains in atrial fibrillation. He remains on IV heparin. Remains on IV amiodarone. He is also on Lopressor 25 mg by mouth twice a day for rate control. He is on insulin drip for blood sugar control. She'll feeds will be restarted this morning. Objective - Vital Signs Vital signs: Vital Signs Temp 99.7 F H 04/29/17 04:00 Pulse 107 H 04/29/17 07:20 Resp 30 H 04/29/17 07:05 BP 52/39 04/28/17 15:30 Pulse Ox 97 04/29/17 07:05 Intake & Output 04/28/17 04/29/17 04/29/17 18:59 06:59 18:59 Intake Total 0885.590 6574.598 88.784 Output Total 2430 1750 50 Balance -963.901 -55.402 38.784 Weight 153.3 kg 153 kg Intake: IV 351.0 335.5 23 [place] 36 33 3 Piperacillin-Tazobactam 3 75.0 62.5 .375 gm In Dextrose/Water 1 50ml.bag @ 12.5 mls/hr IVPB Q8HR DI Rx#: [id number] Sodium Chloride 0.9% 1, 240 240 20 000 ml @ 20 mls/hr IV . Q24H DI Rx#:[id number] Intake, IV Titration 3658.221 0311.098 65.784 Amount Amiodarone 450 mg In 349.8 Dextrose 5% in Water 250 ml @ 0.5 MG/MIN 16.66 mls /hr IV .Q15H1M DI Rx#: [id number] Amiodarone 450 mg In 66.5 399.81 33.33 Dextrose 5% in Water 250 ml @ 1 MG/MIN 33.33 mls/ hr IV .Q7H31M [facility] Rx#: [id number] Amiodarone 450 mg In 250 Dextrose 5% in Water 250 ml @ 1 MG/MIN 33.33 mls/ hr IV .Q7H31M DI Rx#: [id number] Dextrose 5% in Water 100 83.3 ml @ 618 mls/hr IV .Q10M ONE with Amiodarone 150 mg Rx#:[id number] Heparin Sodium,Porcine/ 54 256.026 D5w Pmx 25,000 unit In Dextrose/Water 1 500ml. bag @ 8.7 UNITS/KG/HR 25. 83 mls/hr IV .[id number] DI Rx#:[id number] Insulin Regular 100 unit 36.594 50.340 8.626 In Sodium Chloride 0.9% 100 ml @ Per Protocol IV .Q0M DI Rx#:[id number] Magnesium Sulfate-D5w Pmx 200 1 gm In Dextrose/Water 1 100ml.bag @ 100 mls/hr IVPB Q1H DI Rx#: [id number] Norepinephrin 16 mg-0.9% 50.913 1.406 Ns Pmx 16 mg In 250 ml @ Titrate IV .Q0M DI Rx#: [id number] Propofol 500 mg In Empty 224.905 292.009 22.422 Bag 1 bag @ Titrate IV . Q0M DI Rx#:[id number] Oral 60 Tube Feeding 40 Other 60 Output: Urine 1420 1750 50 Stool 1000 Estimated Blood Loss 10 Other: Voiding Method Indwelling Catheter Indwelling Catheter # Bowel Movements 100 ABP, PAP, CO, CI - Last Documented Arterial Blood Pressure 151/74 - Exam Obese, comfortable likely distress arouse and from his sedation as the patient was taken off the Diprivan this morning.Head exam was generally normal. There was no scleral icterus or corneal arcus. Mucous membranes were moist. Neck is supple and the patient is a tracheostomy tube in place and the patient has a [place] tracheostomy tube #8. Lung sounds are diminished bilaterally otherwise there is no wheeze or rhonchi or any crackles. Heart sounds are irregular, distant, positive S1-S2, no significant murmurs appreciated. Abdomen is obese soft nontender. Organs cannot be accurately palpated due to his obesity. Bowel sounds are hypoactive. There is no direct tenderness. No rebound tenderness. No guarding. Active site is clean. Extremities show +1 pitting edema both in upper and lower extremity. The patient is a PICC line in left upper extremity. The patient has a Artline is a right upper extremity. No open wounds. No cyanosis or clubbing at this point. Neurologically, he is still sedated however his arousing. He is following some simple commands at this point. - Labs CBC & Chem 7: 04/29/17 04:00 04/29/17 04:00 Labs: Abnormal Lab Results - Last 24 Hours (Table) 04/26/17 04/28/17 04/28/17 Range/Units 17:29 08:23 09:36 RBC (4.30-5.90) m/uL Hgb (13.0-17.5) gm/dL Hct (39.0-53.0) % MCV (80.0-100.0) fL MCH (25.0-35.0) pg Plt Count (150-450) k/uL Lymphocytes # (1.0-4.8) k/uL APTT (22.0-30.0) sec ABG pH (7.35-7.45) ABG pCO2 (35-45) mmHg ABG Total CO2 (19-24) mmol/L ABG O2 Saturation (94-97) % Glucose (74-99) mg/dL POC Glucose (mg/dL) 137 H 147 H (75-99) mg/dL Calcium (8.4-10.2) mg/dL Total Protein (6.3-8.2) g/dL Albumin (3.5-5.0) g/dL Renin Direct 149.6 H (3.1 - 57.1) pg/mL 04/28/17 04/28/17 04/28/17 Range/Units 11:00 12:20 12:30 RBC (4.30-5.90) m/uL Hgb (13.0-17.5) gm/dL Hct (39.0-53.0) % MCV (80.0-100.0) fL MCH (25.0-35.0) pg Plt Count (150-450) k/uL Lymphocytes # (1.0-4.8) k/uL APTT (22.0-30.0) sec ABG pH 7.50 H (7.35-7.45) ABG pCO2 29 L (35-45) mmHg ABG Total CO2 (19-24) mmol/L ABG O2 Saturation 97.6 H (94-97) % Glucose (74-99) mg/dL POC Glucose (mg/dL) 145 H 156 H (75-99) mg/dL Calcium (8.4-10.2) mg/dL Total Protein (6.3-8.2) g/dL Albumin (3.5-5.0) g/dL Renin Direct (3.1 - 57.1) pg/mL 04/28/17 04/28/17 04/28/17 Range/Units 14:05 16:12 18:41 RBC (4.30-5.90) m/uL Hgb (13.0-17.5) gm/dL Hct (39.0-53.0) % MCV (80.0-100.0) fL MCH (25.0-35.0) pg Plt Count (150-450) k/uL Lymphocytes # (1.0-4.8) k/uL APTT (22.0-30.0) sec ABG pH (7.35-7.45) ABG pCO2 (35-45) mmHg ABG Total CO2 (19-24) mmol/L ABG O2 Saturation (94-97) % Glucose (74-99) mg/dL POC Glucose (mg/dL) 141 H 134 H 153 H (75-99) mg/dL Calcium (8.4-10.2) mg/dL Total Protein (6.3-8.2) g/dL Albumin (3.5-5.0) g/dL Renin Direct (3.1 - 57.1) pg/mL 04/28/17 04/28/17 04/28/17 Range/Units 20:09 21:03 23:27 RBC (4.30-5.90) m/uL Hgb (13.0-17.5) gm/dL Hct (39.0-53.0) % MCV (80.0-100.0) fL MCH (25.0-35.0) pg Plt Count (150-450) k/uL Lymphocytes # (1.0-4.8) k/uL APTT (22.0-30.0) sec ABG pH (7.35-7.45) ABG pCO2 (35-45) mmHg ABG Total CO2 (19-24) mmol/L ABG O2 Saturation (94-97) % Glucose (74-99) mg/dL POC Glucose (mg/dL) 136 H 145 H 135 H (75-99) mg/dL Calcium (8.4-10.2) mg/dL Total Protein (6.3-8.2) g/dL Albumin (3.5-5.0) g/dL Renin Direct (3.1 - 57.1) pg/mL 04/28/17 04/29/17 04/29/17 Range/Units 23:30 00:09 01:02 RBC (4.30-5.90) m/uL Hgb (13.0-17.5) gm/dL Hct (39.0-53.0) % MCV (80.0-100.0) fL MCH (25.0-35.0) pg Plt Count (150-450) k/uL Lymphocytes # (1.0-4.8) k/uL APTT 33.9 H (22.0-30.0) sec ABG pH (7.35-7.45) ABG pCO2 (35-45) mmHg ABG Total CO2 (19-24) mmol/L ABG O2 Saturation (94-97) % Glucose (74-99) mg/dL POC Glucose (mg/dL) 143 H 153 H (75-99) mg/dL Calcium (8.4-10.2) mg/dL Total Protein (6.3-8.2) g/dL Albumin (3.5-5.0) g/dL Renin Direct (3.1 - 57.1) pg/mL 04/29/17 04/29/17 04/29/17 Range/Units 02:02 04:00 04:00 RBC 3.12 L (4.30-5.90) m/uL Hgb 11.2 L (13.0-17.5) gm/dL Hct 32.3 L (39.0-53.0) % MCV 103.7 H (80.0-100.0) fL MCH 36.1 H (25.0-35.0) pg Plt Count 97 L (150-450) k/uL Lymphocytes # 0.8 L (1.0-4.8) k/uL APTT (22.0-30.0) sec ABG pH (7.35-7.45) ABG pCO2 (35-45) mmHg ABG Total CO2 (19-24) mmol/L ABG O2 Saturation (94-97) % Glucose 142 H (74-99) mg/dL POC Glucose (mg/dL) 153 H (75-99) mg/dL Calcium 7.8 L (8.4-10.2) mg/dL Total Protein 5.9 L (6.3-8.2) g/dL Albumin 3.0 L (3.5-5.0) g/dL Renin Direct (3.1 - 57.1) pg/mL 04/29/17 04/29/17 04/29/17 Range/Units 04:10 05:08 05:09 RBC (4.30-5.90) m/uL Hgb (13.0-17.5) gm/dL Hct (39.0-53.0) % MCV (80.0-100.0) fL MCH (25.0-35.0) pg Plt Count (150-450) k/uL Lymphocytes # (1.0-4.8) k/uL APTT (22.0-30.0) sec ABG pH 7.47 H (7.35-7.45) ABG pCO2 33 L (35-45) mmHg ABG Total CO2 25 H (19-24) mmol/L ABG O2 Saturation 98.0 H (94-97) % Glucose (74-99) mg/dL POC Glucose (mg/dL) 132 H 143 H (75-99) mg/dL Calcium (8.4-10.2) mg/dL Total Protein (6.3-8.2) g/dL Albumin (3.5-5.0) g/dL Renin Direct (3.1 - 57.1) pg/mL 04/29/17 04/29/17 04/29/17 Range/Units 06:07 06:57 08:04 RBC (4.30-5.90) m/uL Hgb (13.0-17.5) gm/dL Hct (39.0-53.0) % MCV (80.0-100.0) fL MCH (25.0-35.0) pg Plt Count (150-450) k/uL Lymphocytes # (1.0-4.8) k/uL APTT 60.7 H (22.0-30.0) sec ABG pH (7.35-7.45) ABG pCO2 (35-45) mmHg ABG Total CO2 (19-24) mmol/L ABG O2 Saturation (94-97) % Glucose (74-99) mg/dL POC Glucose (mg/dL) 155 H 170 H (75-99) mg/dL Calcium (8.4-10.2) mg/dL Total Protein (6.3-8.2) g/dL Albumin (3.5-5.0) g/dL Renin Direct (3.1 - 57.1) pg/mL Assessment and Plan Plan: Impression: #1 Acute hypoxic respiratory failure secondary to suspected diastolic congestive heart failure, with small bilateral pleural effusion and infiltrate with possible pneumonia. Sputum culture reveals no growth. On 04/28/2017, the patient remains on a mechanical ventilator. The plan is to proceed with a tracheostomy tube insertion and following that the patient will be gradually weaned off the sedation when his mental status will be assessed and hopefully will be able to gradually wean him off the mechanical ventilator. No vent changes will be done for today. The patient will have a blood gas after he denies back from the operating room. Chest x-ray be also repeated. Doubt any pneumonia at this point. On 04/29/2017 the patient remains on a mechanical ventilator. The necessary vent changes were done. The patient's oxygenation has improved. He also has a component of respiratory alkalosis. Based on that, the rest or rate was dropped down to 20, tidal volume was increased up to 500, his PEEP was dropped down to 8 and I'm in the process of weaning down the PEEP as long as his oxygenation remains stable with a saturation above 92%. Tracheostomy tube in place. No new finding of the chest x-ray and the patient is smaller lung volumes with small better pleural effusions. #2 Non-anion gap metabolic acidosis secondary to acute renal failure, recovered #3 Altered mental status of unclear etiology. 3 CT scans of the brain revealed no acute intracranial abnormality. EEG does reveal severe slowing consistent with diffuse encephalopathy. On today's evaluation of 04/29/2017, the patient is off Diprivan and the patient is gradually recovering his alertness and consciousness. He was able to follow some simple commands. #4 History of atrial fibrillation. The patient is currently on amiodarone and metoprolol for rate control and IV heparin. #5 Chronic obstructive pulmonary disease. #6 Chronic and ongoing tobacco dependence. #7 Diabetes mellitus. #8 Hyperlipidemia. #9 Hypertension. #10 Hepatitis C. #11 Previous history of substance abuse including cocaine, heroin and methamphetamine. #12 Acute renal failure requiring urgent hemodialysis, the acute kidney injury is recovering #13 Profound hyperkalemia, corrected. Plan The necessary vent changes were done. We'll monitor the blood gases. We'll wean down the PEEP further his oxygenation allows. Keep the patient off sedation for now. Monitor the mental status. Change amiodarone to 200 mg by mouth 3 times a day per PEG. Continue metoprolol 25 mg by mouth twice a day. Continued IV heparin for now with the intention of switching this patient oral anticoagulant a later stage. Down the lactulose to 10 g once a day. Start the patient on Lasix 20 mg twice a day. Start she'll feeds today. Overall condition is more stable compared to yesterday. He is gradually improving. We' ll continue to follow make further recommendations based on his progress. Critically care evaluation more than 30 minutes. Time with Patient: Greater than 30
[2017-04-29] MEDS: MAGNESIUM SULFATE-D5W PMX 1 GM in DEXTROSE/WATER 1 100ML.BAG IVPB SCH ×2 (08:39→09:33)
[2017-04-29] MEDS ORDERED: AMIODARONE 200 MG TAB PO SCH (09:00)
[2017-04-29] MEDS: FUROSEMIDE 10 MG/ML 2 ML VIAL IV SCH ×2 (09:32→20:47)
[2017-04-29] MEDS: HEPARIN SODIUM,PORCINE/D5W PMX 25,000 UNIT in DEXTROSE/WATER 1 500ML.BAG IV SCH ×2 (09:33→23:35)
--- NOTE | 2017-04-29 09:51 | P.PN ---
Subjective Patient is seen in follow-up for acute kidney injury. His baseline creatinine is near 1 and was 3.69 on admission. He was also hyperkalemic and oliguric. He underwent 1 treatment of hemodialysis on April 21. Today, creatinine is 1.0 and he is nonoliguric. He underwent tracheostomy and a PEG tube placement on April 28. He is also maintained on tube feeds. His blood pressures have been quite labile. Vital signs are stable. General: The patient appeared well nourished and normally developed. Intubated. HEENT: Head exam is unremarkable. Neck is without jugular venous distension. LUNGS: Rhonchi at bases. Breath sounds decreased. HEART: Rate and Rhythm are regular. First and second heart sounds normal. No murmurs, rubs or gallops. ABDOMEN: Abdominal exam reveals normal bowel sounds. Non-tender and non- distended. No evidence of peritonitis. EXTREMITITES: No clubbing, cyanosis, or edema. Objective - Vital Signs Vital signs: Vital Signs Temp 98.7 F 04/29/17 08:00 Pulse 97 04/29/17 09:00 Resp 22 04/29/17 09:00 BP 52/39 04/28/17 15:30 Pulse Ox 99 04/29/17 09:00 Intake & Output 04/28/17 04/29/17 04/29/17 18:59 06:59 18:59 Intake Total 7806.812 9228.598 712.843 Output Total 2430 1750 225 Balance -963.901 -55.402 487.843 Weight 153.3 kg 153 kg 153 kg Intake: IV 351.0 335.5 96 [place] 36 33 6 Piperacillin-Tazobactam 3 75.0 62.5 50 .375 gm In Dextrose/Water 1 50ml.bag @ 12.5 mls/hr IVPB Q8HR DI Rx#: [id number] Sodium Chloride 0.9% 1, 240 240 40 000 ml @ 20 mls/hr IV . Q24H DI Rx#:[id number] Intake, IV Titration 3748.094 4859.098 526.843 Amount Amiodarone 450 mg In 349.8 Dextrose 5% in Water 250 ml @ 0.5 MG/MIN 16.66 mls /hr IV .Q15H1M DI Rx#: [id number] Amiodarone 450 mg In 66.5 399.81 33.33 Dextrose 5% in Water 250 ml @ 1 MG/MIN 33.33 mls/ hr IV .Q7H31M COUNT INCLUDES THE [facility] Rx#: [id number] Amiodarone 450 mg In 250 185.537 Dextrose 5% in Water 250 ml @ 1 MG/MIN 33.33 mls/ hr IV .Q7H31M COUNT INCLUDES THE [facility] Rx#: [id number] Dextrose 5% in Water 100 83.3 ml @ 618 mls/hr IV .Q10M ONE with Amiodarone 150 mg Rx#:[id number] Heparin Sodium,Porcine/ 54 256.026 270.974 D5w Pmx 25,000 unit In Dextrose/Water 1 500ml. bag @ 8.7 UNITS/KG/HR 25. 83 mls/hr IV .J24H68M COUNT INCLUDES THE [facility] Rx#:[id number] Insulin Regular 100 unit 36.594 50.340 8.626 In Sodium Chloride 0.9% 100 ml @ Per Protocol IV .Q0M COUNT INCLUDES THE [facility] Rx#:[id number] Magnesium Sulfate-D5w Pmx 200 1 gm In Dextrose/Water 1 100ml.bag @ 100 mls/hr IVPB Q1H COUNT INCLUDES THE [facility] Rx#: [id number] Norepinephrin 16 mg-0.9% 50.913 5.954 Ns Pmx 16 mg In 250 ml @ Titrate IV .Q0M COUNT INCLUDES THE [facility] Rx#: [id number] Propofol 500 mg In Empty 224.905 292.009 22.422 Bag 1 bag @ Titrate IV . Q0M COUNT INCLUDES THE [facility] Rx#:[id number] Oral 60 90 Tube Feeding 40 Other 60 Output: Urine 1420 1750 225 Stool 1000 Estimated Blood Loss 10 Other: Voiding Method Indwelling Catheter Indwelling Catheter Indwelling Catheter # Bowel Movements 100 ABP, PAP, CO, CI - Last Documented Arterial Blood Pressure 126/68 - Labs CBC & Chem 7: 04/29/17 04:00 04/29/17 04:00 Labs: Abnormal Lab Results - Last 24 Hours (Table) 04/26/17 04/28/17 04/28/17 Range/Units 17:29 11:00 12:20 RBC (4.30-5.90) m/uL Hgb (13.0-17.5) gm/dL Hct (39.0-53.0) % MCV (80.0-100.0) fL MCH (25.0-35.0) pg Plt Count (150-450) k/uL Lymphocytes # (1.0-4.8) k/uL APTT (22.0-30.0) sec ABG pH 7.50 H (7.35-7.45) ABG pCO2 29 L (35-45) mmHg ABG Total CO2 (19-24) mmol/L ABG O2 Saturation 97.6 H (94-97) % Glucose (74-99) mg/dL POC Glucose (mg/dL) 145 H (75-99) mg/dL Calcium (8.4-10.2) mg/dL Total Protein (6.3-8.2) g/dL Albumin (3.5-5.0) g/dL Renin Direct 149.6 H (3.1 - 57.1) pg/mL 04/28/17 04/28/17 04/28/17 Range/Units 12:30 14:05 16:12 RBC (4.30-5.90) m/uL Hgb (13.0-17.5) gm/dL Hct (39.0-53.0) % MCV (80.0-100.0) fL MCH (25.0-35.0) pg Plt Count (150-450) k/uL Lymphocytes # (1.0-4.8) k/uL APTT (22.0-30.0) sec ABG pH (7.35-7.45) ABG pCO2 (35-45) mmHg ABG Total CO2 (19-24) mmol/L ABG O2 Saturation (94-97) % Glucose (74-99) mg/dL POC Glucose (mg/dL) 156 H 141 H 134 H (75-99) mg/dL Calcium (8.4-10.2) mg/dL Total Protein (6.3-8.2) g/dL Albumin (3.5-5.0) g/dL Renin Direct (3.1 - 57.1) pg/mL 04/28/17 04/28/17 04/28/17 Range/Units 18:41 20:09 21:03 RBC (4.30-5.90) m/uL Hgb (13.0-17.5) gm/dL Hct (39.0-53.0) % MCV (80.0-100.0) fL MCH (25.0-35.0) pg Plt Count (150-450) k/uL Lymphocytes # (1.0-4.8) k/uL APTT (22.0-30.0) sec ABG pH (7.35-7.45) ABG pCO2 (35-45) mmHg ABG Total CO2 (19-24) mmol/L ABG O2 Saturation (94-97) % Glucose (74-99) mg/dL POC Glucose (mg/dL) 153 H 136 H 145 H (75-99) mg/dL Calcium (8.4-10.2) mg/dL Total Protein (6.3-8.2) g/dL Albumin (3.5-5.0) g/dL Renin Direct (3.1 - 57.1) pg/mL 04/28/17 04/28/17 04/29/17 Range/Units 23:27 23:30 00:09 RBC (4.30-5.90) m/uL Hgb (13.0-17.5) gm/dL Hct (39.0-53.0) % MCV (80.0-100.0) fL MCH (25.0-35.0) pg Plt Count (150-450) k/uL Lymphocytes # (1.0-4.8) k/uL APTT 33.9 H (22.0-30.0) sec ABG pH (7.35-7.45) ABG pCO2 (35-45) mmHg ABG Total CO2 (19-24) mmol/L ABG O2 Saturation (94-97) % Glucose (74-99) mg/dL POC Glucose (mg/dL) 135 H 143 H (75-99) mg/dL Calcium (8.4-10.2) mg/dL Total Protein (6.3-8.2) g/dL Albumin (3.5-5.0) g/dL Renin Direct (3.1 - 57.1) pg/mL 04/29/17 04/29/17 04/29/17 Range/Units 01:02 02:02 04:00 RBC 3.12 L (4.30-5.90) m/uL Hgb 11.2 L (13.0-17.5) gm/dL Hct 32.3 L (39.0-53.0) % MCV 103.7 H (80.0-100.0) fL MCH 36.1 H (25.0-35.0) pg Plt Count 97 L (150-450) k/uL Lymphocytes # 0.8 L (1.0-4.8) k/uL APTT (22.0-30.0) sec ABG pH (7.35-7.45) ABG pCO2 (35-45) mmHg ABG Total CO2 (19-24) mmol/L ABG O2 Saturation (94-97) % Glucose (74-99) mg/dL POC Glucose (mg/dL) 153 H 153 H (75-99) mg/dL Calcium (8.4-10.2) mg/dL Total Protein (6.3-8.2) g/dL Albumin (3.5-5.0) g/dL Renin Direct (3.1 - 57.1) pg/mL 04/29/17 04/29/17 04/29/17 Range/Units 04:00 04:10 05:08 RBC (4.30-5.90) m/uL Hgb (13.0-17.5) gm/dL Hct (39.0-53.0) % MCV (80.0-100.0) fL MCH (25.0-35.0) pg Plt Count (150-450) k/uL Lymphocytes # (1.0-4.8) k/uL APTT (22.0-30.0) sec ABG pH 7.47 H (7.35-7.45) ABG pCO2 33 L (35-45) mmHg ABG Total CO2 25 H (19-24) mmol/L ABG O2 Saturation 98.0 H (94-97) % Glucose 142 H (74-99) mg/dL POC Glucose (mg/dL) 132 H (75-99) mg/dL Calcium 7.8 L (8.4-10.2) mg/dL Total Protein 5.9 L (6.3-8.2) g/dL Albumin 3.0 L (3.5-5.0) g/dL Renin Direct (3.1 - 57.1) pg/mL 04/29/17 04/29/17 04/29/17 Range/Units 05:09 06:07 06:57 RBC (4.30-5.90) m/uL Hgb (13.0-17.5) gm/dL Hct (39.0-53.0) % MCV (80.0-100.0) fL MCH (25.0-35.0) pg Plt Count (150-450) k/uL Lymphocytes # (1.0-4.8) k/uL APTT 60.7 H (22.0-30.0) sec ABG pH (7.35-7.45) ABG pCO2 (35-45) mmHg ABG Total CO2 (19-24) mmol/L ABG O2 Saturation (94-97) % Glucose (74-99) mg/dL POC Glucose (mg/dL) 143 H 155 H (75-99) mg/dL Calcium (8.4-10.2) mg/dL Total Protein (6.3-8.2) g/dL Albumin (3.5-5.0) g/dL Renin Direct (3.1 - 57.1) pg/mL 04/29/17 Range/Units 08:04 RBC (4.30-5.90) m/uL Hgb (13.0-17.5) gm/dL Hct (39.0-53.0) % MCV (80.0-100.0) fL MCH (25.0-35.0) pg Plt Count (150-450) k/uL Lymphocytes # (1.0-4.8) k/uL APTT (22.0-30.0) sec ABG pH (7.35-7.45) ABG pCO2 (35-45) mmHg ABG Total CO2 (19-24) mmol/L ABG O2 Saturation (94-97) % Glucose (74-99) mg/dL POC Glucose (mg/dL) 170 H (75-99) mg/dL Calcium (8.4-10.2) mg/dL Total Protein (6.3-8.2) g/dL Albumin (3.5-5.0) g/dL Renin Direct (3.1 - 57.1) pg/mL Assessment and Plan Plan: Assessment: #1. Nonoliguric acute kidney injury mostly prerenal in nature secondary to hemodynamic instability and use of angiotensin receptor lowell. Creatinine was at 3.7 this admission and was down to 1.96 after dialysis. It's 1.0 this morning. Urinalysis is quite benign. No evidence of hydronephrosis noted on CT of the abdomen and pelvis. #2. Hyperkalemia secondary to acute kidney injury and metabolic acidosis further worsened with the use of valsartan. Status post 1 treatment of hemodialysis on April 21. Resolved. Dialysis catheter has been discontinued. #3. Metabolic acidosis secondary to acute kidney injury and IV fluids. Improved. #4. Hypomagnesemia likely due to PPI and poor nutritional status. Improved post replacement. #5. Hypernatremia secondary to lack of oral water intake. Improved with water replacement. Plan: Continue tube feeds. Decrease free water to 200 mL every 6 hours with tube feeds. Maintain oral sodium bicarbonate 650 mg twice daily. Avoid nephrotoxic agents and hypotensive episodes. Continue to monitor renal function and urine output.
[2017-04-29 10:05] LABS: Glucose,Whole Blood 115 mg/dL (75-99)
--- NOTE | 2017-04-29 11:05 | P.PN ---
Progress Note - Text CV Surgery Nursing POD: #1, status post tracheostomy placement of a #8 B[place], and PEG tube placement. Patient awake and alert, no distress noted. Patient's trach is midline and intact, remains with mechanical ventilator support. His sedation of a fall has been on hold since 8 AM this morning. He is referred spotting to verbal stimuli. Vital Signs: Afebrile Vital Signs - 24 hr 04/28/17 04/28/17 04/28/17 12:00 12:01 12:30 Temperature 99.1 F Pulse Rate 133 H 145 H Respiratory 34 H 30 H 30 H Rate Blood Pressure 153/85 O2 Sat by Pulse 98 99 98 Oximetry 04/28/17 04/28/17 04/28/17 13:00 13:30 14:00 Temperature Pulse Rate 131 H 133 H 150 H Respiratory 29 H 30 H 34 H Rate Blood Pressure 98/65 98/65 98/65 O2 Sat by Pulse 97 97 98 Oximetry 04/28/17 04/28/17 04/28/17 14:30 15:00 15:18 Temperature Pulse Rate 120 H 147 H 103 H Respiratory 30 H 30 H Rate Blood Pressure 98/65 O2 Sat by Pulse 97 97 Oximetry 04/28/17 04/28/17 04/28/17 15:30 16:00 16:30 Temperature 99.2 F Pulse Rate 112 H 137 H 106 H Respiratory 24 29 H 29 H Rate Blood Pressure 52/39 O2 Sat by Pulse 98 97 98 Oximetry 04/28/17 04/28/17 04/28/17 17:00 17:30 18:00 Temperature Pulse Rate 124 H 112 H 128 H Respiratory 30 H 29 H 30 H Rate Blood Pressure O2 Sat by Pulse 97 97 97 Oximetry 04/28/17 04/28/17 04/28/17 18:30 19:00 19:29 Temperature 99.1 F Pulse Rate 109 H 110 H 103 H Respiratory 30 H 30 H Rate Blood Pressure O2 Sat by Pulse 97 97 Oximetry 04/28/17 04/28/17 04/28/17 19:30 19:47 20:00 Temperature 98.9 F Pulse Rate 110 H 113 H 152 H Respiratory 29 H 30 H Rate Blood Pressure O2 Sat by Pulse 97 97 Oximetry 04/28/17 04/28/17 04/28/17 20:30 21:00 21:30 Temperature Pulse Rate 110 H 99 115 H Respiratory 29 H 29 H 30 H Rate Blood Pressure O2 Sat by Pulse 97 97 98 Oximetry 04/28/17 04/28/17 04/28/17 22:00 22:30 23:00 Temperature Pulse Rate 131 H 119 H 122 H Respiratory 30 H 30 H 33 H Rate Blood Pressure O2 Sat by Pulse 98 97 97 Oximetry 04/28/17 04/28/17 04/28/17 23:06 23:22 23:30 Temperature Pulse Rate 128 H 141 H 108 H Respiratory 30 H Rate Blood Pressure O2 Sat by Pulse 95 Oximetry 04/29/17 04/29/17 04/29/17 00:00 00:30 01:00 Temperature 99 F Pulse Rate 85 82 82 Respiratory 30 H 30 H 30 H Rate Blood Pressure O2 Sat by Pulse 98 98 98 Oximetry 04/29/17 04/29/17 04/29/17 01:30 02:00 02:30 Temperature Pulse Rate 100 86 103 H Respiratory 30 H 29 H 30 H Rate Blood Pressure O2 Sat by Pulse 99 98 98 Oximetry 04/29/17 04/29/17 04/29/17 03:00 03:01 03:18 Temperature Pulse Rate 101 H 102 H 102 H Respiratory 30 H Rate Blood Pressure O2 Sat by Pulse 97 Oximetry 04/29/17 04/29/17 04/29/17 03:30 04:00 04:30 Temperature 99.7 F H Pulse Rate 105 H 103 H 84 Respiratory 30 H 30 H 30 H Rate Blood Pressure O2 Sat by Pulse 97 97 97 Oximetry 04/29/17 04/29/17 04/29/17 04:50 05:00 05:10 Temperature Pulse Rate 89 100 88 Respiratory 30 H 30 H 20 Rate Blood Pressure O2 Sat by Pulse 97 97 100 Oximetry 04/29/17 04/29/17 04/29/17 05:20 05:30 05:40 Temperature Pulse Rate 100 110 H 98 Respiratory 30 H 29 H 30 H Rate Blood Pressure O2 Sat by Pulse 97 96 96 Oximetry 04/29/17 04/29/17 04/29/17 05:45 05:50 05:55 Temperature Pulse Rate 113 H 113 H 107 H Respiratory 30 H 30 H 29 H Rate Blood Pressure O2 Sat by Pulse 96 96 95 Oximetry 04/29/17 04/29/17 04/29/17 06:00 06:05 06:10 Temperature Pulse Rate 110 H 86 129 H Respiratory 30 H 30 H 30 H Rate Blood Pressure O2 Sat by Pulse 95 95 98 Oximetry 04/29/17 04/29/17 04/29/17 06:15 06:20 06:25 Temperature Pulse Rate 108 H 114 H 139 H Respiratory 30 H 29 H 30 H Rate Blood Pressure O2 Sat by Pulse 94 L 93 L 96 Oximetry 04/29/17 04/29/17 04/29/17 06:30 06:35 06:40 Temperature Pulse Rate 110 H 110 H 101 H Respiratory 30 H 29 H 29 H Rate Blood Pressure O2 Sat by Pulse 93 L 95 96 Oximetry 04/29/17 04/29/17 04/29/17 06:45 06:50 06:55 Temperature Pulse Rate 109 H 115 H 99 Respiratory 30 H 24 29 H Rate Blood Pressure O2 Sat by Pulse 97 97 95 Oximetry 04/29/17 04/29/17 04/29/17 07:00 07:05 07:13 Temperature Pulse Rate 110 H 100 117 H Respiratory 30 H 30 H Rate Blood Pressure O2 Sat by Pulse 95 97 Oximetry 04/29/17 04/29/17 04/29/17 07:20 08:00 09:00 Temperature 98.7 F Pulse Rate 107 H 94 97 Respiratory 29 H 22 Rate Blood Pressure O2 Sat by Pulse 97 99 Oximetry 04/29/17 10:00 Temperature Pulse Rate 64 Respiratory 20 Rate Blood Pressure O2 Sat by Pulse 99 Oximetry ABP, PAP, CO, CI - Last 8 Hours Arterial Blood Pressure 107/55 Arterial Blood Pressure 126/68 Arterial Blood Pressure 136/61 Arterial Blood Pressure 151/74 Arterial Blood Pressure 66/41 Arterial Blood Pressure 92/54 Arterial Blood Pressure 173/80 Arterial Blood Pressure 214/99 Arterial Blood Pressure 121/62 Arterial Blood Pressure 105/62 Arterial Blood Pressure 68/41 Arterial Blood Pressure 133/73 Arterial Blood Pressure 71/42 Arterial Blood Pressure 78/43 Arterial Blood Pressure 142/79 Arterial Blood Pressure 81/49 Arterial Blood Pressure 74/46 Arterial Blood Pressure 83/47 Arterial Blood Pressure 121/60 Arterial Blood Pressure 159/83 Arterial Blood Pressure 162/83 Arterial Blood Pressure 234/94 Arterial Blood Pressure 230/92 Arterial Blood Pressure 223/100 Arterial Blood Pressure 158/73 Arterial Blood Pressure 167/79 Arterial Blood Pressure 146/76 Arterial Blood Pressure 140/68 Arterial Blood Pressure 132/71 Arterial Blood Pressure 129/61 Labs: Short CBC 04/29/17 Range/Units 04:00 WBC 9.1 (3.8-10.6) k/uL Hgb 11.2 L (13.0-17.5) gm/dL Hct 32.3 L (39.0-53.0) % Plt Count 97 L (150-450) k/uL Neutrophils # 7.3 (1.3-7.7) k/uL BMP 04/29/17 04:00 Sodium 138 Potassium 4.1 Chloride 107 Carbon Dioxide 24 BUN 18 Creatinine 1.00 Glucose 142 H Calcium 7.8 L Liver Function 04/29/17 Range/Units 04:00 Total Bilirubin 0.6 (0.2-1.3) mg/dL AST 33 (17-59) U/L ALT 44 (21-72) U/L Alkaline Phosphatase 71 (38-126) U/L Albumin 3.0 L (3.5-5.0) g/dL ABG ABG pH 7.47 (7.35-7.45) H 04/29/17 05:08 ABG pCO2 33 mmHg (35-45) L 04/29/17 05:08 ABG pO2 96 mmHg (83-108) 04/29/17 05:08 ABG O2 Saturation 98.0 % (94-97) H 04/29/17 05:08 PT/INR, D-dimer PT 10.9 sec (9.0-12.0) 04/29/17 06:57 INR 1.1 (<1.1) 04/29/17 06:57 IV Fluids: 0.9% normal saline at 20 mL per hour Regular insulin drip at 5 units per hour Heparin drip at 11.7 units per kilogram per hour. Lungs: Few scattered rhonchi throughout, diminished bilateral bases. Respirations are symmetrical and unlabored with mechanical ventilator support. Current ventilator settings are as follows: AC 20, TV 500, FiO2 50%, PEEP of 8. Patient's trach is midline and intact scant serosanguineous drainage noted surrounding his trach insertion site. O2 sat: 98% with mechanical ventilator support and FiO2 50%. Heart: S1S2, regular rhythm and rate, negative for S3, gallop or murmur. Bedside telemetry showing atrial fibrillation heart rate 92. Sequential compression devices in place to his bilateral lower extremites. Abdomen: Soft, normal. Positive bowel sounds present in all 4 quadrants. PEG tube insertion site clean dry and intact. Tube feedings will start this morning within 24 hours after surgery. F MS in place with liquid brown stool in the collection bag. CBGs: 115-155 mg/dL in the last 24 hours. U/O: Adequate, Henao catheter for accurate I&O. 24 hr Total: Intake & Output 04/27/17 04/28/17 04/29/17 04/30/17 06:59 06:59 06:59 06:59 Intake Total 4721.345 4388.416 3160.697 725.843 Output Total 4160 4845 4180 575 Balance 561.345 -456.584 -1019.303 150.843 Weight 156.3 kg 153.3 kg 153 kg 153 kg Active Medications Albuterol/Ipratropium (Duoneb 0.5 Mg-3 Mg/3 Ml Soln) 3 ml INHALATION RT-Q4H [facility] Last Admin: 04/29/17 07:11 Dose: 3 ml Amiodarone HCl (Cordarone) 200 mg PO BID [facility] Last Admin: 04/29/17 09:32 Dose: 200 mg Aspirin (Aspirin) 81 mg PO DAILY [facility] Last Admin: 04/29/17 07:49 Dose: 81 mg Chlorhexidine Gluconate (Peridex) 15 ml MUCOUS MEM BID [facility] Last Admin: 04/29/17 07:49 Dose: 15 ml Furosemide (Lasix) 20 mg IV Q12HR [facility] Last Admin: 04/29/17 09:32 Dose: 20 mg Heparin Sodium (Porcine) (Heparin) 0 unit IV PER PROTOCOL PRN; Protocol PRN Reason: Low PTT Last Admin: 04/29/17 01:00 Dose: 4,000 unit Hydromorphone HCl (Dilaudid) 1 mg IVP Q4HR PRN PRN Reason: Moderate Pain Last Admin: 04/26/17 16:25 Dose: 1 mg Hydromorphone HCl (Dilaudid) 2 mg IVP Q4HR PRN PRN Reason: Severe Pain Last Admin: 04/29/17 04:55 Dose: 2 mg Sodium Chloride (Saline 0.9%) 1,000 mls @ 20 mls/hr IV .Q24H [facility] Last Admin: 04/28/17 15:52 Dose: 20 mls/hr Insulin Human Regular 100 unit (/ Sodium Chloride) 101 mls @ 0 mls/hr IV .Q0M DI; Per Protocol PRN Reason: Protocol Last Titration: 04/29/17 07:04 Dose: 5 units/hr, 5.05 mls/hr Piperacillin/Tazobactam/ (Dextrose 3.375 gm/ IV Solution) 50 mls @ 12.5 mls/hr IVPB Q8HR [facility] Last Admin: 04/29/17 07:48 Dose: 12.5 mls/hr Propofol 500 mg/ IV Solution 50 mls @ 0 mls/hr IV .Q0M DI; Titrate PRN Reason: Protocol Last Titration: 04/29/17 07:48 Dose: 0 mcg/kg/min, 0 mls/hr Norepinephrine Bitartrate (Levophed-0.9% Nacl 16 Mg/250ml Pmx) 16 mg in 250 mls @ 0 mls/hr IV .Q0M DI; Titrate PRN Reason: Protocol Last Titration: 04/29/17 08:44 Dose: 0 mcg/min, 0 mls/hr Heparin Sodium/Dextrose 25,000 (unit/ IV Solution) 500 mls @ 25.83 mls/hr IV .[id number] DI; 8.7 UNITS/KG/HR PRN Reason: Protocol Last Admin: 04/29/17 09:33 Dose: 11.7 units/kg/hr, 34.74 mls/hr Lactulose (Cephulac) 10 gm PO DAILY [facility] Metoprolol Tartrate (Lopressor) 25 mg PO BID [facility] Last Admin: 04/29/17 07:49 Dose: 25 mg Miscellaneous Information (Magnesium Per Protocol) 1 each MISCELLANE DAILY PRN ; Protocol PRN Reason: Per Protocol Miscellaneous Information (Potassium Per Protocol) 1 each MISCELLANE DAILY PRN ; Protocol PRN Reason: Per Protocol Naloxone HCl (Narcan) 0.2 mg IV Q2M PRN PRN Reason: Opioid Reversal Pantoprazole Sodium (Protonix) 40 mg IV DAILY [facility] Last Admin: 04/29/17 07:49 Dose: 40 mg Sodium Bicarbonate (Sodium Bicarbonate Tab) 650 mg PO BID [facility] Last Admin: 04/29/17 07:50 Dose: 650 mg Plan: 1. We will follow the patient on a when necessary basis. 2. Pulmonary and mechanical ventilator recommendations per Dr. Chan. 3. Atrial fibrillation management per cardiology. 4. May start tube feeding per the PEG tube today. Recommendations on tube feeding per medicine recommendations. 5. DVT and GI prophylaxis in place.
[2017-04-29 12:07] LABS: Glucose,Whole Blood 117 mg/dL (75-99)
[2017-04-29 14:10] LABS: Glucose,Whole Blood 135 mg/dL (75-99)
[2017-04-29 16:31] LABS: Glucose,Whole Blood 127 mg/dL (75-99)
--- NOTE | 2017-04-29 17:44 | P.PN ---
Subjective Principal diagnosis: altered mental status, diabetic ketoacidosis, atrial fibrillation, chronic liver disease, tobacco dependence, history of alcoholism. Patient was seen again today on 04/24/2017 and follow up in the intensive care unit. this individual remains on the ventilator, assist control 30 title volume 450 FiO2 60% and a PEEP of 5. Morning blood gas revealed pO2 66 pCO2 30 pH of 7.45. Patient is currently in A. fib with rapid ventricular response. Propofol at 50 mics per kilogram per minute 0.9 normal saline at 100 mils per hour. Insulin drip at 9.5 units per hour. Patient is also receiving trickle tube feed of vital HP@40 hour with a goal of 44MLS/hr. Chest x-ray suggests bilateral effusions with atelectasis. he remains on Zosyn. He did receive 1 emergent dialysis treatment for acute renal failure and hyperkalemia. This pt has been trached, and peg tube has been placed. Objective - Vital Signs Vital signs: Vital Signs Temp 99.2 F 04/29/17 16:00 Pulse 96 04/29/17 16:00 Resp 19 04/29/17 16:00 BP 52/39 04/28/17 15:30 Pulse Ox 96 04/29/17 16:00 Intake & Output 04/28/17 04/29/17 04/29/17 18:59 06:59 18:59 Intake Total 9450.390 0658.598 1227.843 Output Total 2430 1750 1825 Balance -963.901 -55.402 -597.157 Weight 153.3 kg 153 kg 153 kg Intake: IV 351.0 335.5 201 Iram 36 33 21 Piperacillin-Tazobactam 3 75.0 62.5 50 .375 gm In Dextrose/Water 1 50ml.bag @ 12.5 mls/hr IVPB Q8HR DI Rx#: [id number] Sodium Chloride 0.9% 1, 240 240 130 000 ml @ 20 mls/hr IV . Q24H DI Rx#:[id number] Intake, IV Titration 3590.557 7625.098 726.843 Amount Amiodarone 450 mg In 349.8 Dextrose 5% in Water 250 ml @ 0.5 MG/MIN 16.66 mls /hr IV .Q15H1M DI Rx#: [id number] Amiodarone 450 mg In 66.5 399.81 33.33 Dextrose 5% in Water 250 ml @ 1 MG/MIN 33.33 mls/ hr IV .Q7H31M [facility] Rx#: [id number] Amiodarone 450 mg In 250 185.537 Dextrose 5% in Water 250 ml @ 1 MG/MIN 33.33 mls/ hr IV .Q7H31M [facility] Rx#: [id number] Dextrose 5% in Water 100 83.3 ml @ 618 mls/hr IV .Q10M ONE with Amiodarone 150 mg Rx#:[id number] Heparin Sodium,Porcine/ 54 256.026 270.974 D5w Pmx 25,000 unit In Dextrose/Water 1 500ml. bag @ 8.7 UNITS/KG/HR 25. 83 mls/hr IV .G28H72G [facility] Rx#:[id number] Insulin Regular 100 unit 36.594 50.340 8.626 In Sodium Chloride 0.9% 100 ml @ Per Protocol IV .Q0M [facility] Rx#:[id number] Magnesium Sulfate-D5w Pmx 200 1 gm In Dextrose/Water 1 100ml.bag @ 100 mls/hr IVPB Q1H [facility] Rx#: [id number] Magnesium Sulfate-D5w Pmx 200 1 gm In Dextrose/Water 1 100ml.bag @ 100 mls/hr IVPB Q1H [facility] Rx#: [id number] Norepinephrin 16 mg-0.9% 50.913 5.954 Ns Pmx 16 mg In 250 ml @ Titrate IV .Q0M [facility] Rx#: [id number] Propofol 500 mg In Empty 224.905 292.009 22.422 Bag 1 bag @ Titrate IV . Q0M [facility] Rx#:[id number] Oral 60 180 Tube Feeding 40 120 Other 60 Output: Urine 1420 1750 1575 Stool 1000 250 Estimated Blood Loss 10 Other: Voiding Method Indwelling Catheter Indwelling Catheter Indwelling Catheter # Bowel Movements 100 ABP, PAP, CO, CI - Last Documented Arterial Blood Pressure 123/61 - Exam General: is currently on vent and sedated HEENT: [PERRL. EOMI. No pharyngeal erythema or exudate.] Neck: [No adenopathy.] Cardiac: [Heart regular in rate and rhythm. No S3. No S4. No clicks, rubs. No murmur.] Lungs: [Clear to auscultation bilaterally.] Abdomen: [No mass. No organomegaly. Bowel sounds presnt and normoactive in all 4 quadrants.] Extremes: [Mildly edematous to all 4 extremes no cyanosis no claudication normal pulses] : [] Musculoskeletal: [No joint erythema, edema or tenderness.] Skin: [No rash.] Neurologic: [No lateralizing deficits. CN II - XII grossly intact.] Lymphatic: [No adenopathy.] - Labs CBC & Chem 7: 04/29/17 04:00 04/29/17 04:00 Labs: Abnormal Lab Results - Last 24 Hours (Table) 04/26/17 04/28/17 04/28/17 Range/Units 17:29 18:41 20:09 RBC (4.30-5.90) m/uL Hgb (13.0-17.5) gm/dL Hct (39.0-53.0) % MCV (80.0-100.0) fL MCH (25.0-35.0) pg Plt Count (150-450) k/uL Lymphocytes # (1.0-4.8) k/uL APTT (22.0-30.0) sec ABG pH (7.35-7.45) ABG pCO2 (35-45) mmHg ABG Total CO2 (19-24) mmol/L ABG O2 Saturation (94-97) % Glucose (74-99) mg/dL POC Glucose (mg/dL) 153 H 136 H (75-99) mg/dL Calcium (8.4-10.2) mg/dL Total Protein (6.3-8.2) g/dL Albumin (3.5-5.0) g/dL [facility] 149.6 H (3.1 - 57.1) pg/mL 04/28/17 04/28/17 04/28/17 Range/Units 21:03 23:27 23:30 RBC (4.30-5.90) m/uL Hgb (13.0-17.5) gm/dL Hct (39.0-53.0) % MCV (80.0-100.0) fL MCH (25.0-35.0) pg Plt Count (150-450) k/uL Lymphocytes # (1.0-4.8) k/uL APTT 33.9 H (22.0-30.0) sec ABG pH (7.35-7.45) ABG pCO2 (35-45) mmHg ABG Total CO2 (19-24) mmol/L ABG O2 Saturation (94-97) % Glucose (74-99) mg/dL POC Glucose (mg/dL) 145 H 135 H (75-99) mg/dL Calcium (8.4-10.2) mg/dL Total Protein (6.3-8.2) g/dL Albumin (3.5-5.0) g/dL Renin Direct (3.1 - 57.1) pg/mL 04/29/17 04/29/17 04/29/17 Range/Units 00:09 01:02 02:02 RBC (4.30-5.90) m/uL Hgb (13.0-17.5) gm/dL Hct (39.0-53.0) % MCV (80.0-100.0) fL MCH (25.0-35.0) pg Plt Count (150-450) k/uL Lymphocytes # (1.0-4.8) k/uL APTT (22.0-30.0) sec ABG pH (7.35-7.45) ABG pCO2 (35-45) mmHg ABG Total CO2 (19-24) mmol/L ABG O2 Saturation (94-97) % Glucose (74-99) mg/dL POC Glucose (mg/dL) 143 H 153 H 153 H (75-99) mg/dL Calcium (8.4-10.2) mg/dL Total Protein (6.3-8.2) g/dL Albumin (3.5-5.0) g/dL Renin Direct (3.1 - 57.1) pg/mL 04/29/17 04/29/17 04/29/17 Range/Units 04:00 04:00 04:10 RBC 3.12 L (4.30-5.90) m/uL Hgb 11.2 L (13.0-17.5) gm/dL Hct 32.3 L (39.0-53.0) % MCV 103.7 H (80.0-100.0) fL MCH 36.1 H (25.0-35.0) pg Plt Count 97 L (150-450) k/uL Lymphocytes # 0.8 L (1.0-4.8) k/uL APTT (22.0-30.0) sec ABG pH (7.35-7.45) ABG pCO2 (35-45) mmHg ABG Total CO2 (19-24) mmol/L ABG O2 Saturation (94-97) % Glucose 142 H (74-99) mg/dL POC Glucose (mg/dL) 132 H (75-99) mg/dL Calcium 7.8 L (8.4-10.2) mg/dL Total Protein 5.9 L (6.3-8.2) g/dL Albumin 3.0 L (3.5-5.0) g/dL Renin Direct (3.1 - 57.1) pg/mL 04/29/17 04/29/17 04/29/17 Range/Units 05:08 05:09 06:07 RBC (4.30-5.90) m/uL Hgb (13.0-17.5) gm/dL Hct (39.0-53.0) % MCV (80.0-100.0) fL MCH (25.0-35.0) pg Plt Count (150-450) k/uL Lymphocytes # (1.0-4.8) k/uL APTT (22.0-30.0) sec ABG pH 7.47 H (7.35-7.45) ABG pCO2 33 L (35-45) mmHg ABG Total CO2 25 H (19-24) mmol/L ABG O2 Saturation 98.0 H (94-97) % Glucose (74-99) mg/dL POC Glucose (mg/dL) 143 H 155 H (75-99) mg/dL Calcium (8.4-10.2) mg/dL Total Protein (6.3-8.2) g/dL Albumin (3.5-5.0) g/dL Renin Direct (3.1 - 57.1) pg/mL 04/29/17 04/29/17 04/29/17 Range/Units 06:57 08:04 10:03 RBC (4.30-5.90) m/uL Hgb (13.0-17.5) gm/dL Hct (39.0-53.0) % MCV (80.0-100.0) fL MCH (25.0-35.0) pg Plt Count (150-450) k/uL Lymphocytes # (1.0-4.8) k/uL APTT 60.7 H (22.0-30.0) sec ABG pH (7.35-7.45) ABG pCO2 (35-45) mmHg ABG Total CO2 (19-24) mmol/L ABG O2 Saturation (94-97) % Glucose (74-99) mg/dL POC Glucose (mg/dL) 170 H 115 H (75-99) mg/dL Calcium (8.4-10.2) mg/dL Total Protein (6.3-8.2) g/dL Albumin (3.5-5.0) g/dL Renin Direct (3.1 - 57.1) pg/mL 04/29/17 04/29/17 04/29/17 Range/Units 12:06 14:05 16:29 RBC (4.30-5.90) m/uL Hgb (13.0-17.5) gm/dL Hct (39.0-53.0) % MCV (80.0-100.0) fL MCH (25.0-35.0) pg Plt Count (150-450) k/uL Lymphocytes # (1.0-4.8) k/uL APTT (22.0-30.0) sec ABG pH (7.35-7.45) ABG pCO2 (35-45) mmHg ABG Total CO2 (19-24) mmol/L ABG O2 Saturation (94-97) % Glucose (74-99) mg/dL POC Glucose (mg/dL) 117 H 135 H 127 H (75-99) mg/dL Calcium (8.4-10.2) mg/dL Total Protein (6.3-8.2) g/dL Albumin (3.5-5.0) g/dL Renin Direct (3.1 - 57.1) pg/mL Assessment and Plan (1) Acute renal failure Narrative/Plan: Oliguric acute kidney injury mostly renal in nature secondary to hemodynamic instability and use of angiotensin receptor lowell. Impingement creatinine was as high as 3.7 this admission down to 1.96 after dialysis 2.8 this morning urinalysis is quite benign no evidence of hydronephrosis on CT of the abdomen and pelvis #2 hyperkalemia is secondary to acute renal injury and metabolic acidosis further worsened with the use of valsartan. Is one treatment of hemodialysis on April 21 potassium level at this time was 7.7 #3 metabolic acidosis secondary to acute renal injury #4 history of alcoholism Plan; Continue normal saline Start sodium bicarb 2. tube feeds were initiated yesterday Avoid nephrotoxic agents and hypotensive episodes We'll wean vent continue to monitor renal function and urinary output tracheostomy and peg tube done, sedation has been reduced Status: Acute Time with Patient: Greater than 30
--- NOTE | 2017-04-29 20:40 | P.PN ---
Subjective This patient is a 71-year-old male who is seen today in the intensive care unit for ongoing neurological follow-up. Patient underwent tracheostomy and PEG tube placement yesterday and is postoperative day one today. He has been off of Diprivan since 7 AM this morning. He is opening his eyes but is not following commands. He continues to have generalized weakness in both upper and lower extremities. His chest x-ray reveals bilateral effusions. He continues on antibiotic coverage and is currently on Zosyn. He did have a PEG tube placed and his tube feedings have been initiated yesterday. Seems to be tolerating this feeds well with no residuals. Patient is being treated for acute kidney injury. Nephrology is following the patient closely. Since stopping the Diprivan the patient does seem to open his eyes but still not able to follow commands. He has undergone multiple CT scans of the brain all of which have been negative for any evidence of acute stroke. He continues on IV heparin protocol. His INR today is 1.1. We will continue close neurological follow-up of this patient in the intensive care unit. His overall prognosis at this time remains guarded. Objective - Vital Signs Vital signs: Vital Signs Temp 99.2 F 04/29/17 16:00 Pulse 95 04/29/17 19:11 Resp 21 04/29/17 19:00 BP 52/39 04/28/17 15:30 Pulse Ox 97 04/29/17 19:00 Intake & Output 04/29/17 04/29/17 04/30/17 06:59 18:59 06:59 Intake Total 3417.429 5880.843 10 Output Total 1750 2100 125 Balance -55.402 -792.157 -115 Weight 153 kg 153 kg Intake: IV 335.5 281 10 Iram 33 21 Piperacillin-Tazobactam 3 62.5 100 .375 gm In Dextrose/Water 1 50ml.bag @ 12.5 mls/hr IVPB Q8HR [facility] Rx#: [id number] Sodium Chloride 0.9% 1, 240 160 10 000 ml @ 20 mls/hr IV . Q24H [facility] Rx#:[id number] Intake, IV Titration 1299.098 726.843 Amount Amiodarone 450 mg In 399.81 33.33 Dextrose 5% in Water 250 ml @ 1 MG/MIN 33.33 mls/ hr IV .Q7H31M [facility] Rx#: [id number] Amiodarone 450 mg In 250 185.537 Dextrose 5% in Water 250 ml @ 1 MG/MIN 33.33 mls/ hr IV .Q7H31M [facility] Rx#: [id number] Heparin Sodium,Porcine/ 256.026 270.974 D5w Pmx 25,000 unit In Dextrose/Water 1 500ml. bag @ 8.7 UNITS/KG/HR 25. 83 mls/hr IV .[id number] [facility] Rx#:[id number] Insulin Regular 100 unit 50.340 8.626 In Sodium Chloride 0.9% 100 ml @ Per Protocol IV .Q0M [facility] Rx#:[id number] Magnesium Sulfate-D5w Pmx 200 1 gm In Dextrose/Water 1 100ml.bag @ 100 mls/hr IVPB Q1H [facility] Rx#: [id number] Norepinephrin 16 mg-0.9% 50.913 5.954 Ns Pmx 16 mg In 250 ml @ Titrate IV .Q0M [facility] Rx#: [id number] Propofol 500 mg In Empty 292.009 22.422 Bag 1 bag @ Titrate IV . Q0M [facility] Rx#:[id number] Oral 180 Tube Feeding 120 Other 60 Output: Urine 1750 1850 125 Stool 250 Other: Voiding Method Indwelling Catheter Indwelling Catheter ABP, PAP, CO, CI - Last Documented Arterial Blood Pressure 117/63 - Exam Physical examination: PHYSICAL EXAMINATION: Patient has tracheostomy tube and is maintained on ventilator. He is opening his eyes but does not follow commands. He is off of all sedation at this time. VITAL SIGNS: Blood pressure is [138/65]. Heart rate is [110]. Respiration is [30 ]. Temperature is [99.1]. HEENT: Head is atraumatic, neck is supple, there were no carotid bruits. CHEST: Lungs are clear to auscultation and percussion. CARDIAC: S1, S2 normal rate and rhythm. There is no murmur. ABDOMEN: Soft and nontender. Bowel sounds are present. EXTREMITIES: There is no pedal edema. Peripheral pulses are present. Neurological examination: Patient is seen in the intensive care unit. He has a tracheostomy and PEG tube placement yesterday. He is off of all sedation today. He is opening his eyes but is not following commands. Patient has decreased tone in both upper and lower extremities. Deep tendon reflexes are 1+ and symmetric. Plantar responses flexor bilaterally. - Labs CBC & Chem 7: 04/29/17 04:00 04/29/17 04:00 Labs: Abnormal Lab Results - Last 24 Hours (Table) 04/28/17 04/28/17 04/28/17 Range/Units 21:03 23:27 23:30 RBC (4.30-5.90) m/uL Hgb (13.0-17.5) gm/dL Hct (39.0-53.0) % MCV (80.0-100.0) fL MCH (25.0-35.0) pg Plt Count (150-450) k/uL Lymphocytes # (1.0-4.8) k/uL APTT 33.9 H (22.0-30.0) sec ABG pH (7.35-7.45) ABG pCO2 (35-45) mmHg ABG Total CO2 (19-24) mmol/L ABG O2 Saturation (94-97) % Glucose (74-99) mg/dL POC Glucose (mg/dL) 145 H 135 H (75-99) mg/dL Calcium (8.4-10.2) mg/dL Total Protein (6.3-8.2) g/dL Albumin (3.5-5.0) g/dL 04/29/17 04/29/17 04/29/17 Range/Units 00:09 01:02 02:02 RBC (4.30-5.90) m/uL Hgb (13.0-17.5) gm/dL Hct (39.0-53.0) % MCV (80.0-100.0) fL MCH (25.0-35.0) pg Plt Count (150-450) k/uL Lymphocytes # (1.0-4.8) k/uL APTT (22.0-30.0) sec ABG pH (7.35-7.45) ABG pCO2 (35-45) mmHg ABG Total CO2 (19-24) mmol/L ABG O2 Saturation (94-97) % Glucose (74-99) mg/dL POC Glucose (mg/dL) 143 H 153 H 153 H (75-99) mg/dL Calcium (8.4-10.2) mg/dL Total Protein (6.3-8.2) g/dL Albumin (3.5-5.0) g/dL 04/29/17 04/29/17 04/29/17 Range/Units 04:00 04:00 04:10 RBC 3.12 L (4.30-5.90) m/uL Hgb 11.2 L (13.0-17.5) gm/dL Hct 32.3 L (39.0-53.0) % MCV 103.7 H (80.0-100.0) fL MCH 36.1 H (25.0-35.0) pg Plt Count 97 L (150-450) k/uL Lymphocytes # 0.8 L (1.0-4.8) k/uL APTT (22.0-30.0) sec ABG pH (7.35-7.45) ABG pCO2 (35-45) mmHg ABG Total CO2 (19-24) mmol/L ABG O2 Saturation (94-97) % Glucose 142 H (74-99) mg/dL POC Glucose (mg/dL) 132 H (75-99) mg/dL Calcium 7.8 L (8.4-10.2) mg/dL Total Protein 5.9 L (6.3-8.2) g/dL Albumin 3.0 L (3.5-5.0) g/dL 04/29/17 04/29/17 04/29/17 Range/Units 05:08 05:09 06:07 RBC (4.30-5.90) m/uL Hgb (13.0-17.5) gm/dL Hct (39.0-53.0) % MCV (80.0-100.0) fL MCH (25.0-35.0) pg Plt Count (150-450) k/uL Lymphocytes # (1.0-4.8) k/uL APTT (22.0-30.0) sec ABG pH 7.47 H (7.35-7.45) ABG pCO2 33 L (35-45) mmHg ABG Total CO2 25 H (19-24) mmol/L ABG O2 Saturation 98.0 H (94-97) % Glucose (74-99) mg/dL POC Glucose (mg/dL) 143 H 155 H (75-99) mg/dL Calcium (8.4-10.2) mg/dL Total Protein (6.3-8.2) g/dL Albumin (3.5-5.0) g/dL 04/29/17 04/29/17 04/29/17 Range/Units 06:57 08:04 10:03 RBC (4.30-5.90) m/uL Hgb (13.0-17.5) gm/dL Hct (39.0-53.0) % MCV (80.0-100.0) fL MCH (25.0-35.0) pg Plt Count (150-450) k/uL Lymphocytes # (1.0-4.8) k/uL APTT 60.7 H (22.0-30.0) sec ABG pH (7.35-7.45) ABG pCO2 (35-45) mmHg ABG Total CO2 (19-24) mmol/L ABG O2 Saturation (94-97) % Glucose (74-99) mg/dL POC Glucose (mg/dL) 170 H 115 H (75-99) mg/dL Calcium (8.4-10.2) mg/dL Total Protein (6.3-8.2) g/dL Albumin (3.5-5.0) g/dL 04/29/17 04/29/17 04/29/17 Range/Units 12:06 14:05 16:29 RBC (4.30-5.90) m/uL Hgb (13.0-17.5) gm/dL Hct (39.0-53.0) % MCV (80.0-100.0) fL MCH (25.0-35.0) pg Plt Count (150-450) k/uL Lymphocytes # (1.0-4.8) k/uL APTT (22.0-30.0) sec ABG pH (7.35-7.45) ABG pCO2 (35-45) mmHg ABG Total CO2 (19-24) mmol/L ABG O2 Saturation (94-97) % Glucose (74-99) mg/dL POC Glucose (mg/dL) 117 H 135 H 127 H (75-99) mg/dL Calcium (8.4-10.2) mg/dL Total Protein (6.3-8.2) g/dL Albumin (3.5-5.0) g/dL Assessment and Plan (1) Acute encephalopathy Status: Acute Code(s): G93.40 - ENCEPHALOPATHY, UNSPECIFIED (2) Acute renal failure Status: Acute Code(s): N17.9 - ACUTE KIDNEY FAILURE, UNSPECIFIED (3) Atrial fibrillation Status: Acute Code(s): I48.91 - UNSPECIFIED ATRIAL FIBRILLATION (4) Hepatic encephalopathy Status: Acute Code(s): K72.90 - HEPATIC FAILURE, UNSPECIFIED WITHOUT COMA Plan: This patient is 71-year-old male who is being followed in the intensive care unit for diffuse encephalopathy. Patient underwent tracheostomy and PEG tube placement yesterday and is postoperative day one today. He has been able to wean off of Diprivan early this morning. He is opening his eyes but is not following commands. He is undergone 3 CT scans of the brain all of which have been negative for acute stroke. Continues to show slight improvement now that the sedation has been withdrawn. We will need to continue to follow his neurological status closely over the next 48 hours. Nephrology is also monitoring the patient closely due to his acute renal failure. Neurologically he has a diffuse encephalopathy. We may consider a follow-up EEG in the next few days. His overall prognosis at this time remains very guarded.
[2017-04-29] MEDS: AMIODARONE 200 MG TAB PO SCH (20:48)
[2017-04-29 21:14] LABS: Glucose,Whole Blood 132 mg/dL (75-99)
[2017-04-29] MEDS: SODIUM CHLORIDE 0.9% 1,000 ML IV SCH (22:04)
[2017-04-29] MEDS: INSULIN LISPRO (humaLOG) 300 UNIT/3 ML VIAL SQ SCH (22:05)
[2017-04-29 22:16] LABS: Glucose,Whole Blood 126 mg/dL (75-99)
[2017-04-29 22:21] LABS: Anion Gap 7 mmol/L; Blood Urea Nitrogen 19 mg/dL (9-20); Calcium 8.1 mg/dL (8.4-10.2); Carbon Dioxide 27 mmol/L (22-30); Chloride 104 mmol/L (98-107); Glucose 152 mg/dL (74-99); Magnesium 1.9 mg/dL (1.6-2.3); Non-African American GFR(MDRD) >60 (>60 ml/min/1.73 sqM); Potassium 4.1 mmol/L (3.5-5.1); Sodium 138 mmol/L (137-145)
[2017-04-29 23:08] LABS: Glucose,Whole Blood 118 mg/dL (75-99)
[2017-04-30] MEDS: PIPERACILLIN-TAZOBACTAM 3.375 GM in DEXTROSE/WATER 1 50ML.BAG IVPB SCH ×4 (00:14→23:57)
[2017-04-30 00:22] LABS: Glucose,Whole Blood 148 mg/dL (75-99)
[2017-04-30 02:21] LABS: Glucose,Whole Blood 123 mg/dL (75-99)
[2017-04-30] MEDS: MAGNESIUM SULFATE-D5W PMX 1 GM in DEXTROSE/WATER 1 100ML.BAG IVPB SCH ×2 (02:46→04:00)
[2017-04-30 04:13] LABS: Glucose,Whole Blood 138 mg/dL (75-99)
[2017-04-30 05:04] LABS: Basophils % (A) 0 %; CH 34.5; CHCM 32.7; Eosinophils # (A) 0.2 k/uL (0-0.7); Eosinophils % (A) 3 %; HDW 2.34; HGB 10.6 gm/dL (13.0-17.5); Luc # (Auto) 0.21; Luc % (Auto) 3; Lymphocytes # (A) 0.9 k/uL (1.0-4.8); Lymphocytes % (A) 13 %; MCH 35.1 pg (25.0-35.0); MCHC 33.1 g/dL (31.0-37.0); MCV 106.2 fL (80.0-100.0); Macrocytosis Moderate; Mean Platelet Volume 8.1; Monocytes # (A) 0.5 k/uL (0-1.0); Monocytes % (A) 7 %; Neutrophils # (A) 5.6 k/uL (1.3-7.7); Neutrophils % (A) 75 %; RBC 3.01 m/uL (4.30-5.90); RDW 15.1 % (11.5-15.5); WBC 7.5 k/uL (3.8-10.6); WBC (Perox) 7.68
[2017-04-30 05:13] LABS: INR 1.1 (<1.1); Partial Thromboplastin Time 44.7 sec (22.0-30.0); Prothrombin Time 10.6 sec (9.0-12.0)
[2017-04-30] MEDS: IPRATROPIUM-ALBUTEROL 3 ML NEB INHALATION SCH ×6 (05:14→23:29)
[2017-04-30 05:22] LABS: ABG Base Excess 1.3 mmol/L; ABG HCO3 25 mmol/L (21-25); ABG Oxygen Saturation 99.4 % (94-97); ABG PCO2 39 mmHg (35-45); ABG PH 7.43 (7.35-7.45); ABG PO2 149 mmHg (83-108); ABG TCO2 26 mmol/L (19-24)
[2017-04-30 05:53] LABS: ALT 32 U/L (21-72); AST 26 U/L (17-59); Alkaline Phosphatase 67 U/L (38-126); Anion Gap 7 mmol/L; Blood Urea Nitrogen 21 mg/dL (9-20); Calcium 7.9 mg/dL (8.4-10.2); Carbon Dioxide 28 mmol/L (22-30); Chloride 104 mmol/L (98-107); Glucose 143 mg/dL (74-99); Magnesium 2.3 mg/dL (1.6-2.3); Non-African American GFR(MDRD) >60 (>60 ml/min/1.73 sqM); Phosphorous 3.3 mg/dL (2.5-4.5); Sodium 139 mmol/L (137-145); Total Bilirubin 0.8 mg/dL (0.2-1.3); Total Protein 5.7 g/dL (6.3-8.2)
[2017-04-30 06:05] LABS: Glucose,Whole Blood 141 mg/dL (75-99)
--- NOTE | 2017-04-30 07:12 | XR ---
EXAMINATION TYPE: XR chest 1V portable DATE OF EXAM: 04/30/2017 HISTORY: Intubated. REFERENCE: Previous study dated 04/29/2017. FINDINGS: A tracheostomy tube remains in place, unchanged in appearance. The tip overlies the trachea l air column in this single frontal projection. The heart is mildly enlarged. There has been an improvement in the degree of vascular congestion. The re are small, bilateral effusions. These remain unchanged. There is continuing left basilar airspace disease. IMPRESSION: 1. SLIGHT IMPROVEMENT IN THE DEGREE OF VASCULAR CONGESTION. 2. CONTINUING SMALL, BILATERAL EFFUSIONS. 3. STABLE LEFT BASILAR AIRSPACE DISEASE.
[2017-04-30] MEDS: AMIODARONE 200 MG TAB PO SCH ×3 (07:38→21:08)
[2017-04-30] MEDS: CHLORHEXIDINE GLUCONATE 15 ML CUP MUCOUS MEM SCH ×2 (07:38→20:33)
[2017-04-30] MEDS: ASPIRIN 81 MG CHEW PO SCH (07:38)
[2017-04-30] MEDS: PANTOPRAZOLE 40 MG/10 ML VIAL IV SCH (07:38)
[2017-04-30] MEDS: FUROSEMIDE 10 MG/ML 2 ML VIAL IV SCH ×2 (07:38→20:33)
[2017-04-30] MEDS: METOPROLOL TARTRATE 25 MG TAB PO SCH ×2 (07:39→20:33)
[2017-04-30] MEDS: SODIUM BICARBONATE TAB 650 MG TAB PO SCH (07:39)
[2017-04-30] MEDS: LACTULOSE 20 GM/30 ML CUP PO SCH (07:39)
[2017-04-30 08:42] LABS: Glucose,Whole Blood 154 mg/dL (75-99)
--- NOTE | 2017-04-30 09:28 | P.PN ---
Subjective This is a 71-year-old gentleman who follows with Dr. Fuentes as his primary care physician. He has a history of hyperlipidemia, chronic obstructive pulmonary disease with chronic and ongoing tobacco dependence, diabetes mellitus , hypertension, atrial fibrillation, chronic liver disease. He presented here on 04/21/2017 with altered mental status. The patient developed acute respiratory failure and required intubation mechanical ventilatory support. He is seen again today in follow-up in the intensive care unit. He remains on the ventilator assist control 30 tidal volume 450 FiO2 60% and a PEEP of 5. Morning blood gases reveal a pO2 of 66, pCO2 34, pH 7.4. He is atrial fibrillation with a rapid ventricular response. He remains on a Cardizem drip at 7.5 mg per hour, norepinephrine at 1 mcg/m. Propofol at 70 mcg/kg/m. 0.9 normal saline at 100 mL per hour. Insulin drip at 8 units per hour. He is receiving a trickle tube feed of Vital HP at 10 mL per hour with a goal of 44. His chest x-ray reveals bilateral effusions with atelectasis/infiltrates the lung bases. He remains on Zosyn. He did receive 1 emergent dialysis treatment for his acute renal failure and hyperkalemia. Today's labs reveal creatinine 2.30 and a potassium of 4.4. Bicarb 19. He is receiving sodium bicarbonate 650 mg by mouth twice a day. He is currently receiving a daily interruption of sedation. We are also going to check a random cortisol level. Blood cultures reveal no growth to date. Urine culture pending. The patient is seen again today 04/24/2017 in follow-up in the intensive care unit. He remains to be elevated on mechanical ventilator current settings assist control 30, tidal volume 450, FiO2 60% and a PEEP of 5. Morning blood gases reveal a P O2 of 66, pCO2 of 30 and a pH of 7.45. He does remain sedated on to propofol 50 mcg/kg/m. He has a 0.9 normal saline at 100 MLS per hour. His Cardizem is currently on hold his atrial fibrillation is better controlled he has some episodes of bradycardia. Levophed has been weaned off. He remains on heparin drip and insulin drip at 9.5 units per hour. He is being fed via tube feedings Vital HP at 40 with a goal of 44 MLS per hour. He again was given a daily interruption of sedation. He is opening his eyes but not following any commands. He had significant coughing and significant secretions with tachycardia and tachypnea. Follow-up computed tomography scan revealed no acute intracranial process. His chest x-ray continues to show evidence of a left pleural effusion otherwise stable. He has been quite slow to progress. The patient is seen again today 04/25/2017 in follow-up in the intensive care unit. He remains intubated and on the mechanical ventilator currently at assist -control mode of 30, tidal volume 450, FiO2 60% and a PEEP of 5. Current arterial blood gases reveal a pO2 of 71, pCO2 34 and a pH of7.45. A mild respiratory alkalosis. He was given a sedation holiday. He does open his eyes spontaneously but does not follow any commands. No plans for weaning trials as he is still requiring high FiO2 to maintain O2 saturations greater than 90%. He is also on a 0.9 normal saline at 60 miles per hour, heparin drip at 10.7 units per hour, propofol at 45 mcg/kg/m, insulin drip at 5.5 units per hour. He is being nourished with Vital HP at goal 40 miles per hour. He has been slow to progress. 3 CT scans of the brain have been negative for acute stroke or hemorrhage. An EEG did reveal severe slowing consistent with diffuse encephalopathy. No evidence of seizures. The patient is seen again today 04/26/2017 in follow-up in the intensive care unit. He remains intubated and on the mechanical ventilator. Current settings are assist-control mode of 30, tidal volume 450, FiO2 60% and a PEEP of 5. Morning blood gases reveal a pO2 of 71, pCO2 37 and a pH of 7.42. He continues to have a 0.9 normal saline at 30 mL per hour, norepinephrine at 2 mcg/m, propofol at 15 mcg/kg/m, heparin at 8.7 units, insulin drip at 2.5 units per hour. He is being nourished with Vital HP at 40 mL's per hour which is goal. He has had ongoing issues with atrial fibrillation with rapid ventricular response and increasing PVCs and labile blood pressures. His chest x-ray does reveal improved aeration in the left lung base. On 04/28/2017 the patient is being seen in follow-up. The patient will be undertaken a tracheostomy tube insertion and a PEG tube insertion by Dr. Cooper today. This decision has already been made by Dr. Mcmillan due to failure to wean. The patient apparently was not waking up appropriately while off sedation and he was not following any commands and he was thought not to be able to protect his airway postextubation. Based on that decision was to give this patient a tracheostomy tube. Meanwhile, the patient remains on assist control mode of ventilation at the rate of 30, tidal volume 450, FiO2 of 50% and a PEEP of 10 in the morning blood gases showed a pH of 7.45 with a pCO2 of 36 and pO2 of 62. His chest x-ray is not showing any again thickened changes compared to yesterday. ET tube is in a good location this morning. Atelectatic changes can be seen in lung bases bilaterally. CAT scan of the brain that showed atrophy without any acute abnormalities. EEG of the brain had shown severe slowing consistent with diffuse encephalopathy, likely metabolic and there is no evidence of any seizure activity. The patient was tolerating his tube feeds and currently is nothing by mouth in preparation for his PEG and trach. Hemodynamically, he has a labile blood pressure, and his blood pressure typically goes up once is off sedation. Nevertheless he has not required any pressors. His echocardiogram shows an ejection fraction of 55-60% . He is in atrial fibrillation and he is on a IV heparin drip for anticoagulation. He is also on a amiodarone for rate control. On 04/29/2017, the patient is being seen in follow-up. The patient underwent a tracheostomy tube insertion and a PEG tube insertion yesterday and today he is postop day #1. Earlier this morning, we started the weaning process and the patient is currently off Diprivan. His mentation is gradually improving. I was able to make this patient follows some simple commands. He was able to squeeze my fingers using his hand and he was able to wiggle his toes in both feet upon demand. He remains on mechanical ventilator. Chest x-ray from today shows smaller lung volumes with small bilateral pleural effusions and the tracheostomy tube is in a good location. No evidence of any pneumothorax. The patient is an assist-control mode at the rate of 30, tidal volume of 450, FiO2 of 50% and a PEEP of 10. The blood gases from this morning showed a pH of 7.47 with a pCO2 of 33 and pO2 of 96. Based on this, I cut down his respiratory rate to 20, increased tidal volume to 500, kept on the flow down to 60, down the PEEP down to 8 and The FiO2 at 50%. His most recent pulse ox is still 96-97 %. He is having no significant orotracheal secretions. He is on IV Zosyn as an empiric antibiotic coverage. Renal function is stable. The patient has a fecal management system as the patient is being given lactulose for possible suspected hepatic encephalopathy. His bowel movements are liquidy and he is producing approximately 100 mL over the past 6-8 hours. He is taking lactulose 30 g twice a day. He remains in atrial fibrillation. He remains on IV heparin. Remains on IV amiodarone. He is also on Lopressor 25 mg by mouth twice a day for rate control. He is on insulin drip for blood sugar control. She'll feeds will be restarted this morning. On 04/30/2017 the patient remains off sedation. He seems to be more alert compared to yesterday and he is following commands and answering simple questions. He is able to also raise his arms against gravity. He was assist- control mode of ventilation with a tidal volume 500, rate of 20, FiO2 of 50% and a PEEP of 5. Blood gases this morning showed a pH of 7.43 with a pCO2 of 38 and pO2 of 149. Chest x-ray findings were stable. Based on that the patient was given a trial of pressure support mode of ventilation with a pressure support of 7 and a PEEP of 5 and FiO2 of 50%. He tolerated the setting well and is still on pressure support at this point without any signs of respiratory distress. He is being also diuresis with IV Lasix 20 mg IV push every 12 hours. He is producing adequate amount of urine output and he is in a negative fluid balance. His blood pressure is fluctuating at there is no prolonged hypotension and his renal function is stable with electrolytes all being within normal limits. The patient is on insulin drip for blood sugar control. The patient on heparin drip regarding his chronic atrial fibrillation. His rate is controlled for now. He is on tube feeds that was started yesterday and said goal at this point in time. The diarrhea is also subsided and the FMS system is still in place for the time being. He is afebrile. No other significant events over the past 24 hours. I would say his condition is gradually improving. Objective - Vital Signs Vital signs: Vital Signs Temp 99.1 F 04/30/17 06:00 Pulse 87 04/30/17 09:00 Resp 20 04/30/17 09:00 BP 52/39 04/28/17 15:30 Pulse Ox 98 04/30/17 09:00 Intake & Output 04/29/17 04/30/17 04/30/17 18:59 06:59 18:59 Intake Total 8916.072 1586.338 259 Output Total 2100 2625 450 Balance -792.157 -643.662 -191 Weight 153 kg 150 kg 150 kg Intake: IV 281 483 99 [place] 21 33 9 Magnesium Sulfate-D5w Pmx 200 1 gm In Dextrose/Water 1 100ml.bag @ 100 mls/hr IVPB Q1H DI Rx#: [id number] Piperacillin-Tazobactam 3 100 50 50 .375 gm In Dextrose/Water 1 50ml.bag @ 12.5 mls/hr IVPB Q8HR DI Rx#: [id number] Sodium Chloride 0.9% 1, 160 200 40 000 ml @ 20 mls/hr IV . Q24H DI Rx#:[id number] Intake, IV Titration 726.843 808.338 Amount Amiodarone 450 mg In 33.33 Dextrose 5% in Water 250 ml @ 1 MG/MIN 33.33 mls/ hr IV .Q7H31M DI Rx#: [id number] Amiodarone 450 mg In 185.537 Dextrose 5% in Water 250 ml @ 1 MG/MIN 33.33 mls/ hr IV .Q7H31M DI Rx#: [id number] Heparin Sodium,Porcine/ 270.974 724.908 D5w Pmx 25,000 unit In Dextrose/Water 1 500ml. bag @ 8.7 UNITS/KG/HR 25. 83 mls/hr IV .[id number] DI Rx#:[id number] Insulin Regular 100 unit 8.626 83.430 In Sodium Chloride 0.9% 100 ml @ Per Protocol IV .Q0M DI Rx#:[id number] Magnesium Sulfate-D5w Pmx 200 1 gm In Dextrose/Water 1 100ml.bag @ 100 mls/hr IVPB Q1H DI Rx#: [id number] Norepinephrin 16 mg-0.9% 5.954 0 Ns Pmx 16 mg In 250 ml @ Titrate IV .Q0M DI Rx#: [id number] Propofol 500 mg In Empty 22.422 0 Bag 1 bag @ Titrate IV . Q0M DI Rx#:[id number] Oral 180 Tube Feeding 120 560 160 Other 130 Output: Urine 1850 2625 450 Stool 250 Other: Voiding Method Indwelling Catheter Indwelling Catheter Indwelling Catheter ABP, PAP, CO, CI - Last Documented Arterial Blood Pressure 90/46 - Exam Obese, comfortable likely distress arouse and from his sedation as the patient was taken off the Diprivan this morning.Head exam was generally normal. There was no scleral icterus or corneal arcus. Mucous membranes were moist. Neck is supple and the patient is a tracheostomy tube in place and the patient has a [place] tracheostomy tube #8. Lung sounds are diminished bilaterally otherwise there is no wheeze or rhonchi or any crackles. Heart sounds are irregular, distant, positive S1-S2, no significant murmurs appreciated. Abdomen is obese soft nontender. Organs cannot be accurately palpated due to his obesity. Bowel sounds are hypoactive. There is no direct tenderness. No rebound tenderness. No guarding. Active site is clean. Extremities show +1 pitting edema both in upper and lower extremity. The patient is a PICC line in left upper extremity. The patient has a Artline is a right upper extremity. No open wounds. No cyanosis or clubbing at this point. Neurologically, he is still sedated however his arousing. He is following some simple commands at this point. - Labs CBC & Chem 7: 04/30/17 04:15 04/30/17 04:15 Labs: Abnormal Lab Results - Last 24 Hours (Table) 04/29/17 04/29/17 04/29/17 Range/Units 10:03 12:06 14:05 RBC (4.30-5.90) m/uL Hgb (13.0-17.5) gm/dL Hct (39.0-53.0) % MCV (80.0-100.0) fL MCH (25.0-35.0) pg Plt Count (150-450) k/uL Lymphocytes # (1.0-4.8) k/uL APTT (22.0-30.0) sec ABG pO2 (83-108) mmHg ABG Total CO2 (19-24) mmol/L ABG O2 Saturation (94-97) % BUN (9-20) mg/dL Glucose (74-99) mg/dL POC Glucose (mg/dL) 115 H 117 H 135 H (75-99) mg/dL Calcium (8.4-10.2) mg/dL Total Protein (6.3-8.2) g/dL Albumin (3.5-5.0) g/dL 04/29/17 04/29/17 04/29/17 Range/Units 16:29 21:11 21:30 RBC (4.30-5.90) m/uL Hgb (13.0-17.5) gm/dL Hct (39.0-53.0) % MCV (80.0-100.0) fL MCH (25.0-35.0) pg Plt Count (150-450) k/uL Lymphocytes # (1.0-4.8) k/uL APTT (22.0-30.0) sec ABG pO2 (83-108) mmHg ABG Total CO2 (19-24) mmol/L ABG O2 Saturation (94-97) % BUN (9-20) mg/dL Glucose 152 H (74-99) mg/dL POC Glucose (mg/dL) 127 H 132 H (75-99) mg/dL Calcium 8.1 L (8.4-10.2) mg/dL Total Protein (6.3-8.2) g/dL Albumin (3.5-5.0) g/dL 04/29/17 04/29/17 04/30/17 Range/Units 22:10 23:07 00:20 RBC (4.30-5.90) m/uL Hgb (13.0-17.5) gm/dL Hct (39.0-53.0) % MCV (80.0-100.0) fL MCH (25.0-35.0) pg Plt Count (150-450) k/uL Lymphocytes # (1.0-4.8) k/uL APTT (22.0-30.0) sec ABG pO2 (83-108) mmHg ABG Total CO2 (19-24) mmol/L ABG O2 Saturation (94-97) % BUN (9-20) mg/dL Glucose (74-99) mg/dL POC Glucose (mg/dL) 126 H 118 H 148 H (75-99) mg/dL Calcium (8.4-10.2) mg/dL Total Protein (6.3-8.2) g/dL Albumin (3.5-5.0) g/dL 04/30/17 04/30/17 04/30/17 Range/Units 01:36 02:19 04:07 RBC (4.30-5.90) m/uL Hgb (13.0-17.5) gm/dL Hct (39.0-53.0) % MCV (80.0-100.0) fL MCH (25.0-35.0) pg Plt Count (150-450) k/uL Lymphocytes # (1.0-4.8) k/uL APTT 47.8 H (22.0-30.0) sec ABG pO2 (83-108) mmHg ABG Total CO2 (19-24) mmol/L ABG O2 Saturation (94-97) % BUN (9-20) mg/dL Glucose (74-99) mg/dL POC Glucose (mg/dL) 123 H 138 H (75-99) mg/dL Calcium (8.4-10.2) mg/dL Total Protein (6.3-8.2) g/dL Albumin (3.5-5.0) g/dL 04/30/17 04/30/17 04/30/17 Range/Units 04:15 04:15 04:15 RBC 3.01 L (4.30-5.90) m/uL Hgb 10.6 L (13.0-17.5) gm/dL Hct 32.0 L (39.0-53.0) % MCV 106.2 H (80.0-100.0) fL MCH 35.1 H (25.0-35.0) pg Plt Count 100 L (150-450) k/uL Lymphocytes # 0.9 L (1.0-4.8) k/uL APTT 44.7 H (22.0-30.0) sec ABG pO2 (83-108) mmHg ABG Total CO2 (19-24) mmol/L ABG O2 Saturation (94-97) % BUN 21 H (9-20) mg/dL Glucose 143 H (74-99) mg/dL POC Glucose (mg/dL) (75-99) mg/dL Calcium 7.9 L (8.4-10.2) mg/dL Total Protein 5.7 L (6.3-8.2) g/dL Albumin 2.9 L (3.5-5.0) g/dL 04/30/17 04/30/17 04/30/17 Range/Units 05:01 06:02 08:40 RBC (4.30-5.90) m/uL Hgb (13.0-17.5) gm/dL Hct (39.0-53.0) % MCV (80.0-100.0) fL MCH (25.0-35.0) pg Plt Count (150-450) k/uL Lymphocytes # (1.0-4.8) k/uL APTT (22.0-30.0) sec ABG pO2 149 H (83-108) mmHg ABG Total CO2 26 H (19-24) mmol/L ABG O2 Saturation 99.4 H (94-97) % BUN (9-20) mg/dL Glucose (74-99) mg/dL POC Glucose (mg/dL) 141 H 154 H (75-99) mg/dL Calcium (8.4-10.2) mg/dL Total Protein (6.3-8.2) g/dL Albumin (3.5-5.0) g/dL Assessment and Plan Plan: Impression: #1 Acute hypoxic respiratory failure secondary to suspected diastolic congestive heart failure, with small bilateral pleural effusion and infiltrate with possible pneumonia. Sputum culture reveals no growth. On 04/28/2017, the patient remains on a mechanical ventilator. The plan is to proceed with a tracheostomy tube insertion and following that the patient will be gradually weaned off the sedation when his mental status will be assessed and hopefully will be able to gradually wean him off the mechanical ventilator. No vent changes will be done for today. The patient will have a blood gas after he denies back from the operating room. Chest x-ray be also repeated. Doubt any pneumonia at this point. On 04/29/2017 the patient remains on a mechanical ventilator. The necessary vent changes were done. The patient's oxygenation has improved. He also has a component of respiratory alkalosis. Based on that, the rest or rate was dropped down to 20, tidal volume was increased up to 500, his PEEP was dropped down to 8 and I'm in the process of weaning down the PEEP as long as his oxygenation remains stable with a saturation above 92%. Tracheostomy tube in place. No new finding of the chest x-ray and the patient is smaller lung volumes with small better pleural effusions. On 04/30/2017 the patient remains on a mechanical ventilator. His oxidation is improved and the patient is currently on a pressure support mode of ventilation with a pressure support of 7 and a PEEP of 5 with adequate blood gases and a chest x-ray. No signs of any respiratory distress for now. #2 Non-anion gap metabolic acidosis secondary to acute renal failure, recovered #3 Altered mental status of unclear etiology. 3 CT scans of the brain revealed no acute intracranial abnormality. EEG does reveal severe slowing consistent with diffuse encephalopathy. On today's evaluation of 04/29/2017, the patient is off Diprivan and the patient is gradually recovering his alertness and consciousness. He was able to follow some simple commands. On today's evaluation of 04/30/2017 the patient remains off sedation and the patient's encephalopathy is gradually improving. #4 History of atrial fibrillation. The patient is currently on amiodarone and metoprolol for rate control and IV heparin. #5 Chronic obstructive pulmonary disease. #6 Chronic and ongoing tobacco dependence. #7 Diabetes mellitus. #8 Hyperlipidemia. #9 Hypertension. #10 Hepatitis C. #11 Previous history of substance abuse including cocaine, heroin and methamphetamine. #12 Acute renal failure requiring urgent hemodialysis, the acute kidney injury is recovering #13 Profound hyperkalemia, corrected. Plan Keep the patient on a pressure support mode of ventilation with a pressure support of 7 and a PEEP of 5 and FiO2 of 40-50%. He can be alternated with an assist-control mode on and off based on his level of comfort. Meanwhile we will keep him off sedation. The monitor his mental status. Ask physical therapy to do passive range of motion. I'm going to stop the IV heparin and put the patient on Xarelto 20 mg by mouth on a daily basis. Continue the tube feeds. Continue insulin drip. Continued IV Lasix. The patient on oral amiodarone and oral metoprolol. Restart his Xalatan eyedrops. We'll continue to follow. Condition remains critical. The patient will be kept in the intensive care units for now until further progress. Critically care evaluation more than 30 minutes. Time with Patient: Greater than 30
[2017-04-30 10:19] LABS: Glucose,Whole Blood 168 mg/dL (75-99)
[2017-04-30 11:57] LABS: Glucose,Whole Blood 148 mg/dL (75-99)
[2017-04-30 14:07] LABS: Glucose,Whole Blood 142 mg/dL (75-99)
[2017-04-30] MEDS: SODIUM CHLORIDE 0.9% 1,000 ML IV SCH (15:41)
[2017-04-30 15:51] LABS: Glucose,Whole Blood 160 mg/dL (75-99)
[2017-04-30] MEDS ORDERED: RIVAROXABAN 10 MG TAB PO SCH (17:30)
[2017-04-30 17:54] LABS: Glucose,Whole Blood 126 mg/dL (75-99)
[2017-04-30 19:01] LABS: Glucose,Whole Blood 151 mg/dL (75-99)
[2017-04-30] MEDS: INSULIN REGULAR 100 UNIT in SODIUM CHLORIDE 0.9% 100 ML IV SCH (19:21)
[2017-04-30] MEDS: LATANOPROST 0.005% OPHTH DROPS 2.5 ML BTL BOTH EYES SCH (20:33)
[2017-04-30 21:04] LABS: Glucose,Whole Blood 159 mg/dL (75-99)
--- NOTE | 2017-04-30 22:14 | P.PN ---
Subjective This patient is a 71-year-old male who is seen today in the intensive care unit for ongoing neurological follow-up. Patient underwent tracheostomy and PEG tube placement yesterday and is postoperative day one today. He has been off of Diprivan since 7 AM this morning. He is opening his eyes but is not following commands. He continues to have generalized weakness in both upper and lower extremities. His chest x-ray reveals bilateral effusions. He continues on antibiotic coverage and is currently on Zosyn. He did have a PEG tube placed and his tube feedings have been initiated yesterday. Seems to be tolerating this feeds well with no residuals. Patient is being treated for acute kidney injury. Nephrology is following the patient closely. Since stopping the Diprivan the patient does seem to open his eyes but still not able to follow commands. Today's date to off of the Diprivan drip. He does seem to be more awake today in the ICU. He is opening his eyes and is able to squeeze both hands on command. He continues to have evidence of significant generalized weakness. 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 He is moving both hands but still has significant generalized muscle weakness. We have recommended a repeat computed tomography scan of the brain to be done tomorrow for further assessment. He has undergone multiple CT scans of the brain all of which have been negative for any evidence of acute stroke. The patient has been taken off of IV heparin and is to be started on Eliquis for long-term anticoagulation. Patient is being considered for transfer to [facility] for further subacute care. We will check his computed tomography scan of the brain tomorrow to rule out any possibility of new change or signs of hemorrhage. He does not complain of any headache but continues to have generalized weakness. His overall prognosis at this time remains very guarded. We will continue close neurological follow-up of this patient in the intensive care unit. Objective - Vital Signs Vital signs: Vital Signs Temp 98.6 F 04/30/17 12:00 Pulse 104 H 04/30/17 20:00 Resp 23 04/30/17 20:00 BP 52/39 04/28/17 15:30 Pulse Ox 97 04/30/17 20:00 Intake & Output 04/30/17 04/30/17 05/01/17 06:59 18:59 06:59 Intake Total 1981.338 976.424 86 Output Total 2625 3475 475 Balance -643.662 -2498.576 -389 Weight 150 kg 150 kg Intake: IV 483 273 46 [place] 33 33 6 Magnesium Sulfate-D5w Pmx 200 1 gm In Dextrose/Water 1 100ml.bag @ 100 mls/hr IVPB Q1H DI Rx#: [id number] Piperacillin-Tazobactam 3 50 50 .375 gm In Dextrose/Water 1 50ml.bag @ 12.5 mls/hr IVPB Q8HR DI Rx#: [id number] Sodium Chloride 0.9% 1, 200 190 40 000 ml @ 20 mls/hr IV . Q24H DI Rx#:[id number] Intake, IV Titration 808.338 263.424 Amount Heparin Sodium,Porcine/ 724.908 258.318 D5w Pmx 25,000 unit In Dextrose/Water 1 500ml. bag @ 8.7 UNITS/KG/HR 25. 83 mls/hr IV .[id number] DI Rx#:[id number] Insulin Regular 100 unit 83.430 5.106 In Sodium Chloride 0.9% 100 ml @ Per Protocol IV .Q0M DI Rx#:[id number] Norepinephrin 16 mg-0.9% 0 Ns Pmx 16 mg In 250 ml @ Titrate IV .Q0M DI Rx#: [id number] Propofol 500 mg In Empty 0 Bag 1 bag @ Titrate IV . Q0M DI Rx#:[id number] Tube Feeding 560 440 40 Other 130 Output: Urine 2625 2725 225 Stool 750 250 Other: Voiding Method Indwelling Catheter Indwelling Catheter Indwelling Catheter ABP, PAP, CO, CI - Last Documented Arterial Blood Pressure 86/42 - Exam Physical examination: PHYSICAL EXAMINATION: Patient has tracheostomy tube and is maintained on ventilator. He is opening his eyes but does not follow commands. He is off of all sedation at this time. VITAL SIGNS: Blood pressure is [104/55]. Heart rate is [100]. Respiration is [25 ]. Temperature is [98.7]. HEENT: Head is atraumatic, neck is supple, there were no carotid bruits. CHEST: Lungs are clear to auscultation and percussion. CARDIAC: S1, S2 normal rate and rhythm. There is no murmur. ABDOMEN: Soft and nontender. Bowel sounds are present. EXTREMITIES: There is no pedal edema. Peripheral pulses are present. Neurological examination: Patient is seen in the intensive care unit. He has a tracheostomy and PEG tube placement. He is off of all sedation today. He is opening his eyes but is not following commands. Patient has decreased tone in both upper and lower extremities. Deep tendon reflexes are 1+ and symmetric. Plantar responses flexor bilaterally. - Labs CBC & Chem 7: 04/30/17 04:15 04/30/17 04:15 Labs: Abnormal Lab Results - Last 24 Hours (Table) 04/29/17 04/29/17 04/29/17 Range/Units 21:11 21:30 22:10 RBC (4.30-5.90) m/uL Hgb (13.0-17.5) gm/dL Hct (39.0-53.0) % MCV (80.0-100.0) fL MCH (25.0-35.0) pg Plt Count (150-450) k/uL Lymphocytes # (1.0-4.8) k/uL APTT (22.0-30.0) sec ABG pO2 (83-108) mmHg ABG Total CO2 (19-24) mmol/L ABG O2 Saturation (94-97) % BUN (9-20) mg/dL Glucose 152 H (74-99) mg/dL POC Glucose (mg/dL) 132 H 126 H (75-99) mg/dL Calcium 8.1 L (8.4-10.2) mg/dL Total Protein (6.3-8.2) g/dL Albumin (3.5-5.0) g/dL 04/29/17 04/30/17 04/30/17 Range/Units 23:07 00:20 01:36 RBC (4.30-5.90) m/uL Hgb (13.0-17.5) gm/dL Hct (39.0-53.0) % MCV (80.0-100.0) fL MCH (25.0-35.0) pg Plt Count (150-450) k/uL Lymphocytes # (1.0-4.8) k/uL APTT 47.8 H (22.0-30.0) sec ABG pO2 (83-108) mmHg ABG Total CO2 (19-24) mmol/L ABG O2 Saturation (94-97) % BUN (9-20) mg/dL Glucose (74-99) mg/dL POC Glucose (mg/dL) 118 H 148 H (75-99) mg/dL Calcium (8.4-10.2) mg/dL Total Protein (6.3-8.2) g/dL Albumin (3.5-5.0) g/dL 04/30/17 04/30/17 04/30/17 Range/Units 02:19 04:07 04:15 RBC 3.01 L (4.30-5.90) m/uL Hgb 10.6 L (13.0-17.5) gm/dL Hct 32.0 L (39.0-53.0) % MCV 106.2 H (80.0-100.0) fL MCH 35.1 H (25.0-35.0) pg Plt Count 100 L (150-450) k/uL Lymphocytes # 0.9 L (1.0-4.8) k/uL APTT (22.0-30.0) sec ABG pO2 (83-108) mmHg ABG Total CO2 (19-24) mmol/L ABG O2 Saturation (94-97) % BUN (9-20) mg/dL Glucose (74-99) mg/dL POC Glucose (mg/dL) 123 H 138 H (75-99) mg/dL Calcium (8.4-10.2) mg/dL Total Protein (6.3-8.2) g/dL Albumin (3.5-5.0) g/dL 04/30/17 04/30/17 04/30/17 Range/Units 04:15 04:15 05:01 RBC (4.30-5.90) m/uL Hgb (13.0-17.5) gm/dL Hct (39.0-53.0) % MCV (80.0-100.0) fL MCH (25.0-35.0) pg Plt Count (150-450) k/uL Lymphocytes # (1.0-4.8) k/uL APTT 44.7 H (22.0-30.0) sec ABG pO2 149 H (83-108) mmHg ABG Total CO2 26 H (19-24) mmol/L ABG O2 Saturation 99.4 H (94-97) % BUN 21 H (9-20) mg/dL Glucose 143 H (74-99) mg/dL POC Glucose (mg/dL) (75-99) mg/dL Calcium 7.9 L (8.4-10.2) mg/dL Total Protein 5.7 L (6.3-8.2) g/dL Albumin 2.9 L (3.5-5.0) g/dL 04/30/17 04/30/17 04/30/17 Range/Units 06:02 08:40 10:17 RBC (4.30-5.90) m/uL Hgb (13.0-17.5) gm/dL Hct (39.0-53.0) % MCV (80.0-100.0) fL MCH (25.0-35.0) pg Plt Count (150-450) k/uL Lymphocytes # (1.0-4.8) k/uL APTT (22.0-30.0) sec ABG pO2 (83-108) mmHg ABG Total CO2 (19-24) mmol/L ABG O2 Saturation (94-97) % BUN (9-20) mg/dL Glucose (74-99) mg/dL POC Glucose (mg/dL) 141 H 154 H 168 H (75-99) mg/dL Calcium (8.4-10.2) mg/dL Total Protein (6.3-8.2) g/dL Albumin (3.5-5.0) g/dL 04/30/17 04/30/17 04/30/17 Range/Units 11:56 12:00 14:05 RBC (4.30-5.90) m/uL Hgb (13.0-17.5) gm/dL Hct (39.0-53.0) % MCV (80.0-100.0) fL MCH (25.0-35.0) pg Plt Count (150-450) k/uL Lymphocytes # (1.0-4.8) k/uL APTT 43.1 H (22.0-30.0) sec ABG pO2 (83-108) mmHg ABG Total CO2 (19-24) mmol/L ABG O2 Saturation (94-97) % BUN (9-20) mg/dL Glucose (74-99) mg/dL POC Glucose (mg/dL) 148 H 142 H (75-99) mg/dL Calcium (8.4-10.2) mg/dL Total Protein (6.3-8.2) g/dL Albumin (3.5-5.0) g/dL 04/30/17 04/30/17 04/30/17 Range/Units 15:49 17:52 18:59 RBC (4.30-5.90) m/uL Hgb (13.0-17.5) gm/dL Hct (39.0-53.0) % MCV (80.0-100.0) fL MCH (25.0-35.0) pg Plt Count (150-450) k/uL Lymphocytes # (1.0-4.8) k/uL APTT (22.0-30.0) sec ABG pO2 (83-108) mmHg ABG Total CO2 (19-24) mmol/L ABG O2 Saturation (94-97) % BUN (9-20) mg/dL Glucose (74-99) mg/dL POC Glucose (mg/dL) 160 H 126 H 151 H (75-99) mg/dL Calcium (8.4-10.2) mg/dL Total Protein (6.3-8.2) g/dL Albumin (3.5-5.0) g/dL Assessment and Plan (1) Acute encephalopathy Status: Acute Code(s): G93.40 - ENCEPHALOPATHY, UNSPECIFIED (2) Acute renal failure Status: Acute Code(s): N17.9 - ACUTE KIDNEY FAILURE, UNSPECIFIED (3) Atrial fibrillation Status: Acute Code(s): I48.91 - UNSPECIFIED ATRIAL FIBRILLATION (4) Hepatic encephalopathy Status: Acute Code(s): K72.90 - HEPATIC FAILURE, UNSPECIFIED WITHOUT COMA Plan: This patient is a 71-year-old male who is seen today in the intensive care unit. He is undergone recent tracheostomy and PEG tube placement. He has been off of all IV sedation for the past 48 hours. He is showing some improvement in his alertness and is following some simple commands. He continues to have generalized weakness in all extremities. We have recommended a repeat computed tomography scan of the brain to be done tomorrow as a further follow-up. He has been taken off of IV heparin and is been placed on Eliquis. We will continue close neurological follow-up for this patient in the intensive care unit. He is being considered for transfer to [facility] for further subacute care and rehab. His overall prognosis at this time remains very guarded.
[2017-04-30 23:03] LABS: Glucose,Whole Blood 151 mg/dL (75-99)
[2017-05-01 00:03] LABS: Glucose,Whole Blood 168 mg/dL (75-99)
[2017-05-01 02:00] LABS: Glucose,Whole Blood 167 mg/dL (75-99)
[2017-05-01] MEDS: IPRATROPIUM-ALBUTEROL 3 ML NEB INHALATION SCH ×6 (03:09→23:27)
[2017-05-01 03:56] LABS: Glucose,Whole Blood 160 mg/dL (75-99)
[2017-05-01 04:05] LABS: Basophils % (A) 0 %; CH 34.7; CHCM 33.4; Eosinophils # (A) 0.2 k/uL (0-0.7); Eosinophils % (A) 2 %; HCT 31.5 % (39.0-53.0); HDW 2.37; HGB 10.3 gm/dL (13.0-17.5); Luc # (Auto) 0.21; Luc % (Auto) 2; Lymphocytes # (A) 0.7 k/uL (1.0-4.8); Lymphocytes % (A) 8 %; MCH 34.3 pg (25.0-35.0); MCHC 32.8 g/dL (31.0-37.0); MCV 104.4 fL (80.0-100.0); Macrocytosis Moderate; Mean Platelet Volume 9.2; Monocytes # (A) 0.6 k/uL (0-1.0); Monocytes % (A) 6 %; Neutrophils # (A) 7.1 k/uL (1.3-7.7); Neutrophils % (A) 82 %; RBC 3.01 m/uL (4.30-5.90); RDW 14.9 % (11.5-15.5); WBC 8.7 k/uL (3.8-10.6); WBC (Perox) 8.75
[2017-05-01 04:14] LABS: INR 1.1 (<1.1); Partial Thromboplastin Time 25.4 sec (22.0-30.0)
[2017-05-01 04:52] LABS: ALT 33 U/L (21-72); AST 24 U/L (17-59); Alkaline Phosphatase 68 U/L (38-126); Anion Gap 8 mmol/L; Blood Urea Nitrogen 22 mg/dL (9-20); Calcium 8.4 mg/dL (8.4-10.2); Carbon Dioxide 29 mmol/L (22-30); Chloride 102 mmol/L (98-107); Glucose 160 mg/dL (74-99); Magnesium 1.7 mg/dL (1.6-2.3); Non-African American GFR(MDRD) >60 (>60 ml/min/1.73 sqM); Phosphorous 2.4 mg/dL (2.5-4.5); Sodium 139 mmol/L (137-145); Total Bilirubin 0.7 mg/dL (0.2-1.3); Total Protein 5.4 g/dL (6.3-8.2)
[2017-05-01 05:08] LABS: ABG Base Excess 3.4 mmol/L; ABG HCO3 26 mmol/L (21-25); ABG PCO2 30 mmHg (35-45); ABG PH 7.55 (7.35-7.45); ABG PO2 93 mmHg (83-108); ABG TCO2 27 mmol/L (19-24)
[2017-05-01] MEDS ORDERED: Magnesium Replacement Protocol 1 EACH MISC MISCELLANE PRN (05:58)
[2017-05-01 06:02] LABS: Glucose,Whole Blood 151 mg/dL (75-99)
[2017-05-01] MEDS: MAGNESIUM SULFATE-D5W PMX 1 GM in DEXTROSE/WATER 1 100ML.BAG IVPB SCH ×2 (06:17→08:19)
[2017-05-01] MEDS: INSULIN REGULAR 100 UNIT in SODIUM CHLORIDE 0.9% 100 ML IV SCH (06:41)
[2017-05-01 07:59] LABS: Glucose,Whole Blood 165 mg/dL (75-99)
--- NOTE | 2017-05-01 08:02 | XR ---
EXAMINATION TYPE: XR chest 1V portable DATE OF EXAM: 05/01/2017 COMPARISON: 04/30/2017 INDICATION: Difficulty breathing TECHNIQUE: Single frontal view of the chest is obtained. FINDINGS: The heart size is mildly prominent. The pulmonary vasculature is normal. Minimal infiltrate is along the left diaphragm and left costophrenic angle. No significant change is evident. Tracheostomy tube is in the midline. IMPRESSION: 1. Mild left lower lobe infiltrate. Atelectasis and pneumonia could be considered. 2. Tracheostomy tube remains in position.
[2017-05-01] MEDS: LACTULOSE 20 GM/30 ML CUP PO SCH (08:29)
[2017-05-01] MEDS: APIXABAN 5 MG TAB PO SCH ×2 (08:29→20:27)
[2017-05-01] MEDS: METOPROLOL TARTRATE 25 MG TAB PO SCH ×2 (08:29→20:28)
[2017-05-01] MEDS: AMIODARONE 200 MG TAB PO SCH ×3 (08:29→20:28)
[2017-05-01] MEDS: FUROSEMIDE 10 MG/ML 2 ML VIAL IV SCH ×2 (08:29→20:28)
[2017-05-01] MEDS: CHLORHEXIDINE GLUCONATE 15 ML CUP MUCOUS MEM SCH ×2 (08:29→20:27)
[2017-05-01] MEDS: ASPIRIN 81 MG CHEW PO SCH (08:29)
[2017-05-01] MEDS: PANTOPRAZOLE 40 MG/10 ML VIAL IV SCH (08:30)
[2017-05-01] MEDS: PIPERACILLIN-TAZOBACTAM 3.375 GM in DEXTROSE/WATER 1 50ML.BAG IVPB SCH ×2 (09:20→16:56)
[2017-05-01 10:01] LABS: Glucose,Whole Blood 155 mg/dL (75-99)
--- NOTE | 2017-05-01 10:06 | P.PN ---
Subjective Date of service 04/30/2017 Felipe was seen and evaluated in the intensive care unit today. He was admitted on April 21, 2017 for acute renal failure and hyperkalemia. He was very lethargic and difficult to arouse. He received fluid hydration and pressors to his blood pressure. He was intubated and sedated. He is known history of insulin-dependent diabetes mellitus, history of alcoholism, atrial fibrillation, COPD and tobaccoism. Over the past 8 days, he has been on antibiotics of Zosyn, received emergent dialysis, his bicarbonate, a PEG tube, and a tracheostomy tube. His sedation has been weaned and pressors have been discontinued. He has been only on pressure support for the past 2 days. He remains on insulin drip for his diabetes. For his atrial fibrillation he remains on a heparin drip and IV amiodarone. Critical care/pulmonology please he is gradually improving. Objective - Vital Signs Vital signs: Vital Signs Temp 99.2 F 05/01/17 08:00 Pulse 131 H 05/01/17 09:00 Resp 32 H 05/01/17 09:00 BP 52/39 04/28/17 15:30 Pulse Ox 99 05/01/17 09:00 Intake & Output 04/30/17 05/01/17 05/01/17 18:59 06:59 18:59 Intake Total 025.560 9349.835 293.158 Output Total 3475 2440 225 Balance -2498.576 -1289.165 68.158 Weight 150 kg 145.9 kg Intake: IV 273 326.0 169 [place] 33 36 9 Magnesium Sulfate-D5w Pmx 100 1 gm In Dextrose/Water 1 100ml.bag @ 100 mls/hr IVPB Q1H DI Rx#: [id number] Piperacillin-Tazobactam 3 50 50.0 .375 gm In Dextrose/Water 1 50ml.bag @ 12.5 mls/hr IVPB Q8HR DI Rx#: [id number] Sodium Chloride 0.9% 1, 190 240 60 000 ml @ 20 mls/hr IV . Q24H DI Rx#:[id number] Intake, IV Titration 263.424 24.835 4.158 Amount Heparin Sodium,Porcine/ 258.318 D5w Pmx 25,000 unit In Dextrose/Water 1 500ml. bag @ 8.7 UNITS/KG/HR 25. 83 mls/hr IV .[id number] DI Rx#:[id number] Insulin Regular 100 unit 5.106 24.835 4.158 In Sodium Chloride 0.9% 100 ml @ Per Protocol IV .Q0M DI Rx#:[id number] Tube Feeding 440 400 120 Other 400 Output: Urine 2725 2190 225 Stool 750 250 Other: Voiding Method Indwelling Catheter Indwelling Catheter Indwelling Catheter ABP, PAP, CO, CI - Last Documented Arterial Blood Pressure 104/48 - Exam General: The patient is awake, but unable to speak to the trach tube and ventilatory support Neck: The neck is supple, there is no thyromegaly, lymphadenopathy, tenderness or JVD. Trach tube is clean dry and intact Cardiovascular: S1S2 is normal, There is a regular rate and rhythm. No murmur, rub or gallop is appreciated. Respiratory: Lungs are coarse to auscultation bilaterally, respirations are assisted mechanically Gastrointestinal: Soft, non-distended, non-tender abdomen without masses or organomegaly noted. There is no rebound or guarding present. Bowel sounds are unremarkable. PEG tube is in place. Clean dry and intact Musculoskeletal: Normal ROM, no tenderness, There is no pedal edema. There is no calf tenderness or swelling. No cords were appreciated. He is offloading with waffle boots and is on an air mattress. Neurological: Coordination appears grossly intact. He will follow simple commands this time. Skin: Skin is warm and dry and no rashes or lesions are noted. - Labs CBC & Chem 7: 05/01/17 03:50 05/01/17 03:50 Labs: Abnormal Lab Results - Last 24 Hours (Table) 04/30/17 04/30/17 04/30/17 Range/Units 10:17 11:56 12:00 RBC (4.30-5.90) m/uL Hgb (13.0-17.5) gm/dL Hct (39.0-53.0) % MCV (80.0-100.0) fL Plt Count (150-450) k/uL Lymphocytes # (1.0-4.8) k/uL APTT 43.1 H (22.0-30.0) sec ABG pH (7.35-7.45) ABG pCO2 (35-45) mmHg ABG HCO3 (21-25) mmol/L ABG Total CO2 (19-24) mmol/L ABG O2 Saturation (94-97) % BUN (9-20) mg/dL Glucose (74-99) mg/dL POC Glucose (mg/dL) 168 H 148 H (75-99) mg/dL Phosphorus (2.5-4.5) mg/dL Total Protein (6.3-8.2) g/dL Albumin (3.5-5.0) g/dL 04/30/17 04/30/17 04/30/17 Range/Units 14:05 15:49 17:52 RBC (4.30-5.90) m/uL Hgb (13.0-17.5) gm/dL Hct (39.0-53.0) % MCV (80.0-100.0) fL Plt Count (150-450) k/uL Lymphocytes # (1.0-4.8) k/uL APTT (22.0-30.0) sec ABG pH (7.35-7.45) ABG pCO2 (35-45) mmHg ABG HCO3 (21-25) mmol/L ABG Total CO2 (19-24) mmol/L ABG O2 Saturation (94-97) % BUN (9-20) mg/dL Glucose (74-99) mg/dL POC Glucose (mg/dL) 142 H 160 H 126 H (75-99) mg/dL Phosphorus (2.5-4.5) mg/dL Total Protein (6.3-8.2) g/dL Albumin (3.5-5.0) g/dL 04/30/17 04/30/17 04/30/17 Range/Units 18:59 21:03 23:01 RBC (4.30-5.90) m/uL Hgb (13.0-17.5) gm/dL Hct (39.0-53.0) % MCV (80.0-100.0) fL Plt Count (150-450) k/uL Lymphocytes # (1.0-4.8) k/uL APTT (22.0-30.0) sec ABG pH (7.35-7.45) ABG pCO2 (35-45) mmHg ABG HCO3 (21-25) mmol/L ABG Total CO2 (19-24) mmol/L ABG O2 Saturation (94-97) % BUN (9-20) mg/dL Glucose (74-99) mg/dL POC Glucose (mg/dL) 151 H 159 H 151 H (75-99) mg/dL Phosphorus (2.5-4.5) mg/dL Total Protein (6.3-8.2) g/dL Albumin (3.5-5.0) g/dL 05/01/17 05/01/17 05/01/17 Range/Units 00:02 01:58 03:50 RBC 3.01 L (4.30-5.90) m/uL Hgb 10.3 L (13.0-17.5) gm/dL Hct 31.5 L (39.0-53.0) % MCV 104.4 H (80.0-100.0) fL Plt Count 105 L (150-450) k/uL Lymphocytes # 0.7 L (1.0-4.8) k/uL APTT (22.0-30.0) sec ABG pH (7.35-7.45) ABG pCO2 (35-45) mmHg ABG HCO3 (21-25) mmol/L ABG Total CO2 (19-24) mmol/L ABG O2 Saturation (94-97) % BUN (9-20) mg/dL Glucose (74-99) mg/dL POC Glucose (mg/dL) 168 H 167 H (75-99) mg/dL Phosphorus (2.5-4.5) mg/dL Total Protein (6.3-8.2) g/dL Albumin (3.5-5.0) g/dL 05/01/17 05/01/17 05/01/17 Range/Units 03:50 03:53 04:52 RBC (4.30-5.90) m/uL Hgb (13.0-17.5) gm/dL Hct (39.0-53.0) % MCV (80.0-100.0) fL Plt Count (150-450) k/uL Lymphocytes # (1.0-4.8) k/uL APTT (22.0-30.0) sec ABG pH 7.55 H (7.35-7.45) ABG pCO2 30 L (35-45) mmHg ABG HCO3 26 H (21-25) mmol/L ABG Total CO2 27 H (19-24) mmol/L ABG O2 Saturation 98.0 H (94-97) % BUN 22 H (9-20) mg/dL Glucose 160 H (74-99) mg/dL POC Glucose (mg/dL) 160 H (75-99) mg/dL Phosphorus 2.4 L (2.5-4.5) mg/dL Total Protein 5.4 L (6.3-8.2) g/dL Albumin 2.8 L (3.5-5.0) g/dL 05/01/17 05/01/17 Range/Units 06:01 07:58 RBC (4.30-5.90) m/uL Hgb (13.0-17.5) gm/dL Hct (39.0-53.0) % MCV (80.0-100.0) fL Plt Count (150-450) k/uL Lymphocytes # (1.0-4.8) k/uL APTT (22.0-30.0) sec ABG pH (7.35-7.45) ABG pCO2 (35-45) mmHg ABG HCO3 (21-25) mmol/L ABG Total CO2 (19-24) mmol/L ABG O2 Saturation (94-97) % BUN (9-20) mg/dL Glucose (74-99) mg/dL POC Glucose (mg/dL) 151 H 165 H (75-99) mg/dL Phosphorus (2.5-4.5) mg/dL Total Protein (6.3-8.2) g/dL Albumin (3.5-5.0) g/dL Assessment and Plan Plan: Impression and plan Acute hypoxic respiratory failure on currently following with pulmonology/ critical care, he is on mechanical assist and has a trach tube. He has levo fed and propofol ordered as well Suspect pneumonia: He currently is on Zosyn and has been since 04/24/2017 Possible diastolic congestive heart failure: 2-D echo was reviewed, he remains on Toprol, Lasix, heparin, amiodarone Atrial fibrillation: As above Insulin-dependent diabetes mellitus: He remains on insulin drip Acute renal failure: Resolved, he is status post 1 emergent dialysis treatment, improving History of COPD: He has Portillo berumen ordered. Tobaccoism: We'll monitor Hypertension: Currently controlled Substance abuse history: He has been clean for some time, we'll discuss more after discharge. Multiple electrolyte abnormalities, corrected: He has received dialysis for the hyperkalemia, he has a magnesium ordered. We'll await further recommendations from consultants, I'll plan on him going to [facility] once he reaches a point to be discharged. Physical therapy is been seeing him. He'll continue to offload an air mattress with waffle boots. They're planning on switching him from heparin, to Xarelto. I'll reevaluate him in the next 24 hours Time with Patient: Greater than 30
--- NOTE | 2017-05-01 10:08 | P.PN ---
Franca Wang was seen and evaluated in the intensive care unit today. He was admitted on April 21, 2017 for acute renal failure and hyperkalemia. He was very lethargic and difficult to arouse. He received fluid hydration and pressors to his blood pressure. He was intubated and sedated. He is known history of insulin-dependent diabetes mellitus, history of alcoholism, atrial fibrillation, COPD and tobaccoism. Over the past 8 days, he has been on antibiotics of Zosyn, received emergent dialysis, his bicarbonate, a PEG tube, and a tracheostomy tube. His sedation has been weaned and pressors have been discontinued. He has been only on pressure support for the past 2 days. He remains on insulin drip for his diabetes. For his atrial fibrillation he remains on a heparin drip and IV amiodarone. He is now on oral Elequis, amiodarone, aspirin, metoprolol. His sedation is less. He is more awake and responsive. He looks uncomfortable and slightly anxious. most likely out of anxiety regarding trach Critical care/pulmonology please he is gradually improving. Objective - Vital Signs Vital signs: Vital Signs Temp 99.2 F 05/01/17 08:00 Pulse 131 H 05/01/17 09:00 Resp 32 H 05/01/17 09:00 BP 52/39 04/28/17 15:30 Pulse Ox 99 05/01/17 09:00 Intake & Output 04/30/17 05/01/17 05/01/17 18:59 06:59 18:59 Intake Total 953.701 8329.835 293.158 Output Total 3475 2440 225 Balance -2498.576 -1289.165 68.158 Weight 150 kg 145.9 kg 145.9 kg Intake: IV 273 326.0 169 Iram 33 36 9 Magnesium Sulfate-D5w Pmx 100 1 gm In Dextrose/Water 1 100ml.bag @ 100 mls/hr IVPB Q1H DI Rx#: [id number] Piperacillin-Tazobactam 3 50 50.0 .375 gm In Dextrose/Water 1 50ml.bag @ 12.5 mls/hr IVPB Q8HR DI Rx#: [id number] Sodium Chloride 0.9% 1, 190 240 60 000 ml @ 20 mls/hr IV . Q24H DI Rx#:[id number] Intake, IV Titration 263.424 24.835 4.158 Amount Heparin Sodium,Porcine/ 258.318 D5w Pmx 25,000 unit In Dextrose/Water 1 500ml. bag @ 8.7 UNITS/KG/HR 25. 83 mls/hr IV .[id number] DI Rx#:[id number] Insulin Regular 100 unit 5.106 24.835 4.158 In Sodium Chloride 0.9% 100 ml @ Per Protocol IV .Q0M DI Rx#:[id number] Tube Feeding 440 400 120 Other 400 Output: Urine 2725 2190 225 Stool 750 250 Other: Voiding Method Indwelling Catheter Indwelling Catheter Indwelling Catheter ABP, PAP, CO, CI - Last Documented Arterial Blood Pressure 104/48 - Exam General: The patient is awake, but unable to speak to the trach tube and ventilatory support Neck: The neck is supple, there is no thyromegaly, lymphadenopathy, tenderness or JVD. Trach tube is clean dry and intact Cardiovascular: S1S2 is normal, There is a regular rate and rhythm. No murmur, rub or gallop is appreciated. Respiratory: Lungs are coarse to auscultation bilaterally, respirations are assisted mechanically Gastrointestinal: Soft, non-distended, non-tender abdomen without masses or organomegaly noted. There is no rebound or guarding present. Bowel sounds are unremarkable. PEG tube is in place. Clean dry and intact Musculoskeletal: Normal ROM, no tenderness, There is no pedal edema. There is no calf tenderness or swelling. No cords were appreciated. He is offloading with waffle boots and is on an air mattress. Neurological: Coordination appears grossly intact. He will follow simple commands this time. Skin: Skin is warm and dry and no rashes or lesions are noted. - Labs CBC & Chem 7: 05/01/17 03:50 05/01/17 03:50 Labs: Abnormal Lab Results - Last 24 Hours (Table) 04/30/17 04/30/17 04/30/17 Range/Units 10:17 11:56 12:00 RBC (4.30-5.90) m/uL Hgb (13.0-17.5) gm/dL Hct (39.0-53.0) % MCV (80.0-100.0) fL Plt Count (150-450) k/uL Lymphocytes # (1.0-4.8) k/uL APTT 43.1 H (22.0-30.0) sec ABG pH (7.35-7.45) ABG pCO2 (35-45) mmHg ABG HCO3 (21-25) mmol/L ABG Total CO2 (19-24) mmol/L ABG O2 Saturation (94-97) % BUN (9-20) mg/dL Glucose (74-99) mg/dL POC Glucose (mg/dL) 168 H 148 H (75-99) mg/dL Phosphorus (2.5-4.5) mg/dL Total Protein (6.3-8.2) g/dL Albumin (3.5-5.0) g/dL 04/30/17 04/30/17 04/30/17 Range/Units 14:05 15:49 17:52 RBC (4.30-5.90) m/uL Hgb (13.0-17.5) gm/dL Hct (39.0-53.0) % MCV (80.0-100.0) fL Plt Count (150-450) k/uL Lymphocytes # (1.0-4.8) k/uL APTT (22.0-30.0) sec ABG pH (7.35-7.45) ABG pCO2 (35-45) mmHg ABG HCO3 (21-25) mmol/L ABG Total CO2 (19-24) mmol/L ABG O2 Saturation (94-97) % BUN (9-20) mg/dL Glucose (74-99) mg/dL POC Glucose (mg/dL) 142 H 160 H 126 H (75-99) mg/dL Phosphorus (2.5-4.5) mg/dL Total Protein (6.3-8.2) g/dL Albumin (3.5-5.0) g/dL 04/30/17 04/30/17 04/30/17 Range/Units 18:59 21:03 23:01 RBC (4.30-5.90) m/uL Hgb (13.0-17.5) gm/dL Hct (39.0-53.0) % MCV (80.0-100.0) fL Plt Count (150-450) k/uL Lymphocytes # (1.0-4.8) k/uL APTT (22.0-30.0) sec ABG pH (7.35-7.45) ABG pCO2 (35-45) mmHg ABG HCO3 (21-25) mmol/L ABG Total CO2 (19-24) mmol/L ABG O2 Saturation (94-97) % BUN (9-20) mg/dL Glucose (74-99) mg/dL POC Glucose (mg/dL) 151 H 159 H 151 H (75-99) mg/dL Phosphorus (2.5-4.5) mg/dL Total Protein (6.3-8.2) g/dL Albumin (3.5-5.0) g/dL 05/01/17 05/01/17 05/01/17 Range/Units 00:02 01:58 03:50 RBC 3.01 L (4.30-5.90) m/uL Hgb 10.3 L (13.0-17.5) gm/dL Hct 31.5 L (39.0-53.0) % MCV 104.4 H (80.0-100.0) fL Plt Count 105 L (150-450) k/uL Lymphocytes # 0.7 L (1.0-4.8) k/uL APTT (22.0-30.0) sec ABG pH (7.35-7.45) ABG pCO2 (35-45) mmHg ABG HCO3 (21-25) mmol/L ABG Total CO2 (19-24) mmol/L ABG O2 Saturation (94-97) % BUN (9-20) mg/dL Glucose (74-99) mg/dL POC Glucose (mg/dL) 168 H 167 H (75-99) mg/dL Phosphorus (2.5-4.5) mg/dL Total Protein (6.3-8.2) g/dL Albumin (3.5-5.0) g/dL 05/01/17 05/01/17 05/01/17 Range/Units 03:50 03:53 04:52 RBC (4.30-5.90) m/uL Hgb (13.0-17.5) gm/dL Hct (39.0-53.0) % MCV (80.0-100.0) fL Plt Count (150-450) k/uL Lymphocytes # (1.0-4.8) k/uL APTT (22.0-30.0) sec ABG pH 7.55 H (7.35-7.45) ABG pCO2 30 L (35-45) mmHg ABG HCO3 26 H (21-25) mmol/L ABG Total CO2 27 H (19-24) mmol/L ABG O2 Saturation 98.0 H (94-97) % BUN 22 H (9-20) mg/dL Glucose 160 H (74-99) mg/dL POC Glucose (mg/dL) 160 H (75-99) mg/dL Phosphorus 2.4 L (2.5-4.5) mg/dL Total Protein 5.4 L (6.3-8.2) g/dL Albumin 2.8 L (3.5-5.0) g/dL 05/01/17 05/01/17 05/01/17 Range/Units 06:01 07:58 09:58 RBC (4.30-5.90) m/uL Hgb (13.0-17.5) gm/dL Hct (39.0-53.0) % MCV (80.0-100.0) fL Plt Count (150-450) k/uL Lymphocytes # (1.0-4.8) k/uL APTT (22.0-30.0) sec ABG pH (7.35-7.45) ABG pCO2 (35-45) mmHg ABG HCO3 (21-25) mmol/L ABG Total CO2 (19-24) mmol/L ABG O2 Saturation (94-97) % BUN (9-20) mg/dL Glucose (74-99) mg/dL POC Glucose (mg/dL) 151 H 165 H 155 H (75-99) mg/dL Phosphorus (2.5-4.5) mg/dL Total Protein (6.3-8.2) g/dL Albumin (3.5-5.0) g/dL Assessment and Plan Plan: Impression and plan Acute hypoxic respiratory failure on currently following with pulmonology/ critical care, he is on mechanical assist and has a trach tube. He has levophed and propofol ordered as well Suspect pneumonia: He currently is on Zosyn and has been since 04/24/2017 Possible diastolic congestive heart failure: 2-D echo was reviewed, he remains on Toprol, Lasix, Elequis, amiodarone Atrial fibrillation: As above Insulin-dependent diabetes mellitus: He remains on insulin drip Acute renal failure: Resolved, he is status post 1 emergent dialysis treatment, improving History of COPD: He has DuoNeb updrafts ordered. Tobaccoism: We'll monitor Hypertension: Currently controlled Substance abuse history: He has been clean for some time, we'll discuss more after discharge. Multiple electrolyte abnormalities, corrected: He has received dialysis for the hyperkalemia, he has a magnesium ordered. We'll await further recommendations from consultants, I'll plan on him going to [facility] once he reaches a point to be discharged. Physical therapy is been seeing him. He'll continue to offload an air mattress with waffle boots. They're planning on switching him from heparin, to Xarelto. I'll reevaluate him in the next 24 hours
--- NOTE | 2017-05-01 11:14 | P.PN ---
Subjective This is a 71-year-old gentleman who follows with Dr. Fuentes as his primary care physician. He has a history of hyperlipidemia, chronic obstructive pulmonary disease with chronic and ongoing tobacco dependence, diabetes mellitus , hypertension, atrial fibrillation, chronic liver disease. He presented here on 04/21/2017 with altered mental status. The patient developed acute respiratory failure and required intubation mechanical ventilatory support. He is seen again today in follow-up in the intensive care unit. He remains on the ventilator assist control 30 tidal volume 450 FiO2 60% and a PEEP of 5. Morning blood gases reveal a pO2 of 66, pCO2 34, pH 7.4. He is atrial fibrillation with a rapid ventricular response. He remains on a Cardizem drip at 7.5 mg per hour, norepinephrine at 1 mcg/m. Propofol at 70 mcg/kg/m. 0.9 normal saline at 100 mL per hour. Insulin drip at 8 units per hour. He is receiving a trickle tube feed of Vital HP at 10 mL per hour with a goal of 44. His chest x-ray reveals bilateral effusions with atelectasis/infiltrates the lung bases. He remains on Zosyn. He did receive 1 emergent dialysis treatment for his acute renal failure and hyperkalemia. Today's labs reveal creatinine 2.30 and a potassium of 4.4. Bicarb 19. He is receiving sodium bicarbonate 650 mg by mouth twice a day. He is currently receiving a daily interruption of sedation. We are also going to check a random cortisol level. Blood cultures reveal no growth to date. Urine culture pending. The patient is seen again today 04/24/2017 in follow-up in the intensive care unit. He remains to be elevated on mechanical ventilator current settings assist control 30, tidal volume 450, FiO2 60% and a PEEP of 5. Morning blood gases reveal a P O2 of 66, pCO2 of 30 and a pH of 7.45. He does remain sedated on to propofol 50 mcg/kg/m. He has a 0.9 normal saline at 100 MLS per hour. His Cardizem is currently on hold his atrial fibrillation is better controlled he has some episodes of bradycardia. Levophed has been weaned off. He remains on heparin drip and insulin drip at 9.5 units per hour. He is being fed via tube feedings Vital HP at 40 with a goal of 44 MLS per hour. He again was given a daily interruption of sedation. He is opening his eyes but not following any commands. He had significant coughing and significant secretions with tachycardia and tachypnea. Follow-up computed tomography scan revealed no acute intracranial process. His chest x-ray continues to show evidence of a left pleural effusion otherwise stable. He has been quite slow to progress. The patient is seen again today 04/25/2017 in follow-up in the intensive care unit. He remains intubated and on the mechanical ventilator currently at assist -control mode of 30, tidal volume 450, FiO2 60% and a PEEP of 5. Current arterial blood gases reveal a pO2 of 71, pCO2 34 and a pH of7.45. A mild respiratory alkalosis. He was given a sedation holiday. He does open his eyes spontaneously but does not follow any commands. No plans for weaning trials as he is still requiring high FiO2 to maintain O2 saturations greater than 90%. He is also on a 0.9 normal saline at 60 miles per hour, heparin drip at 10.7 units per hour, propofol at 45 mcg/kg/m, insulin drip at 5.5 units per hour. He is being nourished with Vital HP at goal 40 miles per hour. He has been slow to progress. 3 CT scans of the brain have been negative for acute stroke or hemorrhage. An EEG did reveal severe slowing consistent with diffuse encephalopathy. No evidence of seizures. The patient is seen again today 04/26/2017 in follow-up in the intensive care unit. He remains intubated and on the mechanical ventilator. Current settings are assist-control mode of 30, tidal volume 450, FiO2 60% and a PEEP of 5. Morning blood gases reveal a pO2 of 71, pCO2 37 and a pH of 7.42. He continues to have a 0.9 normal saline at 30 mL per hour, norepinephrine at 2 mcg/m, propofol at 15 mcg/kg/m, heparin at 8.7 units, insulin drip at 2.5 units per hour. He is being nourished with Vital HP at 40 mL's per hour which is goal. He has had ongoing issues with atrial fibrillation with rapid ventricular response and increasing PVCs and labile blood pressures. His chest x-ray does reveal improved aeration in the left lung base. On 04/28/2017 the patient is being seen in follow-up. The patient will be undertaken a tracheostomy tube insertion and a PEG tube insertion by Dr. Cooper today. This decision has already been made by Dr. Mcmillan due to failure to wean. The patient apparently was not waking up appropriately while off sedation and he was not following any commands and he was thought not to be able to protect his airway postextubation. Based on that decision was to give this patient a tracheostomy tube. Meanwhile, the patient remains on assist control mode of ventilation at the rate of 30, tidal volume 450, FiO2 of 50% and a PEEP of 10 in the morning blood gases showed a pH of 7.45 with a pCO2 of 36 and pO2 of 62. His chest x-ray is not showing any again thickened changes compared to yesterday. ET tube is in a good location this morning. Atelectatic changes can be seen in lung bases bilaterally. CAT scan of the brain that showed atrophy without any acute abnormalities. EEG of the brain had shown severe slowing consistent with diffuse encephalopathy, likely metabolic and there is no evidence of any seizure activity. The patient was tolerating his tube feeds and currently is nothing by mouth in preparation for his PEG and trach. Hemodynamically, he has a labile blood pressure, and his blood pressure typically goes up once is off sedation. Nevertheless he has not required any pressors. His echocardiogram shows an ejection fraction of 55-60% . He is in atrial fibrillation and he is on a IV heparin drip for anticoagulation. He is also on a amiodarone for rate control. On 04/29/2017, the patient is being seen in follow-up. The patient underwent a tracheostomy tube insertion and a PEG tube insertion yesterday and today he is postop day #1. Earlier this morning, we started the weaning process and the patient is currently off Diprivan. His mentation is gradually improving. I was able to make this patient follows some simple commands. He was able to squeeze my fingers using his hand and he was able to wiggle his toes in both feet upon demand. He remains on mechanical ventilator. Chest x-ray from today shows smaller lung volumes with small bilateral pleural effusions and the tracheostomy tube is in a good location. No evidence of any pneumothorax. The patient is an assist-control mode at the rate of 30, tidal volume of 450, FiO2 of 50% and a PEEP of 10. The blood gases from this morning showed a pH of 7.47 with a pCO2 of 33 and pO2 of 96. Based on this, I cut down his respiratory rate to 20, increased tidal volume to 500, kept on the flow down to 60, down the PEEP down to 8 and The FiO2 at 50%. His most recent pulse ox is still 96-97 %. He is having no significant orotracheal secretions. He is on IV Zosyn as an empiric antibiotic coverage. Renal function is stable. The patient has a fecal management system as the patient is being given lactulose for possible suspected hepatic encephalopathy. His bowel movements are liquidy and he is producing approximately 100 mL over the past 6-8 hours. He is taking lactulose 30 g twice a day. He remains in atrial fibrillation. He remains on IV heparin. Remains on IV amiodarone. He is also on Lopressor 25 mg by mouth twice a day for rate control. He is on insulin drip for blood sugar control. She'll feeds will be restarted this morning. On 04/30/2017 the patient remains off sedation. He seems to be more alert compared to yesterday and he is following commands and answering simple questions. He is able to also raise his arms against gravity. He was assist- control mode of ventilation with a tidal volume 500, rate of 20, FiO2 of 50% and a PEEP of 5. Blood gases this morning showed a pH of 7.43 with a pCO2 of 38 and pO2 of 149. Chest x-ray findings were stable. Based on that the patient was given a trial of pressure support mode of ventilation with a pressure support of 7 and a PEEP of 5 and FiO2 of 50%. He tolerated the setting well and is still on pressure support at this point without any signs of respiratory distress. He is being also diuresis with IV Lasix 20 mg IV push every 12 hours. He is producing adequate amount of urine output and he is in a negative fluid balance. His blood pressure is fluctuating at there is no prolonged hypotension and his renal function is stable with electrolytes all being within normal limits. The patient is on insulin drip for blood sugar control. The patient on heparin drip regarding his chronic atrial fibrillation. His rate is controlled for now. He is on tube feeds that was started yesterday and said goal at this point in time. The diarrhea is also subsided and the FMS system is still in place for the time being. He is afebrile. No other significant events over the past 24 hours. I would say his condition is gradually improving. On 05/01/2017 the patient remains off sedation. He is slowly recovering. He is still weak over more interactive. His edema is improving as the patient is being diuresis with IV Lasix. He was able to tolerate a pressure support of 5 and PEEP of 5 for a total of 4-6 hours yesterday. Will do the same today. His chest x-ray shows improvement in the volume status. The blood gases from this morning shows a component of respiratory alkalosis. Meanwhile the patient remains hemodynamically stable. The patient is on tube feeds. The patient on insulin drip for blood sugar control. The patient is on Xarelto for long-term and to coagulation his late is controlled. He is afebrile. The diarrhea is subsiding. Physical therapy is on the case for passive range of motion. We'll try to set him on a sitting up position while in bed. He is able to follow commands. He remains profoundly weak still. He is barely able to raise his arms against gravity. A repeat CAT scan was requested by neurology. This was done this morning. Results of this pending for now. No indication of any stroke at this point. Objective - Vital Signs Vital signs: Vital Signs Temp 99.2 F 05/01/17 08:00 Pulse 131 H 05/01/17 09:00 Resp 32 H 05/01/17 09:00 BP 52/39 04/28/17 15:30 Pulse Ox 99 05/01/17 09:00 Intake & Output 04/30/17 05/01/17 05/01/17 18:59 06:59 18:59 Intake Total 172.258 5719.835 293.158 Output Total 3475 2440 225 Balance -2498.576 -1289.165 68.158 Weight 150 kg 145.9 kg 145.9 kg Intake: IV 273 326.0 169 [place] 33 36 9 Magnesium Sulfate-D5w Pmx 100 1 gm In Dextrose/Water 1 100ml.bag @ 100 mls/hr IVPB Q1H DI Rx#: [id number] Piperacillin-Tazobactam 3 50 50.0 .375 gm In Dextrose/Water 1 50ml.bag @ 12.5 mls/hr IVPB Q8HR DI Rx#: [id number] Sodium Chloride 0.9% 1, 190 240 60 000 ml @ 20 mls/hr IV . Q24H DI Rx#:[id number] Intake, IV Titration 263.424 24.835 4.158 Amount Heparin Sodium,Porcine/ 258.318 D5w Pmx 25,000 unit In Dextrose/Water 1 500ml. bag @ 8.7 UNITS/KG/HR 25. 83 mls/hr IV .[id number] DI Rx#:[id number] Insulin Regular 100 unit 5.106 24.835 4.158 In Sodium Chloride 0.9% 100 ml @ Per Protocol IV .Q0M DI Rx#:[id number] Tube Feeding 440 400 120 Other 400 Output: Urine 2725 2190 225 Stool 750 250 Other: Voiding Method Indwelling Catheter Indwelling Catheter Indwelling Catheter ABP, PAP, CO, CI - Last Documented Arterial Blood Pressure 104/48 - Labs CBC & Chem 7: 05/01/17 03:50 05/01/17 03:50 Labs: Abnormal Lab Results - Last 24 Hours (Table) 04/30/17 04/30/17 04/30/17 Range/Units 11:56 12:00 14:05 RBC (4.30-5.90) m/uL Hgb (13.0-17.5) gm/dL Hct (39.0-53.0) % MCV (80.0-100.0) fL Plt Count (150-450) k/uL Lymphocytes # (1.0-4.8) k/uL APTT 43.1 H (22.0-30.0) sec ABG pH (7.35-7.45) ABG pCO2 (35-45) mmHg ABG HCO3 (21-25) mmol/L ABG Total CO2 (19-24) mmol/L ABG O2 Saturation (94-97) % BUN (9-20) mg/dL Glucose (74-99) mg/dL POC Glucose (mg/dL) 148 H 142 H (75-99) mg/dL Phosphorus (2.5-4.5) mg/dL Total Protein (6.3-8.2) g/dL Albumin (3.5-5.0) g/dL 04/30/17 04/30/17 04/30/17 Range/Units 15:49 17:52 18:59 RBC (4.30-5.90) m/uL Hgb (13.0-17.5) gm/dL Hct (39.0-53.0) % MCV (80.0-100.0) fL Plt Count (150-450) k/uL Lymphocytes # (1.0-4.8) k/uL APTT (22.0-30.0) sec ABG pH (7.35-7.45) ABG pCO2 (35-45) mmHg ABG HCO3 (21-25) mmol/L ABG Total CO2 (19-24) mmol/L ABG O2 Saturation (94-97) % BUN (9-20) mg/dL Glucose (74-99) mg/dL POC Glucose (mg/dL) 160 H 126 H 151 H (75-99) mg/dL Phosphorus (2.5-4.5) mg/dL Total Protein (6.3-8.2) g/dL Albumin (3.5-5.0) g/dL 04/30/17 04/30/17 05/01/17 Range/Units 21:03 23:01 00:02 RBC (4.30-5.90) m/uL Hgb (13.0-17.5) gm/dL Hct (39.0-53.0) % MCV (80.0-100.0) fL Plt Count (150-450) k/uL Lymphocytes # (1.0-4.8) k/uL APTT (22.0-30.0) sec ABG pH (7.35-7.45) ABG pCO2 (35-45) mmHg ABG HCO3 (21-25) mmol/L ABG Total CO2 (19-24) mmol/L ABG O2 Saturation (94-97) % BUN (9-20) mg/dL Glucose (74-99) mg/dL POC Glucose (mg/dL) 159 H 151 H 168 H (75-99) mg/dL Phosphorus (2.5-4.5) mg/dL Total Protein (6.3-8.2) g/dL Albumin (3.5-5.0) g/dL 05/01/17 05/01/17 05/01/17 Range/Units 01:58 03:50 03:50 RBC 3.01 L (4.30-5.90) m/uL Hgb 10.3 L (13.0-17.5) gm/dL Hct 31.5 L (39.0-53.0) % MCV 104.4 H (80.0-100.0) fL Plt Count 105 L (150-450) k/uL Lymphocytes # 0.7 L (1.0-4.8) k/uL APTT (22.0-30.0) sec ABG pH (7.35-7.45) ABG pCO2 (35-45) mmHg ABG HCO3 (21-25) mmol/L ABG Total CO2 (19-24) mmol/L ABG O2 Saturation (94-97) % BUN 22 H (9-20) mg/dL Glucose 160 H (74-99) mg/dL POC Glucose (mg/dL) 167 H (75-99) mg/dL Phosphorus 2.4 L (2.5-4.5) mg/dL Total Protein 5.4 L (6.3-8.2) g/dL Albumin 2.8 L (3.5-5.0) g/dL 05/01/17 05/01/17 05/01/17 Range/Units 03:53 04:52 06:01 RBC (4.30-5.90) m/uL Hgb (13.0-17.5) gm/dL Hct (39.0-53.0) % MCV (80.0-100.0) fL Plt Count (150-450) k/uL Lymphocytes # (1.0-4.8) k/uL APTT (22.0-30.0) sec ABG pH 7.55 H (7.35-7.45) ABG pCO2 30 L (35-45) mmHg ABG HCO3 26 H (21-25) mmol/L ABG Total CO2 27 H (19-24) mmol/L ABG O2 Saturation 98.0 H (94-97) % BUN (9-20) mg/dL Glucose (74-99) mg/dL POC Glucose (mg/dL) 160 H 151 H (75-99) mg/dL Phosphorus (2.5-4.5) mg/dL Total Protein (6.3-8.2) g/dL Albumin (3.5-5.0) g/dL 05/01/17 05/01/17 Range/Units 07:58 09:58 RBC (4.30-5.90) m/uL Hgb (13.0-17.5) gm/dL Hct (39.0-53.0) % MCV (80.0-100.0) fL Plt Count (150-450) k/uL Lymphocytes # (1.0-4.8) k/uL APTT (22.0-30.0) sec ABG pH (7.35-7.45) ABG pCO2 (35-45) mmHg ABG HCO3 (21-25) mmol/L ABG Total CO2 (19-24) mmol/L ABG O2 Saturation (94-97) % BUN (9-20) mg/dL Glucose (74-99) mg/dL POC Glucose (mg/dL) 165 H 155 H (75-99) mg/dL Phosphorus (2.5-4.5) mg/dL Total Protein (6.3-8.2) g/dL Albumin (3.5-5.0) g/dL Assessment and Plan Plan: Impression: #1 Acute hypoxic respiratory failure secondary to suspected diastolic congestive heart failure, with small bilateral pleural effusion and infiltrate with possible pneumonia. Sputum culture reveals no growth. On 04/28/2017, the patient remains on a mechanical ventilator. The plan is to proceed with a tracheostomy tube insertion and following that the patient will be gradually weaned off the sedation when his mental status will be assessed and hopefully will be able to gradually wean him off the mechanical ventilator. No vent changes will be done for today. The patient will have a blood gas after he denies back from the operating room. Chest x-ray be also repeated. Doubt any pneumonia at this point. On 04/29/2017 the patient remains on a mechanical ventilator. The necessary vent changes were done. The patient's oxygenation has improved. He also has a component of respiratory alkalosis. Based on that, the rest or rate was dropped down to 20, tidal volume was increased up to 500, his PEEP was dropped down to 8 and I'm in the process of weaning down the PEEP as long as his oxygenation remains stable with a saturation above 92%. Tracheostomy tube in place. No new finding of the chest x-ray and the patient is smaller lung volumes with small better pleural effusions. On 04/30/2017 the patient remains on a mechanical ventilator. His oxidation is improved and the patient is currently on a pressure support mode of ventilation with a pressure support of 7 and a PEEP of 5 with adequate blood gases and a chest x-ray. No signs of any respiratory distress for now. On 05/01/2017 the patient remains on a mechanical ventilator. He is able to tolerate pressure support of 5 and a PEEP of 5 and it morning. His blood gas showed rest or alkalosis. X-ray showing improvement in the volume status. The patient is on diuretics for now. The patient is also on IV Zosyn. #2 Non-anion gap metabolic acidosis secondary to acute renal failure, recovered #3 Altered mental status of unclear etiology. 3 CT scans of the brain revealed no acute intracranial abnormality. EEG does reveal severe slowing consistent with diffuse encephalopathy. On today's evaluation of 04/29/2017, the patient is off Diprivan and the patient is gradually recovering his alertness and consciousness. He was able to follow some simple commands. On today's evaluation of 04/30/2017 the patient remains off sedation and the patient's encephalopathy is gradually improving. On today's evaluation of 05/01 2017, the patient had a follow-up CAT scan of the brain. No clinical indication for an underlying stroke. The patient is alert and awake he had he is slow in answering, but he can follow commands and move her extremities without any limitation. Cranial nerves are intact at this point. #4 History of atrial fibrillation. The patient is currently on amiodarone and metoprolol for rate control and on oral Elquis. #5 Chronic obstructive pulmonary disease. #6 Chronic and ongoing tobacco dependence. #7 Diabetes mellitus. #8 Hyperlipidemia. #9 Hypertension. #10 Hepatitis C. #11 Previous history of substance abuse including cocaine, heroin and methamphetamine. #12 Acute renal failure requiring urgent hemodialysis, the acute kidney injury is recovering #13 Profound hyperkalemia, corrected. Plan We'll continue the pressure support mode of ventilation as long as the patient is able to tolerate. Would suggest a pressure support of 5 and a PEEP of 5. Continued IV Lasix for another 24 hours and keeping in a negative fluid balance. Monitor electrolytes. Continue tube feeds. Continue insulin drip. Amiodarone and metoprolol for rate control and Eliquis for long-term anticoagulation. No active diarrhea. Continue IV Zosyn. Increase mobility if possible. Physical therapy. Passive range of motion. We'll check the follow- up CAT scan results. Is in the fourth CAT scan that the patient is having. Neurologist on the case. We'll continue to follow. Critical care evaluation. More than 30 minutes. Time with Patient: Greater than 30
--- NOTE | 2017-05-01 11:29 | CT ---
EXAMINATION TYPE: CT brain wo con DATE OF EXAM: 05/01/2017 COMPARISON: 04/26/2017 HISTORY: 71-year-old male follow-up after respiratory arrest and generalized weakness TECHNIQUE: Examination was done in axial plane without intravenous contrast. Coronal and sagittal r econstructions performed. CT DLP: 1186 mGycm Automated exposure control for dose reduction was used. FINDINGS: There is no evidence of acute intracranial hemorrhage, acute ischemic changes, mass, mass-effect, or extra-axial fluid collection. There is no effacement of cerebral sulci or basal subarachnoid cister ns. There is no hydrocephalus. There is no midline shift. Blake-white matter distinction is preserv ed. There is mild generalized supratentorial volume loss. Partial opacification of the right greater than left mastoid air cells opacification extending into t he right greater than left middle ear cavities. Old nasal bone fractures. Orbits and globes are intact and visualized paranasal sinuses show mucosal thickening within the sphenoid sinuses. IMPRESSION: 1. No acute intracranial abnormality seen. Mild generalized atrophy. 2. Bilateral trapped fluid versus otomastoiditis. Clinically correlate.
[2017-05-01 11:43] LABS: Glucose,Whole Blood 125 mg/dL (75-99)
[2017-05-01 13:53] LABS: Glucose,Whole Blood 144 mg/dL (75-99)
[2017-05-01 14:01] LABS: Glucose,Whole Blood 146 mg/dL (75-99)
[2017-05-01 16:24] LABS: Glucose,Whole Blood 172 mg/dL (75-99)
[2017-05-01] MEDS: SODIUM CHLORIDE 0.9% 1,000 ML IV SCH (16:56)
[2017-05-01 17:58] LABS: Glucose,Whole Blood 150 mg/dL (75-99)
[2017-05-01 20:27] LABS: Glucose,Whole Blood 163 mg/dL (75-99)
[2017-05-01] MEDS: LATANOPROST 0.005% OPHTH DROPS 2.5 ML BTL BOTH EYES SCH (20:28)
--- NOTE | 2017-05-01 20:44 | P.PN ---
Subjective This patient is a 71-year-old male who is seen today in the intensive care unit for ongoing neurological follow-up. Patient underwent tracheostomy and PEG tube placement yesterday and is postoperative day one today. He has been off of Diprivan since 7 AM this morning. He is opening his eyes but is not following commands. He continues to have generalized weakness in both upper and lower extremities. His chest x-ray reveals bilateral effusions. He continues on antibiotic coverage and is currently on Zosyn. He did have a PEG tube placed and his tube feedings have been initiated yesterday. Seems to be tolerating this feeds well with no residuals. Patient is being treated for acute kidney injury. Nephrology is following the patient closely. Since stopping the Diprivan the patient does seem to open his eyes but still not able to follow commands. Today's date to off of the Diprivan drip. He does seem to be more awake today in the ICU. He is opening his eyes and is able to squeeze both hands on command. He continues to have evidence of significant generalized weakness. 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 He is moving both hands but still has significant generalized muscle weakness. We have recommended a repeat computed tomography scan of the brain to be done tomorrow for further assessment. He has undergone multiple CT scans of the brain all of which have been negative for any evidence of acute stroke. The patient has been taken off of IV heparin and is to be started on Eliquis for long-term anticoagulation. Patient is being considered for transfer to [facility] for further subacute care. We will check his computed tomography scan of the brain today to rule out any possibility of new change or signs of hemorrhage. The results of the computed tomography scan of the brain done today fails to reveal any acute changes. There was mild atrophy noted. Patient is being considered for transfer to [facility] once he is stabilized. He does not complain of any headache but continues to have generalized weakness. Patient continues to remain off his sedation. As noted he has evidence of a slowly resolving metabolic encephalopathy. As noted his CAT scan of the brain failed to reveal any new changes. Patient does show slight improvement in his mental status today. He is nodding his head to questions. He remains off all sedation at this time. His overall prognosis at this time remains very guarded. We will continue close neurological follow-up of this patient in the intensive care unit. Objective - Vital Signs Vital signs: Vital Signs Temp 97.8 F 05/01/17 16:00 Pulse 116 H 05/01/17 19:06 Resp 19 05/01/17 19:00 BP 52/39 04/28/17 15:30 Pulse Ox 100 05/01/17 19:00 Intake & Output 05/01/17 05/01/17 05/02/17 06:59 18:59 06:59 Intake Total 1150.835 712.904 75.5 Output Total 2440 1480 75 Balance -1289.165 -767.096 0.5 Weight 145.9 kg 145.9 kg Intake: IV 326.0 438.5 35.5 [place] 36 36 3 Magnesium Sulfate-D5w Pmx 100 1 gm In Dextrose/Water 1 100ml.bag @ 100 mls/hr IVPB Q1H DI Rx#: [id number] Piperacillin-Tazobactam 3 25.0 .375 gm In Dextrose/Water 1 50ml.bag @ 12.5 mls/hr IVPB Q12HR DI Rx#: [id number] Piperacillin-Tazobactam 3 50.0 37.5 12.5 .375 gm In Dextrose/Water 1 50ml.bag @ 12.5 mls/hr IVPB Q8HR DI Rx#: [id number] Sodium Chloride 0.9% 1, 240 240 20 000 ml @ 20 mls/hr IV . Q24H DI Rx#:[id number] Intake, IV Titration 24.835 34.404 Amount Insulin Regular 100 unit 24.835 34.404 In Sodium Chloride 0.9% 100 ml @ Per Protocol IV .Q0M DI Rx#:[id number] Tube Feeding 400 240 40 Other 400 Output: Urine 2190 1480 75 Stool 250 Other: Voiding Method Indwelling Catheter Indwelling Catheter ABP, PAP, CO, CI - Last Documented Arterial Blood Pressure 124/58 - Exam Physical examination: PHYSICAL EXAMINATION: Patient has tracheostomy tube and is maintained on ventilator. He is opening his eyes but does not follow commands. He is off of all sedation at this time. VITAL SIGNS: Blood pressure is [124/58]. Heart rate is [1 90]. Respiration is [ 19]. Temperature is [97.8]. HEENT: Head is atraumatic, neck is supple, there were no carotid bruits. CHEST: Lungs are clear to auscultation and percussion. CARDIAC: S1, S2 normal rate and rhythm. There is no murmur. ABDOMEN: Soft and nontender. Bowel sounds are present. EXTREMITIES: There is no pedal edema. Peripheral pulses are present. Neurological examination: Patient is seen in the intensive care unit. He has a tracheostomy and PEG tube placement. He is off of all sedation today. He is opening his eyes but is not following commands. Patient has decreased tone in both upper and lower extremities. Deep tendon reflexes are 1+ and symmetric. Plantar responses flexor bilaterally. - Labs CBC & Chem 7: 05/01/17 03:50 05/01/17 03:50 Labs: Abnormal Lab Results - Last 24 Hours (Table) 04/30/17 04/30/17 05/01/17 Range/Units 21:03 23:01 00:02 RBC (4.30-5.90) m/uL Hgb (13.0-17.5) gm/dL Hct (39.0-53.0) % MCV (80.0-100.0) fL Plt Count (150-450) k/uL Lymphocytes # (1.0-4.8) k/uL ABG pH (7.35-7.45) ABG pCO2 (35-45) mmHg ABG HCO3 (21-25) mmol/L ABG Total CO2 (19-24) mmol/L ABG O2 Saturation (94-97) % BUN (9-20) mg/dL Glucose (74-99) mg/dL POC Glucose (mg/dL) 159 H 151 H 168 H (75-99) mg/dL Phosphorus (2.5-4.5) mg/dL Total Protein (6.3-8.2) g/dL Albumin (3.5-5.0) g/dL 05/01/17 05/01/17 05/01/17 Range/Units 01:58 03:50 03:50 RBC 3.01 L (4.30-5.90) m/uL Hgb 10.3 L (13.0-17.5) gm/dL Hct 31.5 L (39.0-53.0) % MCV 104.4 H (80.0-100.0) fL Plt Count 105 L (150-450) k/uL Lymphocytes # 0.7 L (1.0-4.8) k/uL ABG pH (7.35-7.45) ABG pCO2 (35-45) mmHg ABG HCO3 (21-25) mmol/L ABG Total CO2 (19-24) mmol/L ABG O2 Saturation (94-97) % BUN 22 H (9-20) mg/dL Glucose 160 H (74-99) mg/dL POC Glucose (mg/dL) 167 H (75-99) mg/dL Phosphorus 2.4 L (2.5-4.5) mg/dL Total Protein 5.4 L (6.3-8.2) g/dL Albumin 2.8 L (3.5-5.0) g/dL 05/01/17 05/01/17 05/01/17 Range/Units 03:53 04:52 06:01 RBC (4.30-5.90) m/uL Hgb (13.0-17.5) gm/dL Hct (39.0-53.0) % MCV (80.0-100.0) fL Plt Count (150-450) k/uL Lymphocytes # (1.0-4.8) k/uL ABG pH 7.55 H (7.35-7.45) ABG pCO2 30 L (35-45) mmHg ABG HCO3 26 H (21-25) mmol/L ABG Total CO2 27 H (19-24) mmol/L ABG O2 Saturation 98.0 H (94-97) % BUN (9-20) mg/dL Glucose (74-99) mg/dL POC Glucose (mg/dL) 160 H 151 H (75-99) mg/dL Phosphorus (2.5-4.5) mg/dL Total Protein (6.3-8.2) g/dL Albumin (3.5-5.0) g/dL 05/01/17 05/01/17 05/01/17 Range/Units 07:58 09:58 11:41 RBC (4.30-5.90) m/uL Hgb (13.0-17.5) gm/dL Hct (39.0-53.0) % MCV (80.0-100.0) fL Plt Count (150-450) k/uL Lymphocytes # (1.0-4.8) k/uL ABG pH (7.35-7.45) ABG pCO2 (35-45) mmHg ABG HCO3 (21-25) mmol/L ABG Total CO2 (19-24) mmol/L ABG O2 Saturation (94-97) % BUN (9-20) mg/dL Glucose (74-99) mg/dL POC Glucose (mg/dL) 165 H 155 H 125 H (75-99) mg/dL Phosphorus (2.5-4.5) mg/dL Total Protein (6.3-8.2) g/dL Albumin (3.5-5.0) g/dL 05/01/17 05/01/17 05/01/17 Range/Units 13:51 13:59 16:21 RBC (4.30-5.90) m/uL Hgb (13.0-17.5) gm/dL Hct (39.0-53.0) % MCV (80.0-100.0) fL Plt Count (150-450) k/uL Lymphocytes # (1.0-4.8) k/uL ABG pH (7.35-7.45) ABG pCO2 (35-45) mmHg ABG HCO3 (21-25) mmol/L ABG Total CO2 (19-24) mmol/L ABG O2 Saturation (94-97) % BUN (9-20) mg/dL Glucose (74-99) mg/dL POC Glucose (mg/dL) 144 H 146 H 172 H (75-99) mg/dL Phosphorus (2.5-4.5) mg/dL Total Protein (6.3-8.2) g/dL Albumin (3.5-5.0) g/dL 05/01/17 Range/Units 17:56 RBC (4.30-5.90) m/uL Hgb (13.0-17.5) gm/dL Hct (39.0-53.0) % MCV (80.0-100.0) fL Plt Count (150-450) k/uL Lymphocytes # (1.0-4.8) k/uL ABG pH (7.35-7.45) ABG pCO2 (35-45) mmHg ABG HCO3 (21-25) mmol/L ABG Total CO2 (19-24) mmol/L ABG O2 Saturation (94-97) % BUN (9-20) mg/dL Glucose (74-99) mg/dL POC Glucose (mg/dL) 150 H (75-99) mg/dL Phosphorus (2.5-4.5) mg/dL Total Protein (6.3-8.2) g/dL Albumin (3.5-5.0) g/dL Assessment and Plan (1) Acute encephalopathy Status: Acute Code(s): G93.40 - ENCEPHALOPATHY, UNSPECIFIED (2) Acute renal failure Status: Acute Code(s): N17.9 - ACUTE KIDNEY FAILURE, UNSPECIFIED (3) Atrial fibrillation Status: Acute Code(s): I48.91 - UNSPECIFIED ATRIAL FIBRILLATION (4) Hepatic encephalopathy Status: Acute Code(s): K72.90 - HEPATIC FAILURE, UNSPECIFIED WITHOUT COMA Plan: This patient is a 71-year-old male who is seen today in the intensive care unit. He is undergone recent tracheostomy and PEG tube placement. He has been off of all IV sedation for the past 48 hours. He is showing some improvement in his alertness and is following some simple commands. He continues to have generalized weakness in all extremities. We have recommended a repeat computed tomography scan of the brain to be done tomorrow as a further follow-up. He has been taken off of IV heparin and is been placed on Eliquis. We will continue close neurological follow-up for this patient in the intensive care unit. He is being considered for transfer to [facility] for further subacute care and rehab. Patient's repeat computed tomography scan of the brain failed to reveal any new changes today. He is showing some improvement in his overall mental status in the ICU. He is following some simple commands. We will continue to monitor his progress very closely in the ICU environment. As mentioned he is awaiting possible placement early next week. His overall prognosis at this time remains very guarded.
[2017-05-01 22:15] LABS: Glucose,Whole Blood 137 mg/dL (75-99)
[2017-05-01 23:56] LABS: Glucose,Whole Blood 173 mg/dL (75-99)
[2017-05-02] MEDS: PIPERACILLIN-TAZOBACTAM 3.375 GM in DEXTROSE/WATER 1 50ML.BAG IVPB SCH ×3 (00:15→15:12)
[2017-05-02 01:51] LABS: Glucose,Whole Blood 168 mg/dL (75-99)
[2017-05-02] MEDS: IPRATROPIUM-ALBUTEROL 3 ML NEB INHALATION SCH ×6 (03:09→23:10)
[2017-05-02 04:13] LABS: Glucose,Whole Blood 160 mg/dL (75-99)
[2017-05-02 04:27] LABS: Basophils % (A) 0 %; CHCM 33.1; Eosinophils # (A) 0.3 k/uL (0-0.7); Eosinophils % (A) 3 %; HCT 32.2 % (39.0-53.0); HGB 10.5 gm/dL (13.0-17.5); Luc # (Auto) 0.26; Luc % (Auto) 3; Lymphocytes # (A) 0.7 k/uL (1.0-4.8); Lymphocytes % (A) 7 %; MCH 34.6 pg (25.0-35.0); MCHC 32.6 g/dL (31.0-37.0); MCV 106.1 fL (80.0-100.0); Macrocytosis Moderate; Mean Platelet Volume 8.3; Monocytes # (A) 0.5 k/uL (0-1.0); Monocytes % (A) 5 %; Neutrophils # (A) 8.5 k/uL (1.3-7.7); Neutrophils % (A) 83 %; RBC 3.03 m/uL (4.30-5.90); RDW 14.8 % (11.5-15.5); WBC 10.3 k/uL (3.8-10.6); WBC (Perox) 9.81
[2017-05-02 04:35] LABS: INR 1.1 (<1.1); Partial Thromboplastin Time 24.9 sec (22.0-30.0); Prothrombin Time 10.9 sec (9.0-12.0)
[2017-05-02 04:40] LABS: ABG Base Excess 6.2 mmol/L; ABG HCO3 30 mmol/L (21-25); ABG PCO2 40 mmHg (35-45); ABG PH 7.49 (7.35-7.45); ABG PO2 90 mmHg (83-108); ABG TCO2 31 mmol/L (19-24)
[2017-05-02 04:58] LABS: ALT 41 U/L (21-72); AST 33 U/L (17-59); Alkaline Phosphatase 80 U/L (38-126); Anion Gap 9 mmol/L; Blood Urea Nitrogen 26 mg/dL (9-20); Calcium 8.6 mg/dL (8.4-10.2); Carbon Dioxide 30 mmol/L (22-30); Chloride 101 mmol/L (98-107); Glucose 168 mg/dL (74-99); Magnesium 1.8 mg/dL (1.6-2.3); Non-African American GFR(MDRD) >60 (>60 ml/min/1.73 sqM); Phosphorous 2.4 mg/dL (2.5-4.5); Potassium 3.9 mmol/L (3.5-5.1); Sodium 140 mmol/L (137-145); Total Bilirubin 0.7 mg/dL (0.2-1.3); Total Protein 5.7 g/dL (6.3-8.2)
[2017-05-02 06:13] LABS: Glucose,Whole Blood 175 mg/dL (75-99)
[2017-05-02] MEDS ORDERED: Magnesium Replacement Protocol 1 EACH MISC MISCELLANE PRN (06:20)
[2017-05-02] MEDS ORDERED: Potassium Replacement Protocol 1 EACH MISC MISCELLANE PRN (06:20)
[2017-05-02] MEDS: MAGNESIUM SULFATE-D5W PMX 1 GM in DEXTROSE/WATER 1 100ML.BAG IVPB SCH ×2 (06:52→08:11)
[2017-05-02] MEDS ORDERED: POTASSIUM CHLORIDE ORAL LIQUID 40 MEQ/30 ML CUP NG-TUBE SCH (07:00)
--- NOTE | 2017-05-02 07:21 | XR ---
EXAMINATION TYPE: XR chest 1V portable DATE OF EXAM: 05/02/2017 HISTORY: Shortness of breath. COMPARISON: 05/01/2017 TECHNIQUE: Single view of the chest is submitted. FINDINGS: Demonstrated are scattered senescent parenchymal change. Tracheostomy tube is in place. Left-sided PICC line is unchanged in position. There is mild strandy density left medial lung base stable from prior examination. The heart is stable. Hilar and mediastinal structures are within normal limits. Degenerative changes are seen of the dorsal spine. IMPRESSION: 1. Stable chest.
[2017-05-02 07:54] LABS: Glucose,Whole Blood 180 mg/dL (75-99)
[2017-05-02] MEDS: FUROSEMIDE 10 MG/ML 2 ML VIAL IV SCH ×2 (08:11→20:28)
[2017-05-02] MEDS: LACTULOSE 20 GM/30 ML CUP PO SCH (08:11)
[2017-05-02] MEDS: PANTOPRAZOLE 40 MG/10 ML VIAL IV SCH (08:12)
[2017-05-02] MEDS: ASPIRIN 81 MG CHEW PO SCH (08:12)
[2017-05-02] MEDS: APIXABAN 5 MG TAB PO SCH ×2 (08:13→21:21)
[2017-05-02] MEDS: CHLORHEXIDINE GLUCONATE 15 ML CUP MUCOUS MEM SCH ×2 (08:15→20:28)
[2017-05-02] MEDS: METOPROLOL TARTRATE 25 MG TAB PO SCH ×2 (08:15→21:21)
--- NOTE | 2017-05-02 09:39 | PN ---
This patient is a followup for atrial fibrillation. Patient underwent a tracheostomy and a PEG tube placement. Patient is minimally responsive, remains hemodynamically stable and is not in any acute respiratory distress. The patient's heart rate is now 90 to 100 per minute. Blood pressure is 123/61 mmHg. First and second heart sounds are normal. Lungs reveal scattered wheezes. Patient's electrolytes are normal. Creatinine is 1.0. Patient is now switched to the p.o. Lasix, p.o. amiodarone. Continue the rest of the medications. MTDD
[2017-05-02 09:44] VITALS: BMI 47.6
[2017-05-02 09:55] LABS: Glucose,Whole Blood 175 mg/dL (75-99)
--- NOTE | 2017-05-02 11:35 | P.PN ---
Subjective This is a 71-year-old gentleman who follows with Dr. Fuentes as his primary care physician. He has a history of hyperlipidemia, chronic obstructive pulmonary disease with chronic and ongoing tobacco dependence, diabetes mellitus , hypertension, atrial fibrillation, chronic liver disease. He presented here on 04/21/2017 with altered mental status. The patient developed acute respiratory failure and required intubation mechanical ventilatory support. He is seen again today in follow-up in the intensive care unit. He remains on the ventilator assist control 30 tidal volume 450 FiO2 60% and a PEEP of 5. Morning blood gases reveal a pO2 of 66, pCO2 34, pH 7.4. He is atrial fibrillation with a rapid ventricular response. He remains on a Cardizem drip at 7.5 mg per hour, norepinephrine at 1 mcg/m. Propofol at 70 mcg/kg/m. 0.9 normal saline at 100 mL per hour. Insulin drip at 8 units per hour. He is receiving a trickle tube feed of Vital HP at 10 mL per hour with a goal of 44. His chest x-ray reveals bilateral effusions with atelectasis/infiltrates the lung bases. He remains on Zosyn. He did receive 1 emergent dialysis treatment for his acute renal failure and hyperkalemia. Today's labs reveal creatinine 2.30 and a potassium of 4.4. Bicarb 19. He is receiving sodium bicarbonate 650 mg by mouth twice a day. He is currently receiving a daily interruption of sedation. We are also going to check a random cortisol level. Blood cultures reveal no growth to date. Urine culture pending. The patient is seen again today 04/24/2017 in follow-up in the intensive care unit. He remains to be elevated on mechanical ventilator current settings assist control 30, tidal volume 450, FiO2 60% and a PEEP of 5. Morning blood gases reveal a P O2 of 66, pCO2 of 30 and a pH of 7.45. He does remain sedated on to propofol 50 mcg/kg/m. He has a 0.9 normal saline at 100 MLS per hour. His Cardizem is currently on hold his atrial fibrillation is better controlled he has some episodes of bradycardia. Levophed has been weaned off. He remains on heparin drip and insulin drip at 9.5 units per hour. He is being fed via tube feedings Vital HP at 40 with a goal of 44 MLS per hour. He again was given a daily interruption of sedation. He is opening his eyes but not following any commands. He had significant coughing and significant secretions with tachycardia and tachypnea. Follow-up computed tomography scan revealed no acute intracranial process. His chest x-ray continues to show evidence of a left pleural effusion otherwise stable. He has been quite slow to progress. The patient is seen again today 04/25/2017 in follow-up in the intensive care unit. He remains intubated and on the mechanical ventilator currently at assist -control mode of 30, tidal volume 450, FiO2 60% and a PEEP of 5. Current arterial blood gases reveal a pO2 of 71, pCO2 34 and a pH of7.45. A mild respiratory alkalosis. He was given a sedation holiday. He does open his eyes spontaneously but does not follow any commands. No plans for weaning trials as he is still requiring high FiO2 to maintain O2 saturations greater than 90%. He is also on a 0.9 normal saline at 60 miles per hour, heparin drip at 10.7 units per hour, propofol at 45 mcg/kg/m, insulin drip at 5.5 units per hour. He is being nourished with Vital HP at goal 40 miles per hour. He has been slow to progress. 3 CT scans of the brain have been negative for acute stroke or hemorrhage. An EEG did reveal severe slowing consistent with diffuse encephalopathy. No evidence of seizures. The patient is seen again today 04/26/2017 in follow-up in the intensive care unit. He remains intubated and on the mechanical ventilator. Current settings are assist-control mode of 30, tidal volume 450, FiO2 60% and a PEEP of 5. Morning blood gases reveal a pO2 of 71, pCO2 37 and a pH of 7.42. He continues to have a 0.9 normal saline at 30 mL per hour, norepinephrine at 2 mcg/m, propofol at 15 mcg/kg/m, heparin at 8.7 units, insulin drip at 2.5 units per hour. He is being nourished with Vital HP at 40 mL's per hour which is goal. He has had ongoing issues with atrial fibrillation with rapid ventricular response and increasing PVCs and labile blood pressures. His chest x-ray does reveal improved aeration in the left lung base. On 04/28/2017 the patient is being seen in follow-up. The patient will be undertaken a tracheostomy tube insertion and a PEG tube insertion by Dr. Cooper today. This decision has already been made by Dr. Mcmillan due to failure to wean. The patient apparently was not waking up appropriately while off sedation and he was not following any commands and he was thought not to be able to protect his airway postextubation. Based on that decision was to give this patient a tracheostomy tube. Meanwhile, the patient remains on assist control mode of ventilation at the rate of 30, tidal volume 450, FiO2 of 50% and a PEEP of 10 in the morning blood gases showed a pH of 7.45 with a pCO2 of 36 and pO2 of 62. His chest x-ray is not showing any again thickened changes compared to yesterday. ET tube is in a good location this morning. Atelectatic changes can be seen in lung bases bilaterally. CAT scan of the brain that showed atrophy without any acute abnormalities. EEG of the brain had shown severe slowing consistent with diffuse encephalopathy, likely metabolic and there is no evidence of any seizure activity. The patient was tolerating his tube feeds and currently is nothing by mouth in preparation for his PEG and trach. Hemodynamically, he has a labile blood pressure, and his blood pressure typically goes up once is off sedation. Nevertheless he has not required any pressors. His echocardiogram shows an ejection fraction of 55-60% . He is in atrial fibrillation and he is on a IV heparin drip for anticoagulation. He is also on a amiodarone for rate control. On 04/29/2017, the patient is being seen in follow-up. The patient underwent a tracheostomy tube insertion and a PEG tube insertion yesterday and today he is postop day #1. Earlier this morning, we started the weaning process and the patient is currently off Diprivan. His mentation is gradually improving. I was able to make this patient follows some simple commands. He was able to squeeze my fingers using his hand and he was able to wiggle his toes in both feet upon demand. He remains on mechanical ventilator. Chest x-ray from today shows smaller lung volumes with small bilateral pleural effusions and the tracheostomy tube is in a good location. No evidence of any pneumothorax. The patient is an assist-control mode at the rate of 30, tidal volume of 450, FiO2 of 50% and a PEEP of 10. The blood gases from this morning showed a pH of 7.47 with a pCO2 of 33 and pO2 of 96. Based on this, I cut down his respiratory rate to 20, increased tidal volume to 500, kept on the flow down to 60, down the PEEP down to 8 and The FiO2 at 50%. His most recent pulse ox is still 96-97 %. He is having no significant orotracheal secretions. He is on IV Zosyn as an empiric antibiotic coverage. Renal function is stable. The patient has a fecal management system as the patient is being given lactulose for possible suspected hepatic encephalopathy. His bowel movements are liquidy and he is producing approximately 100 mL over the past 6-8 hours. He is taking lactulose 30 g twice a day. He remains in atrial fibrillation. He remains on IV heparin. Remains on IV amiodarone. He is also on Lopressor 25 mg by mouth twice a day for rate control. He is on insulin drip for blood sugar control. She'll feeds will be restarted this morning. On 04/30/2017 the patient remains off sedation. He seems to be more alert compared to yesterday and he is following commands and answering simple questions. He is able to also raise his arms against gravity. He was assist- control mode of ventilation with a tidal volume 500, rate of 20, FiO2 of 50% and a PEEP of 5. Blood gases this morning showed a pH of 7.43 with a pCO2 of 38 and pO2 of 149. Chest x-ray findings were stable. Based on that the patient was given a trial of pressure support mode of ventilation with a pressure support of 7 and a PEEP of 5 and FiO2 of 50%. He tolerated the setting well and is still on pressure support at this point without any signs of respiratory distress. He is being also diuresis with IV Lasix 20 mg IV push every 12 hours. He is producing adequate amount of urine output and he is in a negative fluid balance. His blood pressure is fluctuating at there is no prolonged hypotension and his renal function is stable with electrolytes all being within normal limits. The patient is on insulin drip for blood sugar control. The patient on heparin drip regarding his chronic atrial fibrillation. His rate is controlled for now. He is on tube feeds that was started yesterday and said goal at this point in time. The diarrhea is also subsided and the FMS system is still in place for the time being. He is afebrile. No other significant events over the past 24 hours. I would say his condition is gradually improving. On 05/01/2017 the patient remains off sedation. He is slowly recovering. He is still weak over more interactive. His edema is improving as the patient is being diuresis with IV Lasix. He was able to tolerate a pressure support of 5 and PEEP of 5 for a total of 4-6 hours yesterday. Will do the same today. His chest x-ray shows improvement in the volume status. The blood gases from this morning shows a component of respiratory alkalosis. Meanwhile the patient remains hemodynamically stable. The patient is on tube feeds. The patient on insulin drip for blood sugar control. The patient is on Xarelto for long-term and to coagulation his late is controlled. He is afebrile. The diarrhea is subsiding. Physical therapy is on the case for passive range of motion. We'll try to set him on a sitting up position while in bed. He is able to follow commands. He remains profoundly weak still. He is barely able to raise his arms against gravity. A repeat CAT scan was requested by neurology. This was done this morning. Results of this pending for now. No indication of any stroke at this point. On 05/02/2017 the patient remains off sedation. He is very slow in his recovery. He opens up his eyes. He moves however he is not strong enough to get himself out of the bed. He is not strong enough to bend his knees. He is unable to keep his arms up in the air for more than a few seconds. He is hemodynamically stable. He is tolerating CPAP again this morning at a pressure of 5 with a pressure support of 5 with an FiO2 of 40%. Chest x-ray remains stable. No significant orotracheal secretions. No fever. No diarrhea. The patient is diuresing appropriately and is on Lasix 40 mg IV every 12 hours. He is a negative fluid balance. Doppler lower extremity edema is improving. Renal function is stable. His writing to previous which is currently at goal running at 70 mL an hour of vital high protein. He is in atrial fibrillation. His rate is controlled. He is on long-term anticoagulation. I think he will be a good candidate for select specialty for further rehabilitation physical therapy and weaning. No active issues for now other than his profound weakness and debility. Objective - Vital Signs Vital signs: Vital Signs Temp 98.5 F 06/30/17 08:00 Pulse 89 05/02/17 11:00 Resp 22 05/02/17 11:00 BP 52/39 04/28/17 15:30 Pulse Ox 99 05/02/17 11:00 Intake & Output 05/01/17 05/02/17 05/02/17 18:59 06:59 18:59 Intake Total 405.696 1643.950 465 Output Total 1480 1915 975 Balance -767.096 -404.050 -510 Weight 145.9 kg 146.3 kg 146.3 kg Intake: IV 438.5 288.5 115 Iram 36 36 15 Magnesium Sulfate-D5w Pmx 100 1 gm In Dextrose/Water 1 100ml.bag @ 100 mls/hr IVPB Q1H DI Rx#: [id number] Piperacillin-Tazobactam 3 25.0 .375 gm In Dextrose/Water 1 50ml.bag @ 12.5 mls/hr IVPB Q12HR DI Rx#: [id number] Piperacillin-Tazobactam 3 37.5 12.5 .375 gm In Dextrose/Water 1 50ml.bag @ 12.5 mls/hr IVPB Q8HR DI Rx#: [id number] Sodium Chloride 0.9% 1, 240 240 100 000 ml @ 20 mls/hr IV . Q24H DI Rx#:[id number] Intake, IV Titration 34.404 22.450 Amount Insulin Regular 100 unit 34.404 22.450 In Sodium Chloride 0.9% 100 ml @ Per Protocol IV .Q0M DI Rx#:[id number] Tube Feeding 240 940 350 Other 260 Output: Urine 1480 1915 975 Other: Voiding Method Indwelling Catheter Indwelling Catheter Indwelling Catheter ABP, PAP, CO, CI - Last Documented Arterial Blood Pressure 109/60 - Exam Obese, comfortable likely distress arouse and from his sedation as the patient was taken off the Diprivan this morning.Head exam was generally normal. There was no scleral icterus or corneal arcus. Mucous membranes were moist. Neck is supple and the patient is a tracheostomy tube in place and the patient has a Bivona tracheostomy tube #8. Lung sounds are diminished bilaterally otherwise there is no wheeze or rhonchi or any crackles. Heart sounds are irregular, distant, positive S1-S2, no significant murmurs appreciated. Abdomen is obese soft nontender. Organs cannot be accurately palpated due to his obesity. Bowel sounds are hypoactive. There is no direct tenderness. No rebound tenderness. No guarding. Active site is clean. Extremities show +1 pitting edema both in upper and lower extremity. The patient is a PICC line in left upper extremity. The patient has a Artline is a right upper extremity. No open wounds. No cyanosis or clubbing at this point. Neurologically, he is still sedated however his arousing. He is following some simple commands at this point. - Labs CBC & Chem 7: 05/02/17 04:00 05/02/17 04:00 Labs: Abnormal Lab Results - Last 24 Hours (Table) 05/01/17 05/01/17 05/01/17 Range/Units 11:41 13:51 13:59 RBC (4.30-5.90) m/uL Hgb (13.0-17.5) gm/dL Hct (39.0-53.0) % MCV (80.0-100.0) fL Plt Count (150-450) k/uL Neutrophils # (1.3-7.7) k/uL Lymphocytes # (1.0-4.8) k/uL ABG pH (7.35-7.45) ABG HCO3 (21-25) mmol/L ABG Total CO2 (19-24) mmol/L ABG O2 Saturation (94-97) % BUN (9-20) mg/dL Glucose (74-99) mg/dL POC Glucose (mg/dL) 125 H 144 H 146 H (75-99) mg/dL Phosphorus (2.5-4.5) mg/dL Total Protein (6.3-8.2) g/dL Albumin (3.5-5.0) g/dL 05/01/17 05/01/17 05/01/17 Range/Units 16:21 17:56 20:25 RBC (4.30-5.90) m/uL Hgb (13.0-17.5) gm/dL Hct (39.0-53.0) % MCV (80.0-100.0) fL Plt Count (150-450) k/uL Neutrophils # (1.3-7.7) k/uL Lymphocytes # (1.0-4.8) k/uL ABG pH (7.35-7.45) ABG HCO3 (21-25) mmol/L ABG Total CO2 (19-24) mmol/L ABG O2 Saturation (94-97) % BUN (9-20) mg/dL Glucose (74-99) mg/dL POC Glucose (mg/dL) 172 H 150 H 163 H (75-99) mg/dL Phosphorus (2.5-4.5) mg/dL Total Protein (6.3-8.2) g/dL Albumin (3.5-5.0) g/dL 05/01/17 05/01/17 05/02/17 Range/Units 22:14 23:54 01:48 RBC (4.30-5.90) m/uL Hgb (13.0-17.5) gm/dL Hct (39.0-53.0) % MCV (80.0-100.0) fL Plt Count (150-450) k/uL Neutrophils # (1.3-7.7) k/uL Lymphocytes # (1.0-4.8) k/uL ABG pH (7.35-7.45) ABG HCO3 (21-25) mmol/L ABG Total CO2 (19-24) mmol/L ABG O2 Saturation (94-97) % BUN (9-20) mg/dL Glucose (74-99) mg/dL POC Glucose (mg/dL) 137 H 173 H 168 H (75-99) mg/dL Phosphorus (2.5-4.5) mg/dL Total Protein (6.3-8.2) g/dL Albumin (3.5-5.0) g/dL 05/02/17 05/02/17 05/02/17 Range/Units 04:00 04:00 04:11 RBC 3.03 L (4.30-5.90) m/uL Hgb 10.5 L (13.0-17.5) gm/dL Hct 32.2 L (39.0-53.0) % MCV 106.1 H (80.0-100.0) fL Plt Count 115 L (150-450) k/uL Neutrophils # 8.5 H (1.3-7.7) k/uL Lymphocytes # 0.7 L (1.0-4.8) k/uL ABG pH (7.35-7.45) ABG HCO3 (21-25) mmol/L ABG Total CO2 (19-24) mmol/L ABG O2 Saturation (94-97) % BUN 26 H (9-20) mg/dL Glucose 168 H (74-99) mg/dL POC Glucose (mg/dL) 160 H (75-99) mg/dL Phosphorus 2.4 L (2.5-4.5) mg/dL Total Protein 5.7 L (6.3-8.2) g/dL Albumin 3.1 L (3.5-5.0) g/dL 05/02/17 05/02/17 05/02/17 Range/Units 04:33 06:12 07:53 RBC (4.30-5.90) m/uL Hgb (13.0-17.5) gm/dL Hct (39.0-53.0) % MCV (80.0-100.0) fL Plt Count (150-450) k/uL Neutrophils # (1.3-7.7) k/uL Lymphocytes # (1.0-4.8) k/uL ABG pH 7.49 H (7.35-7.45) ABG HCO3 30 H (21-25) mmol/L ABG Total CO2 31 H (19-24) mmol/L ABG O2 Saturation 98.0 H (94-97) % BUN (9-20) mg/dL Glucose (74-99) mg/dL POC Glucose (mg/dL) 175 H 180 H (75-99) mg/dL Phosphorus (2.5-4.5) mg/dL Total Protein (6.3-8.2) g/dL Albumin (3.5-5.0) g/dL 05/02/17 Range/Units 09:52 RBC (4.30-5.90) m/uL Hgb (13.0-17.5) gm/dL Hct (39.0-53.0) % MCV (80.0-100.0) fL Plt Count (150-450) k/uL Neutrophils # (1.3-7.7) k/uL Lymphocytes # (1.0-4.8) k/uL ABG pH (7.35-7.45) ABG HCO3 (21-25) mmol/L ABG Total CO2 (19-24) mmol/L ABG O2 Saturation (94-97) % BUN (9-20) mg/dL Glucose (74-99) mg/dL POC Glucose (mg/dL) 175 H (75-99) mg/dL Phosphorus (2.5-4.5) mg/dL Total Protein (6.3-8.2) g/dL Albumin (3.5-5.0) g/dL Assessment and Plan Plan: Impression: #1 Acute hypoxic respiratory failure secondary to suspected diastolic congestive heart failure, with small bilateral pleural effusion and infiltrate with possible pneumonia. Sputum culture reveals no growth. On 04/28/2017, the patient remains on a mechanical ventilator. The plan is to proceed with a tracheostomy tube insertion and following that the patient will be gradually weaned off the sedation when his mental status will be assessed and hopefully will be able to gradually wean him off the mechanical ventilator. No vent changes will be done for today. The patient will have a blood gas after he denies back from the operating room. Chest x-ray be also repeated. Doubt any pneumonia at this point. On 04/29/2017 the patient remains on a mechanical ventilator. The necessary vent changes were done. The patient's oxygenation has improved. He also has a component of respiratory alkalosis. Based on that, the rest or rate was dropped down to 20, tidal volume was increased up to 500, his PEEP was dropped down to 8 and I'm in the process of weaning down the PEEP as long as his oxygenation remains stable with a saturation above 92%. Tracheostomy tube in place. No new finding of the chest x-ray and the patient is smaller lung volumes with small better pleural effusions. On 04/30/2017 the patient remains on a mechanical ventilator. His oxidation is improved and the patient is currently on a pressure support mode of ventilation with a pressure support of 7 and a PEEP of 5 with adequate blood gases and a chest x-ray. No signs of any respiratory distress for now. On 05/01/2017 the patient remains on a mechanical ventilator. He is able to tolerate pressure support of 5 and a PEEP of 5 and it morning. His blood gas showed rest or alkalosis. X-ray showing improvement in the volume status. The patient is on diuretics for now. The patient is also on IV Zosyn. On 05/02/2017, the patient is stable in terms of his aspiration and breathing. He is tolerating pressure support of 5 and a PEEP of 5. Chest x-ray findings are stable and unchanged. No active respiratory issues for now. #2 Non-anion gap metabolic acidosis secondary to acute renal failure, recovered #3 Altered mental status of unclear etiology. 3 CT scans of the brain revealed no acute intracranial abnormality. EEG does reveal severe slowing consistent with diffuse encephalopathy. On today's evaluation of 04/29/2017, the patient is off Diprivan and the patient is gradually recovering his alertness and consciousness. He was able to follow some simple commands. On today's evaluation of 04/30/2017 the patient remains off sedation and the patient's encephalopathy is gradually improving. On today's evaluation of 05/01 2017, the patient had a follow-up CAT scan of the brain. No clinical indication for an underlying stroke. The patient is alert and awake he had he is slow in answering, but he can follow commands and move her extremities without any limitation. Cranial nerves are intact at this point. On today's evaluation of 05/02/2017, no evidence of any mental status change and the patient is following commands. 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 #4 History of atrial fibrillation. The patient is currently on amiodarone and metoprolol for rate control and on oral Elquis. #5 Chronic obstructive pulmonary disease. #6 Chronic and ongoing tobacco dependence. #7 Diabetes mellitus. #8 Hyperlipidemia. #9 Hypertension. #10 Hepatitis C. #11 Previous history of substance abuse including cocaine, heroin and methamphetamine. #12 Acute renal failure requiring urgent hemodialysis, the acute kidney injury is recovering #13 Profound hyperkalemia, corrected. Plan The patient is profoundly weak. The patient may have an underlying component of critical illness polyneuropathy and myopathy. He may need an extended time to recover from his weakness. As such I'm unable to wean him at this point. I have kept him on and off on pressure support mode of ventilation at the low pressure of 5 cm of water PEEP of 5. Overnight she was placed back on assist control. Chest x-ray findings are stable. Continue diuresis. Continue tube feeds. Aggressive physical therapy with local range of motion. Tube feeds are at goal. Hemodynamically stable. Consider transferring this patient to select specialty for further rehabilitation. We will contact the select specialty rep for an evaluation. Critically care evaluation more than 30 minutes. Time with Patient: Greater than 30
[2017-05-02 11:56] LABS: Glucose,Whole Blood 206 mg/dL (75-99)
--- NOTE | 2017-05-02 13:06 | P.PN ---
Franca Wang was admitted on April 21, 2017 for acute renal failure and hyperkalemia. He was very lethargic and difficult to arouse. He received fluid hydration and pressors to his blood pressure. He was intubated and sedated. He is known history of insulin-dependent diabetes mellitus, history of alcoholism, atrial fibrillation, COPD and tobaccoism. 04/29 Over the past 8 days, he has been on antibiotics of Zosyn, received emergent dialysis, his bicarbonate, a PEG tube, and a tracheostomy tube. His sedation has been weaned and pressors have been discontinued. He has been only on pressure support for the past 2 days. He remains on insulin drip for his diabetes. For his atrial fibrillation he remains on a heparin drip and IV amiodarone. 04/30 He is now on oral Elequis, amiodarone, aspirin, metoprolol. His sedation is less. He is more awake and responsive. He looks uncomfortable and slightly anxious. most likely out of anxiety regarding trach Critical care/pulmonology please he is gradually improving. 05/01 He is not being sedated, but has a lot of residual fatigue. Respirator setting are minimal at this time and critical care is planning on weaning this further. He is on mostly oral medications at this time. Open his eyes and extended his arms shake my hand when I enter the room today. He is unable to speak due to the trach. His overall status is once again slightly improved. Objective - Vital Signs Vital signs: Vital Signs Temp 98.5 F 05/02/17 08:00 Pulse 99 05/02/17 11:45 Resp 22 05/02/17 11:00 BP 52/39 04/28/17 15:30 Pulse Ox 99 05/02/17 11:00 Intake & Output 05/01/17 05/02/17 05/02/17 18:59 06:59 18:59 Intake Total 410.878 6427.950 686.708 Output Total 1480 1915 1050 Balance -767.096 -404.050 -363.292 Weight 145.9 kg 146.3 kg 146.3 kg Intake: IV 438.5 288.5 188 [place] 36 36 18 Magnesium Sulfate-D5w Pmx 100 1 gm In Dextrose/Water 1 100ml.bag @ 100 mls/hr IVPB Q1H [facility] Rx#: [id number] Piperacillin-Tazobactam 3 25.0 .375 gm In Dextrose/Water 1 50ml.bag @ 12.5 mls/hr IVPB Q12HR [facility] Rx#: [id number] Piperacillin-Tazobactam 3 37.5 12.5 50 .375 gm In Dextrose/Water 1 50ml.bag @ 12.5 mls/hr IVPB Q8HR [facility] Rx#: [id number] Sodium Chloride 0.9% 1, 240 240 120 000 ml @ 20 mls/hr IV . Q24H [facility] Rx#:[id number] Intake, IV Titration 34.404 22.450 8.708 Amount Insulin Regular 100 unit 34.404 22.450 8.708 In Sodium Chloride 0.9% 100 ml @ Per Protocol IV .Q0M [facility] Rx#:[id number] Tube Feeding 240 940 490 Other 260 Output: Urine 1480 1915 1050 Other: Voiding Method Indwelling Catheter Indwelling Catheter Indwelling Catheter ABP, PAP, CO, CI - Last Documented Arterial Blood Pressure 109/60 - Exam General: The patient is awake, but unable to speak to the trach tube and ventilatory support Neck: The neck is supple, there is no thyromegaly, lymphadenopathy, tenderness or JVD. Trach tube is clean dry and intact Cardiovascular: S1S2 is normal, There is a regular rate and rhythm. No murmur, rub or gallop is appreciated. Respiratory: Lungs are coarse to auscultation bilaterally, respirations are assisted mechanically Gastrointestinal: Soft, non-distended, non-tender abdomen without masses or organomegaly noted. There is no rebound or guarding present. Bowel sounds are unremarkable. PEG tube is in place. Clean dry and intact Musculoskeletal: Normal ROM, no tenderness, There is no pedal edema. There is no calf tenderness or swelling. No cords were appreciated. He is offloading with waffle boots and is on an air mattress. Neurological: Coordination appears grossly intact. He will follow simple commands Skin: Skin is warm and dry and no rashes or lesions are noted. - Labs CBC & Chem 7: 05/02/17 04:00 05/02/17 04:00 Labs: Abnormal Lab Results - Last 24 Hours (Table) 05/01/17 05/01/17 05/01/17 Range/Units 13:51 13:59 16:21 RBC (4.30-5.90) m/uL Hgb (13.0-17.5) gm/dL Hct (39.0-53.0) % MCV (80.0-100.0) fL Plt Count (150-450) k/uL Neutrophils # (1.3-7.7) k/uL Lymphocytes # (1.0-4.8) k/uL ABG pH (7.35-7.45) ABG HCO3 (21-25) mmol/L ABG Total CO2 (19-24) mmol/L ABG O2 Saturation (94-97) % BUN (9-20) mg/dL Glucose (74-99) mg/dL POC Glucose (mg/dL) 144 H 146 H 172 H (75-99) mg/dL Phosphorus (2.5-4.5) mg/dL Total Protein (6.3-8.2) g/dL Albumin (3.5-5.0) g/dL 05/01/17 05/01/17 05/01/17 Range/Units 17:56 20:25 22:14 RBC (4.30-5.90) m/uL Hgb (13.0-17.5) gm/dL Hct (39.0-53.0) % MCV (80.0-100.0) fL Plt Count (150-450) k/uL Neutrophils # (1.3-7.7) k/uL Lymphocytes # (1.0-4.8) k/uL ABG pH (7.35-7.45) ABG HCO3 (21-25) mmol/L ABG Total CO2 (19-24) mmol/L ABG O2 Saturation (94-97) % BUN (9-20) mg/dL Glucose (74-99) mg/dL POC Glucose (mg/dL) 150 H 163 H 137 H (75-99) mg/dL Phosphorus (2.5-4.5) mg/dL Total Protein (6.3-8.2) g/dL Albumin (3.5-5.0) g/dL 05/01/17 05/02/17 05/02/17 Range/Units 23:54 01:48 04:00 RBC 3.03 L (4.30-5.90) m/uL Hgb 10.5 L (13.0-17.5) gm/dL Hct 32.2 L (39.0-53.0) % MCV 106.1 H (80.0-100.0) fL Plt Count 115 L (150-450) k/uL Neutrophils # 8.5 H (1.3-7.7) k/uL Lymphocytes # 0.7 L (1.0-4.8) k/uL ABG pH (7.35-7.45) ABG HCO3 (21-25) mmol/L ABG Total CO2 (19-24) mmol/L ABG O2 Saturation (94-97) % BUN (9-20) mg/dL Glucose (74-99) mg/dL POC Glucose (mg/dL) 173 H 168 H (75-99) mg/dL Phosphorus (2.5-4.5) mg/dL Total Protein (6.3-8.2) g/dL Albumin (3.5-5.0) g/dL 05/02/17 05/02/17 05/02/17 Range/Units 04:00 04:11 04:33 RBC (4.30-5.90) m/uL Hgb (13.0-17.5) gm/dL Hct (39.0-53.0) % MCV (80.0-100.0) fL Plt Count (150-450) k/uL Neutrophils # (1.3-7.7) k/uL Lymphocytes # (1.0-4.8) k/uL ABG pH 7.49 H (7.35-7.45) ABG HCO3 30 H (21-25) mmol/L ABG Total CO2 31 H (19-24) mmol/L ABG O2 Saturation 98.0 H (94-97) % BUN 26 H (9-20) mg/dL Glucose 168 H (74-99) mg/dL POC Glucose (mg/dL) 160 H (75-99) mg/dL Phosphorus 2.4 L (2.5-4.5) mg/dL Total Protein 5.7 L (6.3-8.2) g/dL Albumin 3.1 L (3.5-5.0) g/dL 05/02/17 05/02/17 05/02/17 Range/Units 06:12 07:53 09:52 RBC (4.30-5.90) m/uL Hgb (13.0-17.5) gm/dL Hct (39.0-53.0) % MCV (80.0-100.0) fL Plt Count (150-450) k/uL Neutrophils # (1.3-7.7) k/uL Lymphocytes # (1.0-4.8) k/uL ABG pH (7.35-7.45) ABG HCO3 (21-25) mmol/L ABG Total CO2 (19-24) mmol/L ABG O2 Saturation (94-97) % BUN (9-20) mg/dL Glucose (74-99) mg/dL POC Glucose (mg/dL) 175 H 180 H 175 H (75-99) mg/dL Phosphorus (2.5-4.5) mg/dL Total Protein (6.3-8.2) g/dL Albumin (3.5-5.0) g/dL 05/02/17 Range/Units 11:55 RBC (4.30-5.90) m/uL Hgb (13.0-17.5) gm/dL Hct (39.0-53.0) % MCV (80.0-100.0) fL Plt Count (150-450) k/uL Neutrophils # (1.3-7.7) k/uL Lymphocytes # (1.0-4.8) k/uL ABG pH (7.35-7.45) ABG HCO3 (21-25) mmol/L ABG Total CO2 (19-24) mmol/L ABG O2 Saturation (94-97) % BUN (9-20) mg/dL Glucose (74-99) mg/dL POC Glucose (mg/dL) 206 H (75-99) mg/dL Phosphorus (2.5-4.5) mg/dL Total Protein (6.3-8.2) g/dL Albumin (3.5-5.0) g/dL Assessment and Plan Plan: Impression and plan Acute hypoxic respiratory failure on currently following with pulmonology/ critical care, he is on minimal mechanical assist and has a trach tube. Sedation is off. He is no longer on pressors. Suspect pneumonia: He currently is on Zosyn and has been since 04/24/2017 Possible diastolic congestive heart failure: 2-D echo was reviewed, he remains on Toprol, Lasix, Elequis, amiodarone Atrial fibrillation: As above Insulin-dependent diabetes mellitus: He remains on insulin drip Acute renal failure: Resolved, he is status post 1 emergent dialysis treatment, improving History of COPD: He has DuoNeb updrafts ordered. Tobaccoism: We'll monitor Hypertension: Currently controlled Substance abuse history: He has been clean for some time, we'll discuss more after discharge. Multiple electrolyte abnormalities, retching protocols in place: He has received dialysis for the hyperkalemia, he has magnesium ordered. We'll await further recommendations from consultants, I'll plan on him going to [facility] once he reaches a point to be discharged. Physical therapy is been seeing him. He'll continue to offload an air mattress with waffle boots. Critical care think she can be transferred to the floor in the next day. Change him back to basal/bolus insulin tomorrow if he is ready. I'll reevaluate him in the next 24 hours
[2017-05-02 13:56] LABS: Glucose,Whole Blood 166 mg/dL (75-99)
[2017-05-02] MEDS: AMIODARONE 200 MG TAB PO SCH ×2 (15:11→21:21)
[2017-05-02 15:50] LABS: Glucose,Whole Blood 163 mg/dL (75-99)
[2017-05-02 17:52] LABS: Glucose,Whole Blood 171 mg/dL (75-99)
--- NOTE | 2017-05-02 18:35 | P.PN ---
Subjective This patient is a 71-year-old male who is seen today in the intensive care unit for ongoing neurological follow-up. Patient underwent tracheostomy and PEG tube placement yesterday and is postoperative day one today. He has been off of Diprivan since 7 AM this morning. He is opening his eyes but is not following commands. He continues to have generalized weakness in both upper and lower extremities. His chest x-ray reveals bilateral effusions. He continues on antibiotic coverage and is currently on Zosyn. He did have a PEG tube placed and his tube feedings have been initiated yesterday. Seems to be tolerating this feeds well with no residuals. Patient is being treated for acute kidney injury. Nephrology is following the patient closely. Since stopping the Diprivan the patient does seem to open his eyes but still not able to follow commands. Today's date to off of the Diprivan drip. He does seem to be more awake today in the ICU. He is opening his eyes and is able to squeeze both hands on command. He continues to have evidence of significant generalized weakness. 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 He is moving both hands but still has significant generalized muscle weakness. We have recommended a repeat computed tomography scan of the brain to be done tomorrow for further assessment. He has undergone multiple CT scans of the brain all of which have been negative for any evidence of acute stroke. The patient has been taken off of IV heparin and is to be started on Eliquis for long-term anticoagulation. Patient is being considered for transfer to [facility] for further subacute care. We will check his computed tomography scan of the brain to rule out any possibility of new change or signs of hemorrhage. The results of the computed tomography scan of the brain done yesterday fails to reveal any acute changes. There was mild atrophy noted. Patient is being considered for transfer to [facility] once he is stabilized. He does not complain of any headache but continues to have generalized weakness. 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 He will require long-term care and aggressive physical therapy to see his overall improvement over the next month. Patient continues to remain off his sedation. As noted he has evidence of a slowly resolving metabolic encephalopathy. As noted his CAT scan of the brain failed to reveal any new changes. Patient does show slight improvement in his mental status today. He is nodding his head to answer questions. He remains off all sedation at this time. His overall prognosis at this time remains very guarded. He is awaiting transfer to [facility] for further rehabilitation. According to the ICU nurse this may happen early next week. We will continue close neurological follow-up of this patient in the intensive care unit. His overall prognosis at this time remains guarded. Objective - Vital Signs Vital signs: Vital Signs Temp 98 F 05/02/17 12:00 Pulse 99 05/02/17 16:23 Resp 17 05/02/17 15:00 BP 52/39 04/28/17 15:30 Pulse Ox 97 05/02/17 15:00 Intake & Output 05/01/17 05/02/17 05/02/17 18:59 06:59 18:59 Intake Total 719.923 0665.950 1318.708 Output Total 1480 1915 1440 Balance -767.096 -404.050 -121.292 Weight 145.9 kg 146.3 kg 146.3 kg Intake: IV 438.5 288.5 280 [place] 36 36 30 Magnesium Sulfate-D5w Pmx 100 1 gm In Dextrose/Water 1 100ml.bag @ 100 mls/hr IVPB Q1H [facility] Rx#: [id number] Piperacillin-Tazobactam 3 25.0 .375 gm In Dextrose/Water 1 50ml.bag @ 12.5 mls/hr IVPB Q12HR [facility] Rx#: [id number] Piperacillin-Tazobactam 3 37.5 12.5 50 .375 gm In Dextrose/Water 1 50ml.bag @ 12.5 mls/hr IVPB Q8HR [facility] Rx#: [id number] Sodium Chloride 0.9% 1, 240 240 200 000 ml @ 20 mls/hr IV . Q24H [facility] Rx#:[id number] Intake, IV Titration 34.404 22.450 8.708 Amount Insulin Regular 100 unit 34.404 22.450 8.708 In Sodium Chloride 0.9% 100 ml @ Per Protocol IV .Q0M [facility] Rx#:[id number] Tube Feeding 240 940 910 Other 260 120 Output: Urine 1480 1915 1440 Other: Voiding Method Indwelling Catheter Indwelling Catheter Indwelling Catheter ABP, PAP, CO, CI - Last Documented Arterial Blood Pressure 129/62 - Labs CBC & Chem 7: 05/02/17 04:00 05/02/17 04:00 Labs: Abnormal Lab Results - Last 24 Hours (Table) 05/01/17 05/01/17 05/01/17 Range/Units 20:25 22:14 23:54 RBC (4.30-5.90) m/uL Hgb (13.0-17.5) gm/dL Hct (39.0-53.0) % MCV (80.0-100.0) fL Plt Count (150-450) k/uL Neutrophils # (1.3-7.7) k/uL Lymphocytes # (1.0-4.8) k/uL ABG pH (7.35-7.45) ABG HCO3 (21-25) mmol/L ABG Total CO2 (19-24) mmol/L ABG O2 Saturation (94-97) % BUN (9-20) mg/dL Glucose (74-99) mg/dL POC Glucose (mg/dL) 163 H 137 H 173 H (75-99) mg/dL Phosphorus (2.5-4.5) mg/dL Total Protein (6.3-8.2) g/dL Albumin (3.5-5.0) g/dL 05/02/17 05/02/17 05/02/17 Range/Units 01:48 04:00 04:00 RBC 3.03 L (4.30-5.90) m/uL Hgb 10.5 L (13.0-17.5) gm/dL Hct 32.2 L (39.0-53.0) % MCV 106.1 H (80.0-100.0) fL Plt Count 115 L (150-450) k/uL Neutrophils # 8.5 H (1.3-7.7) k/uL Lymphocytes # 0.7 L (1.0-4.8) k/uL ABG pH (7.35-7.45) ABG HCO3 (21-25) mmol/L ABG Total CO2 (19-24) mmol/L ABG O2 Saturation (94-97) % BUN 26 H (9-20) mg/dL Glucose 168 H (74-99) mg/dL POC Glucose (mg/dL) 168 H (75-99) mg/dL Phosphorus 2.4 L (2.5-4.5) mg/dL Total Protein 5.7 L (6.3-8.2) g/dL Albumin 3.1 L (3.5-5.0) g/dL 05/02/17 05/02/17 05/02/17 Range/Units 04:11 04:33 06:12 RBC (4.30-5.90) m/uL Hgb (13.0-17.5) gm/dL Hct (39.0-53.0) % MCV (80.0-100.0) fL Plt Count (150-450) k/uL Neutrophils # (1.3-7.7) k/uL Lymphocytes # (1.0-4.8) k/uL ABG pH 7.49 H (7.35-7.45) ABG HCO3 30 H (21-25) mmol/L ABG Total CO2 31 H (19-24) mmol/L ABG O2 Saturation 98.0 H (94-97) % BUN (9-20) mg/dL Glucose (74-99) mg/dL POC Glucose (mg/dL) 160 H 175 H (75-99) mg/dL Phosphorus (2.5-4.5) mg/dL Total Protein (6.3-8.2) g/dL Albumin (3.5-5.0) g/dL 05/02/17 05/02/17 05/02/17 Range/Units 07:53 09:52 11:55 RBC (4.30-5.90) m/uL Hgb (13.0-17.5) gm/dL Hct (39.0-53.0) % MCV (80.0-100.0) fL Plt Count (150-450) k/uL Neutrophils # (1.3-7.7) k/uL Lymphocytes # (1.0-4.8) k/uL ABG pH (7.35-7.45) ABG HCO3 (21-25) mmol/L ABG Total CO2 (19-24) mmol/L ABG O2 Saturation (94-97) % BUN (9-20) mg/dL Glucose (74-99) mg/dL POC Glucose (mg/dL) 180 H 175 H 206 H (75-99) mg/dL Phosphorus (2.5-4.5) mg/dL Total Protein (6.3-8.2) g/dL Albumin (3.5-5.0) g/dL 05/02/17 05/02/17 05/02/17 Range/Units 13:54 15:48 17:49 RBC (4.30-5.90) m/uL Hgb (13.0-17.5) gm/dL Hct (39.0-53.0) % MCV (80.0-100.0) fL Plt Count (150-450) k/uL Neutrophils # (1.3-7.7) k/uL Lymphocytes # (1.0-4.8) k/uL ABG pH (7.35-7.45) ABG HCO3 (21-25) mmol/L ABG Total CO2 (19-24) mmol/L ABG O2 Saturation (94-97) % BUN (9-20) mg/dL Glucose (74-99) mg/dL POC Glucose (mg/dL) 166 H 163 H 171 H (75-99) mg/dL Phosphorus (2.5-4.5) mg/dL Total Protein (6.3-8.2) g/dL Albumin (3.5-5.0) g/dL Assessment and Plan (1) Acute encephalopathy Status: Acute Code(s): G93.40 - ENCEPHALOPATHY, UNSPECIFIED (2) Acute renal failure Status: Acute Code(s): N17.9 - ACUTE KIDNEY FAILURE, UNSPECIFIED (3) Atrial fibrillation Status: Acute Code(s): I48.91 - UNSPECIFIED ATRIAL FIBRILLATION (4) Hepatic encephalopathy Status: Acute Code(s): K72.90 - HEPATIC FAILURE, UNSPECIFIED WITHOUT COMA Plan: This patient is a 71-year-old male who is seen today in the intensive care unit. He is undergone recent tracheostomy and PEG tube placement. He has been off of all IV sedation for the past 48 hours. He is showing some improvement in his alertness and is following some simple commands. He continues to have generalized weakness in all extremities. We have recommended a repeat computed tomography scan of the brain to be done tomorrow as a further follow-up. He has been taken off of IV heparin and is been placed on Eliquis. We will continue close neurological follow-up for this patient in the intensive care unit. He is being considered for transfer to [facility] for further subacute care and rehab. Patient's repeat computed tomography scan of the brain failed to reveal any new changes today. He is showing some improvement in his overall mental status in the ICU. He is following some simple commands. We will continue to monitor his progress very closely in the ICU environment. Patient did undergo repeat computed tomography scan of the brain yesterday which was reviewed and as noted is negative for any acute changes. 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 Continues to have weakness in all 4 extremities. He will require ongoing PT OT evaluation once he is transferred to rehabilitation. We will continue close neurological follow-up with this patient in the intensive care unit. As mentioned he is awaiting possible placement early next week. His overall prognosis at this time remains very guarded.
[2017-05-02 20:07] LABS: Glucose,Whole Blood 159 mg/dL (75-99)
[2017-05-02] MEDS: INSULIN REGULAR 100 UNIT in SODIUM CHLORIDE 0.9% 100 ML IV SCH (20:08)
[2017-05-02] MEDS: LATANOPROST 0.005% OPHTH DROPS 2.5 ML BTL BOTH EYES SCH (21:21)
[2017-05-02] MEDS: SODIUM CHLORIDE 0.9% 1,000 ML IV SCH (21:28)
[2017-05-02 22:06] LABS: Glucose,Whole Blood 165 mg/dL (75-99)
[2017-05-03 00:07] LABS: Glucose,Whole Blood 170 mg/dL (75-99)
[2017-05-03] MEDS: PIPERACILLIN-TAZOBACTAM 3.375 GM in DEXTROSE/WATER 1 50ML.BAG IVPB SCH ×2 (00:26→09:18)
[2017-05-03 02:05] LABS: Glucose,Whole Blood 152 mg/dL (75-99)
[2017-05-03 04:11] LABS: Glucose,Whole Blood 135 mg/dL (75-99)
[2017-05-03] MEDS: IPRATROPIUM-ALBUTEROL 3 ML NEB INHALATION SCH ×3 (04:20→12:00)
[2017-05-03 05:13] LABS: Basophils % (A) 0 %; CH 34.7; CHCM 32.7; Eosinophils # (A) 0.4 k/uL (0-0.7); Eosinophils % (A) 4 %; HCT 32.5 % (39.0-53.0); HDW 2.42; HGB 10.3 gm/dL (13.0-17.5); Luc # (Auto) 0.21; Luc % (Auto) 2; Lymphocytes # (A) 1.2 k/uL (1.0-4.8); Lymphocytes % (A) 11 %; MCHC 31.9 g/dL (31.0-37.0); MCV 106.8 fL (80.0-100.0); Macrocytosis Moderate; Monocytes # (A) 0.6 k/uL (0-1.0); Monocytes % (A) 5 %; Neutrophils # (A) 8.8 k/uL (1.3-7.7); Neutrophils % (A) 78 %; RBC 3.04 m/uL (4.30-5.90); RDW 14.7 % (11.5-15.5); WBC 11.3 k/uL (3.8-10.6)
[2017-05-03 05:18] LABS: INR 1.1 (<1.1); Partial Thromboplastin Time 24.4 sec (22.0-30.0); Prothrombin Time 11.3 sec (9.0-12.0)
[2017-05-03 05:31] LABS: ALT 41 U/L (21-72); AST 36 U/L (17-59); Alkaline Phosphatase 91 U/L (38-126); Anion Gap 10 mmol/L; Blood Urea Nitrogen 29 mg/dL (9-20); Calcium 8.6 mg/dL (8.4-10.2); Carbon Dioxide 32 mmol/L (22-30); Chloride 100 mmol/L (98-107); Glucose 132 mg/dL (74-99); Magnesium 1.9 mg/dL (1.6-2.3); Non-African American GFR(MDRD) >60 (>60 ml/min/1.73 sqM); Phosphorous 3.1 mg/dL (2.5-4.5); Potassium 3.9 mmol/L (3.5-5.1); Sodium 142 mmol/L (137-145); Total Bilirubin 0.6 mg/dL (0.2-1.3); Total Protein 5.9 g/dL (6.3-8.2)
[2017-05-03 05:33] LABS: Glucose,Whole Blood 175 mg/dL (75-99)
[2017-05-03 06:10] LABS: Glucose,Whole Blood 198 mg/dL (75-99)
[2017-05-03] MEDS ORDERED: Magnesium Replacement Protocol 1 EACH MISC MISCELLANE PRN (06:25)
[2017-05-03] MEDS ORDERED: Potassium Replacement Protocol 1 EACH MISC MISCELLANE PRN (06:25)
[2017-05-03] MEDS ORDERED: POTASSIUM CHLORIDE ORAL LIQUID 40 MEQ/30 ML CUP NG-TUBE SCH (07:00)
[2017-05-03] MEDS: PANTOPRAZOLE 40 MG/10 ML VIAL IV SCH (07:54)
[2017-05-03] MEDS: MAGNESIUM SULFATE-D5W PMX 1 GM in DEXTROSE/WATER 1 100ML.BAG IVPB SCH ×2 (07:54→09:18)
[2017-05-03] MEDS: METOPROLOL TARTRATE 25 MG TAB PO SCH (07:55)
[2017-05-03] MEDS: CHLORHEXIDINE GLUCONATE 15 ML CUP MUCOUS MEM SCH (07:55)
[2017-05-03] MEDS: AMIODARONE 200 MG TAB PO SCH (07:55)
[2017-05-03] MEDS: FUROSEMIDE 10 MG/ML 2 ML VIAL IV SCH (07:55)
[2017-05-03] MEDS: ASPIRIN 81 MG CHEW PO SCH (07:55)
[2017-05-03] MEDS: LACTULOSE 20 GM/30 ML CUP PO SCH (07:56)
[2017-05-03] MEDS: APIXABAN 5 MG TAB PO SCH (07:56)
[2017-05-03 08:03] LABS: Glucose,Whole Blood 158 mg/dL (75-99)
--- NOTE | 2017-05-03 08:11 | XR ---
EXAMINATION TYPE: XR chest 1V portable DATE OF EXAM: 05/03/2017 COMPARISON: NONE INDICATION: Difficulty breathing TECHNIQUE: Single frontal view of the chest is obtained. FINDINGS: The heart size is mildly prominent. The pulmonary vasculature is normal. Minimal blunting left costophrenic angle may be developing. "For small left pleural effusion. Tracheostomy tube is in the midline. IMPRESSION: 1. Question of a developing left pleural effusion. Follow-up is recommended.
--- NOTE | 2017-05-03 08:26 | PN ---
This patient we are seeing primarily for atrial fibrillation. The patient had multiple medical problems. The patient is being considered for specialty extended facility. The patient remains in chronic atrial fibrillation. Heart rate now is 100 to 110 per minute. The blood pressure is 120/60 mmHg. First and second heart sounds are normal. Lungs reveal bilateral scattered wheezes. In view of the patient's history of renal failure and patient was being dialyzed , I would prefer to use Eliquis 5 mg b.i.d. instead of Xarelto. We will continue the patient on amiodarone and Lopressor. MTDD
[2017-05-03 09:26] VITALS: TEMP 99
--- NOTE | 2017-05-03 09:40 | P.PN ---
Subjective This is a 71-year-old gentleman who follows with Dr. Fuentes as his primary care physician. He has a history of hyperlipidemia, chronic obstructive pulmonary disease with chronic and ongoing tobacco dependence, diabetes mellitus , hypertension, atrial fibrillation, chronic liver disease. He presented here on 04/21/2017 with altered mental status. The patient developed acute respiratory failure and required intubation mechanical ventilatory support. He is seen again today in follow-up in the intensive care unit. He remains on the ventilator assist control 30 tidal volume 450 FiO2 60% and a PEEP of 5. Morning blood gases reveal a pO2 of 66, pCO2 34, pH 7.4. He is atrial fibrillation with a rapid ventricular response. He remains on a Cardizem drip at 7.5 mg per hour, norepinephrine at 1 mcg/m. Propofol at 70 mcg/kg/m. 0.9 normal saline at 100 mL per hour. Insulin drip at 8 units per hour. He is receiving a trickle tube feed of Vital HP at 10 mL per hour with a goal of 44. His chest x-ray reveals bilateral effusions with atelectasis/infiltrates the lung bases. He remains on Zosyn. He did receive 1 emergent dialysis treatment for his acute renal failure and hyperkalemia. Today's labs reveal creatinine 2.30 and a potassium of 4.4. Bicarb 19. He is receiving sodium bicarbonate 650 mg by mouth twice a day. He is currently receiving a daily interruption of sedation. We are also going to check a random cortisol level. Blood cultures reveal no growth to date. Urine culture pending. The patient is seen again today 04/24/2017 in follow-up in the intensive care unit. He remains to be elevated on mechanical ventilator current settings assist control 30, tidal volume 450, FiO2 60% and a PEEP of 5. Morning blood gases reveal a P O2 of 66, pCO2 of 30 and a pH of 7.45. He does remain sedated on to propofol 50 mcg/kg/m. He has a 0.9 normal saline at 100 MLS per hour. His Cardizem is currently on hold his atrial fibrillation is better controlled he has some episodes of bradycardia. Levophed has been weaned off. He remains on heparin drip and insulin drip at 9.5 units per hour. He is being fed via tube feedings Vital HP at 40 with a goal of 44 MLS per hour. He again was given a daily interruption of sedation. He is opening his eyes but not following any commands. He had significant coughing and significant secretions with tachycardia and tachypnea. Follow-up computed tomography scan revealed no acute intracranial process. His chest x-ray continues to show evidence of a left pleural effusion otherwise stable. He has been quite slow to progress. The patient is seen again today 04/25/2017 in follow-up in the intensive care unit. He remains intubated and on the mechanical ventilator currently at assist -control mode of 30, tidal volume 450, FiO2 60% and a PEEP of 5. Current arterial blood gases reveal a pO2 of 71, pCO2 34 and a pH of7.45. A mild respiratory alkalosis. He was given a sedation holiday. He does open his eyes spontaneously but does not follow any commands. No plans for weaning trials as he is still requiring high FiO2 to maintain O2 saturations greater than 90%. He is also on a 0.9 normal saline at 60 miles per hour, heparin drip at 10.7 units per hour, propofol at 45 mcg/kg/m, insulin drip at 5.5 units per hour. He is being nourished with Vital HP at goal 40 miles per hour. He has been slow to progress. 3 CT scans of the brain have been negative for acute stroke or hemorrhage. An EEG did reveal severe slowing consistent with diffuse encephalopathy. No evidence of seizures. The patient is seen again today 04/26/2017 in follow-up in the intensive care unit. He remains intubated and on the mechanical ventilator. Current settings are assist-control mode of 30, tidal volume 450, FiO2 60% and a PEEP of 5. Morning blood gases reveal a pO2 of 71, pCO2 37 and a pH of 7.42. He continues to have a 0.9 normal saline at 30 mL per hour, norepinephrine at 2 mcg/m, propofol at 15 mcg/kg/m, heparin at 8.7 units, insulin drip at 2.5 units per hour. He is being nourished with Vital HP at 40 mL's per hour which is goal. He has had ongoing issues with atrial fibrillation with rapid ventricular response and increasing PVCs and labile blood pressures. His chest x-ray does reveal improved aeration in the left lung base. On 04/28/2017 the patient is being seen in follow-up. The patient will be undertaken a tracheostomy tube insertion and a PEG tube insertion by Dr. Cooper today. This decision has already been made by Dr. Mcmillan due to failure to wean. The patient apparently was not waking up appropriately while off sedation and he was not following any commands and he was thought not to be able to protect his airway postextubation. Based on that decision was to give this patient a tracheostomy tube. Meanwhile, the patient remains on assist control mode of ventilation at the rate of 30, tidal volume 450, FiO2 of 50% and a PEEP of 10 in the morning blood gases showed a pH of 7.45 with a pCO2 of 36 and pO2 of 62. His chest x-ray is not showing any again thickened changes compared to yesterday. ET tube is in a good location this morning. Atelectatic changes can be seen in lung bases bilaterally. CAT scan of the brain that showed atrophy without any acute abnormalities. EEG of the brain had shown severe slowing consistent with diffuse encephalopathy, likely metabolic and there is no evidence of any seizure activity. The patient was tolerating his tube feeds and currently is nothing by mouth in preparation for his PEG and trach. Hemodynamically, he has a labile blood pressure, and his blood pressure typically goes up once is off sedation. Nevertheless he has not required any pressors. His echocardiogram shows an ejection fraction of 55-60% . He is in atrial fibrillation and he is on a IV heparin drip for anticoagulation. He is also on a amiodarone for rate control. On 04/29/2017, the patient is being seen in follow-up. The patient underwent a tracheostomy tube insertion and a PEG tube insertion yesterday and today he is postop day #1. Earlier this morning, we started the weaning process and the patient is currently off Diprivan. His mentation is gradually improving. I was able to make this patient follows some simple commands. He was able to squeeze my fingers using his hand and he was able to wiggle his toes in both feet upon demand. He remains on mechanical ventilator. Chest x-ray from today shows smaller lung volumes with small bilateral pleural effusions and the tracheostomy tube is in a good location. No evidence of any pneumothorax. The patient is an assist-control mode at the rate of 30, tidal volume of 450, FiO2 of 50% and a PEEP of 10. The blood gases from this morning showed a pH of 7.47 with a pCO2 of 33 and pO2 of 96. Based on this, I cut down his respiratory rate to 20, increased tidal volume to 500, kept on the flow down to 60, down the PEEP down to 8 and The FiO2 at 50%. His most recent pulse ox is still 96-97 %. He is having no significant orotracheal secretions. He is on IV Zosyn as an empiric antibiotic coverage. Renal function is stable. The patient has a fecal management system as the patient is being given lactulose for possible suspected hepatic encephalopathy. His bowel movements are liquidy and he is producing approximately 100 mL over the past 6-8 hours. He is taking lactulose 30 g twice a day. He remains in atrial fibrillation. He remains on IV heparin. Remains on IV amiodarone. He is also on Lopressor 25 mg by mouth twice a day for rate control. He is on insulin drip for blood sugar control. She'll feeds will be restarted this morning. On 04/30/2017 the patient remains off sedation. He seems to be more alert compared to yesterday and he is following commands and answering simple questions. He is able to also raise his arms against gravity. He was assist- control mode of ventilation with a tidal volume 500, rate of 20, FiO2 of 50% and a PEEP of 5. Blood gases this morning showed a pH of 7.43 with a pCO2 of 38 and pO2 of 149. Chest x-ray findings were stable. Based on that the patient was given a trial of pressure support mode of ventilation with a pressure support of 7 and a PEEP of 5 and FiO2 of 50%. He tolerated the setting well and is still on pressure support at this point without any signs of respiratory distress. He is being also diuresis with IV Lasix 20 mg IV push every 12 hours. He is producing adequate amount of urine output and he is in a negative fluid balance. His blood pressure is fluctuating at there is no prolonged hypotension and his renal function is stable with electrolytes all being within normal limits. The patient is on insulin drip for blood sugar control. The patient on heparin drip regarding his chronic atrial fibrillation. His rate is controlled for now. He is on tube feeds that was started yesterday and said goal at this point in time. The diarrhea is also subsided and the FMS system is still in place for the time being. He is afebrile. No other significant events over the past 24 hours. I would say his condition is gradually improving. On 05/01/2017 the patient remains off sedation. He is slowly recovering. He is still weak over more interactive. His edema is improving as the patient is being diuresis with IV Lasix. He was able to tolerate a pressure support of 5 and PEEP of 5 for a total of 4-6 hours yesterday. Will do the same today. His chest x-ray shows improvement in the volume status. The blood gases from this morning shows a component of respiratory alkalosis. Meanwhile the patient remains hemodynamically stable. The patient is on tube feeds. The patient on insulin drip for blood sugar control. The patient is on Xarelto for long-term and to coagulation his late is controlled. He is afebrile. The diarrhea is subsiding. Physical therapy is on the case for passive range of motion. We'll try to set him on a sitting up position while in bed. He is able to follow commands. He remains profoundly weak still. He is barely able to raise his arms against gravity. A repeat CAT scan was requested by neurology. This was done this morning. Results of this pending for now. No indication of any stroke at this point. On 05/02/2017 the patient remains off sedation. He is very slow in his recovery. He opens up his eyes. He moves however he is not strong enough to get himself out of the bed. He is not strong enough to bend his knees. He is unable to keep his arms up in the air for more than a few seconds. He is hemodynamically stable. He is tolerating CPAP again this morning at a pressure of 5 with a pressure support of 5 with an FiO2 of 40%. Chest x-ray remains stable. No significant orotracheal secretions. No fever. No diarrhea. The patient is diuresing appropriately and is on Lasix 40 mg IV every 12 hours. He is a negative fluid balance. Doppler lower extremity edema is improving. Renal function is stable. His writing to previous which is currently at goal running at 70 mL an hour of vital high protein. He is in atrial fibrillation. His rate is controlled. He is on long-term anticoagulation. I think he will be a good candidate for select specialty for further rehabilitation physical therapy and weaning. No active issues for now other than his profound weakness and debility. On 05/03/2017 the patient is awake and alert. He remains weak. He has been accepted to be transferred to select specialty for further rehabilitation weaning. Otherwise he was able to tolerate pressure support of 5 and PEEP of 5 mode of ventilation for 20 hours yesterday and following that around early this morning was placed back on assist control mode. The same will be done today. He has diabetes very well. He is a negative fluid balance. I think the Lasix dose can be kept on the 20 mg IV push every 24 hours. The upper and lower extremity edema is improved considerably. The patient is tolerating his enteral feeding and nutritional support. He remains in a cardiac rhythm of atrial fibrillation and the rate is controlled for now. He is awake and alert. He follows commands and answers questions. He is moving all 4 extremities. He is a large obese west. We'll may have difficulties in moving him on a chair. He will be able to placed in a sitting up position in bed. No fever. No other significant events overnight. Objective - Vital Signs Vital signs: Vital Signs Temp 99.0 F 05/03/17 08:00 Pulse 87 05/03/17 09:00 Resp 19 05/03/17 09:00 BP 52/39 04/28/17 15:30 Pulse Ox 98 05/03/17 09:00 Intake & Output 05/02/17 05/03/17 05/03/17 18:59 06:59 18:59 Intake Total 1423.146 592.733 23 Output Total 1715 1575 275 Balance -291.854 -982.267 -252 Weight 146.3 kg Intake: IV 349 217.0 23 [place] 39 27 3 Piperacillin-Tazobactam 3 50 50.0 .375 gm In Dextrose/Water 1 50ml.bag @ 12.5 mls/hr IVPB Q8HR DI Rx#: [id number] Sodium Chloride 0.9% 1, 260 140 20 000 ml @ 20 mls/hr IV . Q24H DI Rx#:[id number] Intake, IV Titration 44.146 35.733 Amount Insulin Regular 100 unit 44.146 35.733 In Sodium Chloride 0.9% 100 ml @ Per Protocol IV .Q0M DI Rx#:[id number] Tube Feeding 910 280 Other 120 60 Output: Urine 1715 1575 275 Other: Voiding Method Indwelling Catheter Indwelling Catheter ABP, PAP, CO, CI - Last Documented Arterial Blood Pressure 103/60 - Exam Obese, comfortable likely distress arouse and from his sedation as the patient was taken off the Diprivan this morning.Head exam was generally normal. There was no scleral icterus or corneal arcus. Mucous membranes were moist. Neck is supple and the patient is a tracheostomy tube in place and the patient has a [place] tracheostomy tube #8. Lung sounds are diminished bilaterally otherwise there is no wheeze or rhonchi or any crackles. Heart sounds are irregular, distant, positive S1-S2, no significant murmurs appreciated. Abdomen is obese soft nontender. Organs cannot be accurately palpated due to his obesity. Bowel sounds are hypoactive. There is no direct tenderness. No rebound tenderness. No guarding. Active site is clean. Extremities show +1 pitting edema both in upper and lower extremity. The patient is a PICC line in left upper extremity. The patient has a Artline is a right upper extremity. No open wounds. No cyanosis or clubbing at this point. Neurologically, he is still sedated however his arousing. He is following some simple commands at this point. - Labs CBC & Chem 7: 05/03/17 04:30 05/03/17 04:30 Labs: Abnormal Lab Results - Last 24 Hours (Table) 05/02/17 05/02/17 05/02/17 Range/Units 09:52 11:55 13:54 WBC (3.8-10.6) k/uL RBC (4.30-5.90) m/uL Hgb (13.0-17.5) gm/dL Hct (39.0-53.0) % MCV (80.0-100.0) fL Plt Count (150-450) k/uL Neutrophils # (1.3-7.7) k/uL Carbon Dioxide (22-30) mmol/L BUN (9-20) mg/dL Glucose (74-99) mg/dL POC Glucose (mg/dL) 175 H 206 H 166 H (75-99) mg/dL Total Protein (6.3-8.2) g/dL Albumin (3.5-5.0) g/dL 05/02/17 05/02/17 05/02/17 Range/Units 15:48 17:49 20:05 WBC (3.8-10.6) k/uL RBC (4.30-5.90) m/uL Hgb (13.0-17.5) gm/dL Hct (39.0-53.0) % MCV (80.0-100.0) fL Plt Count (150-450) k/uL Neutrophils # (1.3-7.7) k/uL Carbon Dioxide (22-30) mmol/L BUN (9-20) mg/dL Glucose (74-99) mg/dL POC Glucose (mg/dL) 163 H 171 H 159 H (75-99) mg/dL Total Protein (6.3-8.2) g/dL Albumin (3.5-5.0) g/dL 05/02/17 05/03/17 05/03/17 Range/Units 22:04 00:05 02:04 WBC (3.8-10.6) k/uL RBC (4.30-5.90) m/uL Hgb (13.0-17.5) gm/dL Hct (39.0-53.0) % MCV (80.0-100.0) fL Plt Count (150-450) k/uL Neutrophils # (1.3-7.7) k/uL Carbon Dioxide (22-30) mmol/L BUN (9-20) mg/dL Glucose (74-99) mg/dL POC Glucose (mg/dL) 165 H 170 H 152 H (75-99) mg/dL Total Protein (6.3-8.2) g/dL Albumin (3.5-5.0) g/dL 05/03/17 05/03/17 05/03/17 Range/Units 04:09 04:30 04:30 WBC 11.3 H (3.8-10.6) k/uL RBC 3.04 L (4.30-5.90) m/uL Hgb 10.3 L (13.0-17.5) gm/dL Hct 32.5 L (39.0-53.0) % MCV 106.8 H (80.0-100.0) fL Plt Count 140 L (150-450) k/uL Neutrophils # 8.8 H (1.3-7.7) k/uL Carbon Dioxide 32 H (22-30) mmol/L BUN 29 H (9-20) mg/dL Glucose 132 H (74-99) mg/dL POC Glucose (mg/dL) 135 H (75-99) mg/dL Total Protein 5.9 L (6.3-8.2) g/dL Albumin 3.1 L (3.5-5.0) g/dL 05/03/17 05/03/17 05/03/17 Range/Units 05:30 06:08 08:02 WBC (3.8-10.6) k/uL RBC (4.30-5.90) m/uL Hgb (13.0-17.5) gm/dL Hct (39.0-53.0) % MCV (80.0-100.0) fL Plt Count (150-450) k/uL Neutrophils # (1.3-7.7) k/uL Carbon Dioxide (22-30) mmol/L BUN (9-20) mg/dL Glucose (74-99) mg/dL POC Glucose (mg/dL) 175 H 198 H 158 H (75-99) mg/dL Total Protein (6.3-8.2) g/dL Albumin (3.5-5.0) g/dL Assessment and Plan Plan: Impression: #1 Acute hypoxic respiratory failure secondary to suspected diastolic congestive heart failure, with small bilateral pleural effusion and infiltrate with possible pneumonia. Sputum culture reveals no growth. On 04/28/2017, the patient remains on a mechanical ventilator. The plan is to proceed with a tracheostomy tube insertion and following that the patient will be gradually weaned off the sedation when his mental status will be assessed and hopefully will be able to gradually wean him off the mechanical ventilator. No vent changes will be done for today. The patient will have a blood gas after he denies back from the operating room. Chest x-ray be also repeated. Doubt any pneumonia at this point. On 04/29/2017 the patient remains on a mechanical ventilator. The necessary vent changes were done. The patient's oxygenation has improved. He also has a component of respiratory alkalosis. Based on that, the rest or rate was dropped down to 20, tidal volume was increased up to 500, his PEEP was dropped down to 8 and I'm in the process of weaning down the PEEP as long as his oxygenation remains stable with a saturation above 92%. Tracheostomy tube in place. No new finding of the chest x-ray and the patient is smaller lung volumes with small better pleural effusions. On 04/30/2017 the patient remains on a mechanical ventilator. His oxidation is improved and the patient is currently on a pressure support mode of ventilation with a pressure support of 7 and a PEEP of 5 with adequate blood gases and a chest x-ray. No signs of any respiratory distress for now. On 05/01/2017 the patient remains on a mechanical ventilator. He is able to tolerate pressure support of 5 and a PEEP of 5 and it morning. His blood gas showed rest or alkalosis. X-ray showing improvement in the volume status. The patient is on diuretics for now. The patient is also on IV Zosyn. On 05/02/2017, the patient is stable in terms of his aspiration and breathing. He is tolerating pressure support of 5 and a PEEP of 5. Chest x-ray findings are stable and unchanged. No active respiratory issues for now. On 05/03/2017 the patient remains stable. The patient is able to tolerate longer hours of pressure support mode of ventilation with a pressure support of 5 and a PEEP of 5. He is currently back on assist control mode with tidal volume of 500 and FiO2 of 40% with a PEEP of 5. #2 Non-anion gap metabolic acidosis secondary to acute renal failure, recovered #3 Altered mental status of unclear etiology. 4 CT scans of the brain revealed no acute intracranial abnormality. On today's evaluation of 04/29/2017, the patient is off Diprivan and the patient is gradually recovering his alertness and consciousness. He was able to follow some simple commands. On today's evaluation of 04/30/2017 the patient remains off sedation and the patient's encephalopathy is gradually improving. On today's evaluation of 05/01 2017, the patient had a follow-up CAT scan of the brain. No clinical indication for an underlying stroke. The patient is alert and awake he had he is slow in answering, but he can follow commands and move her extremities without any limitation. Cranial nerves are intact at this point. On today's evaluation of 05/02/2017, no evidence of any mental status change and the patient is following commands. 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 #4 History of atrial fibrillation. The patient is currently on amiodarone and metoprolol for rate control and on oral Elquis. #5 Chronic obstructive pulmonary disease. #6 Chronic and ongoing tobacco dependence. #7 Diabetes mellitus. #8 Hyperlipidemia. #9 Hypertension. #10 Hepatitis C. #11 Previous history of substance abuse including cocaine, heroin and methamphetamine. #12 Acute renal failure requiring urgent hemodialysis, the acute kidney injury is recovering #13 Profound hyperkalemia, corrected. Plan The patient is still weak. The patient may have an underlying component of critical illness polyneuropathy and myopathy. Cut down the Lasix dose to 20 mg daily 24 hours. We'll continue CPAP/pressure support trials on a daily basis. We are looking for select specialty transfer for further rehabilitation and weaning. His overall condition is stable and I think the patient is stable enough to be transferred if accepted and issues authorization is obtained today. We'll continue to follow otherwise here in the ICU. Her be able to sit up in his chair position today. Aggressive physical therapy. Passive range of motion. We'll follow. Critically care evaluation. More than 30 minutes. Time with Patient: Greater than 30
[2017-05-03 10:52] LABS: Glucose,Whole Blood 153 mg/dL (75-99)
--- NOTE | 2017-05-03 11:18 | P.DS ---
Providers Date of admission: 04/21/17 15:08 Expected date of discharge: 05/03/17 Attending physician: Jeison Fuentes Consults: 04/21/17 14:44 Consult Physician Routine Consulting Provider: Jose Mcmillan Consult Reason/Comments: icu Do you want consulting provider notified?: Yes Consult Physician Stat Consulting Provider: Gulshan Roblero Consult Reason/Comments: renalFail,incK Do you want consulting provider notified?: Already Contacted Consult Physician Urgent Consulting Provider: Wilbur Hutton Consult Reason/Comments: emergentHD Do you want consulting provider notified?: Yes 04/22/17 09:29 Consult Physician Stat Consulting Provider: Blake Garcia Consult Reason/Comments: r/o thrombus/stroke Do you want consulting provider notified?: Yes 04/22/17 19:31 Consult Physician Routine Consulting Provider: Aparna Meade Consult Reason/Comments: Atrial Fibrillation (Elevated Troponins) Do you want consulting provider notified?: Yes, Notify in am 04/24/17 10:21 Consult Physician Routine Consulting Provider: Raad Mayfield Consult Reason/Comments: picc line Do you want consulting provider notified?: Yes 04/25/17 11:27 Consult Physician Routine Consulting Provider: Jaspreet Cooper Consult Reason/Comments: tracheostomy and peg tube for Friday, April 28, 2017 Do you want consulting provider notified?: Yes Primary care physician: Jeison Fuentes [facility] Course: Felipe was admitted on April 21, 2017 for acute renal failure and hyperkalemia. He was very lethargic and difficult to arouse. He received fluid hydration and pressors to his blood pressure. He was intubated and sedated. He is known history of insulin-dependent diabetes mellitus, history of alcoholism, atrial fibrillation, COPD and tobaccoism. 04/29 Over the past 8 days, he has been on antibiotics of Zosyn, received emergent dialysis, his bicarbonate, a PEG tube, and a tracheostomy tube. His sedation has been weaned and pressors have been discontinued. He has been only on pressure support for the past 2 days. He remains on insulin drip for his diabetes. For his atrial fibrillation he remains on a heparin drip and IV amiodarone. 04/30 He is now on oral Elequis, amiodarone, aspirin, metoprolol. His sedation is less. He is more awake and responsive. He looks uncomfortable and slightly anxious. most likely out of anxiety regarding trach Critical care/pulmonology please he is gradually improving. 05/01 He is not being sedated, but has a lot of residual fatigue. Respirator setting are minimal at this time and critical care is planning on weaning this further. He is on mostly oral medications at this time. Open his eyes and extended his arms shake my hand when I enter the room today. He is unable to speak due to the trach. His overall status is once again slightly improved. 05/02 he is been off IV sedation 48 hours, he is weak but responsive, he has a PEG tube, fecal management system, tracheostomy tube with ventilation assistance , air mattress, offloading waffle boots, and his overall improved. Critical care believe she can be safely transferred to a stepdown unit. 05/03 patient is more stable grade critical care is cleared him for discharge to a specialty ECF. Meds reviewed. I'll make arrangements for discharge. Director Of Maintenance notes during his care This is a 71-year-old gentleman who follows with Dr. Fuentes as his primary care physician. He has a history of hyperlipidemia, chronic obstructive pulmonary disease with chronic and ongoing tobacco dependence, diabetes mellitus , hypertension, atrial fibrillation, chronic liver disease. He presented here on 04/21/2017 with altered mental status. The patient developed acute respiratory failure and required intubation mechanical ventilatory support. He is seen again today in follow-up in the intensive care unit. He remains on the ventilator assist control 30 tidal volume 450 FiO2 60% and a PEEP of 5. Morning blood gases reveal a pO2 of 66, pCO2 34, pH 7.4. He is atrial fibrillation with a rapid ventricular response. He remains on a Cardizem drip at 7.5 mg per hour, norepinephrine at 1 mcg/m. Propofol at 70 mcg/kg/m. 0.9 normal saline at 100 mL per hour. Insulin drip at 8 units per hour. He is receiving a trickle tube feed of Vital HP at 10 mL per hour with a goal of 44. His chest x-ray reveals bilateral effusions with atelectasis/infiltrates the lung bases. He remains on Zosyn. He did receive 1 emergent dialysis treatment for his acute renal failure and hyperkalemia. Today's labs reveal creatinine 2.30 and a potassium of 4.4. Bicarb 19. He is receiving sodium bicarbonate 650 mg by mouth twice a day. He is currently receiving a daily interruption of sedation. We are also going to check a random cortisol level. Blood cultures reveal no growth to date. Urine culture pending. The patient is seen again today 04/24/2017 in follow-up in the intensive care unit. He remains to be elevated on mechanical ventilator current settings assist control 30, tidal volume 450, FiO2 60% and a PEEP of 5. Morning blood gases reveal a P O2 of 66, pCO2 of 30 and a pH of 7.45. He does remain sedated on to propofol 50 mcg/kg/m. He has a 0.9 normal saline at 100 MLS per hour. His Cardizem is currently on hold his atrial fibrillation is better controlled he has some episodes of bradycardia. Levophed has been weaned off. He remains on heparin drip and insulin drip at 9.5 units per hour. He is being fed via tube feedings Vital HP at 40 with a goal of 44 MLS per hour. He again was given a daily interruption of sedation. He is opening his eyes but not following any commands. He had significant coughing and significant secretions with tachycardia and tachypnea. Follow-up computed tomography scan revealed no acute intracranial process. His chest x-ray continues to show evidence of a left pleural effusion otherwise stable. He has been quite slow to progress. The patient is seen again today 04/25/2017 in follow-up in the intensive care unit. He remains intubated and on the mechanical ventilator currently at assist -control mode of 30, tidal volume 450, FiO2 60% and a PEEP of 5. Current arterial blood gases reveal a pO2 of 71, pCO2 34 and a pH of7.45. A mild respiratory alkalosis. He was given a sedation holiday. He does open his eyes spontaneously but does not follow any commands. No plans for weaning trials as he is still requiring high FiO2 to maintain O2 saturations greater than 90%. He is also on a 0.9 normal saline at 60 miles per hour, heparin drip at 10.7 units per hour, propofol at 45 mcg/kg/m, insulin drip at 5.5 units per hour. He is being nourished with Vital HP at goal 40 miles per hour. He has been slow to progress. 3 CT scans of the brain have been negative for acute stroke or hemorrhage. An EEG did reveal severe slowing consistent with diffuse encephalopathy. No evidence of seizures. The patient is seen again today 04/26/2017 in follow-up in the intensive care unit. He remains intubated and on the mechanical ventilator. Current settings are assist-control mode of 30, tidal volume 450, FiO2 60% and a PEEP of 5. Morning blood gases reveal a pO2 of 71, pCO2 37 and a pH of 7.42. He continues to have a 0.9 normal saline at 30 mL per hour, norepinephrine at 2 mcg/m, propofol at 15 mcg/kg/m, heparin at 8.7 units, insulin drip at 2.5 units per hour. He is being nourished with Vital HP at 40 mL's per hour which is goal. He has had ongoing issues with atrial fibrillation with rapid ventricular response and increasing PVCs and labile blood pressures. His chest x-ray does reveal improved aeration in the left lung base. On 04/28/2017 the patient is being seen in follow-up. The patient will be undertaken a tracheostomy tube insertion and a PEG tube insertion by Dr. Cooper today. This decision has already been made by Dr. Mcmillan due to failure to wean. The patient apparently was not waking up appropriately while off sedation and he was not following any commands and he was thought not to be able to protect his airway postextubation. Based on that decision was to give this patient a tracheostomy tube. Meanwhile, the patient remains on assist control mode of ventilation at the rate of 30, tidal volume 450, FiO2 of 50% and a PEEP of 10 in the morning blood gases showed a pH of 7.45 with a pCO2 of 36 and pO2 of 62. His chest x-ray is not showing any again thickened changes compared to yesterday. ET tube is in a good location this morning. Atelectatic changes can be seen in lung bases bilaterally. CAT scan of the brain that showed atrophy without any acute abnormalities. EEG of the brain had shown severe slowing consistent with diffuse encephalopathy, likely metabolic and there is no evidence of any seizure activity. The patient was tolerating his tube feeds and currently is nothing by mouth in preparation for his PEG and trach. Hemodynamically, he has a labile blood pressure, and his blood pressure typically goes up once is off sedation. Nevertheless he has not required any pressors. His echocardiogram shows an ejection fraction of 55-60% . He is in atrial fibrillation and he is on a IV heparin drip for anticoagulation. He is also on a amiodarone for rate control. On 04/29/2017, the patient is being seen in follow-up. The patient underwent a tracheostomy tube insertion and a PEG tube insertion yesterday and today he is postop day #1. Earlier this morning, we started the weaning process and the patient is currently off Diprivan. His mentation is gradually improving. I was able to make this patient follows some simple commands. He was able to squeeze my fingers using his hand and he was able to wiggle his toes in both feet upon demand. He remains on mechanical ventilator. Chest x-ray from today shows smaller lung volumes with small bilateral pleural effusions and the tracheostomy tube is in a good location. No evidence of any pneumothorax. The patient is an assist-control mode at the rate of 30, tidal volume of 450, FiO2 of 50% and a PEEP of 10. The blood gases from this morning showed a pH of 7.47 with a pCO2 of 33 and pO2 of 96. Based on this, I cut down his respiratory rate to 20, increased tidal volume to 500, kept on the flow down to 60, down the PEEP down to 8 and The FiO2 at 50%. His most recent pulse ox is still 96-97 %. He is having no significant orotracheal secretions. He is on IV Zosyn as an empiric antibiotic coverage. Renal function is stable. The patient has a fecal management system as the patient is being given lactulose for possible suspected hepatic encephalopathy. His bowel movements are liquidy and he is producing approximately 100 mL over the past 6-8 hours. He is taking lactulose 30 g twice a day. He remains in atrial fibrillation. He remains on IV heparin. Remains on IV amiodarone. He is also on Lopressor 25 mg by mouth twice a day for rate control. He is on insulin drip for blood sugar control. She'll feeds will be restarted this morning. On 04/30/2017 the patient remains off sedation. He seems to be more alert compared to yesterday and he is following commands and answering simple questions. He is able to also raise his arms against gravity. He was assist- control mode of ventilation with a tidal volume 500, rate of 20, FiO2 of 50% and a PEEP of 5. Blood gases this morning showed a pH of 7.43 with a pCO2 of 38 and pO2 of 149. Chest x-ray findings were stable. Based on that the patient was given a trial of pressure support mode of ventilation with a pressure support of 7 and a PEEP of 5 and FiO2 of 50%. He tolerated the setting well and is still on pressure support at this point without any signs of respiratory distress. He is being also diuresis with IV Lasix 20 mg IV push every 12 hours. He is producing adequate amount of urine output and he is in a negative fluid balance. His blood pressure is fluctuating at there is no prolonged hypotension and his renal function is stable with electrolytes all being within normal limits. The patient is on insulin drip for blood sugar control. The patient on heparin drip regarding his chronic atrial fibrillation. His rate is controlled for now. He is on tube feeds that was started yesterday and said goal at this point in time. The diarrhea is also subsided and the FMS system is still in place for the time being. He is afebrile. No other significant events over the past 24 hours. I would say his condition is gradually improving. On 05/01/2017 the patient remains off sedation. He is slowly recovering. He is still weak over more interactive. His edema is improving as the patient is being diuresis with IV Lasix. He was able to tolerate a pressure support of 5 and PEEP of 5 for a total of 4-6 hours yesterday. Will do the same today. His chest x-ray shows improvement in the volume status. The blood gases from this morning shows a component of respiratory alkalosis. Meanwhile the patient remains hemodynamically stable. The patient is on tube feeds. The patient on insulin drip for blood sugar control. The patient is on Xarelto for long-term and to coagulation his late is controlled. He is afebrile. The diarrhea is subsiding. Physical therapy is on the case for passive range of motion. We'll try to set him on a sitting up position while in bed. He is able to follow commands. He remains profoundly weak still. He is barely able to raise his arms against gravity. A repeat CAT scan was requested by neurology. This was done this morning. Results of this pending for now. No indication of any stroke at this point. On 05/02/2017 the patient remains off sedation. He is very slow in his recovery. He opens up his eyes. He moves however he is not strong enough to get himself out of the bed. He is not strong enough to bend his knees. He is unable to keep his arms up in the air for more than a few seconds. He is hemodynamically stable. He is tolerating CPAP again this morning at a pressure of 5 with a pressure support of 5 with an FiO2 of 40%. Chest x-ray remains stable. No significant orotracheal secretions. No fever. No diarrhea. The patient is diuresing appropriately and is on Lasix 40 mg IV every 12 hours. He is a negative fluid balance. Doppler lower extremity edema is improving. Renal function is stable. His writing to previous which is currently at goal running at 70 mL an hour of vital high protein. He is in atrial fibrillation. His rate is controlled. He is on long-term anticoagulation. I think he will be a good candidate for select specialty for further rehabilitation physical therapy and weaning. No active issues for now other than his profound weakness and debility. On 05/03/2017 the patient is awake and alert. He remains weak. He has been accepted to be transferred to select specialty for further rehabilitation weaning. Otherwise he was able to tolerate pressure support of 5 and PEEP of 5 mode of ventilation for 20 hours yesterday and following that around early this morning was placed back on assist control mode. The same will be done today. He has diabetes very well. He is a negative fluid balance. I think the Lasix dose can be kept on the 20 mg IV push every 24 hours. The upper and lower extremity edema is improved considerably. The patient is tolerating his enteral feeding and nutritional support. He remains in a cardiac rhythm of atrial fibrillation and the rate is controlled for now. He is awake and alert. He follows commands and answers questions. He is moving all 4 extremities. He is a large obese west. We'll may have difficulties in moving him on a chair. He will be able to placed in a sitting up position in bed. No fever. No other significant events overnight. Final diagnoses Acute hypoxic respiratory failure, resolving Suspect pneumonia diastolic congestive heart failure Paroxysmal Atrial fibrillation Insulin-dependent diabetes mellitus Acute renal failure: Resolved, COPD Tobaccoism: Hypertension Substance abuse history HCV Multiple electrolyte abnormalities, corrected Patient Condition at Discharge: Serious Plan - Discharge Summary New Discharge Prescriptions: New Amiodarone [Cordarone] 200 mg PO TID tab Aspirin 81 mg PO DAILY Chlorhexidine Gluconate [Peridex] 15 ml MUCOUS MEM BID dose Insulin Aspart [NovoLOG] See Protocol SQ Q4HR #1 vial Ipratropium-Albuterol Nebulize [Duoneb 0.5 mg-3 mg/3 ml Soln] 3 ml INHALATION RT-Q4H neb Lactulose [Cephulac] 10 gm PO DAILY dose Metoprolol Tartrate [Lopressor] 25 mg PO BID tab Continue Diazepam [Valium] 5 mg PO HS #15 tab HYDROcodone/APAP 10-325MG [[place] 10-325] 1 tab PO Q6H PRN PRN Reason: Pain Simvastatin [Zocor] 40 mg PO DAILY Albuterol Inhaler [Ventolin Hfa Inhaler] 1 - 2 puff INHALATION RT-Q6H PRN #1 puff PRN Reason: Cough Rivaroxaban [Xarelto] 20 mg PO AC-SUPPER #30 tab Budesonide-Formot 160-4.5 Mcg [Symbicort 160-4.5 Mcg Inhaler] 2 puff INHALATION RT-BID Valsartan 320 mg PO DAILY Latanoprost [Xalatan 0.005%] 1 drop BOTH EYES HS Discontinued Metoprolol Tartrate [Lopressor] 50 mg PO TID Insuln Asp Prt/Insulin Aspart [NovoLOG MIX 70-30 VIAL] 45 units SQ AC-SUPPER Insuln Asp Prt/Insulin Aspart [NovoLOG MIX 70-30 VIAL] 35 units SQ AC-BRKFST Discharge Medication List Diazepam [Valium] 5 mg PO HS #15 tab 10/12/14 [Rx] HYDROcodone/APAP 10-325MG [[place] 10-325] 1 tab PO Q6H PRN 01/23/15 [History] Simvastatin [Zocor] 40 mg PO DAILY 01/23/15 [History] Albuterol Inhaler [Ventolin Hfa Inhaler] 1 - 2 puff INHALATION RT-Q6H PRN #1 puff 01/26/15 [Rx] Rivaroxaban [Xarelto] 20 mg PO AC-SUPPER #30 tab 01/26/15 [Rx] Budesonide-Formot 160-4.5 Mcg [Symbicort 160-4.5 Mcg Inhaler] 2 puff INHALATION RT-BID 04/21/17 [History] Latanoprost [Xalatan 0.005%] 1 drop BOTH EYES HS 04/21/17 [History] Valsartan 320 mg PO DAILY 04/21/17 [History] Amiodarone [Cordarone] 200 mg PO TID tab 05/03/17 [Rx] Aspirin 81 mg PO DAILY 05/03/17 [Rx] Chlorhexidine Gluconate [Peridex] 15 ml MUCOUS MEM BID dose 05/03/17 [Rx] Insulin Aspart [NovoLOG] See Protocol SQ Q4HR #1 vial 05/03/17 [Rx] Ipratropium-Albuterol Nebulize [Duoneb 0.5 mg-3 mg/3 ml Soln] 3 ml INHALATION RT -Q4H neb 05/03/17 [Rx] Lactulose [Cephulac] 10 gm PO DAILY dose 05/03/17 [Rx] Metoprolol Tartrate [Lopressor] 25 mg PO BID tab 05/03/17 [Rx] Follow up Appointment(s)/Referral(s): Jeison Fuentes MD [Primary Care Provider] - 1-2 days [facility] Visiting Nurse, [NON-STAFF] - Discharge Disposition: TRANSFER TO SNF/ECF
--- NOTE | 2017-05-03 12:07 | P.PN ---
Subjective This patient is a 71-year-old male who is seen today in the intensive care unit for ongoing neurological follow-up. Patient underwent tracheostomy and PEG tube placement yesterday and is postoperative day one today. He has been off of Diprivan since 7 AM this morning. He is opening his eyes but is not following commands. He continues to have generalized weakness in both upper and lower extremities. His chest x-ray reveals bilateral effusions. He continues on antibiotic coverage and is currently on Zosyn. He did have a PEG tube placed and his tube feedings have been initiated yesterday. Seems to be tolerating this feeds well with no residuals. Patient is being treated for acute kidney injury. Nephrology is following the patient closely. Since stopping the Diprivan the patient does seem to open his eyes but still not able to follow commands. Today's date to off of the Diprivan drip. He does seem to be more awake today in the ICU. He is opening his eyes and is able to squeeze both hands on command. He continues to have evidence of significant generalized weakness. 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 He is moving both hands but still has significant generalized muscle weakness. We have recommended a repeat computed tomography scan of the brain to be done tomorrow for further assessment. He has undergone multiple CT scans of the brain all of which have been negative for any evidence of acute stroke. The patient has been taken off of IV heparin and is to be started on Eliquis for long-term anticoagulation. Patient is being considered for transfer to [facility] for further subacute care. We will check his computed tomography scan of the brain to rule out any possibility of new change or signs of hemorrhage. The results of the computed tomography scan of the brain done yesterday fails to reveal any acute changes. There was mild atrophy noted. Patient is being considered for transfer to [facility] once he is stabilized. He does not complain of any headache but continues to have generalized weakness. 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 He will require long-term care and aggressive physical therapy to see his overall improvement over the next month. Patient continues to remain off his sedation. As noted he has evidence of a slowly resolving metabolic encephalopathy. As noted his CAT scan of the brain failed to reveal any new changes. Patient does show slight improvement in his mental status today. He is nodding his head to answer questions. He remains off all sedation at this time. His overall prognosis at this time remains very guarded. He is awaiting transfer to [facility] for further rehabilitation. The patient has been accepted for transfer to [facility] today for further rehabilitation in weaning parameters. Discharge is in process at this time. His overall prognosis at this time remains very guarded. We will continue close neurological follow-up of this patient in the intensive care unit. Objective - Vital Signs Vital signs: Vital Signs Temp 99.0 F 05/03/17 08:00 Pulse 99 05/03/17 12:00 Resp 26 H 05/03/17 10:00 BP 52/39 04/28/17 15:30 Pulse Ox 96 05/03/17 10:00 Intake & Output 05/02/17 05/03/17 05/03/17 18:59 06:59 18:59 Intake Total 1423.146 592.733 579 Output Total 1715 1575 1275 Balance -291.854 -982.267 -696 Weight 146.3 kg 146.3 kg Intake: IV 349 217.0 99 Iram 39 27 9 Piperacillin-Tazobactam 3 50 50.0 50 .375 gm In Dextrose/Water 1 50ml.bag @ 12.5 mls/hr IVPB Q8HR DI Rx#: [id number] Sodium Chloride 0.9% 1, 260 140 40 000 ml @ 20 mls/hr IV . Q24H DI Rx#:[id number] Intake, IV Titration 44.146 35.733 200 Amount Insulin Regular 100 unit 44.146 35.733 In Sodium Chloride 0.9% 100 ml @ Per Protocol IV .Q0M DI Rx#:[id number] Magnesium Sulfate-D5w Pmx 200 1 gm In Dextrose/Water 1 100ml.bag @ 100 mls/hr IVPB Q1H DI Rx#: [id number] Tube Feeding 910 280 280 Other 120 60 Output: Urine 1715 1575 1275 Other: Voiding Method Indwelling Catheter Indwelling Catheter # Bowel Movements 1 ABP, PAP, CO, CI - Last Documented Arterial Blood Pressure 111/55 - Exam Physical examination: PHYSICAL EXAMINATION: Patient has tracheostomy tube and is maintained on ventilator. He is opening his eyes but does not follow commands. He is off of all sedation at this time. VITAL SIGNS: Blood pressure is [112/55]. Heart rate is [122]. Respiration is [26 ]. Temperature is [99.0]. HEENT: Head is atraumatic, neck is supple, there were no carotid bruits. CHEST: Lungs are clear to auscultation and percussion. CARDIAC: S1, S2 normal rate and rhythm. There is no murmur. ABDOMEN: Soft and nontender. Bowel sounds are present. EXTREMITIES: There is no pedal edema. Peripheral pulses are present. Neurological examination: Patient is seen in the intensive care unit. He has a tracheostomy and PEG tube placement. He is off of all sedation today. He is opening his eyes but is not following commands. Patient has decreased tone in both upper and lower extremities. Deep tendon reflexes are 1+ and symmetric. Plantar responses flexor bilaterally. - Labs CBC & Chem 7: 05/03/17 04:30 05/03/17 04:30 Labs: Abnormal Lab Results - Last 24 Hours (Table) 05/02/17 05/02/17 05/02/17 Range/Units 13:54 15:48 17:49 WBC (3.8-10.6) k/uL RBC (4.30-5.90) m/uL Hgb (13.0-17.5) gm/dL Hct (39.0-53.0) % MCV (80.0-100.0) fL Plt Count (150-450) k/uL Neutrophils # (1.3-7.7) k/uL Carbon Dioxide (22-30) mmol/L BUN (9-20) mg/dL Glucose (74-99) mg/dL POC Glucose (mg/dL) 166 H 163 H 171 H (75-99) mg/dL Total Protein (6.3-8.2) g/dL Albumin (3.5-5.0) g/dL 05/02/17 05/02/17 05/03/17 Range/Units 20:05 22:04 00:05 WBC (3.8-10.6) k/uL RBC (4.30-5.90) m/uL Hgb (13.0-17.5) gm/dL Hct (39.0-53.0) % MCV (80.0-100.0) fL Plt Count (150-450) k/uL Neutrophils # (1.3-7.7) k/uL Carbon Dioxide (22-30) mmol/L BUN (9-20) mg/dL Glucose (74-99) mg/dL POC Glucose (mg/dL) 159 H 165 H 170 H (75-99) mg/dL Total Protein (6.3-8.2) g/dL Albumin (3.5-5.0) g/dL 05/03/17 05/03/17 05/03/17 Range/Units 02:04 04:09 04:30 WBC 11.3 H (3.8-10.6) k/uL RBC 3.04 L (4.30-5.90) m/uL Hgb 10.3 L (13.0-17.5) gm/dL Hct 32.5 L (39.0-53.0) % MCV 106.8 H (80.0-100.0) fL Plt Count 140 L (150-450) k/uL Neutrophils # 8.8 H (1.3-7.7) k/uL Carbon Dioxide (22-30) mmol/L BUN (9-20) mg/dL Glucose (74-99) mg/dL POC Glucose (mg/dL) 152 H 135 H (75-99) mg/dL Total Protein (6.3-8.2) g/dL Albumin (3.5-5.0) g/dL 05/03/17 05/03/17 05/03/17 Range/Units 04:30 05:30 06:08 WBC (3.8-10.6) k/uL RBC (4.30-5.90) m/uL Hgb (13.0-17.5) gm/dL Hct (39.0-53.0) % MCV (80.0-100.0) fL Plt Count (150-450) k/uL Neutrophils # (1.3-7.7) k/uL Carbon Dioxide 32 H (22-30) mmol/L BUN 29 H (9-20) mg/dL Glucose 132 H (74-99) mg/dL POC Glucose (mg/dL) 175 H 198 H (75-99) mg/dL Total Protein 5.9 L (6.3-8.2) g/dL Albumin 3.1 L (3.5-5.0) g/dL 05/03/17 05/03/17 Range/Units 08:02 10:49 WBC (3.8-10.6) k/uL RBC (4.30-5.90) m/uL Hgb (13.0-17.5) gm/dL Hct (39.0-53.0) % MCV (80.0-100.0) fL Plt Count (150-450) k/uL Neutrophils # (1.3-7.7) k/uL Carbon Dioxide (22-30) mmol/L BUN (9-20) mg/dL Glucose (74-99) mg/dL POC Glucose (mg/dL) 158 H 153 H (75-99) mg/dL Total Protein (6.3-8.2) g/dL Albumin (3.5-5.0) g/dL Assessment and Plan (1) Acute encephalopathy Status: Acute Code(s): G93.40 - ENCEPHALOPATHY, UNSPECIFIED (2) Acute renal failure Status: Acute Code(s): N17.9 - ACUTE KIDNEY FAILURE, UNSPECIFIED (3) Atrial fibrillation Status: Acute Code(s): I48.91 - UNSPECIFIED ATRIAL FIBRILLATION (4) Hepatic encephalopathy Status: Acute Code(s): K72.90 - HEPATIC FAILURE, UNSPECIFIED WITHOUT COMA Plan: This patient is a 71-year-old male who is seen today in the intensive care unit. He is undergone recent tracheostomy and PEG tube placement. He has been off of all IV sedation for the past 48 hours. He is showing some improvement in his alertness and is following some simple commands. He continues to have generalized weakness in all extremities. We have recommended a repeat computed tomography scan of the brain to be done tomorrow as a further follow-up. He has been taken off of IV heparin and is been placed on Eliquis. We will continue close neurological follow-up for this patient in the intensive care unit. He is being considered for transfer to [facility] for further subacute care and rehab. Patient's repeat computed tomography scan of the brain failed to reveal any new changes today. He is showing some improvement in his overall mental status in the ICU. He is following some simple commands. We will continue to monitor his progress very closely in the ICU environment. Patient did undergo repeat computed tomography scan of the brain yesterday which was reviewed and as noted is negative for any acute changes. 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 Continues to have weakness in all 4 extremities. He will require ongoing PT /OT evaluation once he is transferred to rehabilitation. The patient has been accepted for transfer to [facility] for further rehabilitation and weaning. Discharge papers are in order and he will be transferred later today. We will continue close neurological follow-up with this patient in the intensive care unit. His overall prognosis at this time remains very guarded.
[2017-05-03 12:50] LABS: Glucose,Whole Blood 135 mg/dL (75-99)
[2017-05-03 15:20] VITALS: BP 110/65; PULSE 107; RESP 32
[2017-05-04] MEDS ORDERED: FUROSEMIDE 10 MG/ML 2 ML VIAL IV SCH (09:00)
--- NOTE | 2017-05-07 13:41 | CDI ---
In responding to this query, please exercise your independent professional judgment. The [facility] Coding Staff and Clinical Documentation Specialists appreciate your assistance in clarifying documentation, maintaining compliance with coding guidelines, accurately documenting patients condition and capturing severity of illness. The fact that a question is asked does not imply that any particular answer is desired or expected. Communication forms are a method of clarifying documentation and are not made part of the Legal Health Record. Thank you in advance for your clarification. Last Revision, January 2017 David Farfan [address] [facility] [place] [address] Documentation Clarification Form Date: 05/07/2017 1:25:00 PM From: Dina Terry Admit Date: 04/21/2017 3:08:00 PM Patient Name: Felipe Mathur Visit Number: [id number] Discharge Date:05/03/17 Dr. Jeison Fuentes CHF is documented in the 04/22 consult, 04/23 PN and additional PNs. History/Risk Factors: Clinical Indicators: VS/Pulse OX: 04/22 P-131, RR-30 Echocardiogram Results: Left ventricular systolci function is normal. EF between 55-60% Chest X Ray: Cardiomegaly and pleural effusion identified on the 04/22 CXR. Treatment: IV Lasix on 04/29, Toprol, Eliquis, amiodarone Consults: Dr. Meade In your professional opinion, can you please clarify the acuity of diastolic CHF if known? Diastolic Heart Failure: Acute Chronic Acute on Chronic Unable to determine Other, please specify Please document addendum in your discharge summary in order to capture severity of illness and risk of mortality. Include clinical findings that support your diagnosis. FYI: Press F11 to launch patient chart. Place X here if this finding has no clinical significance, is not applicable or if you are not able to provide any additional documentation. VANIA Augustin, CCS, AHIAK Certified [employer] Retail Sales Advisor/Base Engineer/Retail Sales Advisor II If you have any questions or concerns please contact Carmen Fletcher, Surveyor Rod Helper, David Farfan @ [phone] [facility]
--- NOTE | 2017-05-28 15:07 | P.PCN ---
Date of Procedure: 04/28/17 Preoperative Diagnosis: Respiratory failure and inability to wean from vent Postoperative Diagnosis: Same Procedure(s) Performed: Tracheostomy Implants: Anesthesia: CHEYA Surgeon: Jaspreet Cooper Estimated Blood Loss (ml): 20 Pathology: none sent Condition: stable Disposition: no change Indications for Procedure: Patient has been unable to wean from the vent with multiple medical conditions Operative Findings: No significant abnormalities were seen Description of Procedure: With the patient supine position, under benefit of IV anesthesia with endotracheal tube in place we prepped and draped in standard fashion. We made a transverse incision 2 fingerbreadths above the sternal notch. We incised suprafascial fascias transversely and split strap muscles in midline. We exposed the trachea by incising the isthmus of the thyroid with left cautery. We placed the first ring of the trachea on traction. We incised the second through fourth tracheal rings longitudinally. We dilated the opening and placed a #8 Bivona foam cuff tube. The endotracheal tube had been brought above this opening and was now removed entirely. We ventilated easily with the trach tube. The corners of the incision were closed with nylon. The same incisions were used to secure the wings of the flange. Sterile dressings were applied. The patient tolerated the procedure well.
--- NOTE | 2017-05-28 15:09 | P.PCN ---
Date of Procedure: 04/28/17 Preoperative Diagnosis: Inability to swallow secondary to vent dependency Postoperative Diagnosis: Same Procedure(s) Performed: Insertion of percutaneous endoscopic gastrostomy tube Implants: Anesthesia: GETA Surgeon: Jaspreet Cooper Estimated Blood Loss (ml): 5 Pathology: none sent Condition: stable Disposition: ICU Indications for Procedure: The patient is vent dependent and requires nutrition. Operative Findings: No significant endoscopic abnormalities were seen. Description of Procedure: With the patient supine position, under benefit of IV anesthesia with a trach tube in place, we prepped and draped in standard fashion. We passed the endoscope under direct visualization. We traversed the esophagus and into the stomach. The stomach was insufflated. We isolated another spot on the anterior abdominal wall corresponding the anterior wall of the stomach. We made a quarter inch transverse incision in this spot. We passed the needle trocar through this into the stomach. A guidewire was placed through the cannula and grasped with a snare of the stomach through the scope. The guidewires brought out through the mouth. We then passed retrograde over this the PEG tube until the plastic tip exiting the anterior abdominal wall. The guidewire was removed and we the PEG tube into place while following up with the endoscope. We visualized it abutted the gastric mucosa. Appropriate adapters were placed on the tube. Sterile dressings were applied. The patient tolerated the procedure well and was taken back to intensive care in stable condition.
== END 2017-05-03 15:31 | DRG 4 ==
LOC: EC 11:38 → 6ICU 15:08
PROVIDERS: ADMIT Family Medicine; ATTEND Family Medicine
PROC: 0BH17EZ Insertion of Endotracheal Airway into Trachea, Via Natural or Artificial Opening (ICD-10-PCS; principal; 2017-04-21)
PROC: 5A1955Z Respiratory Ventilation, Greater than 96 Consecutive Hours (ICD-10-PCS; 2017-04-21)
PROC: 5A1D00Z (ICD-10-PCS; 2017-04-21)
PROC: 0D9670Z Drainage of Stomach with Drainage Device, Via Natural or Artificial Opening (ICD-10-PCS; 2017-04-21)
PROC: 3E0G76Z Introduction of Nutritional Substance into Upper GI, Via Natural or Artificial Opening (ICD-10-PCS; 2017-04-21)
PROC: 06HN33Z Insertion of Infusion Device into Left Femoral Vein, Percutaneous Approach (ICD-10-PCS; 2017-04-22)
PROC: B54CZZA Ultrasonography of Left Lower Extremity Veins, Guidance (ICD-10-PCS; 2017-04-22)
PROC: 02HV33Z Insertion of Infusion Device into Superior Vena Cava, Percutaneous Approach (ICD-10-PCS; 2017-04-24)
PROC: B548ZZA Ultrasonography of Superior Vena Cava, Guidance (ICD-10-PCS; 2017-04-24)
PROC: 0B110F4 Bypass Trachea to Cutaneous with Tracheostomy Device, Open Approach (ICD-10-PCS; 2017-04-28)
PROC: 3E0G76Z Introduction of Nutritional Substance into Upper GI, Via Natural or Artificial Opening (ICD-10-PCS; 2017-04-28)
PROC: 0DH63UZ Insertion of Feeding Device into Stomach, Percutaneous Approach (ICD-10-PCS; 2017-04-28)
DX: N17.9 Acute kidney failure, unspecified (principal); G62.81 Critical illness polyneuropathy; G72.81 Critical illness myopathy; G93.41 Metabolic encephalopathy; J18.9 Pneumonia, unspecified organism; E87.3 Alkalosis; I13.0 Hypertensive heart and chronic kidney disease with heart failure and stage 1 through stage 4 chronic kidney disease, or unspecified chronic kidney disease; I50.32 Chronic diastolic (congestive) heart failure; J96.01 Acute respiratory failure with hypoxia; Z99.11 Dependence on respirator [ventilator] status; J44.0 Chronic obstructive pulmonary disease with (acute) lower respiratory infection; J44.1 Chronic obstructive pulmonary disease with (acute) exacerbation; Z68.42 Body mass index [BMI] 45.0-49.9, adult; J98.11 Atelectasis; E11.22 Type 2 diabetes mellitus with diabetic chronic kidney disease; E87.5 Hyperkalemia; I48.0 Paroxysmal atrial fibrillation; K72.90 Hepatic failure, unspecified without coma; E66.01 Morbid (severe) obesity due to excess calories; E83.42 Hypomagnesemia; E78.5 Hyperlipidemia, unspecified; F41.9 Anxiety disorder, unspecified; F10.21 Alcohol dependence, in remission; N18.9 Chronic kidney disease, unspecified; I49.3 Ventricular premature depolarization; B19.20 Unspecified viral hepatitis C without hepatic coma; Z90.49 Acquired absence of other specified parts of digestive tract; F17.200 Nicotine dependence, unspecified, uncomplicated; Z87.898 Personal history of other specified conditions; Z79.51 Long term (current) use of inhaled steroids; Z79.4 Long term (current) use of insulin; Z79.01 Long term (current) use of anticoagulants; Z79.899 Other long term (current) drug therapy; Z83.3 Family history of diabetes mellitus; Z93.0 Tracheostomy status; Z93.1 Gastrostomy status
CPT/HCPCS: 31500; 36415; 36569; 36600; 43246; 51702; 70450; 71010; 74176; 76937; 80048; 80053; 80061; 80074; 80306; 80320; 81001; 82009; 82088; 82140; 82533; 82550; 82553; 82805; 83036; 83520; 83605; 83690; 83735; 84100; 84132; 84244; 84439; 84443; 84484; 84600; 85025; 85610; 85730; 87040; 87070; 87086; 87205; 87390; 90935; 93005; 93306; 94002; 94003; 94640; 95816; 96361; 96365; 96375; 96376; 99291; 99292

== ENCOUNTER → 2017-06-04 | Outpatient (CLI) | payer MEDICARE ==
[2017-06-04 13:23] LABS: Basophils % (A) 1 %; CH 33.8; CHCM 32.6; Eosinophils # (A) 0.4 k/uL (0-0.7); Eosinophils % (A) 6 %; HCT 38.7 % (39.0-53.0); HDW 3.23; HGB 12.4 gm/dL (13.0-17.5); Hypochromasia Slight; Luc # (Auto) 0.16; Luc % (Auto) 2; Lymphocytes # (A) 1.4 k/uL (1.0-4.8); Lymphocytes % (A) 20 %; MCH 33.4 pg (25.0-35.0); MCV 104.4 fL (80.0-100.0); Macrocytosis Moderate; Mean Platelet Volume 7.6; Monocytes # (A) 0.4 k/uL (0-1.0); Monocytes % (A) 6 %; Neutrophils # (A) 4.7 k/uL (1.3-7.7); Neutrophils % (A) 66 %; RBC 3.71 m/uL (4.30-5.90); RDW 15.1 % (11.5-15.5); WBC (Perox) 7.83
[2017-06-04 13:42] LABS: ALT 46 U/L (21-72); AST 31 U/L (17-59); Alkaline Phosphatase 109 U/L (38-126); Anion Gap 12 mmol/L; Blood Urea Nitrogen 12 mg/dL (9-20); Calcium 9.2 mg/dL (8.4-10.2); Carbon Dioxide 23 mmol/L (22-30); Chloride 107 mmol/L (98-107); Glucose 79 mg/dL (74-99); Non-African American GFR(MDRD) >60 (>60 ml/min/1.73 sqM); Potassium 4.1 mmol/L (3.5-5.1); Sodium 142 mmol/L (137-145); Total Bilirubin 0.5 mg/dL (0.2-1.3); Total Protein 6.9 g/dL (6.3-8.2)
== END | disposition home or self-care (01) ==
LOC: LABWHC1 13:03
PROVIDERS: ATTEND Family Medicine
DX: Z00.00 Encounter for general adult medical examination without abnormal findings (principal); I10 Essential (primary) hypertension; E03.9 Hypothyroidism, unspecified; J44.9 Chronic obstructive pulmonary disease, unspecified
CPT/HCPCS: 36415; 80053; 84443; 85025

== ENCOUNTER 2017-12-07 02:53 | Inpatient (IN) | payer MEDICARE, OTHER ==
[2017-12-07 03:01] LABS: Glucose,Whole Blood 125 mg/dL (75-99)
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
--- NOTE | 2017-12-07 03:49 | XR ---
EXAM: XR Left Shoulder Complete, 2 or More Views CLINICAL HISTORY: Reason: fall TECHNIQUE: Two or more views of the left shoulder. COMPARISON: Chest x-ray dated 05/03/2017. FINDINGS: Bones/joints: Unremarkable. No acute fracture. No dislocation. Mild degenerative changes of the left acromioclavicular joint. Soft tissues: Unremarkable. IMPRESSION: No acute fracture or dislocation.
--- NOTE | 2017-12-07 03:50 | XR ---
EXAM: XR Chest, 1 View CLINICAL HISTORY: Reason: fall TECHNIQUE: Frontal view of the chest. COMPARISON: Chest x-ray dated 05/03/2017. FINDINGS: Lungs: Reidentified presumed atelectasis in the left lung base. Pleural space: Unremarkable. No pneumothorax. Heart: Unchanged moderate cardiomegaly. Mediastinum: Unremarkable. Bones/joints: Unremarkable. Tubes, lines and devices: The tracheostomy has been removed. IMPRESSION: No acute findings.
--- NOTE | 2017-12-07 04:13 | CT ---
EXAM: CT Head Without Intravenous Contrast CLINICAL HISTORY: Reason: fall TECHNIQUE: Axial computed tomography images of the head/brain without intravenous contrast. CTDI is 57.4 mGy and DLP is 1047.1 mGy-cm. This CT exam was performed using one or more of the following dose reduction techniques: automated exposure control, adjustment of the mA and/or kV according to patient size, and/or use of iterative reconstruction technique. COMPARISON: CT head dated 05/01/2017. FINDINGS: Brain: Unchanged mild patchy foci of low attenuation in the supratentorial white matter and deep lopez nuclei compatible with age- related white matter changes. No evidence of acute intracranial hemorrhage. No midline shift or herniation. Ventricles: Unremarkable. No ventriculomegaly. Bones/joints: Chronic appearing moderately depressed left nasal bone fracture. Soft tissues: Unremarkable. Vasculature: Calcification of the distal internal carotid arteries. Sinuses: Unremarkable as visualized. Mastoid air cells: Reidentified mild fluid within the posterior right mastoid air cells. IMPRESSION: No acute intracranial hemorrhage or skull fracture. Reidentified mild nonspecific fluid within the right mastoid air cells. EXAM: CT Head Without Intravenous Contrast CT Cervical Spine Without Intravenous Contrast CLINICAL HISTORY: Reason: fall TECHNIQUE: Axial computed tomography images of the cervical spine without intravenous contrast. CTDI is 40.7 mGy and DLP is 830.0 mGy-cm. This CT exam was performed using one or more of the following dose reduction techniques: automated exposure control, adjustment of the mA and/or kV according to patient size, and/or use of iterative reconstruction technique. COMPARISON: None. FINDINGS: Vertebrae: Unremarkable. No acute fracture. Normal alignment. Discs/spinal canal/neural foramina: No acute findings. No significant bony spinal canal stenosis. Soft tissues: Unremarkable. IMPRESSION: No acute cervical spine fracture.
[2017-12-07 04:29] LABS: Basophils # (A) 0.1 k/uL (0-0.2); Basophils % (A) 1 %; Eosinophils # (A) 0.1 k/uL (0-0.7); Eosinophils % (A) 3 %; HCT 46.2 % (39.0-53.0); Lymphocytes % (A) 18 %; MCH 32.5 pg (25.0-35.0); MCHC 32.4 g/dL (31.0-37.0); MCV 100.2 fL (80.0-100.0); Macrocytosis Slight; Monocytes # (A) 0.4 k/uL (0-1.0); Monocytes % (A) 7 %; Neutrophils # (A) 3.9 k/uL (1.3-7.7); Neutrophils % (A) 69 %; Platelet Count 158 k/uL (150-450); RBC 4.61 m/uL (4.30-5.90); RDW 14.4 % (11.5-15.5); WBC 5.7 k/uL (3.8-10.6)
[2017-12-07 04:41] LABS: Anion Gap 11 mmol/L; Blood Urea Nitrogen 17 mg/dL (9-20); Calcium 8.7 mg/dL (8.4-10.2); Carbon Dioxide 28 mmol/L (22-30); Chloride 99 mmol/L (98-107); Glucose 161 mg/dL (74-99); Sodium 138 mmol/L (137-145)
[2017-12-07 04:48] LABS: Alcohol 171 mg/dL
[2017-12-07 04:49] LABS: Potassium 4.8 mmol/L (3.5-5.1)
[2017-12-07] MEDS ORDERED: AMIODARONE 200 MG TAB PO STA (05:21)
[2017-12-07] MEDS ORDERED: METOPROLOL TARTRATE 25 MG TAB PO STA (05:21)
[2017-12-07] MEDS ORDERED: NITROGLYCERIN SL TABS 0.4 MG TAB SUBLINGUAL PRN (06:44)
[2017-12-07] MEDS ORDERED: ALBUTEROL NEBULIZED 2.5 MG/3 ML INHALATION PRN (06:47)
[2017-12-07] MEDS ORDERED: DILTIAZEM 125 MG in SODIUM CHLORIDE 0.9% 100 ML IV ONE (06:47)
[2017-12-07] MEDS: IPRATROPIUM-ALBUTEROL 3 ML NEB INHALATION SCH ×6 (07:07→23:45)
[2017-12-07] MEDS: SYMBICORT 160-4.5 MCG INHALER INHALATION SCH ×2 (07:09→20:00)
[2017-12-07] MEDS ORDERED: DILTIAZEM 5 MG/ML 25 ML VIAL IV STA (07:10)
[2017-12-07] MEDS ORDERED: DILTIAZEM 5 MG/ML 5 ML VIAL IVP STA (07:10)
[2017-12-07 07:34] LABS: Creatine Kinase 144 U/L (55-170)
[2017-12-07 07:46] LABS: Creatine Kinase MB 1.9 ng/mL (0.0-2.4); Troponin I <0.012 ng/mL (0.000-0.034)
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
[2017-12-07] MEDS: VALSARTAN 160 MG TAB PO SCH (10:13)
[2017-12-07] MEDS: ATORVASTATIN 20 MG TAB PO SCH (10:13)
[2017-12-07] MEDS: ASPIRIN 81 MG PO SCH (10:14)
[2017-12-07] MEDS: LEVOTHYROXINE 50 MCG TAB PO SCH (10:14)
[2017-12-07 10:59] LABS: Creatine Kinase 207 U/L (55-170)
[2017-12-07 11:12] LABS: Troponin I <0.012 ng/mL (0.000-0.034)
[2017-12-07] MEDS: CHLORPHEN-HYDROcod 8-10mg/5ml 5 ML ORAL.SYRG PO SCH ×2 (12:12→21:57)
[2017-12-07 12:13] LABS: Glucose,Whole Blood 132 mg/dL (75-99)
[2017-12-07] MEDS: AMIODARONE 200 MG TAB PO SCH ×2 (15:51→21:57)
[2017-12-07] MEDS: RIVAROXABAN 10 MG TAB PO SCH (15:51)
[2017-12-07] MEDS: METOPROLOL TARTRATE 50 MG TAB PO SCH ×2 (15:53→21:58)
[2017-12-07 16:46] LABS: Glucose,Whole Blood 108 mg/dL (75-99)
[2017-12-07] MEDS ORDERED: METOPROLOL TARTRATE 50 MG TAB PO SCH (21:00)
[2017-12-07] MEDS ORDERED: METOPROLOL TARTRATE 25 MG TAB PO SCH (21:00)
[2017-12-07 21:08] LABS: Glucose,Whole Blood 177 mg/dL (75-99)
[2017-12-07] MEDS: DIAZEPAM 5 MG TAB PO SCH (21:57)
[2017-12-07] MEDS: LATANOPROST 0.005% OPHTH DROPS 2.5 ML BTL BOTH EYES SCH (21:57)
[2017-12-07] MEDS: INSULIN DETEMIR 100 UNIT/ML 10 ML VIAL SQ SCH (21:57)
[2017-12-07] MEDS: INSULN ASP PRT/INSULIN ASPART 100 UNIT/ML 10 ML VIAL SQ SCH (21:58)
[2017-12-07] MEDS: HYDROcodone/APAP 10-325MG 1 EACH TAB PO PRN (22:21)
[2017-12-08] MEDS: IPRATROPIUM-ALBUTEROL 3 ML NEB INHALATION SCH ×6 (03:28→23:43)
[2017-12-08 03:30] LABS: Cholesterol 127 mg/dL (<200); HDL Cholesterol 56 mg/dL (40-60); LDL Cholesterol,Calculated 31 mg/dL (0-99); Triglycerides 202 mg/dL (<150)
[2017-12-08 05:58] LABS: Glucose,Whole Blood 105 mg/dL (75-99)
[2017-12-08] MEDS ORDERED: DOBUTamine DRIP for NUC MED 250 MG in DEXTROSE/WATER 1 250ML.BAG IV ONE (06:00)
[2017-12-08] MEDS: LEVOTHYROXINE 50 MCG TAB PO SCH (06:46)
[2017-12-08] MEDS: SYMBICORT 160-4.5 MCG INHALER INHALATION SCH ×2 (08:15→19:17)
[2017-12-08] MEDS: VALSARTAN 160 MG TAB PO SCH (08:45)
[2017-12-08] MEDS: AMIODARONE 200 MG TAB PO SCH ×3 (08:46→20:21)
[2017-12-08] MEDS: INSULN ASP PRT/INSULIN ASPART 100 UNIT/ML 10 ML VIAL SQ SCH ×2 (08:46→20:18)
[2017-12-08] MEDS: METOPROLOL TARTRATE 50 MG TAB PO SCH ×3 (08:46→20:22)
[2017-12-08] MEDS: ASPIRIN 81 MG PO SCH (08:46)
[2017-12-08] MEDS: ATORVASTATIN 20 MG TAB PO SCH (08:46)
[2017-12-08] MEDS ORDERED: ASPIRIN 325 MG TAB PO SCH (09:00)
[2017-12-08 12:00] LABS: Glucose,Whole Blood 151 mg/dL (75-99)
[2017-12-08] MEDS: CHLORPHEN-HYDROcod 8-10mg/5ml 5 ML ORAL.SYRG PO SCH ×2 (12:20→23:30)
--- NOTE | 2017-12-08 12:59 | ECHOS ---
STRESS ECHOCARDIOGRAM DOBUTAMINE STRESS ECHO DATE OF SERVICE: 12/08/2017 INDICATIONS: Hypertension. MEDICATIONS: BASELINE HEART RATE: 93 BASELINE BLOOD PRESSURE: 107/30 MAXIMUM HEART RATE: 140 MAXIMUM BLOOD PRESSURE: 107/30 85% MPHR: 126 100% MPHR: 148 METS: MAXIMUM STAGE REACHED: TOTAL EXERCISE TIME: CLINICAL INFORMATION: Baseline rhythm is atrial fibrillation, rate of 93, normal axis, normal intervals, nonspecific ST-T wave changes. Baseline blood pressure 107/30 mmHg. Patient received an infusion of dobutamine per protocol. Peak rate 140 beats per minute which is equal to 94% maximum peak heart rate. Peak blood pressure 107/30 mmHg. Electrocardiographic monitoring revealed occasional PVCs. There was no evidence of diagnostic ischemic ST deviation. Baseline echocardiogram revealed normal wall motion. At peak exercise there was normal wall motion augmentation with no hypokinesis or dyskinesis. The contrast was used to optimize the imaging. CONCLUSION: 1. Nondiagnostic electrocardiographic dobutamine stress test. 2. Normal stress echocardiogram with no evidence of stress induced ischemia. MMODL / IJN: [id number] /
[2017-12-08] MEDS ORDERED: RX INFO: IV CONTRAST WAS GIVEN 1 EACH MISC MISCELLANE PRN (13:20)
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
--- NOTE | 2017-12-08 15:28 | P.PN ---
Subjective Progress Note Date: 12/08/17 This is a 78-year-old gentleman with history of hypertension, diabetes, hyperlipidemia, renal insufficiency and the and also obesity who got intoxicated and had a fall at home. Apparently after the fall. Patient could not get up and apparently mixed were called. Patient was brought to the hospital for further evaluation. He does have a nasal laceration on his forehead. Patient is still in intoxicated and difficulty waking him up. He denies any chest pain, shortness of breath. He has history of chronic atrial fibrillation and has been on amiodarone and metoprolol. His heart rate was higher on admission and patient was started on IV Cardizem. His heart rate this morning is in the 80s. I'm going to increase the dose of the metoprolol to 50 twice a day and discontinue IV Cardizem. Anticoagulations to be to be continued. 12/08/2017 Patient seen and examined, denies any further chest discomfort. He underwent a dobutamine echocardiographic study today which was negative for any reversible ischemia. From cardiology's perspective, he should be able to be discharged home today. On the increased dose of beta [place] along with his anticoagulation. Objective - Vital Signs Vital signs: Vital Signs Temp 96.9 F L 12/08/17 08:00 Pulse 84 12/08/17 12:10 Resp 16 12/08/17 12:10 BP 104/78 12/08/17 08:00 Pulse Ox 94 L 12/08/17 08:15 Intake & Output 12/07/17 12/08/17 12/08/17 18:59 06:59 18:59 Output Total 300 300 800 Balance -300 -300 -800 Weight 133.5 kg Output: Urine 300 300 800 Other: Voiding Method Urinal Urinal # Voids 1 # Bowel Movements 1 - Exam GENERAL EXAM: Patient is alert and oriented and doesn't appear to be in any acute distress and could be easily built HEENT: Normocephalic. Normal reaction of pupils, equal size, normal range of extraocular motion. No erythema or exudates in the throat. NECK: No masses, no nuchal rigidity. CHEST: No chest wall deformity. LUNGS: Expiratory rhonchi HEART: S1 and S2 normal with no audible mumurs or gallops. Regular rhythm, femorals equal on both sides.. ABDOMEN: No hepatosplenomegaly, normal bowel sounds, no guarding or rigidity. SKIN: No rashes CENTRAL NERVOUS SYSTEM: No focal deficits. EXTREMITIES: 1-2+ bilateral edema - Labs CBC & Chem 7: 12/07/17 04:05 12/07/17 04:05 Labs: Abnormal Lab Results - Last 24 Hours (Table) 12/07/17 12/07/17 12/07/17 Range/Units 04:05 16:32 21:03 POC Glucose (mg/dL) 108 H 177 H (75-99) mg/dL Triglycerides 202 H (<150) mg/dL 12/08/17 12/08/17 Range/Units 05:55 11:57 POC Glucose (mg/dL) 105 H 151 H (75-99) mg/dL Triglycerides (<150) mg/dL Assessment and Plan Plan: Assessment and plan #1 alcohol intoxication #2 persistent atrial fibrillation, on Xarelto for anticoagulation #3 COPD exacerbation #4 diabetes #5 hypertension #6 hyperlipidemia #7 chronic liver disease secondary to alcohol abuse Plan From cardiology's perspective, patient may be able to be discharged home today. He had a dobutamine echocardiographic study which was negative for any reversible ischemia. Continue metoprolol 50 mg one tablet by mouth 3 times a day along with Xarelto for anticoagulation. DNP note has been reviewed, I agree with a documented findings and plan of care. Patient was seen and examined.
[2017-12-08] MEDS: RIVAROXABAN 10 MG TAB PO SCH (16:06)
[2017-12-08 16:39] LABS: Glucose,Whole Blood 158 mg/dL (75-99)
--- NOTE | 2017-12-08 17:02 | CT ---
EXAMINATION TYPE: CT chest w con DATE OF EXAM: 12/08/2017 COMPARISON: 05/17/2016 HISTORY: Cough and WENCESLAO. CT DLP: 1160 mGycm Automated exposure control for dose reduction was used. CONTRAST: CT scan of the chest is performed with IV Contrast, patient injected with 100ml mL of Omnipaque 350. FINDINGS: LUNGS: A few scattered calcified pleural plaques are seen. Mild chronic right lower lobe pleural thic kening. Focal left postinflammatory process or parenchymal scarring right posterior sulcus is unchang ed. Parenchymal scar left lower lobe. No airspace consolidation, concerning mass or nodule. MEDIASTINUM: There are no greater than 1 cm hilar or mediastinal lymph nodes. No pericardial effusi on is seen. Thoracic aorta is of normal caliber. The heart is not enlarged. UPPER ABDOMEN: Hepatic steatosis with hepatomegaly. Cholecystectomy clips. Renal cysts noted. OTHER: No additional significant abnormality is seen. IMPRESSION: 1. Findings are compatible with as best as related pleural disease. Parenchymal scarring without foca l consolidation or concerning nodule or mass.
[2017-12-08] MEDS: INSULIN DETEMIR 100 UNIT/ML 10 ML VIAL SQ SCH (20:18)
[2017-12-08] MEDS: LATANOPROST 0.005% OPHTH DROPS 2.5 ML BTL BOTH EYES SCH (20:21)
[2017-12-08] MEDS: DIAZEPAM 5 MG TAB PO SCH (20:21)
[2017-12-08] MEDS: HYDROcodone/APAP 10-325MG 1 EACH TAB PO PRN (20:21)
[2017-12-08 20:58] LABS: Glucose,Whole Blood 121 mg/dL (75-99)
[2017-12-08 21:41] LABS: Hemoglobin A1C 7.3 % (4.0-6.0)
[2017-12-09] MEDS: IPRATROPIUM-ALBUTEROL 3 ML NEB INHALATION SCH ×3 (03:20→12:58)
[2017-12-09] MEDS: LEVOTHYROXINE 50 MCG TAB PO SCH (05:56)
[2017-12-09 06:11] LABS: Glucose,Whole Blood 132 mg/dL (75-99)
[2017-12-09 07:20] LABS: Anion Gap 7 mmol/L; Blood Urea Nitrogen 33 mg/dL (9-20); Calcium 8.7 mg/dL (8.4-10.2); Carbon Dioxide 28 mmol/L (22-30); Chloride 103 mmol/L (98-107); Glucose 123 mg/dL (74-99); Potassium 4.9 mmol/L (3.5-5.1); Sodium 138 mmol/L (137-145)
[2017-12-09] MEDS ORDERED: PANTOPRAZOLE 40 MG TABLET PO SCH (07:30)
[2017-12-09] MEDS: SYMBICORT 160-4.5 MCG INHALER INHALATION SCH (08:58)
[2017-12-09] MEDS: AMIODARONE 200 MG TAB PO SCH (10:39)
[2017-12-09] MEDS: ASPIRIN 81 MG PO SCH (10:41)
[2017-12-09] MEDS: ATORVASTATIN 20 MG TAB PO SCH (10:41)
[2017-12-09] MEDS: VALSARTAN 160 MG TAB PO SCH (10:44)
[2017-12-09] MEDS: METOPROLOL TARTRATE 50 MG TAB PO SCH (10:44)
[2017-12-09] MEDS: INSULN ASP PRT/INSULIN ASPART 100 UNIT/ML 10 ML VIAL SQ SCH (10:46)
[2017-12-09 11:31] VITALS: BP 90/55; RESP 18; TEMP 97
[2017-12-09 11:33] LABS: Glucose,Whole Blood 166 mg/dL (75-99)
--- NOTE | 2017-12-09 11:33 | P.DS ---
Providers Date of admission: 12/07/17 06:52 Expected date of discharge: 12/09/17 Attending physician: Jeison Fuentes Consults: 12/07/17 06:44 Consult Physician Routine Consulting Provider: Gagandeep Ignacio Consult Reason/Comments: Atrial fibrillation with rapid ventricular rate Do you want consulting provider notified?: Yes Primary care physician: [facility] Course: 72-year-old male who presented to the emergency room on 12/07/2017 after sustaining a fall at home. The patient has a history of alcohol abuse and was consuming alcohol prior to fall. He fell and hit his forehead and his left shoulder. His called EMS and he was transported to the emergency room. The patient has a history of atrial fibrillation, COPD, diabetes mellitus, hyperlipidemia, hypertension, osteoarthritis, and liver disease. Chest x-ray: Reidentified presumed atelectasis in the left lung base. CT of the head: Negative for acute intracranial hemorrhage or skull fracture CT of the cervical spine: Negative for an acute fracture X-ray of left shoulder: Negative for an acute fracture or dislocation EKG: Atrial fibrillation with a rate of 98. Laboratory data: WBC 5.7. Hemoglobin 15. Platelet count 158. Sodium 138. Potassium 4.8. BUN 17. Creatinine 0.90. GFR greater than 60. Glucose 161. Troponins negative 2 Serum alcohol: 171 The patient was admitted to the hospital under the care of Dr. Streeter. Consultations were placed to cardiology. The patient was evaluated by cardiology. He underwent a stress test on 2017 which was negative for reversible ischemia. The patient's metoprolol was increased to 50 mg twice a day per cardiology. His rate has been controlled. The patient complained of a cough during hospitalization. Dr. Streeter ordered a CT of the chest which revealed parenchymal scarring without focal consolidation or concerning nodule or mass. Physical therapy was consulted to work with patient during hospitalization. Physical therapy recommends home at the time of discharge. The patient was deemed stable for discharge per Dr. Streeter. He is to follow up on an outpatient basis. He was encouraged to abstain from alcohol. DISCHARGE DIAGNOSIS: Alcohol intoxication, serum alcohol 171 Fall from standing secondary to alcohol intoxication Left shoulder pain after fall, imaging negative for fracture Atrial fibrillation with rapid ventricular response, rate currently controlled with metoprolol, maintained on long-term anticoagulation with Xarelto Chronic obstructive pulmonary disease, no evidence of acute exacerbation Diabetes mellitus, type II, hemoglobin A1c pending History of alcohol abuse Essential hypertension Hyperlipidemia Chronic liver disease secondary to alcohol abuse Morbid obesity: BMI 43.5 Nurse practitioner note has been reviewed by physician. Signing provider agrees with the documented findings, assessment, and plan of care. Patient Condition at Discharge: Stable Plan - Discharge Summary New Discharge Prescriptions: New Metoprolol Tartrate [Lopressor] 50 mg PO TID #90 tab Continue Diazepam [Valium] 5 mg PO HS #15 tab HYDROcodone/APAP 10-325MG [[place] 10-325] 1 tab PO Q6H PRN PRN Reason: Pain Simvastatin [Zocor] 40 mg PO HS Rivaroxaban [Xarelto] 20 mg PO AC-SUPPER #30 tab Budesonide-Formot 160-4.5 Mcg [Symbicort 160-4.5 Mcg Inhaler] 2 puff INHALATION RT-BID Valsartan 320 mg PO DAILY Latanoprost [Xalatan 0.005%] 1 drop BOTH EYES HS Amiodarone [Cordarone] 200 mg PO TID tab Levothyroxine Sodium [Synthroid] 50 mcg PO DAILY Ipratropium-Albuterol Nebulize [Duoneb 0.5 mg-3 mg/3 ml Soln] 3 ml INHALATION RT-BID Insuln Asp Prt/Insulin Aspart [NovoLOG MIX 70-30 VIAL] 45 unit SQ HS Insuln Asp Prt/Insulin Aspart [NovoLOG MIX 70-30 VIAL] 35 unit SQ QAM Insulin Glargine,Hum.rec.anlog [Basaglar Kwikpen U-100] 20 unit SQ HS Ibuprofen [Motrin] 800 mg PO Q8H PRN PRN Reason: pain Ipratropium-Albuterol Nebulize [Duoneb 0.5 mg-3 mg/3 ml Soln] 3 ml INHALATION RT-Q4H PRN PRN Reason: sob Discharge Medication List Diazepam [Valium] 5 mg PO HS #15 tab 10/12/14 [Rx] HYDROcodone/APAP 10-325MG [[place] 10-325] 1 tab PO Q6H PRN 01/23/15 [History] Simvastatin [Zocor] 40 mg PO HS 01/23/15 [History] Rivaroxaban [Xarelto] 20 mg PO AC-SUPPER #30 tab 01/26/15 [Rx] Budesonide-Formot 160-4.5 Mcg [Symbicort 160-4.5 Mcg Inhaler] 2 puff INHALATION RT-BID 04/21/17 [History] Latanoprost [Xalatan 0.005%] 1 drop BOTH EYES HS 04/21/17 [History] Valsartan 320 mg PO DAILY 04/21/17 [History] Amiodarone [Cordarone] 200 mg PO TID tab 05/03/17 [Rx] Ibuprofen [Motrin] 800 mg PO Q8H PRN 12/07/17 [History] Insulin Glargine,Hum.rec.anlog [Basaglar Kwikpen U-100] 20 unit SQ HS 12/07/17 [ History] Insuln Asp Prt/Insulin Aspart [NovoLOG MIX 70-30 VIAL] 35 unit SQ QAM 12/07/17 [ History] Insuln Asp Prt/Insulin Aspart [NovoLOG MIX 70-30 VIAL] 45 unit SQ HS 12/07/17 [ History] Ipratropium-Albuterol Nebulize [Duoneb 0.5 mg-3 mg/3 ml Soln] 3 ml INHALATION RT -BID 12/07/17 [History] Ipratropium-Albuterol Nebulize [Duoneb 0.5 mg-3 mg/3 ml Soln] 3 ml INHALATION RT -Q4H PRN 12/07/17 [History] Levothyroxine Sodium [Synthroid] 50 mcg PO DAILY 12/07/17 [History] Metoprolol Tartrate [Lopressor] 50 mg PO TID #90 tab 12/09/17 [Rx] Follow up Appointment(s)/Referral(s): Shaun Crump MD [STAFF PHYSICIAN] - 1 Week (Spoke to medical receptionist, shaniceve will call with time.) Sj Streeter Jr, DO [Primary Care Provider] - 12/16/17 10:00 am Patient Instructions/Handouts: A-fib (Atrial Fibrillation) (DC) Discharge Disposition: HOME SELF-CARE
[2017-12-09] MEDS: CHLORPHEN-HYDROcod 8-10mg/5ml 5 ML ORAL.SYRG PO SCH (11:42)
[2017-12-09 13:48] VITALS: PULSE 92
--- NOTE | 2017-12-09 14:12 | P.PN ---
Subjective Progress Note Date: 12/09/17 This is a 78-year-old gentleman with history of hypertension, diabetes, hyperlipidemia, renal insufficiency and the and also obesity who got intoxicated and had a fall at home. Apparently after the fall. Patient could not get up and apparently mixed were called. Patient was brought to the hospital for further evaluation. He does have a nasal laceration on his forehead. Patient is still in intoxicated and difficulty waking him up. He denies any chest pain, shortness of breath. He has history of chronic atrial fibrillation and has been on amiodarone and metoprolol. His heart rate was higher on admission and patient was started on IV Cardizem. His heart rate this morning is in the 80s. I'm going to increase the dose of the metoprolol to 50 twice a day and discontinue IV Cardizem. Anticoagulations to be to be continued. 12/08/2017 Patient seen and examined, denies any further chest discomfort. He underwent a dobutamine echocardiographic study today which was negative for any reversible ischemia. From cardiology's perspective, he should be able to be discharged home today. On the increased dose of beta lowell along with his anticoagulation. O2 2017 Patient seen and examined this morning, denies any chest discomfort. Hemodynamically stable. Patient be discharged home today, he can follow-up with his primary care physician and we will see him as needed. Objective - Vital Signs Vital signs: Vital Signs Temp 97.0 F L 12/09/17 11:15 Pulse 84 12/09/17 13:18 Resp 18 12/09/17 12:00 BP 90/55 12/09/17 11:15 Pulse Ox 91 L 12/09/17 11:31 Intake & Output 12/08/17 12/09/17 12/09/17 18:59 06:59 18:59 Intake Total 222 125 236 Output Total 1300 875 Balance -1078 -750 236 Weight 140.9 kg Intake: Intake, IV Titration 0 Amount DOBUTamine DRIP for NUC 0 MED 250 mg In Dextrose/ Water 1 250ml.bag @ 10 MCG/KG/MIN 87.9 mls/hr IV .Q2H51M ONE Rx#: [id number] Oral 222 125 236 Output: Urine 1300 875 Other: Voiding Method Urinal Urinal Urinal # Voids 1 - Exam GENERAL EXAM: Patient is alert and oriented and doesn't appear to be in any acute distress and could be easily built HEENT: Normocephalic. Normal reaction of pupils, equal size, normal range of extraocular motion. No erythema or exudates in the throat. NECK: No masses, no nuchal rigidity. CHEST: No chest wall deformity. LUNGS: Expiratory rhonchi HEART: S1 and S2 normal with no audible mumurs or gallops. Regular rhythm, femorals equal on both sides.. ABDOMEN: No hepatosplenomegaly, normal bowel sounds, no guarding or rigidity. SKIN: No rashes CENTRAL NERVOUS SYSTEM: No focal deficits. EXTREMITIES: 1-2+ bilateral edema - Labs CBC & Chem 7: 12/07/17 04:05 12/09/17 06:11 Labs: Abnormal Lab Results - Last 24 Hours (Table) 12/07/17 12/08/17 12/08/17 Range/Units 04:05 16:32 20:55 BUN (9-20) mg/dL Glucose (74-99) mg/dL POC Glucose (mg/dL) 158 H 121 H (75-99) mg/dL Hemoglobin A1c 7.3 H (4.0-6.0) % 12/09/17 12/09/17 12/09/17 Range/Units 06:07 06:11 11:31 BUN 33 H (9-20) mg/dL Glucose 123 H (74-99) mg/dL POC Glucose (mg/dL) 132 H 166 H (75-99) mg/dL Hemoglobin A1c (4.0-6.0) % Assessment and Plan Plan: Assessment and plan #1 alcohol intoxication #2 persistent atrial fibrillation, on Xarelto for anticoagulation #3 COPD exacerbation #4 diabetes #5 hypertension #6 hyperlipidemia #7 chronic liver disease secondary to alcohol abuse Plan From cardiology's perspective, patient may be able to be discharged home today. He had a dobutamine echocardiographic study which was negative for any reversible ischemia. Continue metoprolol 50 mg one tablet by mouth 3 times a day along with Xarelto for anticoagulation. DNP note has been reviewed, I agree with a documented findings and plan of care. Patient was seen and examined.
== END 2017-12-09 13:37 | disposition home or self-care (01) | DRG 897 ==
LOC: EC 02:53 → 6SEL 06:52
PROVIDERS: ADMIT Family Medicine; ATTEND Family Medicine
DX: F10.129 Alcohol abuse with intoxication, unspecified (principal); I48.1 Persistent atrial fibrillation; E11.9 Type 2 diabetes mellitus without complications; E66.01 Morbid (severe) obesity due to excess calories; J44.1 Chronic obstructive pulmonary disease with (acute) exacerbation; J98.11 Atelectasis; S01.21XA Laceration without foreign body of nose, initial encounter; E78.5 Hyperlipidemia, unspecified; I10 Essential (primary) hypertension; I48.2 Chronic atrial fibrillation; K70.9 Alcoholic liver disease, unspecified; S01.81XA Laceration without foreign body of other part of head, initial encounter; W07.XXXA Fall from chair, initial encounter; Y92.009 Unspecified place in unspecified non-institutional (private) residence as the place of occurrence of the external cause; Z79.01 Long term (current) use of anticoagulants; Z79.4 Long term (current) use of insulin; Z79.51 Long term (current) use of inhaled steroids; Z79.82 Long term (current) use of aspirin; Z79.899 Other long term (current) drug therapy; Z83.3 Family history of diabetes mellitus; Z87.891 Personal history of nicotine dependence
CPT/HCPCS: 36415; 70450; 71045; 71260; 72125; 80048; 80061; 80320; 82550; 82553; 83036; 84484; 85025; 93005; 93017; 93350; 94640; 94760; 96365; 96376; 99285

== ENCOUNTER → 2018-02-10 | Outpatient (CLI) | payer MEDICARE, OTHER | END | disposition home or self-care (01) | LOC: CPPFTMAIN 10:23 | PROVIDERS: ATTEND Family Medicine | DX: J45.909 Unspecified asthma, uncomplicated (principal) | CPT/HCPCS: 94060; 94726; 94729 ==

== ENCOUNTER 2018-08-01 11:27 | Observation (INO) | payer MEDICARE, OTHER ==
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
[2018-08-01 13:12] LABS: Basophils % (A) 0 %; Eosinophils # (A) 0.2 k/uL (0-0.7); Eosinophils % (A) 3 %; HCT 40.2 % (39.0-53.0); HGB 12.4 gm/dL (13.0-17.5); Lymphocytes # (A) 0.7 k/uL (1.0-4.8); Lymphocytes % (A) 8 %; MCH 32.4 pg (25.0-35.0); MCHC 30.8 g/dL (31.0-37.0); MCV 105.1 fL (80.0-100.0); Macrocytosis Moderate; Mean Platelet Volume 6.5; Monocytes # (A) 0.7 k/uL (0-1.0); Monocytes % (A) 8 %; Neutrophils # (A) 6.6 k/uL (1.3-7.7); Neutrophils % (A) 79 %; Platelet Count 149 k/uL (150-450); RBC 3.83 m/uL (4.30-5.90); RDW 13.7 % (11.5-15.5); WBC 8.4 k/uL (3.8-10.6)
--- NOTE | 2018-08-01 13:28 | XR ---
EXAMINATION TYPE: XR knee complete RT , 3 VIEWS DATE OF EXAM ORDERED: 08/01/2018 HISTORY: Pain. COMPARISON: None. FINDINGS: There is mild peaking of intercondylar spines. There is some medial joint space loss. No f racture, dislocation or joint effusion is seen. IMPRESSION: 1. NO ACUTE OSSEOUS LESION. 2. MILD OSTEOARTHRITIS.
--- NOTE | 2018-08-01 13:29 | XR ---
EXAMINATION TYPE: XR chest 2V DATE OF EXAM: 08/01/2018 HISTORY: COPD. REFERENCE: Previous study dated 12/07/2017. FINDINGS: The heart is enlarged. The lungs are clear. Pleural spaces are clear. IMPRESSION: CARDIOMEGALY.
[2018-08-01 13:30] LABS: ALT 40 U/L (21-72); AST 36 U/L (17-59); Albumin 3.5 g/dL (3.5-5.0); Alkaline Phosphatase 83 U/L (38-126); Anion Gap 6 mmol/L; Blood Urea Nitrogen 17 mg/dL (9-20); Calcium 8.6 mg/dL (8.4-10.2); Carbon Dioxide 30 mmol/L (22-30); Chloride 96 mmol/L (98-107); Glucose 91 mg/dL (74-99); Magnesium 1.9 mg/dL (1.6-2.3); Potassium 5.6 mmol/L (3.5-5.1); Sodium 132 mmol/L (137-145); Total Bilirubin 0.7 mg/dL (0.2-1.3); Total Protein 6.3 g/dL (6.3-8.2)
--- NOTE | 2018-08-01 13:31 | XR ---
EXAMINATION TYPE: XR tibia fibula RT , 3 VIEWS DATE OF EXAM ORDERED: 08/01/2018 HISTORY: Pain. COMPARISON: None. FINDINGS: There is an abnormal density posterior to the posterior malleolus on the lateral projectio n. No long bone fracture is seen. IMPRESSION: 1. NO LONG BONE FRACTURE. 2. ABNORMAL DENSITY IN THE LATERAL PROJECTION OF THE ANKLE. DEDICATED ANKLE VIEWS WOULD BE SUGGESTED.
--- NOTE | 2018-08-01 14:13 | US ---
EXAMINATION TYPE: US venous doppler duplex LE RT DATE OF EXAM: 08/01/2018 2:04 PM COMPARISON: NONE CLINICAL HISTORY: Pain. Discolored lower leg appears bruised. Patient on Xeralto. SIDE PERFORMED: TECHNIQUE: The lower extremity deep venous system is examined utilizing real time linear array sonog alan with graded compression, doppler sonography and color-flow sonography. VESSELS IMAGED: External Iliac Vein (EIV) Common Femoral Vein Deep Femoral Vein Greater Saphenous Vein * Femoral Vein Popliteal Vein Small Saphenous Vein * Proximal Calf Veins (* superficial vessels) Right Leg: Negative for DVT IMPRESSION: 1. Right lower extremity ultrasound negative for deep venous thrombosis.
--- NOTE | 2018-08-01 16:51 | XR ---
EXAMINATION TYPE: XR ankle complete RT DATE OF EXAM: 08/01/2018 COMPARISON: None HISTORY: Pain anterior medial right ankle TECHNIQUE: Three-view right ankle FINDINGS: Plantar calcaneal heel spur is present. Ankle mortise is intact. There is some medial soft tissue swelling present. On the AP projection there is some curvilinear calcification inferior to the medial malleolus. Correl ate with location of patient's pain. Partial avulsion is not excluded. This does not appear to corres pond to the reported anterior medial location of pain. IMPRESSION: 1. Displaced fracture is not identified. A small avulsion from the distal fibula is not excluded, ho wever this does not correlate with the patient's location of pain.
[2018-08-01 17:28] LABS: VBG PH 7.29 (7.31-7.41)
[2018-08-01] MEDS ORDERED: IPRATROPIUM-ALBUTEROL 3 ML NEB INHALATION STA (18:19)
[2018-08-01] MEDS ORDERED: predniSONE 20 MG TAB PO STA (18:19)
[2018-08-01] MEDS ORDERED: NALOXONE 0.4 MG/ML 1 ML VIAL IV PRN (20:01)
[2018-08-01] MEDS ORDERED: IBUPROFEN 800 MG TAB PO PRN (20:05)
[2018-08-01] MEDS ORDERED: DIAZEPAM 5 MG TAB PO SCH (21:00)
[2018-08-01] MEDS: LATANOPROST 0.005% OPHTH DROPS 2.5 ML BTL BOTH EYES SCH (21:14)
[2018-08-01 21:49] LABS: Glucose,Whole Blood 250 mg/dL (75-99)
[2018-08-01] MEDS: HYDROcodone/APAP 10-325MG 1 EACH TAB PO PRN (22:44)
[2018-08-01] MEDS: INSULIN ASPART 100 UNIT/ML 1 ML 10 ML VIAL SQ SCH (22:45)
[2018-08-01] MEDS: INSULIN DETEMIR 100 UNIT/ML 10 ML VIAL SQ SCH (22:45)
[2018-08-01] MEDS: ATORVASTATIN 20 MG TAB PO SCH (22:45)
[2018-08-01] MEDS: AMIODARONE 200 MG TAB PO SCH (22:46)
[2018-08-01] MEDS: METOPROLOL TARTRATE 50 MG TAB PO SCH (22:46)
[2018-08-02 01:47] LABS: Amphetamine Screen,Urine Not Detected (NotDetected); Barbiturate Screen,Urine Not Detected (NotDetected); Benzodiazepines Screen,Urine Not Detected (NotDetected); Cocaine Screen,Urine Not Detected (NotDetected); Methadone Screen, Urine Not Detected (NotDetected); Opiate Screen,Urine Detected (NotDetected); Oxycodone Screen, Urine Detected (NotDetected); Phencyclidine Screen,Urine Not Detected (NotDetected); Tricyclic Antidepressant,Urine Not Detected (NotDetected); Urn Cannabinoid Scrn Not Detected (NotDetected)
[2018-08-02 05:59] LABS: Glucose,Whole Blood 151 mg/dL (75-99)
[2018-08-02] MEDS: LEVOTHYROXINE 50 MCG TAB PO SCH (06:51)
[2018-08-02] MEDS: INSULIN ASPART 100 UNIT/ML 1 ML 10 ML VIAL SQ SCH ×4 (06:51→21:58)
[2018-08-02] MEDS: SYMBICORT 160-4.5 MCG INHALER INHALATION SCH ×2 (08:37→20:46)
[2018-08-02] MEDS: IPRATROPIUM-ALBUTEROL 3 ML NEB INHALATION SCH ×4 (08:37→20:47)
[2018-08-02] MEDS ORDERED: VALSARTAN 160 MG TAB PO SCH (09:00)
[2018-08-02] MEDS: AMIODARONE 200 MG TAB PO SCH (10:09)
[2018-08-02] MEDS: METOPROLOL TARTRATE 50 MG TAB PO SCH ×3 (10:09→20:35)
[2018-08-02] MEDS: predniSONE 20 MG TAB PO SCH (10:09)
[2018-08-02] MEDS: HYDROcodone/APAP 10-325MG 1 EACH TAB PO PRN ×2 (10:11→20:47)
[2018-08-02 11:14] LABS: Basophils % (A) 0 %; Eosinophils # (A) 0.1 k/uL (0-0.7); Eosinophils % (A) 2 %; HCT 39.9 % (39.0-53.0); HGB 13.1 gm/dL (13.0-17.5); Lymphocytes # (A) 0.6 k/uL (1.0-4.8); Lymphocytes % (A) 7 %; MCH 33.7 pg (25.0-35.0); MCHC 32.8 g/dL (31.0-37.0); MCV 102.8 fL (80.0-100.0); Macrocytosis Slight; Mean Platelet Volume 7.7; Monocytes # (A) 0.5 k/uL (0-1.0); Monocytes % (A) 6 %; Neutrophils # (A) 7.3 k/uL (1.3-7.7); Neutrophils % (A) 84 %; Platelet Count 117 k/uL (150-450); RBC 3.88 m/uL (4.30-5.90); RDW 13.9 % (11.5-15.5); WBC 8.7 k/uL (3.8-10.6)
[2018-08-02 11:17] LABS: Anion Gap 7 mmol/L; Blood Urea Nitrogen 22 mg/dL (9-20); Calcium 8.6 mg/dL (8.4-10.2); Carbon Dioxide 29 mmol/L (22-30); Chloride 96 mmol/L (98-107); Glucose 134 mg/dL (74-99); Sodium 132 mmol/L (137-145)
[2018-08-02 11:21] LABS: Potassium 5.7 mmol/L (3.5-5.1)
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
[2018-08-02] MEDS ORDERED: SODIUM POLYSTYRENE SULFONATE 15 GM/60 ML BOTTLE PO STA (11:56)
[2018-08-02 12:15] LABS: Glucose,Whole Blood 112 mg/dL (75-99)
[2018-08-02] MEDS: FAMOTIDINE 20 MG TAB PO SCH (12:35)
--- NOTE | 2018-08-02 12:52 | CONS ---
CONSULTATION DATE OF SERVICE: 08/02/2018. HISTORY: This is a 73-year-old gentleman with complex and multiple medical problems including morbid obesity, chronic atrial fibrillation, hypertension, hypothyroidism, dyslipidemia, and COPD, who was admitted to the hospital with right leg swelling. She apparently has had a fall. Does not have any fracture. The patient has right leg discomfort. There is no DVT. Cardiology had been consulted because of history of atrial fibrillation. The patient's EKG shows atrial fibrillation with controlled ventricular rate and patient was in atrial fibrillation on the last EKG from December. There is a question of whether the patient is on amiodarone and whether he is to continue amiodarone or not. I really do not see the point of giving this patient amiodarone as he has been in chronic atrial fibrillation and never really converted to sinus rhythm and the amiodarone does not seem to be doing anything. We will control his heart rate with beta blockers and continue the anticoagulant that he is on. PAST MEDICAL HISTORY: Significant for COPD, hypertension, hypothyroidism, dyslipidemia, and atrial fibrillation. MEDICATIONS: At home include: 1. BuSpar. 2. Valsartan. 3. Zocor. 4. Xarelto. 5. Lopressor 50 t.i.d. 6. Synthroid. 7. Insulin. 8. Nebulizers. 9. Amiodarone. ALLERGIES: No known drug allergies. FAMILY HISTORY: Denies premature coronary artery disease. SOCIAL HISTORY: Significant for ETOH abuse. There is no history of smoking. REVIEW OF SYSTEMS: HEENT: Unremarkable. CARDIAC: As described above. RESPIRATORY: As described above. GI: Negative. : Negative. ALLERGY: Unremarkable. SKIN: Unremarkable. MUSCULOSKELETAL: Significant for arthritis. PSYCHOSOCIAL: Negative. ENDOCRINE: Unremarkable. DERM: Negative. CONSTITUTIONAL: Negative. ONCOLOGIC: Negative. The rest of the system review is not relevant. EXAM: The patient is afebrile. Heart rate is 60 beats per minute. Blood pressure is 116/50, respiratory rate 18. Chest exam reveals diminished air entry at the bases. Heart exam reveals first and second heart sounds irregular rhythm. Exam of the extremities reveals swelling of the right leg. Foot pulses are intact. EKG shows atrial fibrillation with controlled ventricular rate. LABS: The troponins are negative. Hemoglobin is 12.4, platelet count is 149,000. Potassium is elevated at 5.6, creatinine is 0.8. BNP is normal at 550. ASSESSMENT: 1. Chronic atrial fibrillation with controlled ventricular rate. 2. Chronic obstructive pulmonary disease exacerbation. 3. Right leg edema. 4. Hypertension. 5. Insulin-requiring diabetes. PLAN: I am going to stop the amiodarone. His atrial fibrillation is chronic and stable. We will continue with the current medications. We will obtain a 2D echo to evaluate his LV function. JOSE / HIMANSHU: [id number] /
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
[2018-08-02] MEDS: FUROSEMIDE 10 MG/ML 4 ML VIAL IV SCH ×2 (15:52→20:35)
[2018-08-02] MEDS ORDERED: RIVAROXABAN 20 MG TAB PO SCH (17:30)
[2018-08-02 17:35] LABS: Glucose,Whole Blood 126 mg/dL (75-99)
[2018-08-02 20:26] LABS: Anion Gap 7 mmol/L; Blood Urea Nitrogen 23 mg/dL (9-20); Calcium 8.3 mg/dL (8.4-10.2); Carbon Dioxide 30 mmol/L (22-30); Chloride 92 mmol/L (98-107); Glucose 141 mg/dL (74-99); Potassium 5.1 mmol/L (3.5-5.1); Sodium 129 mmol/L (137-145)
[2018-08-02] MEDS: ATORVASTATIN 20 MG TAB PO SCH (20:35)
[2018-08-02] MEDS: LATANOPROST 0.005% OPHTH DROPS 2.5 ML BTL BOTH EYES SCH (20:35)
[2018-08-02 20:48] LABS: Glucose,Whole Blood 139 mg/dL (75-99)
[2018-08-02] MEDS ORDERED: AMIODARONE 200 MG TAB PO SCH (21:00)
[2018-08-02] MEDS: INSULIN DETEMIR 100 UNIT/ML 10 ML VIAL SQ SCH (21:58)
[2018-08-03] MEDS: HYDROcodone/APAP 10-325MG 1 EACH TAB PO PRN ×2 (02:17→09:24)
[2018-08-03] MEDS: LEVOTHYROXINE 50 MCG TAB PO SCH (05:54)
[2018-08-03 06:31] LABS: Glucose,Whole Blood 147 mg/dL (75-99)
[2018-08-03 07:31] LABS: Basophils % (A) 0 %; Eosinophils # (A) 0.1 k/uL (0-0.7); Eosinophils % (A) 2 %; HCT 37.5 % (39.0-53.0); Lymphocytes # (A) 0.8 k/uL (1.0-4.8); Lymphocytes % (A) 11 %; MCH 33.3 pg (25.0-35.0); MCHC 32.1 g/dL (31.0-37.0); MCV 103.6 fL (80.0-100.0); Macrocytosis Slight; Monocytes # (A) 0.6 k/uL (0-1.0); Monocytes % (A) 9 %; Neutrophils # (A) 5.2 k/uL (1.3-7.7); Neutrophils % (A) 75 %; Platelet Count 145 k/uL (150-450); RBC 3.62 m/uL (4.30-5.90); RDW 13.4 % (11.5-15.5)
[2018-08-03] MEDS: INSULIN ASPART 100 UNIT/ML 1 ML 10 ML VIAL SQ SCH ×2 (07:34→12:21)
[2018-08-03 08:00] LABS: Anion Gap 9 mmol/L; Blood Urea Nitrogen 24 mg/dL (9-20); Calcium 8.1 mg/dL (8.4-10.2); Carbon Dioxide 29 mmol/L (22-30); Chloride 93 mmol/L (98-107); Glucose 96 mg/dL (74-99); Potassium 4.3 mmol/L (3.5-5.1); Sodium 131 mmol/L (137-145)
[2018-08-03] MEDS: SYMBICORT 160-4.5 MCG INHALER INHALATION SCH (09:08)
[2018-08-03] MEDS: IPRATROPIUM-ALBUTEROL 3 ML NEB INHALATION SCH ×2 (09:08→12:57)
[2018-08-03] MEDS: FUROSEMIDE 10 MG/ML 4 ML VIAL IV SCH (09:09)
[2018-08-03] MEDS: FAMOTIDINE 20 MG TAB PO SCH (09:09)
[2018-08-03] MEDS: METOPROLOL TARTRATE 50 MG TAB PO SCH (09:09)
[2018-08-03] MEDS: predniSONE 20 MG TAB PO SCH (09:10)
[2018-08-03 09:30] VITALS: RESP 16; TEMP 98
[2018-08-03 11:49] LABS: Glucose,Whole Blood 95 mg/dL (75-99)
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
--- NOTE | 2018-08-03 12:26 | P.PN ---
Subjective Progress Note Date: 08/03/18 This is a 73-year-old gentleman with history of morbid obesity, chronic A. fib, hypertension, hypothyroidism, hyperlipidemia, COPD, who was admitted to the hospital with right leg swelling. He apparently has had a fall with no evidence of any fracture. No evidence of DVT. Cardiology consultation was requested because of the history of atrial fibrillation. EKG showed A. fib with controlled ventricular response. Patient was seen in consultation by Dr. Randall. Patient continues to be in atrial fibrillation which is chronic and stable. Amiodarone was discontinued yesterday. An echocardiogram with Doppler study was performed today, results are yet pending. At pressure 96/50 with a heart rate in the 60s to 70s, 93% on room air. White blood cell count 7, hemoglobin 12, platelet count 145. Sodium 131, potassium 4.3, BUN 24, creatinine 0.9. Objective - Vital Signs Vital signs: Vital Signs Temp 98 F 08/03/18 08:00 Pulse 72 08/03/18 09:20 Resp 16 08/03/18 11:30 BP 96/57 08/03/18 08:00 Pulse Ox 93 L 08/03/18 08:00 Intake & Output 08/02/18 08/03/18 08/03/18 18:59 06:59 18:59 Intake Total 240 180 Output Total 500 2350 350 Balance -500 -0 -170 Weight 141.1 kg Intake: Oral 240 180 Output: Urine 500 2350 350 Other: Voiding Method Urinal Urinal Urinal - Exam PHYSICAL EXAMINATION: GENERAL: 73-year-old gentleman in no acute distress at the time of my examination HEENT: Head is atraumatic, normocephalic. Pupils equal, round. Sclera anicteric. Conjunctiva are clear. Mucous membranes of the mouth are moist. Neck is supple. There is no elevated jugular venous pressure. No carotid bruit is heard. HEART EXAMINATION: Heart S1-S2 irregularly irregular CHEST EXAMINATION: Circumflex clear with mild diminished air entry to the bases. ABDOMEN: Soft, nontender. Bowel sounds are heard. No organomegaly noted. EXTREMITIES: 2+ peripheral pulses with evidence of peripheral edema to the right lower extremity . NEUROLOGIC patient is awake, alert and oriented X3. . - Labs CBC & Chem 7: 08/03/18 06:42 08/03/18 06:42 Labs: Abnormal Lab Results - Last 24 Hours (Table) 08/02/18 08/02/18 08/02/18 Range/Units 11:55 16:56 20:01 RBC (4.30-5.90) m/uL Hgb (13.0-17.5) gm/dL Hct (39.0-53.0) % MCV (80.0-100.0) fL Plt Count (150-450) k/uL Lymphocytes # (1.0-4.8) k/uL Sodium 129 L (137-145) mmol/L Chloride 92 L (98-107) mmol/L BUN 23 H (9-20) mg/dL Glucose 141 H (74-99) mg/dL POC Glucose (mg/dL) 112 H 126 H (75-99) mg/dL Calcium 8.3 L (8.4-10.2) mg/dL 08/02/18 08/03/18 08/03/18 Range/Units 20:47 06:10 06:42 RBC 3.62 L (4.30-5.90) m/uL Hgb 12.0 L (13.0-17.5) gm/dL Hct 37.5 L (39.0-53.0) % MCV 103.6 H (80.0-100.0) fL Plt Count 145 L (150-450) k/uL Lymphocytes # 0.8 L (1.0-4.8) k/uL Sodium (137-145) mmol/L Chloride (98-107) mmol/L BUN (9-20) mg/dL Glucose (74-99) mg/dL POC Glucose (mg/dL) 139 H 147 H (75-99) mg/dL Calcium (8.4-10.2) mg/dL 08/03/18 Range/Units 06:42 RBC (4.30-5.90) m/uL Hgb (13.0-17.5) gm/dL Hct (39.0-53.0) % MCV (80.0-100.0) fL Plt Count (150-450) k/uL Lymphocytes # (1.0-4.8) k/uL Sodium 131 L (137-145) mmol/L Chloride 93 L (98-107) mmol/L BUN 24 H (9-20) mg/dL Glucose (74-99) mg/dL POC Glucose (mg/dL) (75-99) mg/dL Calcium 8.1 L (8.4-10.2) mg/dL Assessment and Plan Plan: Assessment: #1. Acute on chronic hypercapnic respiratory failure secondary to acute exacerbation of chronic obstructive pulmonary disease #2. Chronic hypercapnic restaurant failure, with cor pulmonale #3. Right lower leg swelling, and pain to of fall a week ago, has Doppler was negative for DVT, X-rays were negative for fractures #4. Nicotine dependence, currently in remission, patient quit smoking 20 years ago, prior to that smoked a pack a day for 39 years #5. Chronic persistent Atrial fibrillation on Xarelto #6. Diabetes mellitus #7. Obesity Plan Cardiology's perspective, we will continue the patient on his current medications. We will also review his echocardiogram with Doppler study. DNP note has been reviewed, I agree with a documented findings and plan of care. Patient was seen and examined.
[2018-08-03 12:31] VITALS: BP 119/61
[2018-08-03] MEDS ORDERED: ACETAMINOPHEN TAB 325 MG TAB PO PRN (12:32)
[2018-08-03 13:10] VITALS: PULSE 72
--- NOTE | 2018-08-03 13:15 | P.DS ---
Providers Date of admission: 08/01/18 20:05 Expected date of discharge: 08/03/18 Attending physician: Jeison Fuentes Consults: 08/01/18 20:02 Consult Physician Routine Consulting Provider: Jose Mcmillan Consult Reason/Comments: COPD exacerabtion, respiratory acidosis, likely sleep apnea Do you want consulting provider notified?: Yes 08/02/18 10:35 Consult Physician Routine Consulting Provider: Gagandeep Ignacio Consult Reason/Comments: afib and amiodarone use Do you want consulting provider notified?: Yes 08/02/18 11:56 Consult Physician Routine Consulting Provider: Fahad Capone Consult Reason/Comments: right ankle injury Do you want consulting provider notified?: Yes Primary care physician: Jeison Fuentes [facility] Course: Felipe is a 73-year-old male well-known to me with a history of COPD, atrial fibrillation, cardiomegaly, arms are also presents with a chief complaint of right lower leg pain after a fall 2 weeks ago. The patient states that he was not evaluated after the fall. He states that he has periodically been losing his balance. He denies any loss of consciousness. He complains of ongoing right lower leg and ankle pain and swelling. Patient also states that he has cough and sputum production currently. He has a history of pneumonia from several months ago that was treated outpatient. He is been using DuoNeb and Symbicort at home. In the emergency room, Felipe was found to be hypercapnic. He admits to loud snoring, which is been an ongoing factor for him. We discussed in the office and try to schedule for a sleep study several times. He has a known history of atrial fibrillation as well. He currently denies any chest pains pressures or significant shortness of breath. He does have some mild shortness of breath with exertion currently. He is on chronic narcotics for low back pain which may be contributing to the hypercapnia following the ER. He is a type II diabetic, not controlled He currently is on Levemir and NovoLog 70/30. Above per Dr. Fuentes 08/03/2018 Patient seen and examined at the bedside. He was evaluated by orthopedics today and diagnosed with an ankle sprain. Elevation and ice were recommended. Patient states his pain is significantly improved his right lower extremity. Cardiology evaluated the patient and they discontinued his amiodarone. Patient remains in atrial fibrillation with a controlled rate. Patient was seen by pulmonary during hospitalization. He was started on IV lasix which Dr. Fuentes states the patient does not need to continue taking. He did receive PO prednisone during hospitalization, however it does not appear that the patient is having an exacerbation of his COPD. He does not require steroids at the time of discharge. The patient was encouraged to follow up with pulmonary outpatient for a sleep study. The patient was deemed stable for discharge per Dr. Fuentes when cleared by consulting providers. DISCHARGE DIAGNOSIS: Right ankle sprain, status post fall 2 weeks ago Chronic atrial fibrillation, maintained on long-term anticoagulation with Xarelto Acute on chronic hypercapnic respiratory failure, patient likely has sleep apnea , encouraged to follow up outpatient for sleep study COPD, doubt acute exacerbation Diabetes mellitus, type II Hyperkalemia, resolved Hypertension Hyperlipidemia Morbid obesity: BMI 45.9 Nurse practitioner note has been reviewed by physician. Signing provider agrees with the documented findings, assessment, and plan of care. Patient Condition at Discharge: Stable Plan - Discharge Summary Discharge Rx Participant: No New Discharge Prescriptions: Continue HYDROcodone/APAP 10-325MG [[place] 10-325] 1 tab PO Q6H PRN PRN Reason: Pain Simvastatin [Zocor] 40 mg PO HS Rivaroxaban [Xarelto] 20 mg PO AC-SUPPER #30 tab Budesonide-Formot 160-4.5 Mcg [Symbicort 160-4.5 Mcg Inhaler] 2 puff INHALATION RT-BID Latanoprost [Xalatan 0.005%] 1 drop BOTH EYES HS Levothyroxine Sodium [Synthroid] 50 mcg PO DAILY Ipratropium-Albuterol Nebulize [Duoneb 0.5 mg-3 mg/3 ml Soln] 3 ml INHALATION RT-BID Insuln Asp Prt/Insulin Aspart [NovoLOG MIX 70-30 VIAL] 45 unit SQ HS Insuln Asp Prt/Insulin Aspart [NovoLOG MIX 70-30 VIAL] 35 unit SQ QAM Insulin Glargine,Hum.rec.anlog [Basaglar Kwikpen U-100] 20 unit SQ HS Ibuprofen [Motrin] 800 mg PO Q8H PRN PRN Reason: pain Ipratropium-Albuterol Nebulize [Duoneb 0.5 mg-3 mg/3 ml Soln] 3 ml INHALATION RT-Q4H PRN PRN Reason: sob Metoprolol Tartrate [Lopressor] 50 mg PO TID #90 tab busPIRone HCL [Buspar] 7.5 mg PO BID Olmesartan Medoxomil 40 mg PO DAILY Discontinued Amiodarone [Cordarone] 200 mg PO BID Discharge Medication List HYDROcodone/APAP 10-325MG [[place] 10-325] 1 tab PO Q6H PRN 01/23/15 [History] Simvastatin [Zocor] 40 mg PO HS 01/23/15 [History] Rivaroxaban [Xarelto] 20 mg PO AC-SUPPER #30 tab 01/26/15 [Rx] Budesonide-Formot 160-4.5 Mcg [Symbicort 160-4.5 Mcg Inhaler] 2 puff INHALATION RT-BID 04/21/17 [History] Latanoprost [Xalatan 0.005%] 1 drop BOTH EYES HS 04/21/17 [History] Ibuprofen [Motrin] 800 mg PO Q8H PRN 12/07/17 [History] Insulin Glargine,Hum.rec.anlog [Basaglar Kwikpen U-100] 20 unit SQ HS 12/07/17 [ History] Insuln Asp Prt/Insulin Aspart [NovoLOG MIX 70-30 VIAL] 35 unit SQ QAM 12/07/17 [ History] Insuln Asp Prt/Insulin Aspart [NovoLOG MIX 70-30 VIAL] 45 unit SQ HS 12/07/17 [ History] Ipratropium-Albuterol Nebulize [Duoneb 0.5 mg-3 mg/3 ml Soln] 3 ml INHALATION RT -BID 12/07/17 [History] Ipratropium-Albuterol Nebulize [Duoneb 0.5 mg-3 mg/3 ml Soln] 3 ml INHALATION RT -Q4H PRN 12/07/17 [History] Levothyroxine Sodium [Synthroid] 50 mcg PO DAILY 12/07/17 [History] Metoprolol Tartrate [Lopressor] 50 mg PO TID #90 tab 12/09/17 [Rx] busPIRone HCL [Buspar] 7.5 mg PO BID 08/01/18 [History] Olmesartan Medoxomil 40 mg PO DAILY 08/02/18 [History] Follow up Appointment(s)/Referral(s): Jeison Fuentes MD [Primary Care Provider] - 08/06/18 3:15 pm ( -previously scheduled appointment) Alton Randall MD [STAFF PHYSICIAN] - 2 Weeks Fahad Caopne MD [STAFF PHYSICIAN] - 10 Days Activity/Diet/Wound Care/Special Instructions: Recommend weight-bear as tolerated, a good supportive athletic shoe to be worn. Recommend discontinuation of the Devang wrap to help with the edema in the leg. Recommend icing and elevating often PATIENT MAY BE DISCHARGED WHEN CLEARED BY CARDIOLOGY Discharge Disposition: HOME SELF-CARE
--- NOTE | 2018-08-03 13:23 | ECHOF ---
Referral Reason:afib MEASUREMENTS -------- HEIGHT: 175.3 cm WEIGHT: 141.1 kg BP: 119/74 RVIDd: 4.0 cm (< 3.3) IVSd: 1.4 cm (0.6 - 1.1) LVIDd: 4.9 cm (3.9 - 5.3) LVPWd: 1.3 cm (0.6 - 1.1) IVSs: 1.9 cm LVIDs: 4.6 cm LVPWs: 2.2 cm LA Diam: 4.4 cm (2.7 - 3.8) LAESV Index (A-L): 27.66 ml/m Ao Diam: 3.7 cm (2.0 - 3.7) AV Cusp: 2.8 cm (1.5 - 2.6) MV EXCURSION: 28.894 mm (> 18.000) MV EF SLOPE: 154 mm/s (70 - 150) EPSS: 0.4 cm RAP: 5.00 mmHg RVSP: 39.79 mmHg FINDINGS -------- Atrial fibrillation. This was a technically difficult study with suboptimal views. The left ventricular size is normal. There is moderate concentric left ventricular hypertrophy. O verall left ventricular systolic function is low-normal with, an EF between 50 - 55 %. The right ventricle is moderately enlarged. The left atrium is moderately dilated. The right atrium was not well visualized. 3 ml of Lumason was utilized for enhancement of images. The aortic valve is trileaflet and appears structurally normal. Mild mitral annular calcification present. Mild mitral regurgitation is present. Mild tricuspid regurgitation present. There is mild pulmonary hypertension. The right ventricular systolic pressure, as measured by Doppler, is 39.79mmHg. The pulmonic valve was not well visualized. There is no pulmonic regurgitation present. The aortic root size is normal. IVC Not well visulized. Echo free space may represent effusion or a pericardial fat pad. CONCLUSIONS -------- 1. Atrial fibrillation. 2. This was a technically difficult study with suboptimal views. 3. The left ventricular size is normal. 4. There is moderate concentric left ventricular hypertrophy. 5. Overall left ventricular systolic function is low-normal with, an EF between 50 - 55 %. 6. The right ventricle is moderately enlarged. 7. The left atrium is moderately dilated. 8. The right atrium was not well visualized. 9. 3 ml of Lumason was utilized for enhancement of images. 10. The aortic valve is trileaflet and appears structurally normal. 11. Mild mitral annular calcification present. 12. Mild mitral regurgitation is present. 13. Mild tricuspid regurgitation present. 14. There is mild pulmonary hypertension. 15. There is no pulmonic regurgitation present. 16. The aortic root size is normal. 17. IVC Not well visulized. 18. Echo free space may represent effusion or a pericardial fat pad. [employer] FEEDER: Shima Og RDCS
--- NOTE | 2018-08-03 17:32 | P.PN ---
Subjective Progress Note Date: 08/03/18 Principal diagnosis: Acute on chronic hypercapnic respiratory failure secondary to acute exacerbation of chronic obstructive pulmonary disease. This is 73-year-old male patient of Dr. Fuentes, and emergency department on 08/01/2018 at 11:00 in the morning for evaluation of increasing right lower leg swelling, pain after sustaining a fall 2 weeks ago. Patient was not evaluated after his fall. He states he has been periodically losing his balance. No loss of consciousness. Patient has an underlying history of COPD, he has been complaining of cough, and sputum production. Denies any fever or chills. He is not oxygen dependent at his baseline. He has been evaluated in the pulmonary office by Dr. Jorge, and he is on Symbicort and nebulized bronchodilators. Other medical history includes chronic atrial fibrillation, diabetes mellitus, hypertension, hyperlipidemia, osteoarthritis, and previous episodes of pneumonia. Patient has chronic venous stasis, and chronic bilateral lower extremity swelling, but his right lower leg has been more swollen than usual, with some bruising of his foot, and pain. He had a venous Doppler of the right leg was negative for DVT. X-ray of the right knee showed no acute osseous lesion, and mild osteoarthritis. X-ray of right tibia/fibula showed no long bone fracture. Ankle x-ray could not exclude a small avulsion from the distal fibula. Chest x-ray showed no acute cardiopulmonary process, cardiomegaly. In the emergency department a venous blood gas was done and was consistent with acute on chronic hypercapnic respiratory failure. Patient snores on a regular basis, and he was scheduled for a sleep study several times, however it is unknown whether he followed up. Currently not on any sleep device. In the emergency department she was placed on BiPAP 15/5, and FiO2 40%. Apparently on 2 L per nasal cannula his pulse ox 99%. Afebrile, hemodynamic stable. Blood work was negative for any leukocytosis, WBC was 8.4, hemoglobin is 12.4, sodium is 132, potassium 5.6, crit is 96, renal profile was normal. Cardiac enzymes and troponins were negative 2, proBNP was within normal limits for at 551. Patient is a former smoker. On 08/03/2018 patient seen again in follow-up on selective care unit. Sitting up on angina been, in no acute distress, room air pulse ox is 94%, lung sounds are diminished, no rhonchi, no wheezes. Patient is diuresed, and -1000 and fluid balance over the last 24 hours, and there has been improvement in the appearance of bilateral lower extremity edema. Right lower leg remains somewhat more swollen than the left, some bruising of the right foot. Normal mentation, patient is awake and alert, oriented 3, denies any distress, cultures are negative. BiPAP last night. From pulmonary perspective patient is stable, he will require outpatient sleep study for evaluation of his hypercapnic respiratory failure secondary to COPD and possible obstructive sleep apnea Objective - Vital Signs Vital signs: Vital Signs Temp 98 F 08/03/18 08:00 Pulse 72 08/03/18 13:10 Resp 16 08/03/18 12:00 BP 119/61 08/03/18 12:00 Pulse Ox 94 L 08/03/18 12:00 Intake & Output 08/02/18 08/03/18 08/03/18 18:59 06:59 18:59 Intake Total 240 180 Output Total 500 2350 350 Balance -500 -2109 -170 Weight 141.1 kg Intake: Oral 240 180 Output: Urine 500 2350 350 Other: Voiding Method Urinal Urinal Urinal - Exam GENERAL EXAM: Alert, pleasant, obese male comfortable in no apparent distress. HEAD: Normocephalic/atraumatic. EYES: Normal reaction of pupils, equal size. Conjunctiva pink, sclera white. NOSE: Clear with pink turbinates. THROAT: No erythema or exudates. NECK: No masses, no JVD, no thyroid enlargement, no adenopathy. CHEST: No chest wall deformity. Symmetrical expansion. LUNGS: Equal air entry with no crackles, wheeze, rhonchi or dullness. CVS: Regular rate and rhythm, normal S1 and S2, no gallops, no murmurs, no rubs ABDOMEN: Soft, nontender. No hepatosplenomegaly, normal bowel sounds, no guarding or rigidity. EXTREMITIES: No clubbing, no edema, no cyanosis, 2+ pulses and upper and lower extremities. MUSCULOSKELETAL: Muscle strength and tone normal. SPINE: No scoliosis or deformity SKIN: No rashes CENTRAL NERVOUS SYSTEM: Alert and oriented -3. No focal deficits, tone is normal in all 4 extremities. PSYCHIATRIC: Alert and oriented -3. Appropriate affect. Intact judgment and insight. - Labs CBC & Chem 7: 08/03/18 06:42 08/03/18 06:42 Labs: Abnormal Lab Results - Last 24 Hours (Table) 08/02/18 08/02/18 08/02/18 Range/Units 16:56 20:01 20:47 RBC (4.30-5.90) m/uL Hgb (13.0-17.5) gm/dL Hct (39.0-53.0) % MCV (80.0-100.0) fL Plt Count (150-450) k/uL Lymphocytes # (1.0-4.8) k/uL Sodium 129 L (137-145) mmol/L Chloride 92 L (98-107) mmol/L BUN 23 H (9-20) mg/dL Glucose 141 H (74-99) mg/dL POC Glucose (mg/dL) 126 H 139 H (75-99) mg/dL Calcium 8.3 L (8.4-10.2) mg/dL 08/03/18 08/03/18 08/03/18 Range/Units 06:10 06:42 06:42 RBC 3.62 L (4.30-5.90) m/uL Hgb 12.0 L (13.0-17.5) gm/dL Hct 37.5 L (39.0-53.0) % MCV 103.6 H (80.0-100.0) fL Plt Count 145 L (150-450) k/uL Lymphocytes # 0.8 L (1.0-4.8) k/uL Sodium 131 L (137-145) mmol/L Chloride 93 L (98-107) mmol/L BUN 24 H (9-20) mg/dL Glucose (74-99) mg/dL POC Glucose (mg/dL) 147 H (75-99) mg/dL Calcium 8.1 L (8.4-10.2) mg/dL Assessment and Plan Plan: Assessment: #1. Acute on chronic hypercapnic respiratory failure secondary to acute exacerbation of chronic obstructive pulmonary disease #2. Chronic hypercapnic restaurant failure, with cor pulmonale #3. Right lower leg swelling, and pain to of fall a week ago, has Doppler was negative for DVT, X-rays were negative for fractures #4. Nicotine dependence, currently in remission, patient quit smoking 20 years ago, prior to that smoked a pack a day for 39 years #5. Atrial fibrillation on the Xarelto #6. Diabetes mellitus #7. Obesity Plan: Patient has been diuresed, and there has been improvement in the appearance of bilateral lower extremity edema, no acute events overnight, patient did wear his BiPAP last night, he will an outpatient sleep study for evaluation of his chronic hypercapnic restaurant failure related to COPD, and possibly obstructive sleep apnea. Otherwise he is doing well, no shortness of breath, vital signs are stable. He is on room air. Patient can be discharged home from pulmonary perspective, follow-up is recommendedat the sleep center Dr. Chan. I performed a history & physical examination of the patient and discussed their management with my nurse practitioner, Ciara Colby. I reviewed the nurse practitioner's note and agree with the documented findings and plan of care. Lung sounds are dinished. The findings and the impression was discussed with the patient. I attest to the documentation by the nurse practitioner. Time with Patient: Less than 30
== END 2018-08-03 15:23 | disposition home or self-care (01) ==
LOC: EC 11:27 → 6SEL 20:05
PROVIDERS: ADMIT Family Medicine; ATTEND Family Medicine
DX: S93.401A Sprain of unspecified ligament of right ankle, initial encounter (principal); I48.2 Chronic atrial fibrillation; Z79.01 Long term (current) use of anticoagulants; J96.22 Acute and chronic respiratory failure with hypercapnia; R06.83 Snoring; J44.9 Chronic obstructive pulmonary disease, unspecified; E87.2 Acidosis; Z91.81 History of falling; E87.5 Hyperkalemia; E11.65 Type 2 diabetes mellitus with hyperglycemia; E78.5 Hyperlipidemia, unspecified; E03.9 Hypothyroidism, unspecified; E66.01 Morbid (severe) obesity due to excess calories; Z68.42 Body mass index [BMI] 45.0-49.9, adult; M79.661 Pain in right lower leg; R60.0 Localized edema; I11.9 Hypertensive heart disease without heart failure; M54.5 Low back pain; I87.8 Other specified disorders of veins; F41.9 Anxiety disorder, unspecified; M17.11 Unilateral primary osteoarthritis, right knee; I27.81 Cor pulmonale (chronic); Z79.891 Long term (current) use of opiate analgesic; Z87.891 Personal history of nicotine dependence; Z87.01 Personal history of pneumonia (recurrent); Z79.51 Long term (current) use of inhaled steroids; Z79.4 Long term (current) use of insulin; Z79.899 Other long term (current) drug therapy; Z79.890 Hormone replacement therapy; Z90.49 Acquired absence of other specified parts of digestive tract
CPT/HCPCS: 99285; 96376 ×2; 96374; 36415; 94660 ×3; 94640 ×5; 94760; 93005; 83880; 80053; 80048 ×2; 82803; 83735; 84132; 84484; 85025 ×3; 80306; 73590; 73562; 73610; 71046; 93971; G0378 ×3; C8929; G0480; J1940 ×2; J7512 ×3; Q9950; 80320; 93306

== ENCOUNTER 2018-08-12 12:27 | Inpatient (IN) | payer MEDICARE, OTHER ==
[2018-08-12 13:48] LABS: ALT 35 U/L (21-72); AST 36 U/L (17-59); Albumin 3.5 g/dL (3.5-5.0); Alkaline Phosphatase 78 U/L (38-126); Anion Gap 7 mmol/L; Basophils % (A) 0 %; Blood Urea Nitrogen 20 mg/dL (9-20); Calcium 8.6 mg/dL (8.4-10.2); Carbon Dioxide 28 mmol/L (22-30); Chloride 101 mmol/L (98-107); Eosinophils # (A) 0.2 k/uL (0-0.7); Eosinophils % (A) 2 %; Glucose 83 mg/dL (74-99); HCT 38.6 % (39.0-53.0); HGB 12.4 gm/dL (13.0-17.5); Lymphocytes # (A) 0.7 k/uL (1.0-4.8); Lymphocytes % (A) 10 %; MCH 33.2 pg (25.0-35.0); MCHC 32.2 g/dL (31.0-37.0); Macrocytosis Slight; Mean Platelet Volume 6.5; Monocytes # (A) 0.5 k/uL (0-1.0); Monocytes % (A) 8 %; Neutrophils # (A) 4.9 k/uL (1.3-7.7); Neutrophils % (A) 76 %; Platelet Count 262 k/uL (150-450); Potassium 5.1 mmol/L (3.5-5.1); RBC 3.75 m/uL (4.30-5.90); Sodium 136 mmol/L (137-145); Total Bilirubin 0.5 mg/dL (0.2-1.3); Total Protein 6.5 g/dL (6.3-8.2); WBC 6.4 k/uL (3.8-10.6)
--- NOTE | 2018-08-12 14:41 | US ---
EXAMINATION TYPE: US venous doppler duplex LE DATE OF EXAM: 08/12/2018 2:17 PM COMPARISON: US RT LEV CLINICAL HISTORY: Pain. Right foot skin redness and foot swelling x 4 weeks with multiple patient fal ls per SIDE PERFORMED: Bilateral TECHNIQUE: The lower extremity deep venous system is examined utilizing real time linear array sonog alan with graded compression, doppler sonography and color-flow sonography. VESSELS IMAGED: Common Femoral Vein Deep Femoral Vein Greater Saphenous Vein * Femoral Vein Popliteal Vein Small Saphenous Vein * Proximal Calf Veins (* superficial vessels) Grayscale, color doppler, spectral doppler imaging performed of the deep veins of the lower extremiti es. There is normal flow, compressibility, vascular waveforms. Right Leg: Negative for DVT. Edema channels are noted medial right ankle. Left Leg: Negative for DVT IMPRESSION: Subcutaneous edema within the right lower extremity. No sonographic evidence of deep emmett ous thrombosis within either lower extremity.
--- NOTE | 2018-08-12 14:43 | XR ---
EXAMINATION TYPE: XR chest 2V DATE OF EXAM: 08/12/2018 COMPARISON: 08/01/2018 HISTORY: Swelling and COPD. TECHNIQUE: Frontal and lateral views of the chest are obtained. FINDINGS: The exam is suboptimal secondary to patient body habitus. There are low lung volumes and ob scuration of the lower lungs given copious overlying soft tissues. Heart is enlarged. No discrete pul monary vascular congestion. There is no gross evidence of focal air space opacity, pleural effusion, or pneumothorax seen. The cardiac silhouette size is within normal limits. The osseous structures are intact. IMPRESSION: Suboptimal exam given patient body habitus and hypoventilatory lungs, however no acute c ardiopulmonary pathology is identified. No change from the prior.
[2018-08-12] MEDS ORDERED: MORPHINE SULFATE 4 MG/ML SYRINGE IVP PRN (14:49)
[2018-08-12] MEDS ORDERED: VANCOMYCIN 2,000 MG in SODIUM CHLORIDE 0.9% 500 ML 500 ML IVPB STA (14:52)
[2018-08-12] MEDS ORDERED: NALOXONE 0.4 MG/ML 1 ML VIAL IV PRN (15:30)
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
[2018-08-12] MEDS: RIVAROXABAN 20 MG TAB PO SCH (18:24)
[2018-08-12] MEDS: METOPROLOL TARTRATE 50 MG TAB PO SCH ×2 (18:24→20:01)
[2018-08-12] MEDS: SYMBICORT 160-4.5 MCG INHALER INHALATION SCH (18:43)
[2018-08-12] MEDS: IPRATROPIUM-ALBUTEROL 3 ML NEB INHALATION SCH (18:43)
[2018-08-12 19:50] LABS: Glucose,Whole Blood 136 mg/dL (75-99)
[2018-08-12] MEDS: HYDROcodone/APAP 10-325MG 1 EACH TAB PO PRN (20:01)
[2018-08-12] MEDS: ATORVASTATIN 20 MG TAB PO SCH (20:01)
[2018-08-12] MEDS: INSULIN DETEMIR 100 UNIT/ML 10 ML VIAL SQ SCH (20:02)
[2018-08-12] MEDS: LATANOPROST 0.005% OPHTH DROPS 2.5 ML BTL BOTH EYES SCH (20:02)
[2018-08-12] MEDS: INSULN ASP PRT/INSULIN ASPART 100 UNIT/ML 10 ML VIAL SQ SCH (20:02)
[2018-08-13] MEDS: HYDROcodone/APAP 10-325MG 1 EACH TAB PO PRN ×4 (03:40→23:43)
[2018-08-13] MEDS: LEVOTHYROXINE 50 MCG TAB PO SCH (05:21)
[2018-08-13 07:27] LABS: Glucose,Whole Blood 56 mg/dL (75-99)
[2018-08-13 08:09] LABS: Glucose,Whole Blood 98 mg/dL (75-99)
[2018-08-13] MEDS: SYMBICORT 160-4.5 MCG INHALER INHALATION SCH ×2 (09:10→19:36)
[2018-08-13] MEDS: IPRATROPIUM-ALBUTEROL 3 ML NEB INHALATION SCH ×2 (09:10→19:36)
[2018-08-13] MEDS: METOPROLOL TARTRATE 50 MG TAB PO SCH ×3 (09:24→20:58)
[2018-08-13] MEDS: INSULN ASP PRT/INSULIN ASPART 100 UNIT/ML 10 ML VIAL SQ SCH ×2 (09:25→17:48)
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
[2018-08-13 14:30] LABS: Hemoglobin A1C 5.7 % (4.0-6.0)
[2018-08-13 17:19] LABS: Glucose,Whole Blood 83 mg/dL (75-99)
[2018-08-13] MEDS: RIVAROXABAN 20 MG TAB PO SCH (17:48)
[2018-08-13] MEDS ORDERED: VANCOMYCIN IV PER PHARMACY 1 EACH MISC MISCELLANE PRN (18:03)
[2018-08-13] MEDS ORDERED: VANCOMYCIN 2,250 MG in SODIUM CHLORIDE 0.9% 500 ML 500 ML IVPB ONE (19:00)
[2018-08-13 19:30] LABS: Anion Gap 7 mmol/L; Blood Urea Nitrogen 22 mg/dL (9-20); Calcium 8.5 mg/dL (8.4-10.2); Carbon Dioxide 25 mmol/L (22-30); Chloride 103 mmol/L (98-107); Glucose 90 mg/dL (74-99); Potassium 5.4 mmol/L (3.5-5.1); Sodium 135 mmol/L (137-145)
[2018-08-13 20:26] LABS: Glucose,Whole Blood 65 mg/dL (75-99)
[2018-08-13 20:54] LABS: Glucose,Whole Blood 72 mg/dL (75-99)
[2018-08-13] MEDS: INSULIN DETEMIR 100 UNIT/ML 10 ML VIAL SQ SCH (20:57)
[2018-08-13] MEDS: LATANOPROST 0.005% OPHTH DROPS 2.5 ML BTL BOTH EYES SCH (20:58)
[2018-08-13] MEDS: ATORVASTATIN 20 MG TAB PO SCH (20:58)
[2018-08-13] MEDS: busPIRone HCl 5 MG TAB PO SCH (20:58)
[2018-08-14] MEDS: LEVOTHYROXINE 50 MCG TAB PO SCH (05:57)
[2018-08-14 07:23] LABS: Glucose,Whole Blood 57 mg/dL (75-99)
[2018-08-14] MEDS: INSULN ASP PRT/INSULIN ASPART 100 UNIT/ML 10 ML VIAL SQ SCH (07:26)
[2018-08-14] MEDS: METOPROLOL TARTRATE 50 MG TAB PO SCH (07:54)
[2018-08-14] MEDS: busPIRone HCl 5 MG TAB PO SCH (07:54)
[2018-08-14] MEDS: HYDROcodone/APAP 10-325MG 1 EACH TAB PO PRN (07:55)
[2018-08-14 08:11] VITALS: BP 151/75; RESP 18; TEMP 96.8
[2018-08-14 08:11] LABS: Glucose,Whole Blood 90 mg/dL (75-99)
[2018-08-14] MEDS: SYMBICORT 160-4.5 MCG INHALER INHALATION SCH (08:18)
[2018-08-14] MEDS: IPRATROPIUM-ALBUTEROL 3 ML NEB INHALATION SCH (08:18)
[2018-08-14 08:35] VITALS: PULSE 88
--- NOTE | 2018-08-14 11:01 | P.DS ---
Providers Date of admission: 08/12/18 15:30 Expected date of discharge: 08/14/18 Attending physician: Sj Streeter Primary care physician: [facility] Hospital Course: Mr. Mathur is a 73-year-old male well-known to the practice, who presented to the emergency room with cellulitis the left lower extreme as well as some extensive ecchymosis from a fall that sustains in the shower approximately 2 weeks ago. Patient has significant erythema with edema the right lower extreme. Some pain to the right lower extreme. Patient has type 2 diabetes COPD hypertension as well as a history of IV drug abuse in the past. Above per Dr. Streeter 08/14/2018 Patient seen and examined at the bedside. Patient's vitals have been stable. He is afebrile. White count is within normal limits. Patient states his pain is tolerable to his right lower extremity. Patient reports he has been elevating his leg while in bed and also at home. Blood cultures are negative at the 24 hour devan. No wound cultures taken during hospitalization. There is no drainage of his right lower extremity. There is ecchymosis in the healing stages. The patient was deemed stable for discharge home today per Dr. Streeter. He was prescribed Bactrim DS for 7 days. The patient reports he is going to run out of his [place] this weekend. Dr. Streeter states he will send a prescription for his [place] from the office to his pharmacy. DISCHARGE DIAGNOSIS: Cellulitis of right lower extremity, improved History of recent right ankle sprain, July 2018 Diabetes mellitus, type II COPD, no evidence of acute exacerbation Chronic A. fib, maintained on long-term anticoagulation with Xarelto Hypertension Hyperlipidemia Morbid obesity: BMI 45.2 Nurse practitioner note has been reviewed by physician. Signing provider agrees with the documented findings, assessment, and plan of care. Plan - Discharge Summary Discharge Rx Participant: Yes New Discharge Prescriptions: New Sulfamethox-Tmp 800-160Mg [Bactrim DS 800-160 mg] 1 tab PO Q12HR #14 tab Continue HYDROcodone/APAP 10-325MG [[place] 10-325] 1 tab PO Q6H PRN PRN Reason: Pain Simvastatin [Zocor] 40 mg PO HS Rivaroxaban [Xarelto] 20 mg PO AC-SUPPER #30 tab Budesonide-Formot 160-4.5 Mcg [Symbicort 160-4.5 Mcg Inhaler] 2 puff INHALATION RT-BID Latanoprost [Xalatan 0.005%] 1 drop BOTH EYES HS Levothyroxine Sodium [Synthroid] 50 mcg PO DAILY Ipratropium-Albuterol Nebulize [Duoneb 0.5 mg-3 mg/3 ml Soln] 3 ml INHALATION RT-BID Insuln Asp Prt/Insulin Aspart [NovoLOG MIX 70-30 VIAL] 45 unit SQ HS Insuln Asp Prt/Insulin Aspart [NovoLOG MIX 70-30 VIAL] 35 unit SQ QAM Insulin Glargine,Hum.rec.anlog [Basaglar Kwikpen U-100] 20 unit SQ HS Ipratropium-Albuterol Nebulize [Duoneb 0.5 mg-3 mg/3 ml Soln] 3 ml INHALATION RT-Q4H PRN PRN Reason: sob Metoprolol Tartrate [Lopressor] 50 mg PO TID #90 tab busPIRone HCL [Buspar] 7.5 mg PO BID Olmesartan Medoxomil 40 mg PO DAILY Discontinued Ibuprofen [Motrin] 800 mg PO Q8H PRN PRN Reason: pain Discharge Medication List HYDROcodone/APAP 10-325MG [[place] 10-325] 1 tab PO Q6H PRN 01/23/15 [History] Simvastatin [Zocor] 40 mg PO HS 01/23/15 [History] Rivaroxaban [Xarelto] 20 mg PO AC-SUPPER #30 tab 01/26/15 [Rx] Budesonide-Formot 160-4.5 Mcg [Symbicort 160-4.5 Mcg Inhaler] 2 puff INHALATION RT-BID 04/21/17 [History] Latanoprost [Xalatan 0.005%] 1 drop BOTH EYES HS 04/21/17 [History] Insulin Glargine,Hum.rec.anlog [Basaglar Kwikpen U-100] 20 unit SQ HS 12/07/17 [ History] Insuln Asp Prt/Insulin Aspart [NovoLOG MIX 70-30 VIAL] 35 unit SQ QAM 12/07/17 [ History] Insuln Asp Prt/Insulin Aspart [NovoLOG MIX 70-30 VIAL] 45 unit SQ HS 12/07/17 [ History] Ipratropium-Albuterol Nebulize [Duoneb 0.5 mg-3 mg/3 ml Soln] 3 ml INHALATION RT -BID 12/07/17 [History] Ipratropium-Albuterol Nebulize [Duoneb 0.5 mg-3 mg/3 ml Soln] 3 ml INHALATION RT -Q4H PRN 12/07/17 [History] Levothyroxine Sodium [Synthroid] 50 mcg PO DAILY 12/07/17 [History] Metoprolol Tartrate [Lopressor] 50 mg PO TID #90 tab 12/09/17 [Rx] busPIRone HCL [Buspar] 7.5 mg PO BID 08/01/18 [History] Olmesartan Medoxomil 40 mg PO DAILY 08/02/18 [History] Sulfamethox-Tmp 800-160Mg [Bactrim DS 800-160 mg] 1 tab PO Q12HR #14 tab [Rx] Follow up Appointment(s)/Referral(s): Jeison Fuentes MD [Primary Care Provider] - 1-2 days Activity/Diet/Wound Care/Special Instructions: Dr. Streeter's office will call in your [facility] script to your pharmacy Discharge Disposition: HOME SELF-CARE
[2018-08-14] MEDS ORDERED: VANCOMYCIN 2,000 MG in SODIUM CHLORIDE 0.9% 500 ML 500 ML IVPB SCH (12:00)
== END 2018-08-14 13:39 | disposition home or self-care (01) | DRG 603 ==
LOC: EC 12:27 → 3SUR 15:30
PROVIDERS: ADMIT Family Medicine; ATTEND Family Medicine
DX: L03.115 Cellulitis of right lower limb (principal); Z68.42 Body mass index [BMI] 45.0-49.9, adult; D53.9 Nutritional anemia, unspecified; E11.9 Type 2 diabetes mellitus without complications; E66.01 Morbid (severe) obesity due to excess calories; E78.5 Hyperlipidemia, unspecified; I10 Essential (primary) hypertension; I48.2 Chronic atrial fibrillation; J44.9 Chronic obstructive pulmonary disease, unspecified; S80.11XA Contusion of right lower leg, initial encounter; Z87.891 Personal history of nicotine dependence; Z79.01 Long term (current) use of anticoagulants; Z79.4 Long term (current) use of insulin; Z79.51 Long term (current) use of inhaled steroids; Z79.890 Hormone replacement therapy; Z79.899 Other long term (current) drug therapy; Z87.01 Personal history of pneumonia (recurrent); Z90.49 Acquired absence of other specified parts of digestive tract; Z83.3 Family history of diabetes mellitus; Z91.81 History of falling
CPT/HCPCS: 36415; 71046; 80048; 80053; 83036; 83880; 85025; 87040; 93970; 94640; 96365; 96375; 99285